=== PATIENT | female | born 1960 | race Caucasian/White ===

== ENCOUNTER 2017-07-31 15:39 | Inpatient (IN) | payer MEDICARE, OTHER ==
[2017-07-31] MEDS ORDERED: traMADol 50 MG TAB PO PRN (16:07)
[2017-07-31] MEDS ORDERED: ALPRAZolam 0.5 MG TAB PO PRN (16:07)
[2017-07-31] MEDS: IPRATROPIUM-ALBUTEROL 3 ML NEB INHALATION SCH ×2 (16:36→21:11)
[2017-07-31 16:58] LABS: Basophils # (A) 0.1 k/uL (0-0.2); Basophils % (A) 1 %; Eosinophils # (A) 0.1 k/uL (0-0.7); Eosinophils % (A) 1 %; HCT 44.8 % (34.0-46.0); Hypochromasia Slight; Lymphocytes # (A) 4.1 k/uL (1.0-4.8); Lymphocytes % (A) 33 %; MCH 29.8 pg (25.0-35.0); MCHC 31.2 g/dL (31.0-37.0); MCV 95.6 fL (80.0-100.0); Mean Platelet Volume 6.7; Monocytes # (A) 0.7 k/uL (0-1.0); Monocytes % (A) 5 %; Neutrophils # (A) 7.4 k/uL (1.3-7.7); Neutrophils % (A) 60 %; Platelet Count 395 k/uL (150-450); RBC 4.69 m/uL (3.80-5.40); RDW 13.8 % (11.5-15.5); WBC 12.4 k/uL (3.8-10.6)
[2017-07-31 17:10] LABS: ALT 40 U/L (9-52); AST 34 U/L (14-36); Albumin 4.4 g/dL (3.5-5.0); Alkaline Phosphatase 54 U/L (38-126); Anion Gap 14 mmol/L; Blood Urea Nitrogen 19 mg/dL (7-17); Calcium 9.6 mg/dL (8.4-10.2); Carbon Dioxide 29 mmol/L (22-30); Chloride 98 mmol/L (98-107); Glucose 138 mg/dL (74-99); Potassium 4.5 mmol/L (3.5-5.1); Sodium 141 mmol/L (137-145); Theophylline <1.0 ug/mL; Total Bilirubin 0.5 mg/dL (0.2-1.3); Total Protein 7.4 g/dL (6.3-8.2)
[2017-07-31] MEDS: PANTOPRAZOLE 40 MG TABLET PO SCH (17:19)
[2017-07-31] MEDS: cefTRIAXone IN SWFI 1,000 MG/10 ML SYRINGE IVP SCH (17:19)
[2017-07-31] MEDS: FUROSEMIDE 20 MG TAB PO SCH (17:19)
[2017-07-31] MEDS: ENOXAPARIN 40 MG/0.4 ML SYRINGE SQ SCH (17:20)
[2017-07-31] MEDS: AZITHROMYCIN 500 MG TAB PO SCH (17:20)
[2017-07-31] MEDS: methylPREDNISolone SOD SUCCI 125 MG/2 ML VIAL IV SCH ×2 (17:20→23:05)
[2017-07-31 17:31] LABS: Glucose,Whole Blood 114 mg/dL (75-99)
[2017-07-31] MEDS: INSULIN ASPART 100 UNIT/ML 1 ML 10 ML VIAL SQ SCH ×2 (17:34→21:25)
[2017-07-31] MEDS: SODIUM CHLORIDE 0.9% 1,000 ML IV SCH (17:42)
[2017-07-31 20:53] LABS: Glucose,Whole Blood 193 mg/dL (75-99)
[2017-07-31] MEDS: SYMBICORT 160-4.5 MCG INHALER INHALATION SCH (21:11)
[2017-07-31] MEDS: CYCLOBENZAPRINE 10 MG TAB PO SCH (21:25)
[2017-07-31] MEDS: THEOPHYLLINE 24 HOUR 300 MG CAP.ER.24H PO SCH (21:25)
[2017-08-01] MEDS: IPRATROPIUM-ALBUTEROL 3 ML NEB INHALATION PRN ×2 (00:46→04:35)
[2017-08-01 03:40] LABS: Hemoglobin A1C 6.5 % (4.0-6.0)
[2017-08-01] MEDS: methylPREDNISolone SOD SUCCI 125 MG/2 ML VIAL IV SCH ×3 (05:55→18:19)
[2017-08-01 07:38] LABS: Glucose,Whole Blood 205 mg/dL (75-99)
[2017-08-01] MEDS: SYMBICORT 160-4.5 MCG INHALER INHALATION SCH ×2 (07:45→19:50)
[2017-08-01] MEDS: IPRATROPIUM-ALBUTEROL 3 ML NEB INHALATION SCH ×4 (07:45→19:50)
[2017-08-01] MEDS: INSULIN ASPART 100 UNIT/ML 1 ML 10 ML VIAL SQ SCH ×4 (08:10→21:57)
[2017-08-01] MEDS: GLIMEPIRIDE 4 MG TAB PO SCH (08:10)
[2017-08-01] MEDS: ENOXAPARIN 40 MG/0.4 ML SYRINGE SQ SCH (08:11)
[2017-08-01] MEDS: FUROSEMIDE 20 MG TAB PO SCH (08:11)
[2017-08-01] MEDS: THEOPHYLLINE 24 HOUR 300 MG CAP.ER.24H PO SCH ×2 (08:11→21:51)
[2017-08-01] MEDS: PANTOPRAZOLE 40 MG TABLET PO SCH (08:11)
[2017-08-01] MEDS: SPIRONOLACTONE 25 MG TAB PO SCH (08:11)
[2017-08-01] MEDS: LISINOPRIL-HCTZ 20-25 MG 1 EACH TAB PO SCH (08:11)
[2017-08-01] MEDS: CYCLOBENZAPRINE 10 MG TAB PO SCH ×3 (08:12→21:51)
[2017-08-01] MEDS: PIOGLITAZONE 30 MG TAB PO SCH (08:28)
--- NOTE | 2017-08-01 11:20 | P.CNPUL ---
History of Present Illness Consult date: 08/01/17 Reason for consult: dyspnea, cough, COPD, hypoxemia Chief complaint: Shortness of breath History of present illness: Consult dated 08/01/2017 This is a 57-year-old female well-known to me. I typically see her up with a [place] clinic. She sees a nurse practitioner slashed PA up in that area by the name of Radha Shea. She apparently is been seeing her primary care provider here over the last week or so. Treated with some small doses of steroids antibiotics and a Depo-Medrol shot. Unfortunately, she did not improve and so she saw my partner yesterday in the office who admitted her with a diagnosis of possible pneumonia. I reviewed the chest x-ray. Chest x-ray my opinion doesn't really showed pneumonia but does show maybe some platelike atelectasis at the right base. Anyway, it doesn't make much of a difference. She does have a clearcut COPD exacerbation and probably has an infection. She is coughing up yellow phlegm. No fever no chills. Very short of breath. Some wheezing. Anyway, we treat these things very similarly. She'll be on steroids antibiotics and breathing treatments. She is feeling a bit better today than yesterday. She states that one of the reasons why she did not improve when she saw her primary critical care nurse, was because she only got prednisone 20 mg a day. Typically she is a 40-50 mg a day. Jie was sent down for a lung transplant evaluation to [facility]. I'm not sure whether that. In addition, she did stop smoking. She is oxygen dependent. She is steroid dependent as well. Review of Systems A 12 point review of systems is positive for shortness of breath chest congestion coughing wheezing. She is coughing up yellow-green phlegm. Not coughing up any blood. No fever or chills. The rest of the review of systems is unremarkable. Past Medical History Past Medical History: Asthma, Chest Pain / Angina, Heart Failure, COPD, Diabetes Mellitus, GERD/Reflux, Hypertension, Osteoarthritis (OA), Pulmonary Embolus (PE), Renal Disease, Sleep Apnea/CPAP/BIPAP Additional Past Medical History / Comment(s): Advanced oxygen-dependent COPD , severe obstructive sleep apnea maintained on BiPAP at a pressure of 22/80 cm of water, chronic hypoxic respiratory failure maintained on oxygen 2 liters nasal cannula(4 at hs), NIDDM type II, DJD, low back pain which radiates down L hip and L leg at times, viral myocarditis, hypertension, morbid obesity with cushingoid features, generalized anxiety disorder, ocd. History of Any Multi-Drug Resistant Organisms: None Reported Past Surgical History: Adenoidectomy, Cholecystectomy, Heart Catheterization, Orthopedic Surgery, Tonsillectomy, Tubal Ligation Additional Past Surgical History / Comment(s): L hand 3rd finger tendon repair, D&C, carpal tunnel left hand, Past Anesthesia/Blood Transfusion Reactions: No Reported Reaction Smoking Status: Former smoker - Past Family History Father Family Medical History: No Reported History Additional Family Medical History / Comment(s): Father was an alcoholic. He at the age of 58yrs. Mother Family Medical History: No Reported History Additional Family Medical History / Comment(s): Mother of alcoholism at the age of 63 yrs. Medications and Allergies Home Medications Medication Instructions Recorded Confirmed Type Lisinopril-Hctz 20-25 mg 1 tab PO DAILY 09/09/14 07/31/17 History [Zestoretic 20-25] Spironolactone 50 mg PO DAILY 09/09/14 07/31/17 History ALPRAZolam [Xanax] 0.5 mg PO Q6H PRN 09/23/14 07/31/17 History Metoprolol Tartrate [Lopressor] 25 mg PO BID 10/31/14 07/31/17 History metFORMIN HCL [Glucophage] 500 mg PO BID-W/MEALS 10/31/14 07/31/17 History Furosemide [Lasix] 40 mg PO BID 03/30/15 07/31/17 History Fluticasone/Salmeterol [Advair Hfa 2 puff INHALATION RT-BID 02/01/16 07/31/17 History 230-21 Mcg Inhaler] Dexlansoprazole [Dexilant] 60 mg PO DAILY 07/31/17 07/31/17 History Glimepiride [Amaryl] 4 mg PO AC-BRKFST 07/31/17 07/31/17 History Ipratropium-Albuterol Nebulize 3 ml INHALATION RT-Q4H PRN 07/31/17 07/31/17 History [Duoneb 0.5 mg-3 mg/3 ml Soln] Pioglitazone HCl [Actos] 30 mg PO DAILY 07/31/17 07/31/17 History Potassium Chloride [Klor-Con 20] 20 meq PO DAILY 07/31/17 07/31/17 History predniSONE 10 mg PO DAILY 07/31/17 07/31/17 History Allergies Allergy/AdvReac Type Severity Reaction Status Date / Time budesonide [From Pulmicort] AdvReac Wheezing Verified 07/31/17 16:15 Physical Exam Osteopathic Statement: *. No significant issues noted on an osteopathic structural exam other than those noted in the History and Physical/Consult. Vitals: Vital Signs Temp Pulse Pulse Resp BP BP Pulse Ox 08/01/17 08:01 100 08/01/17 07:50 96 92 L 08/01/17 07:00 97.7 F 94 18 125/75 95 08/01/17 04:46 104 H 08/01/17 04:35 108 H 08/01/17 00:59 104 H 08/01/17 00:46 108 H 07/31/17 23:00 97.7 F 98 18 133/73 94 L 07/31/17 21:21 111 H 07/31/17 21:11 110 H 18 95 07/31/17 16:46 113 H 07/31/17 16:36 113 H 20 07/31/17 15:55 97.1 F L 117 H 18 122/72 91 L Intake and Output 07/31/17 08/01/17 08/01/17 22:59 06:59 14:59 Other: # Voids 2 2 Weight 91.3 kg 94 kg No acute distress, oriented 3. Nasal O2 in place. She does have a bit of a reis facies insistent with chronic steroid use. HEENT examination is grossly unremarkable. Mucous membranes are moist. No oral lesions. Neck supple. Full range of motion. No adenopathy thyromegaly or neck vein distention. Cardiovascular examination reveals regular rhythm rate. S1-S2 normal. No S3 or S4. No discernible murmur noted. Heart sounds are distant because of body habitus Lungs reveal severely diminished breath sounds. This some expiratory wheezes and rhonchi. There is prolongation on forced maneuver. Adventitious lung sounds are more prominent on forced maneuver. Abdomen soft bowel sounds are heard. No masses or tenderness. Extremities are intact. No cyanosis clubbing or edema. Skin is without rash or lesion. Neurologic examination is brief but nonfocal. Results - Laboratory Findings CBC and BMP: 07/31/17 16:36 07/31/17 16:36 Abnormal lab findings: Abnormal Labs 07/31/17 07/31/17 07/31/17 16:36 16:36 16:36 WBC 12.4 H BUN 19 H Glucose 138 H POC Glucose (mg/dL) Hemoglobin A1c 6.5 H 07/31/17 07/31/17 08/01/17 17:28 20:51 07:32 WBC BUN Glucose POC Glucose (mg/dL) 114 H 193 H 205 H Hemoglobin A1c - Diagnostic Findings Chest x-ray: image reviewed (Chest x-ray labs and medications are all reviewed. Orders are placed by my partner.) Assessment and Plan Assessment: Assessment COPD exacerbation complicated by purulent tracheobronchitis. There is a band of linear atelectasis at the right lung base which may represent an early infiltrate. History of heavy tobacco abuse Diabetes mellitus Hypertension Obesity Cor pulmonale with pulmonary hypertension Multiple COPD exacerbations Oxygen and steroid dependent COPD Plan: Plan dated 08/01/2017 The patient seemed be doing a bit better. Started on appropriate medications by my partner yesterday. She is on breathing treatments steroids and good antibiotics. The patient is feeling much better. Feels like her breathing is really loosened up quite a bit. I told her that she should probably stay in the hospital 1 more day at least. Anyway, the hospitalist we'll make a decision about discharge with my recommendation. I'll make sure that I see her in follow-up. I was to see her in the [place] on Monday but because of the change in the schedule, she'll be rescheduled to see me in the clinic. No additional recommendations are made. We'll continue to follow. Prognosis is guarded. Hopefully she'll continue with the evaluation for lung transplantation at [facility]. Time with Patient: Greater than 30
[2017-08-01 11:45] LABS: Basophils % (A) 0 %; Eosinophils % (A) 0 %; HCT 43.3 % (34.0-46.0); HGB 13.4 gm/dL (11.4-16.0); Hypochromasia Slight; Lymphocytes # (A) 1.6 k/uL (1.0-4.8); Lymphocytes % (A) 13 %; MCH 29.4 pg (25.0-35.0); MCHC 30.9 g/dL (31.0-37.0); MCV 95.1 fL (80.0-100.0); Mean Platelet Volume 6.4; Monocytes # (A) 0.3 k/uL (0-1.0); Monocytes % (A) 2 %; Neutrophils # (A) 10.8 k/uL (1.3-7.7); Neutrophils % (A) 84 %; Platelet Count 393 k/uL (150-450); RBC 4.55 m/uL (3.80-5.40); RDW 13.6 % (11.5-15.5); WBC 12.8 k/uL (3.8-10.6)
[2017-08-01 12:04] LABS: Anion Gap 15 mmol/L; Blood Urea Nitrogen 17 mg/dL (7-17); Calcium 10.2 mg/dL (8.4-10.2); Carbon Dioxide 24 mmol/L (22-30); Chloride 98 mmol/L (98-107); Glucose 193 mg/dL (74-99); Potassium 4.2 mmol/L (3.5-5.1); Sodium 137 mmol/L (137-145)
[2017-08-01 12:10] LABS: Glucose,Whole Blood 159 mg/dL (75-99)
--- NOTE | 2017-08-01 12:38 | P.HPIM ---
History of Present Illness H&P Date: 08/01/17 Chief Complaint: Cough with worsening shortness of breath This is a 57-year-old female with a known past medical history of COPD, chronic respiratory failure home O2 dependent, congestive heart failure, GERD, hypertension, diabetes and generalized anxiety disorder. Patient has been dealing with a productive cough and shortness of breath 1-1/2 weeks. She reports that she had initially been to see her PCP and was started on prednisone and an antibiotic and given a dose of IV steroids in the office. Patient's symptoms did not improve and she went to see electronic systems security assessment yesterday. Patient was evaluated by Dr. Gardner and he recommended that she be admitted to the hospital. Patient was therefore directly admitted and placed under Dr. Martinez surface. She's been started on IV steroids and on IV antibiotics for possible pneumonia and COPD exacerbation. White count on admission 12.4. She has been tachycardic with a heart rate in the low 100s. Chest x-ray shows chronic emphysematous change and mild cardiomegaly was stable to right basilar linear atelectasis. Patient denies any fever chills or sweats. Denies any nausea or vomiting. Denies any bowel movement changes or urinary symptoms. Denies any chest pain Review of Systems Please refer to HPI otherwise unremarkable Past Medical History Past Medical History: Asthma, Chest Pain / Angina, Heart Failure, COPD, Diabetes Mellitus, GERD/Reflux, Hypertension, Osteoarthritis (OA), Pulmonary Embolus (PE), Renal Disease, Sleep Apnea/CPAP/BIPAP Additional Past Medical History / Comment(s): Advanced oxygen-dependent COPD , severe obstructive sleep apnea maintained on BiPAP at a pressure of 22/80 cm of water, chronic hypoxic respiratory failure maintained on oxygen 2 liters nasal cannula(4 at hs), NIDDM type II, DJD, low back pain which radiates down L hip and L leg at times, viral myocarditis, hypertension, morbid obesity with cushingoid features, generalized anxiety disorder, ocd. History of Any Multi-Drug Resistant Organisms: None Reported Past Surgical History: Adenoidectomy, Cholecystectomy, Heart Catheterization, Orthopedic Surgery, Tonsillectomy, Tubal Ligation Additional Past Surgical History / Comment(s): L hand 3rd finger tendon repair, D&C, carpal tunnel left hand, Past Anesthesia/Blood Transfusion Reactions: No Reported Reaction Smoking Status: Former smoker - Past Family History Father Family Medical History: No Reported History Additional Family Medical History / Comment(s): Father was an alcoholic. He at the age of 58yrs. Mother Family Medical History: No Reported History Additional Family Medical History / Comment(s): Mother of alcoholism at the age of 63 yrs. Medications and Allergies Home Medications Medication Instructions Recorded Confirmed Type Lisinopril-Hctz 20-25 mg 1 tab PO DAILY 09/09/14 07/31/17 History [Zestoretic 20-25] Spironolactone 50 mg PO DAILY 09/09/14 07/31/17 History ALPRAZolam [Xanax] 0.5 mg PO Q6H PRN 09/23/14 07/31/17 History Metoprolol Tartrate [Lopressor] 25 mg PO BID 10/31/14 07/31/17 History metFORMIN HCL [Glucophage] 500 mg PO BID-W/MEALS 10/31/14 07/31/17 History Furosemide [Lasix] 40 mg PO BID 03/30/15 07/31/17 History Fluticasone/Salmeterol [Advair Hfa 2 puff INHALATION RT-BID 02/01/16 07/31/17 History 230-21 Mcg Inhaler] Dexlansoprazole [Dexilant] 60 mg PO DAILY 07/31/17 07/31/17 History Glimepiride [Amaryl] 4 mg PO AC-BRKFST 07/31/17 07/31/17 History Ipratropium-Albuterol Nebulize 3 ml INHALATION RT-Q4H PRN 07/31/17 07/31/17 History [Duoneb 0.5 mg-3 mg/3 ml Soln] Pioglitazone HCl [Actos] 30 mg PO DAILY 07/31/17 07/31/17 History Potassium Chloride [Klor-Con 20] 20 meq PO DAILY 07/31/17 07/31/17 History predniSONE 10 mg PO DAILY 07/31/17 07/31/17 History Allergies Allergy/AdvReac Type Severity Reaction Status Date / Time budesonide [From Pulmicort] AdvReac Wheezing Verified 07/31/17 16:15 Physical Exam Vitals: Vital Signs Temp Pulse Pulse Resp BP BP Pulse Ox 08/01/17 11:43 102 H 08/01/17 11:28 102 H 08/01/17 08:01 100 08/01/17 07:50 96 92 L 08/01/17 07:00 97.7 F 94 18 125/75 95 08/01/17 04:46 104 H 08/01/17 04:35 108 H 08/01/17 00:59 104 H 08/01/17 00:46 108 H 07/31/17 23:00 97.7 F 98 18 133/73 94 L 07/31/17 21:21 111 H 07/31/17 21:11 110 H 18 95 07/31/17 16:46 113 H 07/31/17 16:36 113 H 20 07/31/17 15:55 97.1 F L 117 H 18 122/72 91 L Intake and Output 07/31/17 08/01/17 08/01/17 22:59 06:59 14:59 Other: # Voids 2 2 Weight 91.3 kg 94 kg Head normocephalic Neck supple Lungs tight with diffuse expiratory wheeze Heart regular rate and rhythm S1-S2, no rub or gallop Abdomen is soft nontender nondistended positive bowel sounds no hepatosplenomegaly Extremities no edema Neuro alert and orientated to 3 Results CBC & Chem 7: 08/01/17 11:19 08/01/17 11:19 Labs: Abnormal Lab Results - Last 24 Hours (Table) 07/31/17 07/31/17 07/31/17 Range/Units 16:36 16:36 16:36 WBC 12.4 H (3.8-10.6) k/uL MCHC (31.0-37.0) g/dL Neutrophils # (1.3-7.7) k/uL BUN 19 H (7-17) mg/dL Glucose 138 H (74-99) mg/dL POC Glucose (mg/dL) (75-99) mg/dL Hemoglobin A1c 6.5 H (4.0-6.0) % 07/31/17 07/31/17 08/01/17 Range/Units 17:28 20:51 07:32 WBC (3.8-10.6) k/uL MCHC (31.0-37.0) g/dL Neutrophils # (1.3-7.7) k/uL BUN (7-17) mg/dL Glucose (74-99) mg/dL POC Glucose (mg/dL) 114 H 193 H 205 H (75-99) mg/dL Hemoglobin A1c (4.0-6.0) % 08/01/17 08/01/17 08/01/17 Range/Units 11:19 11:19 12:08 WBC 12.8 H (3.8-10.6) k/uL MCHC 30.9 L (31.0-37.0) g/dL Neutrophils # 10.8 H (1.3-7.7) k/uL BUN (7-17) mg/dL Glucose 193 H (74-99) mg/dL POC Glucose (mg/dL) 159 H (75-99) mg/dL Hemoglobin A1c (4.0-6.0) % Thrombosis Risk Factor Assmnt - Choose All That Apply Any of the Below Risk Factors Present?: Yes Each Factor Represents 1 point: Abnormal pulmonary function (COPD), Age 41-60 years, Obesity (BMI >25), Serious lung disease incl. pneumonia (< 1month) Other Risk Factors: Yes Each Risk Factor Represents 3 Points: History of DVT/PE Other congenital or acquired thrombophilia - If yes, enter type in comment: No Thrombosis Risk Factor Assessment Total Risk Factor Score: 7 Thrombosis Risk Factor Assessment Level: High Risk Assessment and Plan Assessment: 1. Acute COPD exacerbation: Continue IV Solu-Medrol and bronchodilators. Seen by pulmonary service 2. Acute tracheobronchitis: failed outpatient treatment. No evidence of pneumonia on chest x-ray. Chest x-ray shows atelectasis right base. Started on Rocephin and azithromycin. Influenza screen negative 3. Diabetes mellitus type 2 : Continue Amaryl , Actos and sliding scale coverage 4. History of nicotine dependence 5. Generalized anxiety disorder: Continue Xanax 6. Essential hypertension: Continue Zestoretic 7. Chronic hypoxic respiratory failure. Home O2 dependent 8. Tachycardia likely related to her COPD. Heart rate is improving. However will check an EKG and place on telemetry for further monitoring 9. History of cor pulmonale and pulmonary hypertension DVT prophylaxis Lovenox and GI prophylaxis Protonix Time with Patient: Greater than 30 (Greater than 50% of the total time spent in counseling and coordination of care.I performed an examination of the patient and discussed their management with the physician Lead Warehouse Associate. I have reviewed the Physician Lead Warehouse Associate's notes and agree with the documented findings and plan of care)
[2017-08-01 13:22] VITALS: BMI 37.9
[2017-08-01] MEDS: cefTRIAXone IN SWFI 1,000 MG/10 ML SYRINGE IVP SCH (15:00)
[2017-08-01] MEDS: AZITHROMYCIN 500 MG TAB PO SCH (15:00)
[2017-08-01] MEDS: SODIUM CHLORIDE 0.9% 1,000 ML IV SCH (15:10)
[2017-08-01 17:25] LABS: Glucose,Whole Blood 229 mg/dL (75-99)
[2017-08-01 21:00] LABS: Glucose,Whole Blood 212 mg/dL (75-99)
[2017-08-02] MEDS: methylPREDNISolone SOD SUCCI 125 MG/2 ML VIAL IV SCH ×3 (00:44→13:03)
[2017-08-02 07:04] LABS: Glucose,Whole Blood 222 mg/dL (75-99)
[2017-08-02] MEDS: IPRATROPIUM-ALBUTEROL 3 ML NEB INHALATION SCH ×3 (07:37→15:36)
[2017-08-02] MEDS: SYMBICORT 160-4.5 MCG INHALER INHALATION SCH (07:37)
[2017-08-02 08:21] VITALS: BP 132/90; RESP 20; TEMP 96.9
[2017-08-02] MEDS: ENOXAPARIN 40 MG/0.4 ML SYRINGE SQ SCH (08:26)
[2017-08-02] MEDS: SPIRONOLACTONE 25 MG TAB PO SCH (08:26)
[2017-08-02] MEDS: INSULIN ASPART 100 UNIT/ML 1 ML 10 ML VIAL SQ SCH ×2 (08:26→11:33)
[2017-08-02] MEDS: LISINOPRIL-HCTZ 20-25 MG 1 EACH TAB PO SCH (08:27)
[2017-08-02] MEDS: FUROSEMIDE 20 MG TAB PO SCH (08:27)
[2017-08-02] MEDS: CYCLOBENZAPRINE 10 MG TAB PO SCH (08:27)
[2017-08-02] MEDS: PANTOPRAZOLE 40 MG TABLET PO SCH (08:27)
[2017-08-02] MEDS: GLIMEPIRIDE 4 MG TAB PO SCH (08:27)
[2017-08-02] MEDS: PIOGLITAZONE 30 MG TAB PO SCH (08:27)
[2017-08-02] MEDS: THEOPHYLLINE 24 HOUR 300 MG CAP.ER.24H PO SCH (08:27)
[2017-08-02] MEDS ORDERED: METOPROLOL TARTRATE 25 MG TAB PO SCH (09:00)
[2017-08-02 09:12] LABS: Basophils % (A) 0 %; Eosinophils % (A) 0 %; HCT 40.2 % (34.0-46.0); HGB 12.7 gm/dL (11.4-16.0); Lymphocytes # (A) 1.4 k/uL (1.0-4.8); Lymphocytes % (A) 9 %; MCH 29.6 pg (25.0-35.0); MCHC 31.6 g/dL (31.0-37.0); MCV 93.7 fL (80.0-100.0); Mean Platelet Volume 6.4; Monocytes # (A) 0.3 k/uL (0-1.0); Monocytes % (A) 2 %; Neutrophils % (A) 88 %; Platelet Count 395 k/uL (150-450); RBC 4.29 m/uL (3.80-5.40); RDW 13.6 % (11.5-15.5); WBC 14.7 k/uL (3.8-10.6)
[2017-08-02 09:29] LABS: ALT 37 U/L (9-52); AST 22 U/L (14-36); Albumin 4.1 g/dL (3.5-5.0); Alkaline Phosphatase 53 U/L (38-126); Anion Gap 15 mmol/L; Blood Urea Nitrogen 19 mg/dL (7-17); Calcium 9.4 mg/dL (8.4-10.2); Carbon Dioxide 24 mmol/L (22-30); Chloride 97 mmol/L (98-107); Glucose 245 mg/dL (74-99); Potassium 4.5 mmol/L (3.5-5.1); Sodium 136 mmol/L (137-145); Total Bilirubin 0.4 mg/dL (0.2-1.3); Total Protein 6.4 g/dL (6.3-8.2)
[2017-08-02 11:46] LABS: Glucose,Whole Blood 127 mg/dL (75-99)
--- NOTE | 2017-08-02 12:22 | P.PN ---
Subjective Progress Note Date: 08/02/17 Principal diagnosis: COPD exacerbation complicated by purulent tracheobronchitis This is a 57-year-old female well-known to me. I typically see her up with a [place] clinic. She sees a nurse practitioner tanvi dudley in that area by the name of Radha Shea. She apparently is been seeing her primary care provider here over the last week or so. Treated with some small doses of steroids antibiotics and a Depo-Medrol shot. Unfortunately, she did not improve and so she saw my partner yesterday in the office who admitted her with a diagnosis of possible pneumonia. I reviewed the chest x-ray. Chest x-ray my opinion doesn't really showed pneumonia but does show maybe some platelike atelectasis at the right base. Anyway, it doesn't make much of a difference. She does have a clearcut COPD exacerbation and probably has an infection. She is coughing up yellow phlegm. No fever no chills. Very short of breath. Some wheezing. Anyway, we treat these things very similarly. She'll be on steroids antibiotics and breathing treatments. She is feeling a bit better today than yesterday. She states that one of the reasons why she did not improve when she saw her primary care transition manager, was because she only got prednisone 20 mg a day. Typically she is a 40-50 mg a day. Jie was sent down for a lung transplant evaluation to [facility]. I'm not sure whether that. In addition, she did stop smoking. She is oxygen dependent. She is steroid dependent as well. On 08/02/2017 patient seen in follow-up on medical surgical floor. Doing very well. She reports improvement in her overall condition, less dyspnea, less coughing. Vital signs are stable, she remains on 2 L per nasal cannula with O2 sats 96%. She remains on combination of azithromycin and Rocephin, nebulized treatments and Symbicort. Continues on IV Solu-Medrol. Lung sounds today are positive for a few rales, but no wheezes, no rhonchi. Patient has been up ambulating. She has been wearing her CPAP at night, and her home settings of 17 cm of water with 4 L of oxygen at nighttime, and 2 L per nasal cannula during the day. From pulmonary standpoint she is stable for discharge home today. Objective - Vital Signs Vital signs: Vital Signs Temp 96.9 F L 08/02/17 07:00 Pulse 88 08/02/17 12:06 Resp 20 08/02/17 07:00 BP 132/90 08/02/17 07:00 Pulse Ox 96 08/02/17 07:00 Intake & Output 08/01/17 08/02/17 08/02/17 18:59 06:59 18:59 Intake Total 340 Balance 340 Weight 94 kg 94.5 kg Intake: Intake, IV Titration 100 Amount Sodium Chloride 0.9% 1, 100 000 ml @ 20 mls/hr IV . Q24H HERBERT Rx#:[id number] Oral 240 Other: Voiding Method Toilet # Voids 3 2 - Exam No acute distress, oriented 3. Nasal O2 in place. She does have a bit of a reis facies consistent with chronic steroid use. HEENT examination is grossly unremarkable. Mucous membranes are moist. No oral lesions. Neck supple. Full range of motion. No adenopathy thyromegaly or neck vein distention. Cardiovascular examination reveals regular rhythm rate. S1-S2 normal. No S3 or S4. No discernible murmur noted. Heart sounds are distant because of body habitus Lungs reveal severely diminished breath sounds. A few scattered rales but no wheezes or rhonchi. There is prolongation on forced maneuver. Adventitious lung sounds are more prominent on forced maneuver. Abdomen soft bowel sounds are heard. No masses or tenderness. Extremities are intact. No cyanosis clubbing or edema. Skin is without rash or lesion. Neurologic examination is brief but nonfocal. - Labs CBC & Chem 7: 08/02/17 08:37 08/02/17 08:37 Labs: Abnormal Lab Results - Last 24 Hours (Table) 08/01/17 08/01/17 08/01/17 Range/Units 11:19 17:12 20:58 WBC (3.8-10.6) k/uL Neutrophils # (1.3-7.7) k/uL Sodium (137-145) mmol/L Chloride (98-107) mmol/L BUN (7-17) mg/dL Glucose 193 H (74-99) mg/dL POC Glucose (mg/dL) 229 H 212 H (75-99) mg/dL 08/02/17 08/02/17 08/02/17 Range/Units 07:01 08:37 08:37 WBC 14.7 H (3.8-10.6) k/uL Neutrophils # 13.0 H (1.3-7.7) k/uL Sodium 136 L (137-145) mmol/L Chloride 97 L (98-107) mmol/L BUN 19 H (7-17) mg/dL Glucose 245 H (74-99) mg/dL POC Glucose (mg/dL) 222 H (75-99) mg/dL 08/02/17 Range/Units 11:24 WBC (3.8-10.6) k/uL Neutrophils # (1.3-7.7) k/uL Sodium (137-145) mmol/L Chloride (98-107) mmol/L BUN (7-17) mg/dL Glucose (74-99) mg/dL POC Glucose (mg/dL) 127 H (75-99) mg/dL Microbiology - Last 24 Hours (Table) 07/31/17 18:39 Blood Culture - Preliminary Blood No Growth after 24 hours 07/31/17 16:36 Blood Culture - Preliminary Blood No Growth after 24 hours 07/31/17 19:30 Gram Stain - Preliminary Sputum Assessment and Plan Plan: Assessment: COPD exacerbation complicated by purulent tracheobronchitis. There is a band of linear atelectasis at the right lung base which may represent an early infiltrate. History of heavy tobacco abuse Diabetes mellitus Hypertension Obesity Cor pulmonale with pulmonary hypertension Multiple COPD exacerbations Oxygen and steroid dependent COPD Plan: Patient continues to improve, tolerating ambulation, microbiology remains negative thus far. No febrile episodes in the last 24 hours, vital signs are stable. From pulmonary standpoint she is stable for discharge home today, she will need to finish her outpatient course of Zithromax and Ceftin, prednisone taper, and she can go back on her maintenance inhalers and nebulizers. She will need a follow-up appointment with Dr. Felix in the office in one week. I performed a history & physical examination of the patient and discussed their management with my nurse practitioner, Rand Gillis. I reviewed the nurse practitioner's note and agree with the documented findings and plan of care. Lung sounds are positive for a few scattered rales. The findings and the impression was discussed with the patient. I attest to the documentation by the nurse practitioner. Time with Patient: Less than 30
--- NOTE | 2017-08-02 14:55 | P.DS ---
Providers Date of admission: 07/31/17 15:39 Expected date of discharge: 08/02/17 Attending physician: Sandy Martinez Consults: 07/31/17 16:01 Consult Physician Routine Consulting Provider: Grant Felix Consult Reason/Comments: COPD exac., right lower lobe pneumonia Do you want consulting provider notified?: Yes Primary care physician: Stated None Hospital Course: Diagnoses on discharge: 1. Acute COPD exacerbation: Continue IV Solu-Medrol and bronchodilators. Seen by pulmonary service 2. Acute tracheobronchitis: failed outpatient treatment. No evidence of pneumonia on chest x-ray. Chest x-ray shows atelectasis right base. Started on Rocephin and azithromycin. Influenza screen negative 3. Diabetes mellitus type 2 : Continue Amaryl , Actos and sliding scale coverage 4. History of nicotine dependence, length during this admission regarding smoking cessation counseling more than 10 minutes 5. Generalized anxiety disorder: Continue Xanax 6. Essential hypertension: Continue Zestoretic 7. Chronic hypoxic respiratory failure. Home O2 dependent 8. Tachycardia likely related to her COPD. Heart rate is improving. However will check an EKG and place on telemetry for further monitoring 9. History of cor pulmonale and pulmonary hypertension Hospital course: This is a 57-year-old female with a known past medical history of COPD, chronic respiratory failure home O2 dependent, congestive heart failure, GERD, hypertension, diabetes and generalized anxiety disorder. Patient has been dealing with a productive cough and shortness of breath 1-1/2 weeks. She reports that she had initially been to see her PCP and was started on prednisone and an antibiotic and given a dose of IV steroids in the office. Patient's symptoms did not improve and she went to see sewing machine attachment tester yesterday. Patient was evaluated by Dr. Gardner and he recommended that she be admitted to the hospital. Patient was therefore directly admitted and placed under Dr. Martinez surface. She's been started on IV steroids and on IV antibiotics for possible pneumonia and COPD exacerbation. White count on admission 12.4. She has been tachycardic with a heart rate in the low 100s. Chest x-ray shows chronic emphysematous change and mild cardiomegaly was stable to right basilar linear atelectasis. Patient denies any fever chills or sweats. Denies any nausea or vomiting. Denies any bowel movement changes or urinary symptoms. Denies any chest pain. Patient was placed on IV steroids and IV antibiotics she improved she was seen on 08/02/[address] sewing machine attachment tester [address] Felix, she was switched to oral antibiotic and oral steroids and was discharged home with follow-up with her primary care physician within one week Plan - Discharge Summary Discharge Rx Participant: No New Discharge Prescriptions: New Cefuroxime Axetil [Ceftin] 500 mg PO BID 14 Days #7 tab predniSONE 10 mg PO DAILY 16 Days #40 tab Azithromycin [Zithromax] 500 mg PO DAILY 3 Days #3 tab Theophylline 24 Hour [Bobo-24] 300 mg PO Q12HR cap.er.24h Continue Lisinopril-Hctz 20-25 mg [Zestoretic 20-25] 1 tab PO DAILY Spironolactone 50 mg PO DAILY ALPRAZolam [Xanax] 0.5 mg PO Q6H PRN PRN Reason: Anxiety metFORMIN HCL [Glucophage] 500 mg PO BID-W/MEALS Metoprolol Tartrate [Lopressor] 25 mg PO BID Furosemide [Lasix] 40 mg PO BID Fluticasone/Salmeterol [Advair Hfa 230-21 Mcg Inhaler] 2 puff INHALATION RT- BID Pioglitazone HCl [Actos] 30 mg PO DAILY Dexlansoprazole [Dexilant] 60 mg PO DAILY Potassium Chloride [Klor-Con 20] 20 meq PO DAILY Glimepiride [Amaryl] 4 mg PO AC-BRKFST predniSONE 10 mg PO DAILY Ipratropium-Albuterol Nebulize [Duoneb 0.5 mg-3 mg/3 ml Soln] 3 ml INHALATION RT-Q4H PRN PRN Reason: Shortness Of Breath Discharge Medication List Lisinopril-Hctz 20-25 mg [Zestoretic 20-25] 1 tab PO DAILY 09/09/14 [History] Spironolactone 50 mg PO DAILY 09/09/14 [History] ALPRAZolam [Xanax] 0.5 mg PO Q6H PRN 09/23/14 [History] Metoprolol Tartrate [Lopressor] 25 mg PO BID 10/31/14 [History] metFORMIN HCL [Glucophage] 500 mg PO BID-W/MEALS 10/31/14 [History] Furosemide [Lasix] 40 mg PO BID 03/30/15 [History] Fluticasone/Salmeterol [Advair Hfa 230-21 Mcg Inhaler] 2 puff INHALATION RT-BID 02/01/16 [History] Dexlansoprazole [Dexilant] 60 mg PO DAILY 07/31/17 [History] Glimepiride [Amaryl] 4 mg PO AC-BRKFST 07/31/17 [History] Ipratropium-Albuterol Nebulize [Duoneb 0.5 mg-3 mg/3 ml Soln] 3 ml INHALATION RT -Q4H PRN 07/31/17 [History] Pioglitazone HCl [Actos] 30 mg PO DAILY 07/31/17 [History] Potassium Chloride [Klor-Con 20] 20 meq PO DAILY 07/31/17 [History] predniSONE 10 mg PO DAILY 07/31/17 [History] Azithromycin [Zithromax] 500 mg PO DAILY 3 Days #3 tab 08/02/17 [Rx] Cefuroxime Axetil [Ceftin] 500 mg PO BID 14 Days #7 tab 08/02/17 [Rx] Theophylline 24 Hour [Bobo-24] 300 mg PO Q12HR cap.er.24h 08/02/17 [Rx] predniSONE 10 mg PO DAILY 16 Days #40 tab 08/02/17 [Rx] Follow up Appointment(s)/Referral(s): Grant Felix DO [Doctor of Osteopathic Medicine] - 1 Week [facility], [NON-STAFF] -
[2017-08-02] MEDS: AZITHROMYCIN 500 MG TAB PO SCH (15:02)
[2017-08-02] MEDS: cefTRIAXone IN SWFI 1,000 MG/10 ML SYRINGE IVP SCH (15:02)
[2017-08-02 15:46] VITALS: PULSE 97
--- NOTE | 2017-08-04 15:10 | XR ---
EXAMINATION TYPE: XR chest 2V DATE OF EXAM: 08/01/2017 COMPARISON: Chest x-ray from yesterday and older study February 01, 2016 HISTORY: COPD with right lower lobe pneumonia per order. TECHNIQUE: Frontal and lateral views of the chest are obtained. FINDINGS: There is background chronic emphysematous change redemonstrated. There is persistent right lateral linear opacity suggesting atelectasis unchanged from one day earlier. The cardiac silhouette size is stable and mildly enlarged. The osseous structures are demineralized. IMPRESSION: Chronic emphysematous change and mild cardiomegaly with stable right basilar linear atelectasis. MTDD
--- NOTE | 2017-08-07 12:27 | CDI ---
Last Revision, May 2017 Documentation Clarification Form Date: 08/07/2017 12:16:00 PM From: Urmila Benitez Phone: If you have questions regarding this query, please contact Jie uJdymarqiuta Cause Analyst at [phone] between 8am and 5pm. Admit Date: 07/31/2017 3:39:00 PM Patient Name: Jie Anguiano Visit Number: [id number] Discharge Date: ATTENTION: The Clinical Documentation Specialists (CDI) and [facility] Coding Staff appreciate your assistance in clarifying documentation. Please respond to the clarification below the line at the bottom and electronically sign. The CDI & [facility] Coding staff will review the response and follow-up if needed. Please note: Queries are made part of the Legal Health Record. If you have any questions, please contact the author of this message via ITS. Dr. Sandy Martinez Past medical history of heart failure is documented in the past medical history in the H&P, consult and discharge summary. History/Risk Factors: Patient has a history of hypertension, diabetes, obstructive sleep apnea and morbid obesity Treatment: Patient takes Lasix 40 mg daily. In your professional opinion, can you please clarify the type of CHF if known? Systolic Heart Failure: Diastolic Heart Failure: Systolic & Diastolic Heart Failure: Unable to Determine Other, please specify Please continue to document in your progress notes and discharge summary in order to capture severity of illness and risk of mortality. Include clinical findings that support your diagnosis. MTDD
== END 2017-08-02 16:33 | disposition home health service (06) | DRG 191 ==
LOC: 4MS4W 15:39
PROVIDERS: ADMIT Internal Medicine; ATTEND Internal Medicine
DX: J44.1 Chronic obstructive pulmonary disease with (acute) exacerbation (principal); J96.11 Chronic respiratory failure with hypoxia; I27.29 Other secondary pulmonary hypertension; I11.0 Hypertensive heart disease with heart failure; E66.01 Morbid (severe) obesity due to excess calories; I27.81 Cor pulmonale (chronic); I50.9 Heart failure, unspecified; J98.11 Atelectasis; J44.0 Chronic obstructive pulmonary disease with (acute) lower respiratory infection; E11.9 Type 2 diabetes mellitus without complications; J20.9 Acute bronchitis, unspecified; F41.1 Generalized anxiety disorder; F42.9 Obsessive-compulsive disorder, unspecified; G47.33 Obstructive sleep apnea (adult) (pediatric); K21.9 Gastro-esophageal reflux disease without esophagitis; M19.90 Unspecified osteoarthritis, unspecified site; M54.5 Low back pain; R00.0 Tachycardia, unspecified; Z79.52 Long term (current) use of systemic steroids; Z79.84 Long term (current) use of oral hypoglycemic drugs; Z79.899 Other long term (current) drug therapy; Z88.8 Allergy status to other drugs, medicaments and biological substances; Z99.81 Dependence on supplemental oxygen; Z87.891 Personal history of nicotine dependence; Z86.711 Personal history of pulmonary embolism; Z68.38 Body mass index [BMI] 38.0-38.9, adult; Z90.49 Acquired absence of other specified parts of digestive tract
CPT/HCPCS: 71046; 80048; 80053; 80198; 83036; 85025; 87040; 87070; 87205; 87502; 93005; 94640; 94760; 96372; 99215

== ENCOUNTER 2018-01-29 19:16 | Inpatient (IN) | payer MEDICARE, OTHER ==
[2018-01-29] MEDS ORDERED: IPRATROPIUM 0.5 MG/2.5 ML NEBU INHALATION STA (19:51)
[2018-01-29] MEDS ORDERED: ALBUTEROL NEBULIZED 2.5 MG/3 ML INHALATION STA (19:51)
--- NOTE | 2018-01-29 19:55 | ED ---
General Adult HPI - General Chief complaint: Shortness of Breath Stated complaint: COPD/ribs hurt Time Seen by Provider: 01/29/18 19:48 Source: patient, RN notes reviewed, old records reviewed Mode of arrival: ambulatory Limitations: no limitations - History of Present Illness Initial comments: This is a 57-year-old female the ER for evaluation today. This patient's presenting for evaluation regards to significant shortness of breath, severe history of COPD and asthma. Patient has been doing treatment at home with no improvement. Her cough and congestion has increased she is having pain in her ribs from coughing so much. Patient does have complex medical history for both heart disease and lung disease. - Related Data Home Medications Medication Instructions Recorded Confirmed Lisinopril-Hctz 20-25 mg 1 tab PO DAILY 09/09/14 01/29/18 [Zestoretic 20-25] Spironolactone 50 mg PO DAILY 09/09/14 01/29/18 ALPRAZolam [Xanax] 0.5 mg PO Q6H PRN 09/23/14 01/29/18 Metoprolol Tartrate [Lopressor] 25 mg PO BID 10/31/14 01/29/18 metFORMIN HCL [Glucophage] 500 mg PO BID-W/MEALS 10/31/14 01/29/18 Furosemide [Lasix] 40 mg PO BID 03/30/15 01/29/18 Fluticasone/Salmeterol [Advair Hfa 2 puff INHALATION RT-BID 02/01/16 01/29/18 230-21 Mcg Inhaler] Glimepiride [Amaryl] 4 mg PO AC-BRKFST 07/31/17 01/29/18 Ipratropium-Albuterol Nebulize 3 ml INHALATION RT-Q4H PRN 07/31/17 01/29/18 [Duoneb 0.5 mg-3 mg/3 ml Soln] Pioglitazone HCl [Actos] 30 mg PO DAILY 07/31/17 01/29/18 Potassium Chloride [Klor-Con 20] 20 meq PO DAILY 07/31/17 01/29/18 predniSONE 10 mg PO DAILY 07/31/17 01/29/18 Albuterol Nebulized [Ventolin 2.5 mg INHALATION RT-Q4H PRN 01/29/18 01/29/18 Nebulized] Omeprazole [PriLOSEC] 40 mg PO DAILY 01/29/18 01/29/18 predniSONE See Taper PO DAILY 01/29/18 01/29/18 Allergies Allergy/AdvReac Type Severity Reaction Status Date / Time budesonide [From Pulmicort] Allergy Wheezing Verified 01/29/18 20:18 Review of Systems ROS Statement: Those systems with pertinent positive or pertinent negative responses have been documented in the HPI. ROS Other: All systems not noted in ROS Statement are negative. Past Medical History Past Medical History: Asthma, Chest Pain / Angina, Heart Failure, COPD, Diabetes Mellitus, GERD/Reflux, Hypertension, Osteoarthritis (OA), Pulmonary Embolus (PE), Renal Disease, Sleep Apnea/CPAP/BIPAP Additional Past Medical History / Comment(s): Advanced oxygen-dependent COPD , severe obstructive sleep apnea maintained on BiPAP at a pressure of 22/80 cm of water, chronic hypoxic respiratory failure maintained on oxygen 2 liters nasal cannula(4 at hs), NIDDM type II, DJD, low back pain which radiates down L hip and L leg at times, viral myocarditis, hypertension, morbid obesity with cushingoid features, generalized anxiety disorder, ocd. History of Any Multi-Drug Resistant Organisms: None Reported Past Surgical History: Adenoidectomy, Cholecystectomy, Heart Catheterization, Orthopedic Surgery, Tonsillectomy, Tubal Ligation Additional Past Surgical History / Comment(s): L hand 3rd finger tendon repair, D&C, carpal tunnel left hand, Past Anesthesia/Blood Transfusion Reactions: No Reported Reaction Past Psychological History: Anxiety Smoking Status: Former smoker Past Alcohol Use History: None Reported Past Drug Use History: None Reported - Past Family History Father Family Medical History: No Reported History Additional Family Medical History / Comment(s): Father was an alcoholic. He at the age of 58yrs. Mother Family Medical History: No Reported History Additional Family Medical History / Comment(s): Mother of alcoholism at the age of 63 yrs. General Exam Limitations: no limitations General appearance: alert, in no apparent distress, anxious Head exam: Present: atraumatic, normocephalic, normal inspection Eye exam: Present: normal appearance, PERRL, EOMI. Absent: scleral icterus, conjunctival injection, periorbital swelling ENT exam: Present: normal exam, mucous membranes moist Neck exam: Present: normal inspection. Absent: tenderness, meningismus, lymphadenopathy Respiratory exam: Present: respiratory distress, wheezes, accessory muscle use, decreased breath sounds, prolonged expiratory. Absent: rales, rhonchi, stridor Cardiovascular Exam: Present: normal rhythm, tachycardia, normal heart sounds. Absent: systolic murmur, diastolic murmur, rubs, gallop, clicks GI/Abdominal exam: Present: soft, normal bowel sounds. Absent: distended, tenderness, guarding, rebound, rigid Extremities exam: Present: normal inspection, full ROM, normal capillary refill. Absent: tenderness, pedal edema, joint swelling, calf tenderness Back exam: Present: normal inspection Neurological exam: Present: alert, oriented X3, CN II-XII intact Psychiatric exam: Present: normal affect, normal mood Skin exam: Present: warm, dry, intact, normal color. Absent: rash Course Vital Signs 01/29/18 01/29/18 01/29/18 19:41 20:05 20:08 Temperature 98.1 F Pulse Rate 118 H 114 H 115 H Respiratory 26 H 22 Rate Blood Pressure 135/75 139/84 O2 Sat by Pulse 93 L 98 Oximetry 01/29/18 01/29/18 01/29/18 20:17 20:31 20:41 Temperature Pulse Rate 113 H 114 H 115 H Respiratory Rate Blood Pressure O2 Sat by Pulse Oximetry 01/29/18 01/29/18 01/29/18 20:49 21:16 21:58 Temperature Pulse Rate 114 H 111 H 107 H Respiratory 20 20 22 Rate Blood Pressure 127/71 119/71 124/75 O2 Sat by Pulse 95 93 L 94 L Oximetry 01/29/18 22:00 Temperature 97.8 F Pulse Rate Respiratory Rate Blood Pressure O2 Sat by Pulse Oximetry - Reevaluation(s) Reevaluation #1: Patient has no significant improvement after prolonged breathing treatment here in the ER EKG Findings - EKG Comments: EKG Findings:: EKG shows sinus tachycardia rate 119, W[place] 142, QRS 86, QTc 486 Medical Decision Making - Medical Decision Making 89 female the ER for evaluation of pain, rib pain from coughing and significant COPD exacerbation with hypoxia, will admit for breathing treatments and monitoring of pulse ox - Lab Data Result diagrams: 01/29/18 20:08 01/29/18 20:08 Lab Results 01/29/18 01/29/18 01/29/18 Range/Units 20:08 20:08 20:08 WBC 15.2 H (3.8-10.6) k/uL RBC 4.78 (3.80-5.40) m/uL Hgb 14.3 (11.4-16.0) gm/dL Hct 43.7 (34.0-46.0) % MCV 91.3 (80.0-100.0) fL MCH 30.0 (25.0-35.0) pg MCHC 32.8 (31.0-37.0) g/dL RDW 14.5 (11.5-15.5) % Plt Count 378 (150-450) k/uL Neutrophils % 67 % Lymphocytes % 26 % Monocytes % 4 % Eosinophils % 0 % Basophils % 0 % Neutrophils # 10.2 H (1.3-7.7) k/uL Lymphocytes # 4.0 (1.0-4.8) k/uL Monocytes # 0.7 (0-1.0) k/uL Eosinophils # 0.1 (0-0.7) k/uL Basophils # 0.1 (0-0.2) k/uL PT (9.0-12.0) sec INR (<1.2) APTT (22.0-30.0) sec Sodium 138 (137-145) mmol/L Potassium 3.8 (3.5-5.1) mmol/L Chloride 100 (98-107) mmol/L Carbon Dioxide 27 (22-30) mmol/L Anion Gap 11 mmol/L BUN 17 (7-17) mg/dL Creatinine 0.66 (0.52-1.04) mg/dL Est GFR (CKD-EPI)AfAm >90 (>60 ml/min/1.73 sqM) Est GFR (CKD-EPI)NonAf >90 (>60 ml/min/1.73 sqM) Glucose 104 H (74-99) mg/dL Calcium 9.4 (8.4-10.2) mg/dL Magnesium 1.8 (1.6-2.3) mg/dL Total Bilirubin 0.4 (0.2-1.3) mg/dL AST 22 (14-36) U/L ALT 36 (9-52) U/L Alkaline Phosphatase 69 (38-126) U/L Total Creatine Kinase 66 (30-135) U/L CK-MB (CK-2) 1.0 (0.0-2.4) ng/mL CK-MB (CK-2) Rel Index 1.5 Troponin I <0.012 (0.000-0.034) ng/mL NT-Pro-B Natriuret Pep pg/mL Total Protein 7.1 (6.3-8.2) g/dL Albumin 4.6 (3.5-5.0) g/dL 01/29/18 01/29/18 Range/Units 20:08 20:08 WBC (3.8-10.6) k/uL RBC (3.80-5.40) m/uL Hgb (11.4-16.0) gm/dL Hct (34.0-46.0) % MCV (80.0-100.0) fL MCH (25.0-35.0) pg MCHC (31.0-37.0) g/dL RDW (11.5-15.5) % Plt Count (150-450) k/uL Neutrophils % % Lymphocytes % % Monocytes % % Eosinophils % % Basophils % % Neutrophils # (1.3-7.7) k/uL Lymphocytes # (1.0-4.8) k/uL Monocytes # (0-1.0) k/uL Eosinophils # (0-0.7) k/uL Basophils # (0-0.2) k/uL PT 9.9 (9.0-12.0) sec INR 1.0 (<1.2) APTT 21.6 L (22.0-30.0) sec Sodium (137-145) mmol/L Potassium (3.5-5.1) mmol/L Chloride (98-107) mmol/L Carbon Dioxide (22-30) mmol/L Anion Gap mmol/L BUN (7-17) mg/dL Creatinine (0.52-1.04) mg/dL Est GFR (CKD-EPI)AfAm (>60 ml/min/1.73 sqM) Est GFR (CKD-EPI)NonAf (>60 ml/min/1.73 sqM) Glucose (74-99) mg/dL Calcium (8.4-10.2) mg/dL Magnesium (1.6-2.3) mg/dL Total Bilirubin (0.2-1.3) mg/dL AST (14-36) U/L ALT (9-52) U/L Alkaline Phosphatase (38-126) U/L Total Creatine Kinase (30-135) U/L CK-MB (CK-2) (0.0-2.4) ng/mL CK-MB (CK-2) Rel Index Troponin I (0.000-0.034) ng/mL NT-Pro-B Natriuret Pep 62 pg/mL Total Protein (6.3-8.2) g/dL Albumin (3.5-5.0) g/dL - Radiology Data Radiology results: report reviewed (Chest x-rays negative for acute disease), image reviewed Disposition Clinical Impression: Acute exacerbation of chronic obstructive airways disease Disposition: ADMITTED IP TO THIS HOSP Condition: Fair Is patient prescribed a controlled substance at d/c from ED?: No
[2018-01-29 20:16] LABS: Basophils # (A) 0.1 k/uL (0-0.2); Basophils % (A) 0 %; Eosinophils # (A) 0.1 k/uL (0-0.7); Eosinophils % (A) 0 %; HCT 43.7 % (34.0-46.0); HGB 14.3 gm/dL (11.4-16.0); Lymphocytes % (A) 26 %; MCHC 32.8 g/dL (31.0-37.0); MCV 91.3 fL (80.0-100.0); Mean Platelet Volume 6.1; Monocytes # (A) 0.7 k/uL (0-1.0); Monocytes % (A) 4 %; Neutrophils # (A) 10.2 k/uL (1.3-7.7); Neutrophils % (A) 67 %; Platelet Count 378 k/uL (150-450); RBC 4.78 m/uL (3.80-5.40); RDW 14.5 % (11.5-15.5); WBC 15.2 k/uL (3.8-10.6)
[2018-01-29 20:25] LABS: ALT 36 U/L (9-52); AST 22 U/L (14-36); Albumin 4.6 g/dL (3.5-5.0); Alkaline Phosphatase 69 U/L (38-126); Anion Gap 11 mmol/L; Blood Urea Nitrogen 17 mg/dL (7-17); Calcium 9.4 mg/dL (8.4-10.2); Carbon Dioxide 27 mmol/L (22-30); Chloride 100 mmol/L (98-107); Glucose 104 mg/dL (74-99); Magnesium 1.8 mg/dL (1.6-2.3); Potassium 3.8 mmol/L (3.5-5.1); Sodium 138 mmol/L (137-145); Total Bilirubin 0.4 mg/dL (0.2-1.3); Total Protein 7.1 g/dL (6.3-8.2)
[2018-01-29 20:27] LABS: Creatine Kinase 66 U/L (30-135)
[2018-01-29 20:34] LABS: Prothrombin Time 9.9 sec (9.0-12.0)
[2018-01-29 20:40] LABS: Troponin I <0.012 ng/mL (0.000-0.034)
[2018-01-29 20:41] LABS: Partial Thromboplastin Time 21.6 sec (22.0-30.0)
[2018-01-29] MEDS ORDERED: MORPHINE SULFATE 4 MG/ML SYRINGE IVP STA (20:44)
--- NOTE | 2018-01-29 21:24 | XR ---
EXAMINATION TYPE: XR chest 2V DATE OF EXAM: 01/29/2018 COMPARISON: 08/01/2017 HISTORY: Difficulty breathing TECHNIQUE: Frontal and lateral views of the chest are obtained. FINDINGS: Heart and mediastinum are normal. Lungs are clear. Diaphragm is normal. Bony thorax is int act. IMPRESSION: Normal chest. There is clearing of subsegmental atelectasis at right lung base compared to old exam.
[2018-01-29] MEDS ORDERED: methylPREDNISolone SOD SUCCI 125 MG/2 ML VIAL IV STA (21:38)
[2018-01-29] MEDS ORDERED: SODIUM CHLORIDE 0.9% 1,000 ML IV SCH (21:45)
[2018-01-29] MEDS ORDERED: MORPHINE SULFATE 4 MG/ML SYRINGE IVP PRN (22:02)
[2018-01-29 22:41] VITALS: BMI 39.3
[2018-01-30] MEDS ORDERED: TEMAZEPAM 15 MG CAP PO PRN (01:13)
[2018-01-30] MEDS ORDERED: ACETAMINOPHEN TAB 500 MG TAB PO PRN (01:13)
[2018-01-30] MEDS ORDERED: ALPRAZolam 0.25 MG TAB PO PRN (01:13)
[2018-01-30] MEDS: methylPREDNISolone SOD SUCCI 125 MG/2 ML VIAL IV SCH ×5 (02:02→23:12)
[2018-01-30] MEDS: cefTRIAXone IN SWFI 1,000 MG/10 ML SYRINGE IVP SCH ×2 (02:02→07:42)
--- NOTE | 2018-01-30 04:00 | HP ---
HISTORY AND PHYSICAL DATE OF ADMISSION: 01/29/2018 CHIEF COMPLAINT: Shortness of breath and cough. HISTORY OF PRESENT ILLNESS: This 57-year-old woman with past medical history of asthma, CHF, COPD, diabetes, GERD, hypertension, history of DJD, history of pulmonary embolism being followed by Maribel Shea as well as Dr. Felix in the outpatient setting and Dr. Monroe in the outpatient setting, was complaining of shortness of breath, and cough. Patient was evaluated by Dr. Felix, saw the patient and given antibiotics and tapering steroids. Because of lack of improvement, the patient came to [facility] and was admitted for further evaluation and treatment. Chest x-ray showed some clearing of the atelectasis. Otherwise, there is no history of fever, rigors or chills. No history of headache, loss of consciousness, seizures. PAST MEDICAL HISTORY: Asthma, COPD, history of CHF, diabetes type 2, history of GERD, history of pulmonary embolus, history of DJD, history of advanced COPD. MEDICATIONS ARE: 1. Prednisone taper. 2. Glucophage 500 mg b.i.d. with meals. 3. Aldactone 50 mg p.o. daily. 4. Klor-Con 20 mEq daily. 5. Actos 30 mg p.o. daily. 6. Prilosec 40 mg p.o. daily. 7. Lopressor 25 mg p.o. b.i.d. 8. Zestoretic 1 tablet p.o. daily. 9. DuoNeb q.4h p.r.n. 10.Amaryl 4 mg p.o. a.c. breakfast. 11.Lasix 40 mg p.o. b.i.d. 12.Advair 2 puffs b.i.d. 13.Ventolin 2.5 q.4h p.r.n. 14.Xanax 0.5 q.6h p.r.n. ALLERGIES: PULMICORT. FAMILY HISTORY: Father was an alcoholic. SOCIAL HISTORY: No history of smoking. No history of alcohol intake. REVIEW OF SYSTEMS: ENT: No diminished hearing or vision. CARDIOVASCULAR: As mentioned earlier. RESPIRATORY SYSTEM: As mentioned earlier. GI: No nausea or vomiting or diarrhea. no dysuria or hematuria. NERVOUS SYSTEM: As mentioned earlier. ALLERGY/IMMUNOLOGY: As mentioned earlier. MUSCULOSKELETAL as mentioned earlier. HEMATOLOGY/ONCOLOGY: No history of anemia. ENDOCRINE: History of diabetes. No hypothyroidism. CONSTITUTIONAL: As mentioned earlier. DERMATOLOGY: Negative. RHEUMATOLOGY: Negative. PSYCHIATRY: As mentioned earlier. PHYSICAL EXAMINATION: GENERAL: The patient is alert and oriented times three. VITAL SIGNS: Pulse is 108, blood pressure is 120/81. Respiration 18, temperature 97.4, pulse ox 98% on 2 L. HEENT is conjunctivae normal. Oral mucosa moist. NECK is no jugular venous distention. No carotid bruit. No lymph node enlargement. CARDIOVASCULAR SYSTEM: Tachycardic. No murmur. No thrills. RESPIRATORY: Breath sounds diminished in the bases. Breathing efforts are markedly increased. Bilateral scattered rhonchi and expiratory wheezing and crackles. ABDOMEN: Soft, nontender. No mass palpable. LEGS: No edema and no swelling. NERVOUS SYSTEM: Higher functions as mentioned earlier. Moves all 4 limbs. No focal motor or sensory deficits. Lymphatics: No lymph nodes palpable in the neck, axillae or groin. SKIN: No ulcer, rash or bleeding. LABS: At this time shows WBC 15.2, hemoglobin is 14.3. Glucose 104. ASSESSMENT: 1. Chronic obstructive pulmonary disease acute exacerbation, acute purulent tracheobronchitis with failure of outpatient treatment. 2. Tachycardia. 3. History of asthma. 4. History of congestive heart failure. 5. Diabetes mellitus type 2. 6. Gastroesophageal reflux disease. 7. Hypertension. 8. History of pulmonary embolism. 9. History of sleep apnea. 10.History of advanced oxygen-dependent chronic obstructive pulmonary disease. 11.Chronic hypoxic respiratory failure on home O2. 12.Obstructive sleep apnea on BiPAP at home. 13.Diabetes mellitus type 2. 14.History of viral myocarditis. 15.History of cholecystectomy. 16.History of anxiety. 17.Remote history of nicotine dependence. RECOMMENDATIONS AND DISCUSSION: In this 57-year-old woman who presented with multiple medical issues, we will monitor the patient closely, continue the current medications, management and symptomatic treatment. We will initiate broad-spectrum IV antibiotics. I would also recommend Zithromax and Rocephin. I would also recommend IV steroids and bronchodilators. Otherwise, I would also recommend consultation with Dr. Felix. The prognosis is guarded because of multiple complex medical issues. See orders for details. We will also resume the home medications. Repeat labs also will be obtained. See orders for further details. The prognosis extremely guarded because of multiple complex medical issues. MMODL / IJN: [id number] /
[2018-01-30] MEDS: HYDROcodone/APAP 5-325MG 1 EACH TAB PO PRN ×3 (05:16→20:46)
[2018-01-30 07:21] LABS: Glucose,Whole Blood 235 mg/dL (75-99)
[2018-01-30] MEDS: SPIRONOLACTONE 25 MG TAB PO SCH (07:42)
[2018-01-30] MEDS: POTASSIUM CHLORIDE ER 20 MEQ TAB.ER PO SCH (07:42)
[2018-01-30] MEDS: ENOXAPARIN 40 MG/0.4 ML SYRINGE SQ SCH (07:42)
[2018-01-30] MEDS: PANTOPRAZOLE 40 MG TABLET PO SCH (07:43)
[2018-01-30] MEDS: GLIMEPIRIDE 4 MG TAB PO SCH (07:43)
[2018-01-30] MEDS: FUROSEMIDE 40 MG TAB PO SCH ×2 (07:43→20:43)
[2018-01-30] MEDS: PIOGLITAZONE 30 MG TAB PO SCH (07:43)
[2018-01-30] MEDS: AZITHROMYCIN 500 MG TAB PO SCH (07:43)
[2018-01-30] MEDS: metFORMIN 500 MG TAB PO SCH ×2 (07:43→17:25)
[2018-01-30] MEDS: LISINOPRIL-HCTZ 20-25 MG 1 EACH TAB PO SCH (07:43)
[2018-01-30] MEDS ORDERED: NON-FORMULARY DRUG (Omeprazole 40 MG) PO SCH (09:00)
[2018-01-30] MEDS ORDERED: METOPROLOL TARTRATE 50 MG TAB PO SCH (09:00)
[2018-01-30] MEDS: FORMOTEROL FUMARATE 20 MCG/2 ML NEBU INHALATION SCH ×2 (09:01→21:25)
[2018-01-30] MEDS: IPRATROPIUM-ALBUTEROL 3 ML NEB INHALATION SCH ×4 (09:01→21:25)
[2018-01-30 12:03] LABS: Glucose,Whole Blood 200 mg/dL (75-99)
--- NOTE | 2018-01-30 12:45 | P.CNPUL ---
History of Present Illness Consult date: 01/30/18 Reason for consult: dyspnea, cough, chest pain, COPD, hypoxemia, abnormal CXR/CT Chief complaint: Shortness of breath, refractory cough, musculoskeletal chest wall syndrome History of present illness: Pulmonary consult dated 01/30/2018 This is a 57-year-old female who presented to the emergency department on January 29 for evaluation. She apparently sees a nurse practitioner up in the [facility] and who works for Dr. Monroe. The patient presented with complaints of increasing shortness of breath significant cough and right-sided chest discomfort particularly when she was coughing. She does have a history of severe COPD. She has stage IV disease. The patient apparently was already on prednisone with a taper and some antibiotics as well as using her usual medications including her nebulizer machine. Despite that, she was not really improving. She has significant cough and chest congestion. She had shortness of breath and wheezing. She was coughing up phlegm. She also had right-sided chest pain from coughing so strenuously. The patient feels a bit better today than she felt when she was initially evaluated in the emergency department. The patient was sent to [facility] by myself for consideration of lung transplantation but she was rejected by them. She states she does not smoke currently. I'm not sure about that. She has a history of COPD angina heart failure diabetes GERD hypertension DJD pulmonary embolism sleep apnea syndrome. Review of Systems A 14 point review of system is positive for shortness of breath chest congestion coughing wheezing phlegm production and right-sided chest discomfort from coughing. The rest of the review of systems is negative. Past Medical History Past Medical History: Asthma, Chest Pain / Angina, Heart Failure, COPD, Diabetes Mellitus, GERD/Reflux, Hypertension, Osteoarthritis (OA), Pulmonary Embolus (PE), Renal Disease, Sleep Apnea/CPAP/BIPAP Additional Past Medical History / Comment(s): Advanced oxygen-dependent COPD , severe obstructive sleep apnea maintained on BiPAP at a pressure of 22/80 cm of water, chronic hypoxic respiratory failure maintained on oxygen 2 liters nasal cannula(4 at hs), NIDDM type II, DJD, low back pain which radiates down L hip and L leg at times, viral myocarditis, hypertension, morbid obesity with cushingoid features, generalized anxiety disorder, ocd. History of Any Multi-Drug Resistant Organisms: None Reported Past Surgical History: Adenoidectomy, Cholecystectomy, Heart Catheterization, Orthopedic Surgery, Tonsillectomy, Tubal Ligation Additional Past Surgical History / Comment(s): L hand 3rd finger tendon repair, D&C, carpal tunnel left hand, Past Anesthesia/Blood Transfusion Reactions: No Reported Reaction Past Psychological History: Anxiety Additional Psychological History / Comment(s): Pt resides with her boyfriend. She is normally independent.drives. She has home O2 and a CPAP, glucometer, nebilizer.. Smoking Status: Never smoker Past Alcohol Use History: None Reported Additional Past Alcohol Use History / Comment(s): She started smoking in 1977 smoed / ppd and quit 2015. Past Drug Use History: None Reported - Past Family History Father Family Medical History: No Reported History Additional Family Medical History / Comment(s): Father was an alcoholic. He at the age of 58yrs. Mother Family Medical History: No Reported History Additional Family Medical History / Comment(s): Mother of alcoholism at the age of 63 yrs. Medications and Allergies Home Medications Medication Instructions Recorded Confirmed Type Lisinopril-Hctz 20-25 mg 1 tab PO DAILY 09/09/14 01/29/18 History [Zestoretic 20-25] Spironolactone 50 mg PO DAILY 09/09/14 01/29/18 History ALPRAZolam [Xanax] 0.5 mg PO Q6H PRN 09/23/14 01/29/18 History Metoprolol Tartrate [Lopressor] 25 mg PO BID 10/31/14 01/29/18 History metFORMIN HCL [Glucophage] 500 mg PO BID-W/MEALS 10/31/14 01/29/18 History Furosemide [Lasix] 40 mg PO BID 03/30/15 01/29/18 History Fluticasone/Salmeterol [Advair Hfa 2 puff INHALATION RT-BID 02/01/16 01/29/18 History 230-21 Mcg Inhaler] Glimepiride [Amaryl] 4 mg PO AC-BRKFST 07/31/17 01/29/18 History Ipratropium-Albuterol Nebulize 3 ml INHALATION RT-Q4H PRN 07/31/17 01/29/18 History [Duoneb 0.5 mg-3 mg/3 ml Soln] Pioglitazone HCl [Actos] 30 mg PO DAILY 07/31/17 01/29/18 History Potassium Chloride [Klor-Con 20] 20 meq PO DAILY 07/31/17 01/29/18 History predniSONE 10 mg PO DAILY 07/31/17 01/29/18 History Albuterol Nebulized [Ventolin 2.5 mg INHALATION RT-Q4H PRN 01/29/18 01/29/18 History Nebulized] Omeprazole [PriLOSEC] 40 mg PO DAILY 01/29/18 01/29/18 History predniSONE See Taper PO DAILY 01/29/18 01/29/18 History Allergies Allergy/AdvReac Type Severity Reaction Status Date / Time budesonide [From Pulmicort] Allergy Wheezing Verified 01/29/18 20:18 Physical Exam Osteopathic Statement: *. No significant issues noted on an osteopathic structural exam other than those noted in the History and Physical/Consult. Vitals: Vital Signs Temp Pulse Pulse Resp BP BP Pulse Ox 01/30/18 12:26 100 01/30/18 12:15 100 01/30/18 09:24 112 H 01/30/18 09:15 110 H 01/30/18 09:14 110 H 01/30/18 09:05 110 H 01/30/18 06:07 97.0 F L 90 18 118/76 97 01/29/18 23:30 108 H 01/29/18 23:00 97.5 F L 108 H 18 124/81 93 L 01/29/18 22:00 97.8 F 01/29/18 21:58 107 H 22 124/75 94 L 01/29/18 21:16 111 H 20 119/71 93 L 01/29/18 20:49 114 H 20 127/71 95 01/29/18 20:41 115 H 01/29/18 20:31 114 H 01/29/18 20:17 113 H 01/29/18 20:08 115 H 22 139/84 98 01/29/18 20:05 114 H 01/29/18 19:41 98.1 F 118 H 26 H 135/75 93 L Intake and Output 01/29/18 01/30/18 01/30/18 22:59 06:59 14:59 Intake Total 850 Balance 850 Intake: Oral 850 Other: Voiding Method Toilet # Voids 1 Weight 97.6 kg No acute distress, oriented 3. Nasal O2 in place. No respiratory distress. HEENT examination is grossly unremarkable. Mucous membranes are moist. No oral lesions. Neck supple. Full range of motion. No adenopathy thyromegaly or neck vein distention. Cardiovascular examination reveals regular rhythm rate. S1-S2 normal. No S3 or S4. No discernible murmur noted. Lungs reveal coarse expiratory rhonchi and wheezes. Breath sounds are diminished. There is prolongation on forced maneuver. Wheezes high-pitched. Breath sounds equal bilaterally. No crackles appreciated. Abdomen soft bowel sounds are heard. No masses or tenderness. Extremities are intact. No cyanosis clubbing or edema. Skin is without rash or lesion. Neurologic examination is brief but nonfocal. Results - Laboratory Findings CBC and BMP: 01/29/18 20:08 01/29/18 20:08 PT/INR, D-dimer PT 9.9 sec (9.0-12.0) 01/29/18 20:08 INR 1.0 (<1.2) 01/29/18 20:08 Abnormal lab findings: Abnormal Labs 01/29/18 01/29/18 01/29/18 20:08 20:08 20:08 WBC 15.2 H Neutrophils # 10.2 H APTT 21.6 L Glucose 104 H POC Glucose (mg/dL) 01/30/18 01/30/18 07:18 11:30 WBC Neutrophils # APTT Glucose POC Glucose (mg/dL) 235 H 200 H - Diagnostic Findings Chest x-ray: report reviewed (Chest x-ray labs and medications are reviewed.), image reviewed Assessment and Plan Assessment: Assessment COPD exacerbation in a patient with end-stage/stage IV COPD Acute on chronic hypoxemic respiratory failure Morbid obesity Obstructive sleep apnea syndrome Angina pectoris Diabetes mellitus GERD Hypertension DJD and history of pulmonary embolism Probable secondary pulmonary hypertension with cor pulmonale and lower extremity edema. Plan: Plan dated 01/30/2018 Chest x-ray shows only chronic changes of COPD. Nothing acute. White count 15.2. Hemoglobin and hematocrit and platelet count all normal. PT/INR normal. Sodium potassium chloride CO2 normal. BUN and creatinine normal. She is on Zithromax orally Rocephin IV and formoterol updraft treatments and Solu-Medrol. I am going to discontinue the Rocephin. She doesn't really have pneumonia. The rest of her medications seem appropriate. Prognosis is guarded. She has had multiple admissions to this hospital in the last 2 years. Time with Patient: Greater than 30
--- NOTE | 2018-01-30 16:46 | PN ---
PROGRESS NOTE DATE OF SERVICE: 01/30/2018. INTERVAL HISTORY: This 57-year-old woman who was admitted with COPD exacerbation, acute purulent tracheobronchitis is being closely monitored. Dr. Felix is following the patient closely. The patient is on IV steroids, antibiotics and bronchodilators. The patient is feeling slightly better compared to yesterday. No chest pain. No palpitations. No fever. PHYSICAL EXAM: Alert and oriented x3. The pulse is 110, blood pressure is 118/73, respiration 18, temperature 97 degrees, pulse ox 97% on CPAP. HEENT: Conjunctivae normal. Oral mucosa moist. NECK is no jugular venous distention. No carotid bruit. No lymph node enlargement. CARDIOVASCULAR: S1, S2 muffled. RESPIRATORY: Breath sounds diminished in the bases. Bilateral scattered rhonchi and crackles. ABDOMEN: Soft, nontender. Legs are no edema, no swelling. Central nervous system: No focal deficits. LABS: WBC 15.2, glucose 235, 200. ASSESSMENT: 1. Chronic obstructive pulmonary disease acute exacerbation with acute purulent tracheobronchitis with failure of outpatient treatment. 2. Tachycardia. 3. History of asthma. 4. History of congestive heart failure. 5. Diabetes type 2. 6. Gastroesophageal reflux disease. 7. Hypertension. 8. History of pulmonary embolus. 9. Obstructive sleep apnea. 10.History of advanced oxygen-dependent chronic obstructive pulmonary disease. 11.Chronic hypoxic respiratory failure on home O2. 12.Sleep apnea on BiPAP at home. 13.Diabetes type 2. 14.History of viral myocarditis. 15.History of cholecystectomy. 16.History of anxiety. 17.Remote history of nicotine dependence. RECOMMENDATIONS AND DISCUSSION: Recommend to continue current medications, continue with monitoring, symptomatic treatment. Otherwise, at this time, we will monitor the patient closely. Continue the bronchodilators, steroids, antibiotics and IV antibiotics. Guarded prognosis. Further recommendations to follow. MMODL / IJN: [id number] /
[2018-01-30 16:50] LABS: Glucose,Whole Blood 233 mg/dL (75-99)
[2018-01-30 20:39] LABS: Glucose,Whole Blood 221 mg/dL (75-99)
[2018-01-30] MEDS: METOPROLOL TARTRATE 25 MG TAB PO SCH (20:43)
[2018-01-30 21:43] VITALS: RESP 18
[2018-01-30 23:13] VITALS: TEMP 97.2
[2018-01-31] MEDS: methylPREDNISolone SOD SUCCI 125 MG/2 ML VIAL IV SCH (06:29)
[2018-01-31 06:30] VITALS: BP 113/66
[2018-01-31 07:11] LABS: Glucose,Whole Blood 217 mg/dL (75-99)
[2018-01-31] MEDS: IPRATROPIUM-ALBUTEROL 3 ML NEB INHALATION SCH ×3 (07:14→15:19)
[2018-01-31] MEDS: FORMOTEROL FUMARATE 20 MCG/2 ML NEBU INHALATION SCH (07:14)
[2018-01-31] MEDS: ENOXAPARIN 40 MG/0.4 ML SYRINGE SQ SCH (07:28)
[2018-01-31] MEDS: FUROSEMIDE 40 MG TAB PO SCH (07:28)
[2018-01-31] MEDS: SPIRONOLACTONE 25 MG TAB PO SCH (07:28)
[2018-01-31] MEDS: METOPROLOL TARTRATE 25 MG TAB PO SCH (07:28)
[2018-01-31] MEDS: GLIMEPIRIDE 4 MG TAB PO SCH (07:29)
[2018-01-31] MEDS: PIOGLITAZONE 30 MG TAB PO SCH (07:29)
[2018-01-31] MEDS: LISINOPRIL-HCTZ 20-25 MG 1 EACH TAB PO SCH (07:29)
[2018-01-31] MEDS: PANTOPRAZOLE 40 MG TABLET PO SCH (07:29)
[2018-01-31] MEDS: POTASSIUM CHLORIDE ER 20 MEQ TAB.ER PO SCH (07:29)
[2018-01-31] MEDS: metFORMIN 500 MG TAB PO SCH (07:29)
[2018-01-31] MEDS: AZITHROMYCIN 500 MG TAB PO SCH (07:29)
[2018-01-31] MEDS: HYDROcodone/APAP 5-325MG 1 EACH TAB PO PRN ×2 (07:31→13:50)
[2018-01-31 07:48] LABS: Basophils % (A) 0 %; Eosinophils % (A) 0 %; HCT 38.9 % (34.0-46.0); HGB 12.6 gm/dL (11.4-16.0); Lymphocytes # (A) 1.3 k/uL (1.0-4.8); Lymphocytes % (A) 9 %; MCH 29.8 pg (25.0-35.0); MCHC 32.4 g/dL (31.0-37.0); MCV 91.8 fL (80.0-100.0); Mean Platelet Volume 6.7; Monocytes # (A) 0.5 k/uL (0-1.0); Monocytes % (A) 3 %; Neutrophils # (A) 12.8 k/uL (1.3-7.7); Neutrophils % (A) 87 %; Platelet Count 323 k/uL (150-450); RBC 4.24 m/uL (3.80-5.40); RDW 14.1 % (11.5-15.5); WBC 14.7 k/uL (3.8-10.6)
[2018-01-31 07:59] LABS: Anion Gap 10 mmol/L; Blood Urea Nitrogen 19 mg/dL (7-17); Calcium 9.3 mg/dL (8.4-10.2); Carbon Dioxide 28 mmol/L (22-30); Chloride 98 mmol/L (98-107); Glucose 194 mg/dL (74-99); Potassium 4.1 mmol/L (3.5-5.1); Sodium 136 mmol/L (137-145)
--- NOTE | 2018-01-31 10:30 | P.PN ---
Subjective Progress Note Date: 01/31/18 Principal diagnosis: COPD exacerbation, cough Progress note dated 01/31/2018 57-year-old female with history of endstage or stage IV COPD. She presented to the emergency department on January 29 with increasing shortness of breath chest congestion coughing wheezing and pain to the right side of her chest. She believes she had a broken rib or strained up muscle on the right side the chest. She was seen yesterday in consultation and our impression was that she was having a COPD exacerbation. She also has a history of angina, heart failure , diabetes, GERD, hypertension, DJD, pulmonary embolism, morbid obesity and sleep apnea syndrome. The patient is feeling much better today but like to be discharged home. At that her primary service. She feels like her breathing has improved she's less short of breath and the pain in the right chest is much improved. Objective - Vital Signs Vital signs: Vital Signs Temp 97.2 F L 01/31/18 06:30 Pulse 94 01/31/18 07:27 Resp 18 01/31/18 06:30 BP 113/66 01/31/18 06:30 Pulse Ox 97 01/31/18 06:30 Intake & Output 01/30/18 01/31/18 01/31/18 18:59 06:59 18:59 Intake Total 1200 Balance 1200 Intake: Oral 1200 Other: # Voids 1 1 - Exam No acute distress, oriented 3. Nasal O2 in place. No respiratory distress. HEENT examination is grossly unremarkable. Mucous membranes are moist. No oral lesions. Neck supple. Full range of motion. No adenopathy thyromegaly or neck vein distention. Cardiovascular examination reveals regular rhythm rate. S1-S2 normal. No S3 or S4. No discernible murmur noted. Lungs reveal coarse expiratory rhonchi and wheezes. Breath sounds are diminished. There is prolongation on forced maneuver. Wheezes high-pitched. Breath sounds equal bilaterally. No crackles appreciated. Breath sounds are somewhat improved. Abdomen soft bowel sounds are heard. No masses or tenderness. Extremities are intact. No cyanosis. Slight edema noted. Skin is without rash or lesion. Neurologic examination is brief but nonfocal. - Labs CBC & Chem 7: 01/31/18 07:07 01/31/18 07:07 Labs: Abnormal Lab Results - Last 24 Hours (Table) 0801/30/18 01/30/18 Range/Units 11:30 16:46 20:38 WBC (3.8-10.6) k/uL Neutrophils # (1.3-7.7) k/uL Sodium (137-145) mmol/L BUN (7-17) mg/dL Glucose (74-99) mg/dL POC Glucose (mg/dL) 200 H 233 H 221 H (75-99) mg/dL 01/31/18 01/31/18 01/31/18 Range/Units 07:07 07:07 07:08 WBC 14.7 H (3.8-10.6) k/uL Neutrophils # 12.8 H (1.3-7.7) k/uL Sodium 136 L (137-145) mmol/L BUN 19 H (7-17) mg/dL Glucose 194 H (74-99) mg/dL POC Glucose (mg/dL) 217 H (75-99) mg/dL Microbiology - Last 24 Hours (Table) 01/29/18 21:57 Blood Culture - Preliminary Blood No Growth after 24 hours Assessment and Plan Assessment: Assessment COPD exacerbation in a patient with end-stage/stage IV COPD Acute on chronic hypoxemic respiratory failure Morbid obesity Obstructive sleep apnea syndrome Angina pectoris Diabetes mellitus GERD Hypertension DJD and history of pulmonary embolism Probable secondary pulmonary hypertension with cor pulmonale and lower extremity edema. Plan: Plan dated 01/30/2018 Chest x-ray shows only chronic changes of COPD. Nothing acute. White count 15.2. Hemoglobin and hematocrit and platelet count all normal. PT/INR normal. Sodium potassium chloride CO2 normal. BUN and creatinine normal. She is on Zithromax orally Rocephin IV and formoterol updraft treatments and Solu-Medrol. I am going to discontinue the Rocephin. She doesn't really have pneumonia. The rest of her medications seem appropriate. Prognosis is guarded. She has had multiple admissions to this hospital in the last 2 years. Plan dated 01/31/2018 The patient does feel much better today. Her white count is 14.7 but the rest of her CBC is normal. Sodium 136 BUN is 19 and the rest of the basic metabolic profile is within normal range. I would recommend sending the patient home on prednisone 40 mg a day. She can take For 7 days and then after 7 days reduce her dose to 30 mg a day for the next 7 days. By that time I would've seen her in the office. She does have some oral antibiotic at home and she could finish that up. She call the office next week should she not be improved. Additional recommendations and suggestions are forthcoming. Blood cultures are thus far negative. Prognosis is poor given the severity of her chronic lung disease and the fact that she was rejected for lung transplantation at [facility]. Time with Patient: Less than 30
[2018-01-31 12:21] LABS: Glucose,Whole Blood 165 mg/dL (75-99)
[2018-01-31 15:29] VITALS: PULSE 96
[2018-01-31] MEDS ORDERED: methylPREDNISolone SOD SUCCI 40 MG/ML 1 ML VIAL IV SCH (16:00)
--- NOTE | 2018-01-31 21:32 | DS ---
DISCHARGE SUMMARY DATE OF SERVICE: 01/31/2018 FINAL DIAGNOSES: 1. Chronic obstructive pulmonary disease acute exacerbation with acute purulent tracheobronchitis with failure of outpatient treatment. 2. Tachycardia. 3. History of asthma. 4. History of congestive heart failure. 5. Diabetes mellitus type 2. 6. GERD. 7. Hypertension. 8. History of pulmonary embolism. 9. History of obstructive sleep apnea. 10.History of advanced COPD, oxygen dependent. 11.Chronic hypoxic respiratory failure on home O2. 12.Sleep apnea on BiPAP at home. 13.Diabetes mellitus type 2. 14.History of viral myocarditis. 15.History of cholecystectomy. 16.History of anxiety. 17.Remote history of nicotine dependence. DISCHARGE DISPOSITION: The patient will be discharged in stable condition with guarded prognosis. HISTORY OF PRESENT ILLNESS: This 57-year-old woman presented with shortness of breath and COPD acute exacerbation was treated with IV steroids and bronchodilators and antibiotics. Dr. Felix saw the patient. The patient improved significantly. Dr. Felix cleared the patient to be discharged. On exam, vital signs are stable. CARDIOVASCULAR SYSTEM: S1, S2. ABDOMEN: Soft. RESPIRATIONS: A few scattered rhonchi. WBC 14.7, sodium 136. DISCHARGE ADVICE AND MEDICATIONS: 1. Diet is cardiac diet. 2. Activity limited until followup. 3. Follow up with Dr. Monroe in 2-3 days. 4. Follow up with Farida Shea in 2-3 days. 5. Follow up with Dr. Felix as advised. MEDICATIONS ARE: 1. Ventolin 2.5 q.i.d. and p.r.n. 2. Xanax 0.5 q.6h. 3. Advair 2 puffs b.i.d. 4. Lasix 40 mg p.o. b.i.d. 5. Amaryl 4 mg a.c. breakfast. 6. DuoNeb q.i.d. and p.r.n. 7. Lisinopril 20/25 p.o. daily. 8. Glucophage 500 mg p.o. b.i.d. 9. Lopressor 25 mg b.i.d. 10.Prilosec 40 mg daily. 11.Actos 30 mg p.o. daily. 12.Klor-Con 20 mg p.o. daily. 13.Aldactone 50 mg b.i.d. 14.Tylenol 500 mg q.6h p.r.n. 15.Zithromax 500 mg daily for 5 days. 16.Prednisone taper that will be 40 mg daily for 3 days, 30 mg for 3 days, 20 mg for 3 day, 10 mg for 3 days. MMODL / IJN: [id number] /
== END 2018-01-31 17:27 | disposition home health service (06) | DRG 190 ==
LOC: EC 19:16 → 4MS4W 21:39
PROVIDERS: ADMIT Hospitalist; ATTEND Hospitalist
DX: J44.1 Chronic obstructive pulmonary disease with (acute) exacerbation (principal); J96.21 Acute and chronic respiratory failure with hypoxia; J98.11 Atelectasis; E11.9 Type 2 diabetes mellitus without complications; E66.01 Morbid (severe) obesity due to excess calories; Z68.39 Body mass index [BMI] 39.0-39.9, adult; F41.1 Generalized anxiety disorder; F42.9 Obsessive-compulsive disorder, unspecified; G47.33 Obstructive sleep apnea (adult) (pediatric); I11.0 Hypertensive heart disease with heart failure; I20.9 Angina pectoris, unspecified; I27.29 Other secondary pulmonary hypertension; I50.9 Heart failure, unspecified; K21.9 Gastro-esophageal reflux disease without esophagitis; M19.90 Unspecified osteoarthritis, unspecified site; Z79.51 Long term (current) use of inhaled steroids; Z79.84 Long term (current) use of oral hypoglycemic drugs; Z79.899 Other long term (current) drug therapy; Z81.1 Family history of alcohol abuse and dependence; Z86.711 Personal history of pulmonary embolism; Z87.891 Personal history of nicotine dependence; Z99.81 Dependence on supplemental oxygen; Z88.8 Allergy status to other drugs, medicaments and biological substances; R00.0 Tachycardia, unspecified; Z86.19 Personal history of other infectious and parasitic diseases
CPT/HCPCS: 36415; 71046; 80048; 80053; 82550; 82553; 83605; 83735; 83880; 84484; 85025; 85610; 85730; 87040; 93005; 94640; 96374; 99285

== ENCOUNTER 2018-03-17 14:14 | Observation (INO) | payer MEDICARE, OTHER ==
[2018-03-17] MEDS ORDERED: IPRATROPIUM-ALBUTEROL 3 ML NEB INHALATION STA (14:34)
[2018-03-17] MEDS ORDERED: methylPREDNISolone SOD SUCCI 125 MG/2 ML VIAL IV STA (14:34)
--- NOTE | 2018-03-17 14:36 | ED ---
General Adult HPI - General Chief complaint: Shortness of Breath Stated complaint: AMPARO Time Seen by Provider: 03/17/18 14:30 Source: patient, RN notes reviewed Mode of arrival: ambulatory Limitations: no limitations - History of Present Illness Initial comments: Patient is a pleasant 57-year-old female presenting to the emergency department with difficulty in breathing. Patient does have a known history of COPD. Patient is having a cough with occasional yellow sputum. Patient states it is difficult to get her sputum up. Patient states she did break a couple of ribs a week or 2 ago secondary to cough. Dyspnea is similar to previous COPD. No leg pain or leg swelling. No fevers. - Related Data Home Medications Medication Instructions Recorded Confirmed Lisinopril-Hctz 20-25 mg 1 tab PO DAILY 09/09/14 03/17/18 [Zestoretic 20-25] Spironolactone 50 mg PO DAILY 09/09/14 03/17/18 ALPRAZolam [Xanax] 0.5 mg PO Q6H PRN 09/23/14 03/17/18 Metoprolol Tartrate [Lopressor] 25 mg PO BID 10/31/14 03/17/18 metFORMIN HCL [Glucophage] 500 mg PO BID-W/MEALS 10/31/14 03/17/18 Furosemide [Lasix] 40 mg PO BID 03/30/15 03/17/18 Fluticasone/Salmeterol [Advair Hfa 2 puff INHALATION RT-BID 02/01/16 03/17/18 230-21 Mcg Inhaler] Glimepiride [Amaryl] 4 mg PO AC-BRKFST 07/31/17 03/17/18 Pioglitazone HCl [Actos] 30 mg PO DAILY 07/31/17 03/17/18 Potassium Chloride [Klor-Con 20] 20 meq PO DAILY 07/31/17 03/17/18 Albuterol Nebulized [Ventolin 2.5 mg INHALATION RT-Q4H PRN 01/29/18 03/17/18 Nebulized] Omeprazole [PriLOSEC] 40 mg PO DAILY 01/29/18 03/17/18 Acetaminophen-Codeine 300-30mg 1 - 2 tab PO Q6H PRN 03/17/18 03/17/18 [Tylenol w/codeine #3] Ipratropium-Albuterol Nebulize 3 ml INHALATION RT-QID 03/17/18 03/17/18 [Duoneb 0.5 mg-3 mg/3 ml Soln] predniSONE 10 mg PO DAILY 03/17/18 03/17/18 Allergies Allergy/AdvReac Type Severity Reaction Status Date / Time budesonide [From Pulmicort] Allergy Wheezing Verified 03/17/18 14:44 Review of Systems ROS Statement: Those systems with pertinent positive or pertinent negative responses have been documented in the HPI. ROS Other: All systems not noted in ROS Statement are negative. Constitutional: Denies: fever Eyes: Denies: eye pain ENT: Denies: ear pain Respiratory: Reports: cough, dyspnea Cardiovascular: Denies: chest pain Endocrine: Reports: fatigue Gastrointestinal: Denies: abdominal pain Genitourinary: Denies: dysuria Musculoskeletal: Denies: back pain Skin: Denies: rash Neurological: Denies: headache Past Medical History Past Medical History: Asthma, Chest Pain / Angina, Heart Failure, COPD, Diabetes Mellitus, GERD/Reflux, Hypertension, Osteoarthritis (OA), Pulmonary Embolus (PE), Renal Disease, Sleep Apnea/CPAP/BIPAP Additional Past Medical History / Comment(s): Advanced oxygen-dependent COPD , severe obstructive sleep apnea maintained on BiPAP at a pressure of 22/80 cm of water, chronic hypoxic respiratory failure maintained on oxygen 2 liters nasal cannula(4 at hs), NIDDM type II, DJD, low back pain which radiates down L hip and L leg at times, viral myocarditis, hypertension, morbid obesity with cushingoid features, generalized anxiety disorder, ocd. History of Any Multi-Drug Resistant Organisms: None Reported Past Surgical History: Adenoidectomy, Cholecystectomy, Heart Catheterization, Orthopedic Surgery, Tonsillectomy, Tubal Ligation Additional Past Surgical History / Comment(s): L hand 3rd finger tendon repair, D&C, carpal tunnel left hand, Past Anesthesia/Blood Transfusion Reactions: No Reported Reaction Past Psychological History: Anxiety Smoking Status: Former smoker Past Alcohol Use History: None Reported Past Drug Use History: None Reported - Past Family History Father Family Medical History: No Reported History Additional Family Medical History / Comment(s): Father was an alcoholic. He at the age of 58yrs. Mother Family Medical History: No Reported History Additional Family Medical History / Comment(s): Mother of alcoholism at the age of 63 yrs. General Exam Limitations: no limitations General appearance: alert, in no apparent distress Head exam: Present: atraumatic Eye exam: Present: normal appearance, PERRL ENT exam: Present: normal oropharynx Neck exam: Present: normal inspection Respiratory exam: Present: wheezes, decreased breath sounds Cardiovascular Exam: Present: tachycardia GI/Abdominal exam: Present: soft. Absent: tenderness Extremities exam: Present: normal inspection. Absent: pedal edema, calf tenderness Neurological exam: Present: alert Psychiatric exam: Present: normal affect, normal mood Skin exam: Present: normal color Course Vital Signs 03/17/18 03/17/18 03/17/18 14:20 14:52 15:17 Temperature 98.2 F Pulse Rate 118 H 117 H Respiratory 18 22 Rate Blood Pressure 132/94 O2 Sat by Pulse 94 L Oximetry 03/17/18 15:23 Temperature Pulse Rate 120 H Respiratory Rate Blood Pressure O2 Sat by Pulse Oximetry EKG Findings - EKG Comments: EKG Findings:: Sinus tachycardia 1:15. NM 140. QRS 76. QT 358. QTC 495. Left axis. Inferior Q waves. No acute ST change. Medical Decision Making - Medical Decision Making Patient reevaluated and resting comfortably in bed. Heart rate remains elevated 1:15. Patient updated on results and plan. Patient does request something for discomfort with her cough. Patient states she sees Dr. Felix for pulmonary. Dr. Mendoza has been paged for admission for Dr. Monroe. - Lab Data Result diagrams: 03/17/18 14:44 03/17/18 14:44 Lab Results 03/17/18 03/17/18 03/17/18 Range/Units 14:44 14:44 14:44 WBC 11.3 H (3.8-10.6) k/uL RBC 4.80 (3.80-5.40) m/uL Hgb 14.5 (11.4-16.0) gm/dL Hct 44.2 (34.0-46.0) % MCV 92.0 (80.0-100.0) fL MCH 30.2 (25.0-35.0) pg MCHC 32.9 (31.0-37.0) g/dL RDW 14.4 (11.5-15.5) % Plt Count 322 (150-450) k/uL Neutrophils % 82 % Lymphocytes % 14 % Monocytes % 3 % Eosinophils % 0 % Basophils % 0 % Neutrophils # 9.2 H (1.3-7.7) k/uL Lymphocytes # 1.6 (1.0-4.8) k/uL Monocytes # 0.3 (0-1.0) k/uL Eosinophils # 0.0 (0-0.7) k/uL Basophils # 0.0 (0-0.2) k/uL PT (9.0-12.0) sec INR (<1.2) APTT (22.0-30.0) sec Sodium 139 (137-145) mmol/L Potassium 4.3 (3.5-5.1) mmol/L Chloride 98 (98-107) mmol/L Carbon Dioxide 26 (22-30) mmol/L Anion Gap 15 mmol/L BUN 21 H (7-17) mg/dL Creatinine 0.62 (0.52-1.04) mg/dL Est GFR (CKD-EPI)AfAm >90 (>60 ml/min/1.73 sqM) Est GFR (CKD-EPI)NonAf >90 (>60 ml/min/1.73 sqM) Glucose 168 H (74-99) mg/dL Calcium 10.0 (8.4-10.2) mg/dL Total Bilirubin 0.5 (0.2-1.3) mg/dL AST 27 (14-36) U/L ALT 37 (9-52) U/L Alkaline Phosphatase 79 (38-126) U/L Total Creatine Kinase 70 (30-135) U/L CK-MB (CK-2) 1.5 (0.0-2.4) ng/mL CK-MB (CK-2) Rel Index 2.1 Troponin I <0.012 (0.000-0.034) ng/mL Total Protein 7.2 (6.3-8.2) g/dL Albumin 4.6 (3.5-5.0) g/dL 03/17/18 Range/Units 14:44 WBC (3.8-10.6) k/uL RBC (3.80-5.40) m/uL Hgb (11.4-16.0) gm/dL Hct (34.0-46.0) % MCV (80.0-100.0) fL MCH (25.0-35.0) pg MCHC (31.0-37.0) g/dL RDW (11.5-15.5) % Plt Count (150-450) k/uL Neutrophils % % Lymphocytes % % Monocytes % % Eosinophils % % Basophils % % Neutrophils # (1.3-7.7) k/uL Lymphocytes # (1.0-4.8) k/uL Monocytes # (0-1.0) k/uL Eosinophils # (0-0.7) k/uL Basophils # (0-0.2) k/uL PT 10.0 (9.0-12.0) sec INR 1.0 (<1.2) APTT 21.8 L (22.0-30.0) sec Sodium (137-145) mmol/L Potassium (3.5-5.1) mmol/L Chloride (98-107) mmol/L Carbon Dioxide (22-30) mmol/L Anion Gap mmol/L BUN (7-17) mg/dL Creatinine (0.52-1.04) mg/dL Est GFR (CKD-EPI)AfAm (>60 ml/min/1.73 sqM) Est GFR (CKD-EPI)NonAf (>60 ml/min/1.73 sqM) Glucose (74-99) mg/dL Calcium (8.4-10.2) mg/dL Total Bilirubin (0.2-1.3) mg/dL AST (14-36) U/L ALT (9-52) U/L Alkaline Phosphatase (38-126) U/L Total Creatine Kinase (30-135) U/L CK-MB (CK-2) (0.0-2.4) ng/mL CK-MB (CK-2) Rel Index Troponin I (0.000-0.034) ng/mL Total Protein (6.3-8.2) g/dL Albumin (3.5-5.0) g/dL - Radiology Data Radiology results: image reviewed (Chest x-ray shows resolving basilar infiltrates.) Disposition Clinical Impression: Acute exacerbation of chronic obstructive airways disease Disposition: ADMITTED IP TO THIS HOSP Is patient prescribed a controlled substance at d/c from ED?: No Referrals: Grant Monroe MD [Primary Care Provider] - 1-2 days Decision Time: 15:58
[2018-03-17 15:11] LABS: Basophils % (A) 0 %; Eosinophils % (A) 0 %; HCT 44.2 % (34.0-46.0); HGB 14.5 gm/dL (11.4-16.0); Lymphocytes # (A) 1.6 k/uL (1.0-4.8); Lymphocytes % (A) 14 %; MCH 30.2 pg (25.0-35.0); MCHC 32.9 g/dL (31.0-37.0); Mean Platelet Volume 6.5; Monocytes # (A) 0.3 k/uL (0-1.0); Monocytes % (A) 3 %; Neutrophils # (A) 9.2 k/uL (1.3-7.7); Neutrophils % (A) 82 %; Platelet Count 322 k/uL (150-450); RDW 14.4 % (11.5-15.5); WBC 11.3 k/uL (3.8-10.6)
[2018-03-17 15:17] LABS: ALT 37 U/L (9-52); AST 27 U/L (14-36); Albumin 4.6 g/dL (3.5-5.0); Alkaline Phosphatase 79 U/L (38-126); Anion Gap 15 mmol/L; Blood Urea Nitrogen 21 mg/dL (7-17); Carbon Dioxide 26 mmol/L (22-30); Chloride 98 mmol/L (98-107); Glucose 168 mg/dL (74-99); Potassium 4.3 mmol/L (3.5-5.1); Sodium 139 mmol/L (137-145); Total Bilirubin 0.5 mg/dL (0.2-1.3); Total Protein 7.2 g/dL (6.3-8.2)
[2018-03-17 15:21] LABS: Creatine Kinase 70 U/L (30-135)
[2018-03-17 15:34] LABS: Creatine Kinase MB 1.5 ng/mL (0.0-2.4); Troponin I <0.012 ng/mL (0.000-0.034)
[2018-03-17 15:39] LABS: Partial Thromboplastin Time 21.8 sec (22.0-30.0)
--- NOTE | 2018-03-17 15:48 | XR ---
EXAMINATION TYPE: XR chest 2V DATE OF EXAM: 03/17/2018 COMPARISON: 01/29/2018 INDICATION: Difficulty breathing TECHNIQUE: Frontal and lateral views of the chest are obtained. FINDINGS: The heart size is normal. The pulmonary vasculature is normal. Mild increased linear markings are at the lung bases. This is improved from comparison compatible wit h resolving subsegmental atelectasis or pneumonia. IMPRESSION: 1. Resolving mild bibasilar infiltrates.
[2018-03-17] MEDS ORDERED: IPRATROPIUM-ALBUTEROL 3 ML NEB INHALATION PRN (15:58)
[2018-03-17] MEDS ORDERED: IPRATROPIUM-ALBUTEROL 3 ML NEB INHALATION SCH (16:00)
[2018-03-17] MEDS: guaiFENesin-Coden 100-10MG/5ML 10 ML CUP PO PRN (16:17)
[2018-03-17] MEDS: SODIUM CHLORIDE 0.9% 1,000 ML IV SCH (16:17)
[2018-03-17 17:21] LABS: Glucose,Whole Blood 196 mg/dL (75-99)
[2018-03-17 17:38] VITALS: BMI 39.3
[2018-03-17] MEDS: methylPREDNISolone SOD SUCCI 125 MG/2 ML VIAL IV SCH (18:45)
[2018-03-17] MEDS ORDERED: FLUTICASONE INHALATION SCH (20:00)
[2018-03-17] MEDS ORDERED: SALMETEROL INHALATION SCH (20:00)
[2018-03-17] MEDS: ENOXAPARIN 40 MG/0.4 ML SYRINGE SQ SCH (20:13)
[2018-03-17] MEDS: metFORMIN 500 MG TAB PO SCH (20:13)
[2018-03-17 20:37] LABS: Glucose,Whole Blood 272 mg/dL (75-99)
[2018-03-17] MEDS: IPRATROPIUM-ALBUTEROL 3 ML NEB INHALATION SCH (20:52)
[2018-03-17] MEDS: BUDESONIDE 1 MG/2 ML NEBU INHALATION SCH ×2 (20:52→20:56)
[2018-03-17] MEDS: Acetaminophen-Codeine 300-30mg TAB PO PRN (20:55)
[2018-03-17] MEDS: METOPROLOL TARTRATE 25 MG TAB PO SCH (20:56)
[2018-03-18] MEDS: methylPREDNISolone SOD SUCCI 125 MG/2 ML VIAL IV SCH ×3 (00:19→12:30)
[2018-03-18] MEDS: ALPRAZolam 0.5 MG TAB PO PRN ×4 (00:20→22:51)
[2018-03-18] MEDS: IPRATROPIUM-ALBUTEROL 3 ML NEB INHALATION SCH ×7 (04:33→23:53)
[2018-03-18] MEDS: Acetaminophen-Codeine 300-30mg TAB PO PRN ×3 (04:52→22:51)
[2018-03-18] MEDS: SODIUM CHLORIDE 0.9% 1,000 ML IV SCH ×3 (04:53→22:49)
[2018-03-18 07:16] LABS: Glucose,Whole Blood 219 mg/dL (75-99)
[2018-03-18] MEDS: BUDESONIDE 1 MG/2 ML NEBU INHALATION SCH (07:35)
[2018-03-18] MEDS: FUROSEMIDE 40 MG TAB PO SCH ×2 (08:20→16:18)
[2018-03-18] MEDS: PIOGLITAZONE 30 MG TAB PO SCH (08:20)
[2018-03-18] MEDS: SPIRONOLACTONE 25 MG TAB PO SCH (08:20)
[2018-03-18] MEDS: LISINOPRIL-HCTZ 20-25 MG 1 EACH TAB PO SCH (08:20)
[2018-03-18] MEDS: GLIMEPIRIDE 4 MG TAB PO SCH (08:20)
[2018-03-18] MEDS: POTASSIUM CHLORIDE ER 20 MEQ TAB.ER PO SCH (08:20)
[2018-03-18] MEDS: METOPROLOL TARTRATE 25 MG TAB PO SCH ×2 (08:20→20:34)
[2018-03-18] MEDS: PANTOPRAZOLE 40 MG TABLET PO SCH (08:20)
[2018-03-18] MEDS: ENOXAPARIN 40 MG/0.4 ML SYRINGE SQ SCH (08:20)
[2018-03-18] MEDS: INSULIN ASPART 100 UNIT/ML 1 ML 10 ML VIAL SQ SCH ×4 (08:20→22:50)
[2018-03-18] MEDS: metFORMIN 500 MG TAB PO SCH ×2 (08:20→17:39)
[2018-03-18] MEDS: guaiFENesin-Coden 100-10MG/5ML 10 ML CUP PO PRN (10:28)
[2018-03-18 12:27] LABS: Glucose,Whole Blood 215 mg/dL (75-99)
--- NOTE | 2018-03-18 12:53 | P.CNPUL ---
History of Present Illness Consult date: 03/18/18 Reason for consult: dyspnea, cough, asthma, COPD, hypoxemia, abnormal CXR/CT Chief complaint: Shortness of breath History of present illness: Pulmonary consult dated 03/18/2018 57-year-old female well-known to my service. She is a prior history of severe COPD from significant tobacco use. The patient usually sees me in the clinic [facility] or in the [place] office. She apparently comes in complaining of increasing cough and yellow sputum production. She has a difficult time getting sputum up. She has chest congestion. She is wheezing. She short of breath. Another part of the problem is that a couple weeks ago, she broke a couple ribs on the right side. For that reason his been hard to cough up any phlegm. The patient presented to the ER with these complaints and was admitted with a diagnosis of COPD exacerbation and possible pneumonia. The patient states that she doesn't feel much better today than she did yesterday. She hasn't been feeling well for a number of days. In addition to COPD, she has a history of GERD, diabetes mellitus, hypertension, anxiety, angina, heart failure, DJD, pulmonary embolism, sleep apnea syndrome. She is oxygen dependent and does use oxygen 24 7. She also uses BiPAP for her sleep apnea syndrome. I did send her to [facility] for evaluation of lung transplantation but she was rejected by them. Up until recently, the patient was still smoking. She assures me, currently, that she isn't anymore. In addition to all this, she is morbidly obese. Review of Systems 14 point review of system is positive for shortness of breath chest tightness wheezing cough chest congestion and phlegm production. She is having a difficult time getting phlegm up. She denies fever or chills. She is not coughing up any blood. Past Medical History Past Medical History: Asthma, Chest Pain / Angina, Heart Failure, COPD, Diabetes Mellitus, GERD/Reflux, Hypertension, Osteoarthritis (OA), Pulmonary Embolus (PE), Renal Disease, Sleep Apnea/CPAP/BIPAP Additional Past Medical History / Comment(s): Advanced oxygen-dependent COPD , severe obstructive sleep apnea maintained on BiPAP at a pressure of 22/80 cm of water, chronic hypoxic respiratory failure maintained on oxygen 2 liters nasal cannula(4 at hs), NIDDM type II, DJD, low back pain which radiates down L hip and L leg at times, viral myocarditis, hypertension, morbid obesity with cushingoid features, generalized anxiety disorder, ocd. History of Any Multi-Drug Resistant Organisms: None Reported Past Surgical History: Adenoidectomy, Cholecystectomy, Heart Catheterization, Orthopedic Surgery, Tonsillectomy, Tubal Ligation Additional Past Surgical History / Comment(s): L hand 3rd finger tendon repair, D&C, carpal tunnel left hand, Past Anesthesia/Blood Transfusion Reactions: No Reported Reaction Past Psychological History: Anxiety Additional Psychological History / Comment(s): Pt resides with her boyfriend. She is normally independent.drives. She has home O2 and a CPAP, glucometer, nebilizer.. Smoking Status: Former smoker Past Alcohol Use History: None Reported Additional Past Alcohol Use History / Comment(s): She started smoking in 1977 smoed 06/20 ppd and quit 2015. Past Drug Use History: None Reported - Past Family History Father Family Medical History: No Reported History Additional Family Medical History / Comment(s): Father was an alcoholic. He at the age of 58yrs. Mother Family Medical History: No Reported History Additional Family Medical History / Comment(s): Mother of alcoholism at the age of 63 yrs. Medications and Allergies Home Medications Medication Instructions Recorded Confirmed Type Lisinopril-Hctz 20-25 mg 1 tab PO DAILY 09/09/14 03/17/18 History [Zestoretic 20-25] Spironolactone 50 mg PO DAILY 09/09/14 03/17/18 History ALPRAZolam [Xanax] 0.5 mg PO Q6H PRN 09/23/14 03/17/18 History Metoprolol Tartrate [Lopressor] 25 mg PO BID 10/31/14 03/17/18 History metFORMIN HCL [Glucophage] 500 mg PO BID-W/MEALS 10/31/14 03/17/18 History Furosemide [Lasix] 40 mg PO BID 03/30/15 03/17/18 History Fluticasone/Salmeterol [Advair Hfa 2 puff INHALATION RT-BID 02/01/16 03/17/18 History 230-21 Mcg Inhaler] Glimepiride [Amaryl] 4 mg PO AC-BRKFST 07/31/17 03/17/18 History Pioglitazone HCl [Actos] 30 mg PO DAILY 07/31/17 03/17/18 History Potassium Chloride [Klor-Con 20] 20 meq PO DAILY 07/31/17 03/17/18 History Albuterol Nebulized [Ventolin 2.5 mg INHALATION RT-Q4H PRN 01/29/18 03/17/18 History Nebulized] Omeprazole [PriLOSEC] 40 mg PO DAILY 01/29/18 03/17/18 History Acetaminophen-Codeine 300-30mg 1 - 2 tab PO Q6H PRN 03/17/18 03/17/18 History [Tylenol w/codeine #3] Ipratropium-Albuterol Nebulize 3 ml INHALATION RT-QID 03/17/18 03/17/18 History [Duoneb 0.5 mg-3 mg/3 ml Soln] predniSONE 10 mg PO DAILY 03/17/18 03/17/18 History Allergies Allergy/AdvReac Type Severity Reaction Status Date / Time budesonide [From Pulmicort] Allergy Wheezing Verified 03/17/18 14:44 Physical Exam Osteopathic Statement: *. No significant issues noted on an osteopathic structural exam other than those noted in the History and Physical/Consult. Vitals: Vital Signs Temp Pulse Pulse Resp BP BP Pulse Ox 03/18/18 12:27 98 03/18/18 12:10 94 03/18/18 07:50 100 03/18/18 07:35 100 03/18/18 06:25 97.7 F 98 18 112/71 93 L 03/18/18 04:44 108 H 03/18/18 04:33 100 03/18/18 00:12 108 H 03/18/18 00:00 100 03/17/18 23:00 98.1 F 103 H 18 146/82 92 L 03/17/18 21:03 115 H 18 03/17/18 20:56 97 03/17/18 20:53 114 H 18 03/17/18 17:15 97.5 F L 107 H 22 115/71 94 L 03/17/18 16:22 97.8 F 116 H 24 114/69 93 L 03/17/18 15:23 120 H 03/17/18 15:17 117 H 03/17/18 14:52 22 03/17/18 14:20 98.2 F 118 H 18 132/94 94 L Intake and Output 03/17/18 03/18/18 03/18/18 22:59 06:59 14:59 Other: Voiding Method Toilet Toilet # Voids 1 1 Weight 97.522 kg No acute distress, oriented 3. Nasal O2 in place. No rex respiratory distress. No nasal flaring, audible wheezing, or use of accessory muscles. HEENT examination is grossly unremarkable. Mucous membranes are moist. No oral lesions. Neck supple. Full range of motion. No adenopathy thyromegaly or neck vein distention. Cardiovascular examination reveals regular rhythm rate. S1-S2 normal. No S3 or S4. No discernible murmur noted. Heart rate 90 bpm. Lungs reveal coarse inspiratory and expiratory wheezes and rhonchi. Breath sounds are diminished throughout. There is prolongation on forced maneuver. No crackles appreciated. Breath sounds equal bilaterally. Abdomen soft bowel sounds are heard. No masses or tenderness. Extremities are intact. No cyanosis clubbing or edema. Skin is without rash or lesion. Neurologic examination is brief but nonfocal. Results - Laboratory Findings CBC and BMP: 03/17/18 14:44 03/17/18 14:44 PT/INR, D-dimer PT 10.0 sec (9.0-12.0) 03/17/18 14:44 INR 1.0 (<1.2) 03/17/18 14:44 Abnormal lab findings: Abnormal Labs 03/17/18 03/17/18 03/17/18 14:44 14:44 14:44 WBC 11.3 H Neutrophils # 9.2 H APTT 21.8 L BUN 21 H Glucose 168 H POC Glucose (mg/dL) 03/17/18 03/17/18 03/18/18 17:19 20:33 07:14 WBC Neutrophils # APTT BUN Glucose POC Glucose (mg/dL) 196 H 272 H 219 H 03/18/18 12:15 WBC Neutrophils # APTT BUN Glucose POC Glucose (mg/dL) 215 H - Diagnostic Findings Chest x-ray: report reviewed (Chest x-ray, labs, and medications are reviewed.) , image reviewed Assessment and Plan Assessment: Assessment COPD exacerbation, complicated by purulent tracheobronchitis. Acute on chronic hypoxemic respiratory failure. Recent right-sided rib fractures Morbid obesity History of heart failure. History of angina pectoris History of diabetes mellitus GERD Hypertension DJD Pulmonary embolism History of sleep apnea syndrome Multiple other medical problems and comorbidities Plan: Plan dated 03/18/2018 The patient's medications will be reviewed. We'll make sure that she is on appropriate medications. She cannot take Pulmicort solution. Additional recommendations and suggestions are forthcoming. We'll recommend deep breathing coughing clearing of secretions in the use of incentive spirometer. We will follow closely. Prognosis is guarded. She was sent to [facility] for evaluation of lung transplantation but her multitude of medical problems and obesity prevented her from being seriously considered. Time with Patient: Greater than 30
[2018-03-18] MEDS ORDERED: BISACODYL 5 MG TABLET.DR PO PRN (13:43)
[2018-03-18] MEDS ORDERED: MAGNESIUM HYDROXIDE 2,400 MG/10 ML CUP PO PRN (13:43)
[2018-03-18] MEDS ORDERED: LACTULOSE 20 GM/30 ML CUP PO PRN (13:43)
[2018-03-18] MEDS ORDERED: MELATONIN 3 MG TABLET PO PRN (13:43)
[2018-03-18] MEDS ORDERED: ONDANSETRON 4 MG/2 ML VIAL IVP PRN (13:43)
[2018-03-18] MEDS ORDERED: CALCIUM CARBONATE 500 MG CHEWABLE PO PRN (13:43)
[2018-03-18] MEDS ORDERED: ACETAMINOPHEN TAB 325 MG TAB PO PRN (13:43)
[2018-03-18] MEDS ORDERED: ALPRAZolam 0.25 MG TAB PO PRN (13:43)
--- NOTE | 2018-03-18 14:58 | HP ---
HISTORY AND PHYSICAL DATE OF ADMISSION: March 17, 2018 DATE OF SERVICE: March 18, 2018 PRESENT COMPLAINT: Short of breath. Wheezing. HISTORY OF PRESENTING COMPLAINT: A very pleasant 57-year-old patient follows with Dr. Monroe. 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 Chronic stable medical conditions include diabetes, GERD, hypertension, obstructive sleep apnea, uses CPAP machine, anxiety, osteoarthritis. Two weeks ago patient suffered fracture of the right rib and patient is the right side. Subsequently, she became started having more trouble, short of breath, wheezing, cough, started having yellow sputum. No obvious fever and chills. The patient did get some antibiotics but really did not respond well as an outpatient. Hence she presented to the ER. The patient started off with bronchodilators, IV steroids to which she is starting to respond better. The patient started to tolerate some diet. REVIEW OF SYSTEMS: CONSTITUTIONAL: Tired. HEENT none. RESPIRATORY as above. CARDIOVASCULAR none. GASTROINTESTINAL heartburn. GENITOURINARY none. MUSCULOSKELETAL: Arthritic pain in many joints and pain in the right rib site. DERMATOLOGICAL, HEMATOLOGIC, LYMPHATIC: None. PSYCHIATRY: Anxiety. NEUROLOGICAL none. PAST MEDICAL HISTORY: Congestive heart failure, EF not known, COPD, diabetes, GERD, hypertension, osteoarthritis, pulmonary embolism, renal disease, obstructive sleep apnea with CPAP, advanced oxygen-dependent COPD, has a BiPAP, home oxygen on 2 L and 4 L at night, low back pain that did radiate down the left hip and left leg. Viral myocarditis. Morbid obesity, generalized anxiety disorder. OCD. PAST SURGICAL HISTORY: Adenoidectomy, cholecystectomy, cardiac catheterization, orthopedic surgery, tonsillectomy, tubal ligation, left hand 3rd finger tendon repair, D and C, carpal tunnel, left hand. SOCIAL HISTORY: Lives with a boyfriend. Smoked about half a pack for close to 38 years, stopped in 2016. No alcohol. FAMILY HISTORY: Father was an alcoholic. HOME MEDICATIONS: 1. Prednisone 10 mg a day. 2. Glucophage 500 mg p.o. b.i.d. 3. Aldactone 50 mg a day. 4. Potassium 20 mEq a day. 5. Actos 30 mg a day. 6. Prilosec 40 mg a day. 7. Lopressor 25 mg b.i.d. 8. Zestoretic 20/25 1 tablet p.o. daily. 9. DuoNeb q.i.d. 10.Amaryl 4 mg with breakfast. 11.Lasix 40 mg b.i.d. 12.Advair HFA 2 puffs b.i.d. 13.Ventolin 2.5 q.4h p.r.n. 14.Tylenol #3 1-2 tablets q.6h p.r.n. 15.Xanax 0.5 p.o. q.6h p.r.n. ALLERGY: TO BUDESONIDE. PHYSICAL EXAMINATION: VITAL SIGNS: Vital signs on presentation, temperature 98.2, pulse 118, respiratory 18, blood pressure 132/94, pulse ox 94% on 2 L. GENERAL APPEARANCE: Well built, BMI 39.3, sitting up, tired appearing. EYES: Pupils are equal. Conjunctivae normal. HEENT external appearance of nose and ears normal. Oral cavity normal. NECK JVD not raised. Mass not palpable. RESPIRATORY: Effort increased. LUNGS: Diminished breath sounds. Prolonged expiration and wheezing. CARDIOVASCULAR 1st and 2nd sounds normal. No edema. ABDOMEN: Distended, soft. Liver and spleen not palpable. LYMPHATICS: No lymph nodes palpable in the neck and axilla. PSYCHIATRY: Alert and oriented times three. Mood and affect is slightly anxious- appearing. NEUROLOGICAL: Pupils equal. Cranial nerves grossly intact. Power and sensation grossly intact. MUSCULOSKELETAL: Some tenderness over the right chest wall. INVESTIGATIONS: White count 11.3, hemoglobin 14.5, potassium 4.3, BUN 21, creatinine 0.62. EKG tracing personally reviewed by me shows some nonspecific changes in sinus tachycardia. Chest x- ray film personally reviewed by me. Some atelectasis and minimal infiltrate on the right base. ASSESSMENT: 1. Acute chronic obstructive pulmonary disease exacerbation in an ex-smoker from acute tracheobronchitis. 2. Diabetes mellitus type 2 on oral hypoglycemics. 3. Gastroesophageal reflux disease. 4. Obesity; BMI 39.3. 5. Essential hypertension. 6. Obstructive sleep apnea, does use CPAP. 7. Chronic hypoxic respiratory failure on home oxygen 2 L from underlying chronic obstructive pulmonary disease. 8. Anxiety disorder not otherwise specified. 9. Primary osteoarthritis. PLAN: Patient is put on IV Solu-Medrol, DuoNeb, AUGMENTIN. Home medications are resumed. Care was discussed with the patient. The patient also does use incentive spirometry. For the right rib pain, the patient has given a heating pad and ice packs. Care was discussed with the patient. Questions were discussed. Consultation to Dr. Felix. Copy to Dr. Monroe. MMODL / SHERMANN: [id number] /
[2018-03-18] MEDS: methylPREDNISolone SOD SUCCI 40 MG/ML 1 ML VIAL IV SCH ×2 (16:22→22:51)
[2018-03-18 17:08] LABS: Glucose,Whole Blood 232 mg/dL (75-99)
[2018-03-18] MEDS: FORMOTEROL FUMARATE 20 MCG/2 ML NEBU INHALATION SCH (19:02)
[2018-03-18] MEDS: AMOXIC-POT CLAV 875-125MG 1 EACH TAB PO SCH (20:33)
[2018-03-18 20:59] LABS: Glucose,Whole Blood 240 mg/dL (75-99)
[2018-03-19] MEDS: IPRATROPIUM-ALBUTEROL 3 ML NEB INHALATION SCH ×5 (04:14→20:03)
[2018-03-19 07:30] LABS: Glucose,Whole Blood 211 mg/dL (75-99)
[2018-03-19] MEDS: FORMOTEROL FUMARATE 20 MCG/2 ML NEBU INHALATION SCH ×2 (07:31→20:03)
[2018-03-19] MEDS: PANTOPRAZOLE 40 MG TABLET PO SCH (08:27)
[2018-03-19] MEDS: PIOGLITAZONE 30 MG TAB PO SCH (08:27)
[2018-03-19] MEDS: SPIRONOLACTONE 25 MG TAB PO SCH (08:27)
[2018-03-19] MEDS: LISINOPRIL-HCTZ 20-25 MG 1 EACH TAB PO SCH (08:27)
[2018-03-19] MEDS: GLIMEPIRIDE 4 MG TAB PO SCH (08:27)
[2018-03-19] MEDS: AMOXIC-POT CLAV 875-125MG 1 EACH TAB PO SCH ×2 (08:27→21:27)
[2018-03-19] MEDS: INSULIN ASPART 100 UNIT/ML 1 ML 10 ML VIAL SQ SCH ×4 (08:27→21:28)
[2018-03-19] MEDS: FUROSEMIDE 40 MG TAB PO SCH ×2 (08:28→16:45)
[2018-03-19] MEDS: methylPREDNISolone SOD SUCCI 40 MG/ML 1 ML VIAL IV SCH ×2 (08:28→16:46)
[2018-03-19] MEDS: POTASSIUM CHLORIDE ER 20 MEQ TAB.ER PO SCH (08:28)
[2018-03-19] MEDS: metFORMIN 500 MG TAB PO SCH ×2 (08:28→17:35)
[2018-03-19] MEDS: METOPROLOL TARTRATE 25 MG TAB PO SCH ×2 (08:28→21:28)
[2018-03-19] MEDS: ENOXAPARIN 40 MG/0.4 ML SYRINGE SQ SCH (08:28)
[2018-03-19] MEDS: ALPRAZolam 0.5 MG TAB PO PRN ×3 (08:35→22:39)
[2018-03-19] MEDS: Acetaminophen-Codeine 300-30mg TAB PO PRN ×3 (08:35→22:39)
[2018-03-19 10:01] LABS: Hemoglobin A1C 6.9 % (4.0-6.0)
[2018-03-19 11:40] LABS: Glucose,Whole Blood 167 mg/dL (75-99)
[2018-03-19 17:44] LABS: Glucose,Whole Blood 188 mg/dL (75-99)
--- NOTE | 2018-03-19 18:19 | P.PN ---
Subjective Progress Note Date: 03/19/18 Principal diagnosis: COPD exacerbation, comfortable purulent tracheobronchitis Pulmonary consult dated 03/18/2018 57-year-old female well-known to my service. She is a prior history of severe COPD from significant tobacco use. The patient usually sees me in the clinic [facility] or in the [place] office. She apparently comes in complaining of increasing cough and yellow sputum production. She has a difficult time getting sputum up. She has chest congestion. She is wheezing. She short of breath. Another part of the problem is that a couple weeks ago, she broke a couple ribs on the right side. For that reason his been hard to cough up any phlegm. The patient presented to the ER with these complaints and was admitted with a diagnosis of COPD exacerbation and possible pneumonia. The patient states that she doesn't feel much better today than she did yesterday. She hasn't been feeling well for a number of days. In addition to COPD, she has a history of GERD, diabetes mellitus, hypertension, anxiety, angina, heart failure, DJD, pulmonary embolism, sleep apnea syndrome. She is oxygen dependent and does use oxygen 24 7. She also uses BiPAP for her sleep apnea syndrome. I did send her to [facility] for evaluation of lung transplantation but she was rejected by them. Up until recently, the patient was still smoking. She assures me, currently, that she isn't anymore. In addition to all this, she is morbidly obese. On 03/19/2018 patient was seen in follow-up on medical surgical floor. Doing well, improving, lung sounds are essentially clear. No wheezes, no rhonchi, currently on 2 L per nasal cannula, pulse ox is 96%, she is afebrile. Patient has been treated with the IV steroids, nebulized broncho-dilators, Augmentin, and she is improving. From pulmonary perspective patient can be discharged home in the next 24 hours. Objective - Vital Signs Vital signs: Vital Signs Temp 97.9 F 03/19/18 14:24 Pulse 80 03/19/18 16:20 Resp 20 03/19/18 14:24 BP 122/78 03/19/18 14:24 Pulse Ox 96 03/19/18 14:24 Intake & Output 03/18/18 03/19/18 03/19/18 18:59 06:59 18:59 Intake Total 300 Balance 300 Weight 99.9 kg Intake: Oral 300 Other: Voiding Method Toilet Toilet # Voids 3 1 4 - Exam No acute distress, oriented 3. Nasal O2 in place. No rex respiratory distress. No nasal flaring, audible wheezing, or use of accessory muscles. HEENT examination is grossly unremarkable. Mucous membranes are moist. No oral lesions. Neck supple. Full range of motion. No adenopathy thyromegaly or neck vein distention. Cardiovascular examination reveals regular rhythm rate. S1-S2 normal. No S3 or S4. No discernible murmur noted. Heart rate 90 bpm. Lungs reveal coarse inspiratory and expiratory wheezes and rhonchi. Breath sounds are diminished throughout. There is prolongation on forced maneuver. No crackles appreciated. Breath sounds equal bilaterally. Abdomen soft bowel sounds are heard. No masses or tenderness. Extremities are intact. No cyanosis clubbing or edema. Skin is without rash or lesion. Neurologic examination is brief but nonfocal. - Labs CBC & Chem 7: 03/17/18 14:44 03/17/18 14:44 Labs: Abnormal Lab Results - Last 24 Hours (Table) 03/17/18 03/18/18 03/19/18 Range/Units 14:41 20:51 07:26 POC Glucose (mg/dL) 240 H 211 H (75-99) mg/dL Hemoglobin A1c 6.9 H (4.0-6.0) % 03/19/18 03/19/18 Range/Units 11:26 17:24 POC Glucose (mg/dL) 167 H 188 H (75-99) mg/dL Hemoglobin A1c (4.0-6.0) % Assessment and Plan Plan: Assessment: COPD exacerbation, complicated by purulent tracheobronchitis. Acute on chronic hypoxemic respiratory failure. Recent right-sided rib fractures Morbid obesity History of heart failure. History of angina pectoris History of diabetes mellitus GERD Hypertension DJD Pulmonary embolism History of sleep apnea syndrome Multiple other medical problems and comorbidities Plan: Continue current medical treatment, from pulmonary perspective patient is much improved, and can be cleared for discharge home in the next 24 hours. I performed a history & physical examination of the patient and discussed their management with my nurse practitioner, Rand Gillis. I reviewed the nurse practitioner's note and agree with the documented findings and plan of care. Lung sounds are essentially clear. The findings and the impression was discussed with the patient. I attest to the documentation by the nurse practitioner. Time with Patient: Less than 30
[2018-03-19 20:32] LABS: Glucose,Whole Blood 277 mg/dL (75-99)
--- NOTE | 2018-03-19 21:13 | PN ---
PROGRESS NOTE DATE OF SERVICE: 03/19/18. PRESENTING COMPLAINT: Short of breath. INTERVAL HISTORY: This patient presented with COPD exacerbation. Breathing is better today. Also had right hip fracture, also using the ice. Overall feeling better tolerating a diet. Has been up to the bathroom. REVIEW OF SYSTEMS: Done for constitutional, cardiovascular, GI, pulmonary; relevant findings above. CURRENT MEDICATIONS: Reviewed that include DuoNeb, IV Solu-Medrol. PHYSICAL EXAMINATION: Temperature 97.9, pulse 98, respiratory 20, blood pressure 122/78, pulse 96% on 2 L. GENERAL APPEARANCE: Sitting at the edge of bed, more comfortable. EYES: Pupils equal. Conjunctivae normal. HEENT: External appearance of nose and ears normal. Oral cavity normal. NECK: JVD not raised. Mass not palpable. RESPIRATORY: Effort normal. Lungs, decreased breath sounds with improved air entry. CARDIOVASCULAR: First and second sounds, no edema. ABDOMEN: Soft, nontender. Liver and spleen not palpable. PSYCHIATRY: Alert and oriented x3. Mood and affect normal. INVESTIGATIONS: Accu-Cheks are noted. ASSESSMENT: 1. Acute chronic obstructive pulmonary disease exacerbation in an ex-smoker from acute tracheobronchitis with clinical response. 2. Diabetes mellitus type 2 on oral hypoglycemic. 3. Gastroesophageal reflux disease. 4. Obesity; BMI 39.3. 5. Essential hypertension. 6. Obstructive sleep apnea, does use CPAP. 7. Chronic hypoxic respiratory failure on home oxygen 2 L from underlying chronic obstructive pulmonary disease. 8. Anxiety disorder not otherwise specified. 9. Primary osteoarthritis. PLAN: Patient doing rather well. Care was discussed with the patient. Steroids will be scaled back. Looking for patient to be discharged tomorrow. Encouraged to be walk in room. MMODL / IJN: [id number] /
[2018-03-19] MEDS: SODIUM CHLORIDE 0.9% 1,000 ML IV SCH (21:29)
[2018-03-19 22:56] VITALS: RESP 16
[2018-03-20] MEDS: IPRATROPIUM-ALBUTEROL 3 ML NEB INHALATION SCH ×4 (00:10→11:37)
[2018-03-20] MEDS: methylPREDNISolone SOD SUCCI 40 MG/ML 1 ML VIAL IV SCH ×2 (00:35→08:11)
[2018-03-20 06:21] VITALS: BP 117/83; TEMP 96.9
[2018-03-20 06:58] LABS: Glucose,Whole Blood 249 mg/dL (75-99)
[2018-03-20] MEDS: FORMOTEROL FUMARATE 20 MCG/2 ML NEBU INHALATION SCH (07:15)
[2018-03-20] MEDS: LISINOPRIL-HCTZ 20-25 MG 1 EACH TAB PO SCH (08:09)
[2018-03-20] MEDS: PANTOPRAZOLE 40 MG TABLET PO SCH (08:09)
[2018-03-20] MEDS: AMOXIC-POT CLAV 875-125MG 1 EACH TAB PO SCH (08:09)
[2018-03-20] MEDS: GLIMEPIRIDE 4 MG TAB PO SCH (08:09)
[2018-03-20] MEDS: FUROSEMIDE 40 MG TAB PO SCH ×2 (08:09→14:18)
[2018-03-20] MEDS: PIOGLITAZONE 30 MG TAB PO SCH (08:09)
[2018-03-20] MEDS: METOPROLOL TARTRATE 25 MG TAB PO SCH (08:09)
[2018-03-20] MEDS: POTASSIUM CHLORIDE ER 20 MEQ TAB.ER PO SCH (08:10)
[2018-03-20] MEDS: SPIRONOLACTONE 25 MG TAB PO SCH (08:10)
[2018-03-20] MEDS: Acetaminophen-Codeine 300-30mg TAB PO PRN ×2 (08:10→14:18)
[2018-03-20] MEDS: INSULIN ASPART 100 UNIT/ML 1 ML 10 ML VIAL SQ SCH ×2 (08:11→12:47)
[2018-03-20] MEDS: metFORMIN 500 MG TAB PO SCH (08:11)
[2018-03-20] MEDS: ENOXAPARIN 40 MG/0.4 ML SYRINGE SQ SCH (08:12)
[2018-03-20] MEDS: ALPRAZolam 0.5 MG TAB PO PRN (10:30)
[2018-03-20 11:45] LABS: Glucose,Whole Blood 162 mg/dL (75-99)
[2018-03-20 11:52] VITALS: PULSE 84
--- NOTE | 2018-03-20 20:44 | DS ---
DISCHARGE SUMMARY DATE OF ADMISSION: 03/17/2018 DATE OF DISCHARGE: 03/20/2018 FINAL DIAGNOSES: 1. Acute chronic obstructive pulmonary disease exacerbation in an ex-smoker from acute tracheobronchitis. 2. Diabetes mellitus, type 2, on oral hypoglycemic. 3. Gastroesophageal reflux disease. 4. Obesity; body mass index 39.3. 5. Essential hypertension. 6. Obstructive sleep apnea. Does use CPAP. 7. Chronic hypoxic respiratory failure, on home oxygen 2 L, from underlying chronic obstructive pulmonary disease. 8. Anxiety disorder not otherwise specified. 9. Primary osteoarthritis. 10.Recent right rib fracture. 11.Chronic congestive heart failure, ejection fraction not known. HOSPITAL COURSE: This is a patient who had failed outpatient treatment for COPD exacerbation. He presented with shortness of breath, cough, wheezing, yellow sputum, felt to have acute tracheobronchitis. Patient responded well to bronchodilators, steroids, antibiotics; doing much better at the time of discharge. PHYSICAL EXAMINATION: Afebrile. Pulse 93, respiration 16, blood pressure 117/83, pulse ox 95% on 2 L. LUNGS: Improved air entry. CARDIOVASCULAR: First and second sounds normal. CONSULTATION: Dr. Felix from Pulmonary. DISCHARGE MEDICATIONS: 1. Zestoretic 20/25 one tablet p.o. daily. 2. Aldactone 50 mg daily. 3. Xanax 0.5 p.o. q.6 p.r.n. 4. Lopressor 25 mg p.o. b.i.d. 5. Glucophage 500 mg p.o. b.i.d. 6. Lasix 40 mg b.i.d. 7. Advair 230/21 two puffs b.i.d. 8. Amaryl 4 mg p.o. with breakfast. 9. Actos 30 mg p.o. daily. 10.Potassium 20 mEq daily. 11.Ventolin 2.5 q.4 p.r.n. 12.Prilosec 40 mg p.o. daily. 13.Tylenol No. 3 one to two tablets q.6 p.r.n. 14.DuoNeb q.i.d. 15.Prednisone taper. 16.Augmentin 875 one tablet q.12; 6 tablets. Follow up with Dr. Monroe on 03/22/2018. Follow up with Dr. Felix in 1 week. Discussion and discharge planning more than 35 minutes. MMODL / IJN: [id number] /
== END 2018-03-20 15:13 | disposition home or self-care (01) ==
LOC: EC 14:14 → 4MS4W 15:58
PROVIDERS: ADMIT Hospitalist; ATTEND Hospitalist
DX: J44.1 Chronic obstructive pulmonary disease with (acute) exacerbation (principal); J20.9 Acute bronchitis, unspecified; J44.0 Chronic obstructive pulmonary disease with (acute) lower respiratory infection; E11.9 Type 2 diabetes mellitus without complications; K21.9 Gastro-esophageal reflux disease without esophagitis; Z68.39 Body mass index [BMI] 39.0-39.9, adult; G47.33 Obstructive sleep apnea (adult) (pediatric); Z99.89 Dependence on other enabling machines and devices; Z99.81 Dependence on supplemental oxygen; J96.21 Acute and chronic respiratory failure with hypoxia; M19.91 Primary osteoarthritis, unspecified site; I50.9 Heart failure, unspecified; S22.41XA Multiple fractures of ribs, right side, initial encounter for closed fracture; N28.9 Disorder of kidney and ureter, unspecified; F17.200 Nicotine dependence, unspecified, uncomplicated; I11.0 Hypertensive heart disease with heart failure; M54.5 Low back pain; F41.1 Generalized anxiety disorder; E66.01 Morbid (severe) obesity due to excess calories; F42.9 Obsessive-compulsive disorder, unspecified; Z86.711 Personal history of pulmonary embolism; Z79.51 Long term (current) use of inhaled steroids; Z79.84 Long term (current) use of oral hypoglycemic drugs; Z79.899 Other long term (current) drug therapy; Z88.8 Allergy status to other drugs, medicaments and biological substances; Z90.49 Acquired absence of other specified parts of digestive tract; Z81.1 Family history of alcohol abuse and dependence
CPT/HCPCS: 96374 ×2; 96376 ×4; 96372 ×4; 99285; 36415; 94640 ×7; 94760; 93005; 80053; 82550; 82553; 84484; 85025; 85610; 85730; 83036; 71046; G0378 ×4; J2920 ×3; J2930 ×2; J1650 ×4

== ENCOUNTER 2018-07-14 18:50 | Inpatient (IN) | payer MEDICARE, OTHER ==
[2018-07-14] MEDS ORDERED: IPRATROPIUM 0.5 MG/2.5 ML NEBU INHALATION ONE (19:30)
[2018-07-14] MEDS ORDERED: ALBUTEROL NEBULIZED 2.5 MG/3 ML INHALATION ONE (19:30)
[2018-07-14] MEDS ORDERED: predniSONE 20 MG TAB ONE (19:30)
--- NOTE | 2018-07-15 00:57 | XR ---
EXAMINATION TYPE: Chest 2 views DATE OF EXAM: 07/14/2018 COMPARISON: 03/17/2018 HISTORY: 57-year-old female with shortness of breath and COPD FINDINGS: Heart upper limits of normal in size. Hazy lower lung densities likely relate in part to overlying so ft tissue. Strandy areas of atelectasis or scarring are present. Somewhat more focal peripheral left basilar opacity. No pleural effusion. Hyperinflation with mild interstitial prominence. IMPRESSION: Borderline heart size and COPD. Suspect combination of overlying soft tissue density, scarring, and a telectasis accounting for bibasilar opacities. However, density is more focal peripherally at the lef t base. Atelectasis or early infiltrate are both possible. Consider follow-up after any potential josiah atment.
[2018-07-15 01:47] VITALS: BMI 39.7
[2018-07-15] MEDS ORDERED: IBUPROFEN 400 MG TAB PO PRN (02:40)
[2018-07-15] MEDS ORDERED: ACETAMINOPHEN TAB 325 MG TAB PO PRN (02:40)
[2018-07-15] MEDS ORDERED: MAG HYDROX/AL HYDROX/SIMETH 30 ML CUP PO PRN (02:42)
[2018-07-15] MEDS ORDERED: BISACODYL 5 MG TABLET.DR PO PRN (02:43)
[2018-07-15] MEDS ORDERED: DOCUSATE 100 MG CAP PO PRN (02:44)
[2018-07-15] MEDS ORDERED: ALBUTEROL NEBULIZED (CONC) 2.5 MG, SODIUM CHLORIDE 0.9% NEBULIZ 3 ML INHALATION PRN ×2 (02:47)
[2018-07-15] MEDS ORDERED: ALBUTEROL NEBULIZED 2.5 MG/3 ML INHALATION PRN (02:52)
[2018-07-15 04:46] LABS: ALT 40 U/L (9-52); AST 21 U/L (14-36); Albumin 4.2 g/dL (3.5-5.0); Alkaline Phosphatase 71 U/L (38-126); Anion Gap 11 mmol/L; Blood Urea Nitrogen 19 mg/dL (7-17); Calcium 9.6 mg/dL (8.4-10.2); Carbon Dioxide 28 mmol/L (22-30); Chloride 101 mmol/L (98-107); Glucose 75 mg/dL (74-99); Potassium 3.7 mmol/L (3.5-5.1); Sodium 140 mmol/L (137-145); Total Bilirubin 0.5 mg/dL (0.2-1.3); Total Protein 6.8 g/dL (6.3-8.2)
[2018-07-15 04:48] LABS: Creatine Kinase 88 U/L (30-135); Creatine Kinase MB 1.8 ng/mL (0.0-2.4); Troponin I <0.012 ng/mL (0.000-0.034)
[2018-07-15 07:31] LABS: Glucose,Whole Blood 185 mg/dL (75-99)
[2018-07-15] MEDS: INSULIN ASPART (NovoLOG) 100 UNIT/ML VIAL SQ SCH ×4 (07:41→21:13)
[2018-07-15] MEDS ORDERED: IPRATROPIUM-ALBUTEROL 3 ML NEB INHALATION SCH (08:00)
[2018-07-15] MEDS ORDERED: IPRATROPIUM-ALBUTEROL 3 ML NEB INHALATION PRN (08:12)
[2018-07-15] MEDS: IPRATROPIUM-ALBUTEROL 3 ML NEB INHALATION SCH ×5 (08:45→23:46)
[2018-07-15] MEDS ORDERED: predniSONE 20 MG TAB PO SCH (09:00)
[2018-07-15 09:01] LABS: Basophils % (A) 0 %; Eosinophils % (A) 0 %; HCT 40.7 % (34.0-46.0); HGB 13.4 gm/dL (11.4-16.0); Lymphocytes # (A) 3.4 k/uL (1.0-4.8); Lymphocytes % (A) 37 %; MCH 30.2 pg (25.0-35.0); MCHC 32.9 g/dL (31.0-37.0); MCV 91.8 fL (80.0-100.0); Mean Platelet Volume 6.5; Monocytes # (A) 0.4 k/uL (0-1.0); Monocytes % (A) 5 %; Neutrophils # (A) 5.1 k/uL (1.3-7.7); Neutrophils % (A) 56 %; Platelet Count 315 k/uL (150-450); RBC 4.44 m/uL (3.80-5.40); RDW 14.6 % (11.5-15.5); WBC 9.2 k/uL (3.8-10.6)
[2018-07-15 09:15] LABS: Anion Gap 14 mmol/L; Blood Urea Nitrogen 19 mg/dL (7-17); Calcium 9.6 mg/dL (8.4-10.2); Carbon Dioxide 25 mmol/L (22-30); Chloride 97 mmol/L (98-107); Glucose 250 mg/dL (74-99); Sodium 136 mmol/L (137-145)
[2018-07-15 09:43] LABS: HCT 37.2 % (34.0-46.0); Hypochromasia Slight; MCH 28.6 pg (25.0-35.0); MCHC 29.6 g/dL (31.0-37.0); MCV 96.7 fL (80.0-100.0); Mean Platelet Volume 6.7; Platelet Count 259 k/uL (150-450); RBC 3.85 m/uL (3.80-5.40); RDW 14.4 % (11.5-15.5); WBC 8.8 k/uL (3.8-10.6)
--- NOTE | 2018-07-15 10:45 | P.CNPUL ---
History of Present Illness Consult date: 07/15/18 Requesting physician: Ranjith Mendoza Reason for consult: dyspnea, cough, COPD Chief complaint: Shortness of breath, chest congestion History of present illness: This is a 57-year-old white female patient of Dr. Maribel Shea, with past medical history of COPD, chronic congestive heart failure, diabetes mellitus type 2, GERD/reflux, hypertension, past history of pulmonary embolus, sleep apnea on CPAP therapy, osteoarthritis, and nicotine dependence currently in remission. Patient presented to the [facility] yesterday on with complaints of a weeklong history of cough, with production of yellow sputum, shortness of breath, left ear discomfort, ringing and sensation of fullness, not able to hear out of the left ear. Patient was treated on an outpatient basis by her PCP with a round of doxycycline, prednisone taper. Last Monday she went into the emergency department with worsening shortness of breath and chest congestion, she was given IM Depo-Medrol and she was supposed to see Dr. Felix in the pulmonary clinic on Monday. But due to weather conditions patient did not make it to her appointment. Yesterday she went into the ER for worsening symptoms. She denied any fever or chills, no chest pain, no nausea, no vomiting or diarrhea. No abdominal pain. On the initial chest x- ray completed in the emergency department there was a questionable left lower lobe opacity, which is not present on a follow-up chest x-ray from today. Borderline heart size in the background of COPD, strandy areas of atelectasis or scarring, pleural effusions, mild interstitial prominence. Lab work showed white count of 9.2, hemoglobin of 13.4, d-dimer was negative at 0.42, electrolytes were within normal limits, BUN was 19 and creatinine was 0.58, troponin was negative 1, proBNP was within normal limits at 35. She has been afebrile, pulse ox on 2 L per nasal cannula was 95%. Patient is on home oxygen 2 L, and she is on CPAP with a pressure of 17 cm of water and 4 L of oxygen at bedtime. Maintenance inhaler includes Advair, rescue inhaler, and nebulized bronchodilators. Review of Systems All systems: negative Constitutional: Denies chills, Denies fever Eyes: denies blurred vision, denies pain Ears, nose, mouth and throat: Denies headache, Denies sore throat Cardiovascular: Denies chest pain, Denies shortness of breath Respiratory: Reports congestion, Reports cough with sputum, Reports dyspnea, Reports home oxygen, Reports respiratory infections, Reports wheezing, Denies cough Gastrointestinal: Denies abdominal pain, Denies diarrhea, Denies nausea, Denies vomiting Genitourinary: Denies dysuria, Denies hematuria Musculoskeletal: Denies myalgias Integumentary: Denies pruritus, Denies rash Neurological: Denies numbness, Denies weakness Psychiatric: Denies anxiety, Denies depression Endocrine: Denies fatigue, Denies weight change Past Medical History Past Medical History: Asthma, Chest Pain / Angina, Heart Failure, COPD, Diabetes Mellitus, GERD/Reflux, Hypertension, Osteoarthritis (OA), Pulmonary Embolus (PE), Renal Disease, Sleep Apnea/CPAP/BIPAP Additional Past Medical History / Comment(s): Advanced oxygen-dependent COPD , severe obstructive sleep apnea maintained on BiPAP at a pressure of 22/80 cm of water, chronic hypoxic respiratory failure maintained on oxygen 2 liters nasal cannula(4 at hs), NIDDM type II, DJD, low back pain which radiates down L hip and L leg at times, viral myocarditis, hypertension, morbid obesity with cushingoid features, generalized anxiety disorder, ocd. History of Any Multi-Drug Resistant Organisms: None Reported Past Surgical History: Adenoidectomy, Cholecystectomy, Heart Catheterization, Orthopedic Surgery, Tonsillectomy, Tubal Ligation Additional Past Surgical History / Comment(s): L hand 3rd finger tendon repair, D&C, carpal tunnel left hand, Past Anesthesia/Blood Transfusion Reactions: No Reported Reaction Past Psychological History: Anxiety Additional Psychological History / Comment(s): Pt resides with her boyfriend. She is normally independent.drives. She has home O2 and a CPAP, glucometer, nebilizer.. Smoking Status: Former smoker Past Alcohol Use History: None Reported Additional Past Alcohol Use History / Comment(s): She started smoking in 1977 smoed / ppd and quit 2015. Past Drug Use History: None Reported - Past Family History Father Family Medical History: No Reported History Additional Family Medical History / Comment(s): Father was an alcoholic. He at the age of 58yrs. Mother Family Medical History: No Reported History Additional Family Medical History / Comment(s): Mother of alcoholism at the age of 63 yrs. Medications and Allergies Home Medications Medication Instructions Recorded Confirmed Type Lisinopril-Hctz 20-25 mg 1 tab PO DAILY 09/09/14 03/17/18 History [Zestoretic 20-25] Spironolactone 50 mg PO DAILY 09/09/14 03/17/18 History ALPRAZolam [Xanax] 0.5 mg PO Q6H PRN 09/23/14 03/17/18 History Metoprolol Tartrate [Lopressor] 25 mg PO BID 10/31/14 03/17/18 History metFORMIN HCL [Glucophage] 500 mg PO BID-W/MEALS 10/31/14 03/17/18 History Furosemide [Lasix] 40 mg PO BID 03/30/15 03/17/18 History Fluticasone/Salmeterol [Advair Hfa 2 puff INHALATION RT-BID 02/01/16 03/17/18 History 230-21 Mcg Inhaler] Glimepiride [Amaryl] 4 mg PO AC-BRKFST 07/31/17 03/17/18 History Pioglitazone HCl [Actos] 30 mg PO DAILY 07/31/17 03/17/18 History Potassium Chloride [Klor-Con 20] 20 meq PO DAILY 07/31/17 03/17/18 History Albuterol Nebulized [Ventolin 2.5 mg INHALATION RT-Q4H PRN 01/29/18 03/17/18 History Nebulized] Omeprazole [PriLOSEC] 40 mg PO DAILY 01/29/18 03/17/18 History Acetaminophen-Codeine 300-30mg 1 - 2 tab PO Q6H PRN 03/17/18 03/17/18 History [Tylenol w/codeine #3] Ipratropium-Albuterol Nebulize 3 ml INHALATION RT-QID 03/17/18 03/17/18 History [Duoneb 0.5 mg-3 mg/3 ml Soln] predniSONE 10 mg PO DAILY 03/17/18 03/17/18 History Amoxic-Pot Clav 875-125Mg 1 each PO Q12HR #6 tab 03/20/18 Rx [Augmentin 875-125] predniSONE 10 mg PO DAILY #30 tab 03/20/18 Rx Allergies Allergy/AdvReac Type Severity Reaction Status Date / Time budesonide [From Pulmicort] Allergy Wheezing Verified 03/17/18 14:44 Physical Exam Vitals: Vital Signs Temp Pulse Pulse Resp BP Pulse Ox 07/15/18 09:00 104 H 07/15/18 08:45 104 H 07/15/18 07:50 97.6 F 102 H 16 101/65 95 07/15/18 03:15 96 07/15/18 03:05 96 07/15/18 02:00 22 07/15/18 01:26 98 22 07/15/18 01:00 97.9 F 114 H 25 H 128/66 93 L Intake and Output 07/14/18 07/15/18 07/15/18 22:59 06:59 14:59 Intake Total 240 Balance 240 Intake: Oral 240 Other: # Voids 1 Weight 95.5 kg GENERAL EXAM: Alert, active, comfortable in no apparent distress. HEAD: Normocephalic/atraumatic. EYES: Normal reaction of pupils, equal size. Conjunctiva pink, sclera white. NOSE: Clear with pink turbinates. THROAT: No erythema or exudates. NECK: No masses, no JVD, no thyroid enlargement, no adenopathy. CHEST: No chest wall deformity. Symmetrical expansion. LUNGS: Equal air entry with diffuse wheezes CVS: Regular rate and rhythm, normal S1 and S2, no gallops, no murmurs, no rubs ABDOMEN: Soft, nontender. No hepatosplenomegaly, normal bowel sounds, no guarding or rigidity. EXTREMITIES: No clubbing, no edema, no cyanosis, 2+ pulses and upper and lower extremities. MUSCULOSKELETAL: Muscle strength and tone normal. SPINE: No scoliosis or deformity SKIN: No rashes CENTRAL NERVOUS SYSTEM: Alert and oriented -3. No focal deficits, tone is normal in all 4 extremities. PSYCHIATRIC: Alert and oriented -3. Appropriate affect. Intact judgment and insight. Results - Laboratory Findings CBC and BMP: 07/15/18 08:13 07/15/18 08:13 PT/INR, D-dimer D-Dimer 0.42 mg/L FEU (<0.60) 07/14/18 19:39 Abnormal lab findings: Abnormal Labs 07/14/18 07/15/18 07/15/18 19:39 07:27 08:13 Hgb 11.0 L MCHC 29.6 L Sodium Chloride BUN 19 H Creatinine Glucose POC Glucose (mg/dL) 185 H 07/15/18 08:13 Hgb MCHC Sodium 136 L Chloride 97 L BUN 19 H Creatinine 0.43 L Glucose 250 H POC Glucose (mg/dL) - Diagnostic Findings Chest x-ray: report reviewed, image reviewed Additional studies: EKG noted Assessment and Plan Plan: Assessment: #1. Acute exacerbation of chronic obstructive pulmonary disease complicated by purulent tracheobronchitis, with failed outpatient treatment #2. Stage III COPD with a baseline FEV1 of 0.86 L or 33% of predicted and diffusion capacity of 42% and chronic hypoxemic respiratory failure #3. Morbid obesity #4. Obstructive sleep apnea on CPAP therapy with a pressure of 17 cm of water and 4 L of oxygen at bedtime #5. Diabetes mellitus #6. Hypertension #7. Chronic congestive heart failure with an unknown ejection fraction Plan: We will add Zithromax 500 mg daily, will add Symbicort, continue with nebulized bronchodilators, we will add Solu-Medrol 60 mg every 6 hours, initial chest x- ray from yesterday showed a questionable left basilar opacity which is not present on today's chest x-ray, no clear evidence of pneumonia. We'll continue to follow I performed a history & physical examination of the patient and discussed their management with my nurse practitioner, Rand Gillis. I reviewed the nurse practitioner's note and agree with the documented findings and plan of care. Lung sounds are positive for diffuse wheezes throughout the lung pérez. The findings and the impression was discussed with the patient. I attest to the documentation by the nurse practitioner. Time with Patient: Greater than 30
[2018-07-15] MEDS: methylPREDNISolone SOD SUCCI 125 MG/2 ML VIAL IV SCH ×3 (10:47→17:53)
[2018-07-15] MEDS: AZITHROMYCIN 500 MG TAB PO SCH (10:48)
[2018-07-15 12:19] LABS: Glucose,Whole Blood 216 mg/dL (75-99)
--- NOTE | 2018-07-15 12:35 | XR ---
EXAMINATION TYPE: XR chest 2V DATE OF EXAM: 07/15/2018 COMPARISON: Prior chest x-ray 07/14/2018 HISTORY: Shortness of breath TECHNIQUE: Frontal and lateral views of the chest are obtained. FINDINGS: There is no significant interval change. Heart size is stable. No pneumothorax or pleural effusion. Prominent lung volumes compatible with underlying COPD. Surgical clips present in the upper abdomen. There are prominent epicardial fat pads. Pulmonary vascularity and rbuce are stable. IMPRESSION: No acute cardiopulmonary process.
[2018-07-15 17:20] LABS: Glucose,Whole Blood 209 mg/dL (75-99)
[2018-07-15] MEDS: PANTOPRAZOLE 40 MG TABLET PO SCH (17:53)
[2018-07-15] MEDS: LISINOPRIL-HCTZ 20-25 MG 1 EACH TAB PO SCH (17:53)
[2018-07-15] MEDS: PIOGLITAZONE 30 MG TAB PO SCH (17:53)
[2018-07-15] MEDS: SPIRONOLACTONE 25 MG TAB PO SCH (17:53)
[2018-07-15] MEDS: FUROSEMIDE 40 MG TAB PO SCH (17:53)
[2018-07-15] MEDS: POTASSIUM CHLORIDE ER 20 MEQ TAB.ER PO SCH (17:53)
[2018-07-15] MEDS: metFORMIN 500 MG TAB PO SCH (17:53)
[2018-07-15] MEDS ORDERED: NALOXONE 0.4 MG/ML 1 ML VIAL IV PRN (19:18)
[2018-07-15] MEDS ORDERED: ONDANSETRON 4 MG/2 ML VIAL IVP PRN (19:18)
[2018-07-15 19:40] LABS: Glucose,Whole Blood 226 mg/dL (75-99)
--- NOTE | 2018-07-15 19:52 | HP ---
HISTORY AND PHYSICAL DATE OF ADMISSION: July 14, 2018. PRESENTING COMPLAINT: Short of breath. HISTORY OF PRESENTING COMPLAINT: This is a pleasant 57 -year-old patient of Dr. Monroe chronic stable medical conditions include congestive heart failure, diabetes, GERD, hypertension, uses BiPAP, obstructive sleep apnea. Has been having worsening respiratory symptoms for last 6 days, became more short of breath, wheezing, cough, yellow sputum. The patient did get antibiotics and did not get better, was sent down to [place], was finally transferred down here. Has had no fever, chills, but tired, rundown, decreased appetite, admitted for the same. REVIEW OF SYSTEMS: CONSTITUTIONAL: Tired. HEENT: Stuffiness. RESPIRATORY as above. CARDIOVASCULAR none. GASTROINTESTINAL: None. GENITOURINARY none. MUSCULOSKELETAL none. DERMATOLOGICAL, HEMATOLOGIC, LYMPHATIC: none. PSYCHIATRY none. NEUROLOGICAL none. PAST MEDICAL HISTORY: COPD, CHF, diabetes, GERD, hypertension, PE, obstructive sleep apnea. Osteoarthritis. Also low back pain radiates down the left hip, viral myocarditis, hypertension, underlying anxiety disorder, OCD. PAST SURGICAL HISTORY: Adenoidectomy, cholecystectomy, cardiac catheterization, orthopedic surgery, tonsillectomy, tubal ligation, left hand 3rd finger tendon repair. PSYCH HISTORY: Anxiety. SOCIAL HISTORY: Lives with a boyfriend. Smoked for about 38 years, stopped in 2016. Has home oxygen. CPAP. FAMILY HISTORY: Father of alcoholism. HOME MEDICATIONS: 1. Glucophage 500 mg p.o. b.i.d. with meals. 2. Aldactone 50 mg p.o. daily. 3. Potassium 20 mEq p.o. daily. 4. Actos 30 mg p.o. daily. 5. Prilosec 40 mg p.o. daily. 6. Lopressor 25 mg p.o. b.i.d. 7. Zestoretic 20/25 1 tablet p.o. daily. 8. Amaryl 4 mg before breakfast. 9. Lasix 40 mg b.i.d. 10.Xanax 0.5 p.o. q.6 p.r.n. 11.Prednisone 10 mg daily. 12.DuoNeb q.i.d. 13.Advair HFA 230/21 2 puffs b.i.d. 14.Augmentin 875 1 tablet p.o. q.12h. 15.Ventolin 2.5 q.6h p.r.n. 16.Tylenol 3 1-2 tablets q.6h p.r.n. ALLERGY: PULMICORT. PHYSICAL EXAMINATION: VITAL SIGNS: Temperature 98.3, pulse 105, respiration 18, blood pressure 140/80, pulse ox 92 percent. GENERAL APPEARANCE: Sitting up, BMI 30, sitting up, short of breath. Tired. EYES: Pupils equal. Conjunctivae normal. HEENT: External appearance of nose and ears normal. Oral cavity normal. Neck: JVD not raised. Mass not palpable. RESPIRATORY: Effort increased. LUNGS: Diminished breath sounds. Prolonged expiration and wheezing. CARDIOVASCULAR: 1st and 2nd sounds normal. No edema. ABDOMEN: Soft, nontender. Liver and spleen not palpable. LYMPHATIC: No lymph nodes palpable in the neck and axilla. PSYCHIATRY: Alert and oriented x3. Mood and affect slightly anxious-appearing. NEUROLOGICAL: Pupils equal. Cranial nerves grossly intact. Power and sensation grossly intact. INVESTIGATIONS: Reviewed in the clinical context. White count 9.2, hemoglobin 13.4, potassium 3.7, BUN 9, creatinine 0.58. Accu-Cheks 185. Troponin negative. ProBNP 35. EKG tracing personally reviewed by me shows some nonspecific ST-segment changes and some flipped T- waves. Chest x-ray film personally reviewed by me shows borderline cardiomegaly. Some nonspecific infiltrate at the base. ASSESSMENT: 1. Acute severe chronic obstructive pulmonary disease exacerbation in an ex-smoker probably secondary to a viral pneumonitis cannot rule out a bacterial component. 2. Chronic congestive heart failure ejection fraction not known. 3. Diabetes mellitus type 2 on oral hypoglycemics. 4. Gastroesophageal reflux disease. 5. Essential hypertension. 6. Obstructive sleep apnea uses BiPAP. 7. Primary osteoarthritis. 8. Obesity; BMI 39.8. PLAN: Pulmonary was consulted. Home medications are resumed. Accu-Cheks will be followed. The patient is put on bronchodilators, steroids. Care was discussed with the patient. Questions were answered. Accu-Cheks will be followed. Lovenox for DVT prophylaxis. Copy to Dr. Monroe. MMDELONTE / SHERMANN: [id number] /
[2018-07-15] MEDS ORDERED: BUDESONIDE 1 MG/2 ML NEBU INHALATION SCH (20:00)
[2018-07-15] MEDS: SYMBICORT 160-4.5 MCG INHALER INHALATION SCH (20:03)
[2018-07-15] MEDS: ENOXAPARIN 40 MG/0.4 ML SYRINGE SQ SCH (21:13)
[2018-07-15] MEDS: MELATONIN 3 MG TABLET PO SCH (21:13)
[2018-07-15] MEDS: METOPROLOL TARTRATE 25 MG TAB PO SCH (21:13)
[2018-07-16] MEDS: methylPREDNISolone SOD SUCCI 125 MG/2 ML VIAL IV SCH ×5 (00:05→23:38)
[2018-07-16] MEDS: ALPRAZolam 0.5 MG TAB PO PRN ×3 (00:11→23:40)
[2018-07-16] MEDS: IPRATROPIUM-ALBUTEROL 3 ML NEB INHALATION SCH ×6 (03:22→23:26)
[2018-07-16 07:15] LABS: Glucose,Whole Blood 221 mg/dL (75-99)
[2018-07-16] MEDS: SYMBICORT 160-4.5 MCG INHALER INHALATION SCH ×2 (07:33→20:08)
[2018-07-16] MEDS: ENOXAPARIN 40 MG/0.4 ML SYRINGE SQ SCH (08:02)
[2018-07-16] MEDS: METOPROLOL TARTRATE 25 MG TAB PO SCH ×2 (08:03→20:55)
[2018-07-16] MEDS: POTASSIUM CHLORIDE ER 20 MEQ TAB.ER PO SCH (08:03)
[2018-07-16] MEDS: AZITHROMYCIN 500 MG TAB PO SCH (08:03)
[2018-07-16] MEDS: SPIRONOLACTONE 25 MG TAB PO SCH (08:03)
[2018-07-16] MEDS: INSULIN ASPART (NovoLOG) 100 UNIT/ML VIAL SQ SCH ×4 (08:03→20:55)
[2018-07-16] MEDS: metFORMIN 500 MG TAB PO SCH ×2 (08:03→17:37)
[2018-07-16] MEDS: PIOGLITAZONE 30 MG TAB PO SCH (08:03)
[2018-07-16] MEDS: FUROSEMIDE 40 MG TAB PO SCH ×2 (08:04→17:37)
[2018-07-16] MEDS: GLIMEPIRIDE 4 MG TAB PO SCH (08:04)
[2018-07-16] MEDS: LISINOPRIL-HCTZ 20-25 MG 1 EACH TAB PO SCH (08:04)
[2018-07-16] MEDS: PANTOPRAZOLE 40 MG TABLET PO SCH (08:04)
[2018-07-16 10:12] LABS: Hemoglobin A1C 7.1 % (4.0-6.0)
[2018-07-16 11:47] LABS: Glucose,Whole Blood 118 mg/dL (75-99)
--- NOTE | 2018-07-16 14:09 | P.PN ---
Subjective Progress Note Date: 07/16/18 Principal diagnosis: Acute exacerbation of chronic obstructive pulmonary disease complicated by purulent tracheobronchitis with failed outpatient treatment This is a 57-year-old white female patient of Dr. Maribel Shea, with past medical history of COPD, chronic congestive heart failure, diabetes mellitus type 2, GERD/reflux, hypertension, past history of pulmonary embolus, sleep apnea on CPAP therapy, osteoarthritis, and nicotine dependence currently in remission. Patient presented to the [facility] yesterday on with complaints of a weeklong history of cough, with production of yellow sputum, shortness of breath, left ear discomfort, ringing and sensation of fullness, not able to hear out of the left ear. Patient was treated on an outpatient basis by her PCP with a round of doxycycline, prednisone taper. Last Monday she went into the emergency department with worsening shortness of breath and chest congestion, she was given IM Depo-Medrol and she was supposed to see Dr. Felix in the pulmonary clinic on Monday. But due to weather conditions patient did not make it to her appointment. Yesterday she went into the ER for worsening symptoms. She denied any fever or chills, no chest pain, no nausea, no vomiting or diarrhea. No abdominal pain. On the initial chest x- ray completed in the emergency department there was a questionable left lower lobe opacity, which is not present on a follow-up chest x-ray from today. Borderline heart size in the background of COPD, strandy areas of atelectasis or scarring, pleural effusions, mild interstitial prominence. Lab work showed white count of 9.2, hemoglobin of 13.4, d-dimer was negative at 0.42, electrolytes were within normal limits, BUN was 19 and creatinine was 0.58, troponin was negative 1, proBNP was within normal limits at 35. She has been afebrile, pulse ox on 2 L per nasal cannula was 95%. Patient is on home oxygen 2 L, and she is on CPAP with a pressure of 17 cm of water and 4 L of oxygen at bedtime. Maintenance inhaler includes Advair, rescue inhaler, and nebulized bronchodilators. On 07/08/2018 patient seen in follow-up on medical surgical floor. Upon into the bed, she states her breathing is improving, still has some residual wheezing , she has some occasional cough, with production of whitish sputum, signs remain stable, she is on 3 L per nasal cannula, maintaining stable saturations, no fever or chills, no acute events overnight, patient is starting to respond to treatments. We'll continue with current medical treatment, possible discharge in next 24 hours she continues to improve Objective - Vital Signs Vital signs: Vital Signs Temp 97.9 F 07/16/18 07:47 Pulse 92 07/16/18 11:44 Resp 16 07/16/18 07:47 BP 112/72 07/16/18 07:47 Pulse Ox 92 L 07/16/18 07:47 Intake & Output 07/15/18 07/16/18 07/16/18 18:59 06:59 18:59 Intake Total 480 360 Balance 480 360 Weight 96 kg Intake: Oral 480 360 Other: # Voids 2 - Exam GENERAL EXAM: Alert, active, comfortable in no apparent distress. HEAD: Normocephalic/atraumatic. EYES: Normal reaction of pupils, equal size. Conjunctiva pink, sclera white. NOSE: Clear with pink turbinates. THROAT: No erythema or exudates. NECK: No masses, no JVD, no thyroid enlargement, no adenopathy. CHEST: No chest wall deformity. Symmetrical expansion. LUNGS: Equal air entry with diffuse wheezes CVS: Regular rate and rhythm, normal S1 and S2, no gallops, no murmurs, no rubs ABDOMEN: Soft, nontender. No hepatosplenomegaly, normal bowel sounds, no guarding or rigidity. EXTREMITIES: No clubbing, no edema, no cyanosis, 2+ pulses and upper and lower extremities. MUSCULOSKELETAL: Muscle strength and tone normal. SPINE: No scoliosis or deformity SKIN: No rashes CENTRAL NERVOUS SYSTEM: Alert and oriented -3. No focal deficits, tone is normal in all 4 extremities. PSYCHIATRIC: Alert and oriented -3. Appropriate affect. Intact judgment and insight. - Labs CBC & Chem 7: 07/15/18 08:13 07/15/18 08:13 Labs: Abnormal Lab Results - Last 24 Hours (Table) 07/14/18 07/15/18 07/15/18 Range/Units 19:39 17:19 19:38 POC Glucose (mg/dL) 209 H 226 H (75-99) mg/dL Hemoglobin A1c 7.1 H (4.0-6.0) % 07/16/18 07/16/18 Range/Units 06:58 11:45 POC Glucose (mg/dL) 221 H 118 H (75-99) mg/dL Hemoglobin A1c (4.0-6.0) % Assessment and Plan Plan: Assessment: #1. Acute exacerbation of chronic obstructive pulmonary disease complicated by purulent tracheobronchitis, with failed outpatient treatment #2. Stage III COPD with a baseline FEV1 of 0.86 L or 33% of predicted and diffusion capacity of 42% and chronic hypoxemic respiratory failure #3. Morbid obesity #4. Obstructive sleep apnea on CPAP therapy with a pressure of 17 cm of water and 4 L of oxygen at bedtime #5. Diabetes mellitus #6. Hypertension #7. Chronic congestive heart failure with an unknown ejection fraction Plan: Continue current medical treatment, empiric antibiotics, breathing treatments, Symbicort, and IV Solu-Medrol, patient started to improve, will require another 24 hours of inpatient treatment, anticipate further improvement and possible discharge in the morning. I performed a history & physical examination of the patient and discussed their management with my nurse practitioner, Rand Gillis. I reviewed the nurse practitioner's note and agree with the documented findings and plan of care. Lung sounds are positive for diffuse wheezes throughout the lung pérez. The findings and the impression was discussed with the patient. I attest to the documentation by the nurse practitioner. Time with Patient: Less than 30
[2018-07-16 17:15] LABS: Glucose,Whole Blood 217 mg/dL (75-99)
[2018-07-16 20:40] LABS: Glucose,Whole Blood 270 mg/dL (75-99)
[2018-07-16] MEDS: MELATONIN 3 MG TABLET PO SCH (20:55)
--- NOTE | 2018-07-17 03:05 | PN ---
PROGRESS NOTE DATE OF SERVICE: July 16, 2018. PRESENTING COMPLAINT: Short of breath. INTERVAL HISTORY: This patient was seen by me yesterday afternoon. Admitted with severe COPD exacerbation. Breathing is a bit better. Slight cough. Clear sputum. Appetite is getting better. Sitting up. REVIEW OF SYSTEMS: Done for constitutional, cardiovascular, GI, pulmonary; relevant findings as above. CURRENT MEDICATIONS: Reviewed and include IV Solu-Medrol and DuoNeb. PHYSICAL EXAMINATION: VITAL SIGNS: Temperature 98, pulse 90, respiratory rate 16, blood pressure 114/70, pulse ox 93% on room air. GENERAL APPEARANCE: Sitting at the edge of bed, looking better. EYES: Pupils equal. Conjunctivae normal. NECK: JVD not raised. Mass not palpable. RESPIRATORY: Effort increased., LUNGS: Slightly improved air entry. Decreased wheezing. CARDIOVASCULAR: First and second sounds normal. No edema. ABDOMEN: Soft, nontender. Liver and spleen not palpable. PSYCHIATRY: Alert and oriented x3. Mood and affect less anxious-appearing. INVESTIGATIONS: Accu-Cheks are noted. ASSESSMENT: 1. Acute severe chronic obstructive pulmonary disease exacerbation in an ex-smoker probably seen viral pneumonitis cannot rule out a bacterial component with clinically improving. 2. Chronic congestive heart failure, ejection fraction not known. 3. Diabetes mellitus type 2 on oral hypoglycemic, uncontrolled from hyperglycemia from steroids. 4. Gastroesophageal reflux disease. 5. Essential hypertension. 6. Obstructive sleep apnea uses BiPAP. 7. Primary osteoarthritis. 8. Obesity; BMI 39.8. PLAN: Patient overall started to look better. We will scale back on the steroids. Continue bronchodilators. Follow. MMODL / IJN: [id number] /
[2018-07-17] MEDS: IPRATROPIUM-ALBUTEROL 3 ML NEB INHALATION SCH ×4 (03:31→15:41)
[2018-07-17] MEDS: methylPREDNISolone SOD SUCCI 125 MG/2 ML VIAL IV SCH ×2 (06:20→12:27)
[2018-07-17] MEDS: SYMBICORT 160-4.5 MCG INHALER INHALATION SCH (07:03)
[2018-07-17] MEDS: INSULIN ASPART (NovoLOG) 100 UNIT/ML VIAL SQ SCH ×3 (07:53→17:18)
[2018-07-17] MEDS: PANTOPRAZOLE 40 MG TABLET PO SCH (07:54)
[2018-07-17] MEDS: PIOGLITAZONE 30 MG TAB PO SCH (07:54)
[2018-07-17] MEDS: ENOXAPARIN 40 MG/0.4 ML SYRINGE SQ SCH (07:54)
[2018-07-17] MEDS: LISINOPRIL-HCTZ 20-25 MG 1 EACH TAB PO SCH (07:54)
[2018-07-17] MEDS: GLIMEPIRIDE 4 MG TAB PO SCH (07:54)
[2018-07-17] MEDS: SPIRONOLACTONE 25 MG TAB PO SCH (07:54)
[2018-07-17] MEDS: metFORMIN 500 MG TAB PO SCH (07:55)
[2018-07-17] MEDS: METOPROLOL TARTRATE 25 MG TAB PO SCH (07:55)
[2018-07-17] MEDS: FUROSEMIDE 40 MG TAB PO SCH (07:55)
[2018-07-17] MEDS: POTASSIUM CHLORIDE ER 20 MEQ TAB.ER PO SCH (07:55)
[2018-07-17] MEDS: AZITHROMYCIN 500 MG TAB PO SCH (07:55)
[2018-07-17 11:36] LABS: Glucose,Whole Blood 150 mg/dL (75-99)
--- NOTE | 2018-07-17 11:56 | P.PN ---
Subjective Progress Note Date: 07/17/18 Principal diagnosis: Acute exacerbation of chronic obstructive pulmonary disease complicated by purulent tracheobronchitis with failed outpatient treatment This is a 57-year-old white female patient of Dr. Maribel Shea, with past medical history of COPD, chronic congestive heart failure, diabetes mellitus type 2, GERD/reflux, hypertension, past history of pulmonary embolus, sleep apnea on CPAP therapy, osteoarthritis, and nicotine dependence currently in remission. Patient presented to the [facility] yesterday on with complaints of a weeklong history of cough, with production of yellow sputum, shortness of breath, left ear discomfort, ringing and sensation of fullness, not able to hear out of the left ear. Patient was treated on an outpatient basis by her PCP with a round of doxycycline, prednisone taper. Last Monday she went into the emergency department with worsening shortness of breath and chest congestion, she was given IM Depo-Medrol and she was supposed to see Dr. Felix in the pulmonary clinic on Monday. But due to weather conditions patient did not make it to her appointment. Yesterday she went into the ER for worsening symptoms. She denied any fever or chills, no chest pain, no nausea, no vomiting or diarrhea. No abdominal pain. On the initial chest x- ray completed in the emergency department there was a questionable left lower lobe opacity, which is not present on a follow-up chest x-ray from today. Borderline heart size in the background of COPD, strandy areas of atelectasis or scarring, pleural effusions, mild interstitial prominence. Lab work showed white count of 9.2, hemoglobin of 13.4, d-dimer was negative at 0.42, electrolytes were within normal limits, BUN was 19 and creatinine was 0.58, troponin was negative 1, proBNP was within normal limits at 35. She has been afebrile, pulse ox on 2 L per nasal cannula was 95%. Patient is on home oxygen 2 L, and she is on CPAP with a pressure of 17 cm of water and 4 L of oxygen at bedtime. Maintenance inhaler includes Advair, rescue inhaler, and nebulized bronchodilators. On 07/16/2018 patient seen in follow-up on medical surgical floor. Upon into the bed, she states her breathing is improving, still has some residual wheezing , she has some occasional cough, with production of whitish sputum, signs remain stable, she is on 3 L per nasal cannula, maintaining stable saturations, no fever or chills, no acute events overnight, patient is starting to respond to treatments. We'll continue with current medical treatment, possible discharge in next 24 hours she continues to improve On 07/17/2018 patient seen in follow-up on medical surgical floor. Patient is doing well, she is walking around the room and in the hallway, she is stable, she states her breathing has significantly improved, she is on 3 L per nasal cannula and her pulse ox is 94%, no fever no chills, lung sounds are clear on today's exam. Patient has been treated with a combination of IV steroids, empiric antibiotics, nebulized bronchodilators, and she has responded favorably to treatments, she already has an appointment with Dr. Felix on July 27, and patient can be discharged home from pulmonary perspective Objective - Vital Signs Vital signs: Vital Signs Temp 98.3 F 07/17/18 07:55 Pulse 92 07/17/18 11:04 Resp 18 07/17/18 07:55 BP 119/69 07/17/18 07:55 Pulse Ox 94 L 07/17/18 07:55 Intake & Output 07/16/18 07/17/18 07/17/18 18:59 06:59 18:59 Intake Total 240 Balance 240 Weight 95.5 kg Intake: Oral 240 Other: # Voids 2 - Exam GENERAL EXAM: Alert, active, comfortable in no apparent distress. HEAD: Normocephalic/atraumatic. EYES: Normal reaction of pupils, equal size. Conjunctiva pink, sclera white. NOSE: Clear with pink turbinates. THROAT: No erythema or exudates. NECK: No masses, no JVD, no thyroid enlargement, no adenopathy. CHEST: No chest wall deformity. Symmetrical expansion. LUNGS: Equal air entry, no wheezes, no rhonchi no rales CVS: Regular rate and rhythm, normal S1 and S2, no gallops, no murmurs, no rubs ABDOMEN: Soft, nontender. No hepatosplenomegaly, normal bowel sounds, no guarding or rigidity. EXTREMITIES: No clubbing, no edema, no cyanosis, 2+ pulses and upper and lower extremities. MUSCULOSKELETAL: Muscle strength and tone normal. SPINE: No scoliosis or deformity SKIN: No rashes CENTRAL NERVOUS SYSTEM: Alert and oriented -3. No focal deficits, tone is normal in all 4 extremities. PSYCHIATRIC: Alert and oriented -3. Appropriate affect. Intact judgment and insight. - Labs CBC & Chem 7: 07/15/18 08:13 07/15/18 08:13 Labs: Abnormal Lab Results - Last 24 Hours (Table) 07/16/18 07/16/18 07/17/18 Range/Units 17:13 20:39 11:33 POC Glucose (mg/dL) 217 H 270 H 150 H (75-99) mg/dL Assessment and Plan Plan: Assessment: #1. Acute exacerbation of chronic obstructive pulmonary disease complicated by purulent tracheobronchitis, with failed outpatient treatment #2. Stage III COPD with a baseline FEV1 of 0.86 L or 33% of predicted and diffusion capacity of 42% and chronic hypoxemic respiratory failure #3. Morbid obesity #4. Obstructive sleep apnea on CPAP therapy with a pressure of 17 cm of water and 4 L of oxygen at bedtime #5. Diabetes mellitus #6. Hypertension #7. Chronic congestive heart failure with an unknown ejection fraction Plan: Patient is doing well, breathing easier, she is tolerating ambulation, there is no fever or chills. From pulmonary perspective can be discharged home on a short course of oral Zithromax, prednisone taper, and her maintenance inhalers and nebulized treatments. Follow-up with Dr. Dr. Felix, patient has an appointment with him on July 27. I performed a history & physical examination of the patient and discussed their management with my nurse practitioner, Rand Gillis. I reviewed the nurse practitioner's note and agree with the documented findings and plan of care. Lung sounds are clear. The findings and the impression was discussed with the patient. I attest to the documentation by the nurse practitioner. Time with Patient: Less than 30
[2018-07-17 15:48] VITALS: BP 111/56; RESP 15; TEMP 97.6
[2018-07-17 15:56] VITALS: PULSE 88
[2018-07-17 16:52] LABS: Glucose,Whole Blood 306 mg/dL (75-99)
--- NOTE | 2018-07-17 17:07 | P.DS ---
Providers Date of admission: 07/16/18 15:56 Expected date of discharge: 07/17/18 Attending physician: Ranjith Mojica Consults: 07/15/18 02:39 Consult Physician Urgent Consulting Provider: Grant Felix Consult Reason/Comments: COPD Do you want consulting provider notified?: Yes Primary care physician: Grant Oglesby [facility] Course: Final Diagnoses: Acute exacerbation of chronic obstructive pulmonary disease complicated by purulent tracheobronchitis, with failed outpatient treatment Chronic hypoxic respiratory failure secondary to Stage III COPD Morbid obesity, BMI 39.8 Obstructive sleep apnea on CPAP and 4 L of oxygen at bedtime Diabetes mellitus, hyperglycemia from steroids; better controlled. Hemoglobin A1c 7.1. Hypertension Chronic congestive heart failure, EF unknown Hospital course: This a 57-year-old female admitted with acute COPD exacerbation , tracheobronchitis and multiple other medical issues. Afebrile, WBC 9.2. D- dimer negative at 0.42. Troponin negative 1 .Evaluated by pulmonary. Chest x- ray reported cardiomegaly bilateral lower lung densities, overlying soft tissue , strandy areas of atelectasis/scarring, left peripheral bibasilar opacity without pleural effusion, hyperinflation. Maintained on nebulized bronchodilators, IV steroids, IV antibiotics. Significant clinical improvement. Cleared by pulmonary for discharge. Patient is being discharged home in a stable condition with guarded prognosis. EXAM: GENERAL: Alert and oriented 3, no acute distress CARDIOVASCULAR: S1, S2 muffled. No murmur RESPIRATION: Breath sounds diminished in the bases. ABDOMEN: Soft, nontender . No guarding. no masses palpable. Bowel sounds heard. NERVOUS SYSTEM: No focal deficits. The impression and plan of care has been dictated as directed. : I performed a history and examination of this patient, discussed the same with the dictator. I agree with the dictator's note ,documented as a scribe. Any additional findings or plans will be noted. Time taken: 35 minutes Patient Condition at Discharge: Stable Plan - Discharge Summary Discharge Rx Participant: No New Discharge Prescriptions: New Azithromycin [Zithromax] 500 mg PO DAILY #5 tab Budesonide-Formot 160-4.5 Mcg [Symbicort 160-4.5 Mcg Inhaler] 2 puff INHALATION RT-BID #1 inh Docusate [Colace] 100 mg PO BID PRN cap PRN Reason: Constipation predniSONE 10 mg PO DIRECTED #30 tab Continue Fluticasone/Salmeterol [Advair Hfa 230-21 Mcg Inhaler] 2 puff INHALATION RT- BID Discontinued predniSONE 10 mg PO DAILY Amoxic-Pot Clav 875-125Mg [Augmentin 875-125] 1 each PO Q12HR #6 tab predniSONE 10 mg PO DAILY #30 tab No Action Lisinopril-Hctz 20-25 mg [Zestoretic 20-25] 1 tab PO DAILY Spironolactone 50 mg PO DAILY ALPRAZolam [Xanax] 0.5 mg PO Q6H PRN PRN Reason: Anxiety metFORMIN HCL [Glucophage] 500 mg PO BID-W/MEALS Metoprolol Tartrate [Lopressor] 25 mg PO BID Furosemide [Lasix] 40 mg PO BID Pioglitazone HCl [Actos] 30 mg PO DAILY Potassium Chloride [Klor-Con 20] 20 meq PO DAILY Glimepiride [Amaryl] 4 mg PO AC-BRKFST Omeprazole [PriLOSEC] 40 mg PO DAILY Albuterol Nebulized [Ventolin Nebulized] 2.5 mg INHALATION RT-Q4H PRN PRN Reason: Shortness Of Breath Acetaminophen-Codeine 300-30mg [Tylenol w/codeine #3] 1 - 2 tab PO Q6H PRN PRN Reason: Pain Ipratropium-Albuterol Nebulize [Duoneb 0.5 mg-3 mg/3 ml Soln] 3 ml INHALATION RT-QID Discharge Medication List Lisinopril-Hctz 20-25 mg [Zestoretic 20-25] 1 tab PO DAILY 09/09/14 [History] Spironolactone 50 mg PO DAILY 09/09/14 [History] ALPRAZolam [Xanax] 0.5 mg PO Q6H PRN 09/23/14 [History] Metoprolol Tartrate [Lopressor] 25 mg PO BID 10/31/14 [History] metFORMIN HCL [Glucophage] 500 mg PO BID-W/MEALS 10/31/14 [History] Furosemide [Lasix] 40 mg PO BID 03/30/15 [History] Fluticasone/Salmeterol [Advair Hfa 230-21 Mcg Inhaler] 2 puff INHALATION RT-BID 02/01/16 [History] Glimepiride [Amaryl] 4 mg PO AC-BRKFST 07/31/17 [History] Pioglitazone HCl [Actos] 30 mg PO DAILY 07/31/17 [History] Potassium Chloride [Klor-Con 20] 20 meq PO DAILY 07/31/17 [History] Albuterol Nebulized [Ventolin Nebulized] 2.5 mg INHALATION RT-Q4H PRN 01/29/18 [ History] Omeprazole [PriLOSEC] 40 mg PO DAILY 01/29/18 [History] Acetaminophen-Codeine 300-30mg [Tylenol w/codeine #3] 1 - 2 tab PO Q6H PRN 03/17 [History] Ipratropium-Albuterol Nebulize [Duoneb 0.5 mg-3 mg/3 ml Soln] 3 ml INHALATION RT -QID 03/17/18 [History] Azithromycin [Zithromax] 500 mg PO DAILY #5 tab 07/17/18 [Rx] Budesonide-Formot 160-4.5 Mcg [Symbicort 160-4.5 Mcg Inhaler] 2 puff INHALATION RT-BID #1 inh 07/17/18 [Rx] Docusate [Colace] 100 mg PO BID PRN cap 07/17/18 [Rx] predniSONE 10 mg PO DIRECTED #30 tab 07/17/18 [Rx] Follow up Appointment(s)/Referral(s): [facility], [NON-STAFF] - Farida Shea PAC [REFERRING] - 3 Days Gratn Felix DO [Doctor of Osteopathic Medicine] - 07/27/18 Ambulatory/Diagnostic Orders: Complete Blood Count w/diff [LAB.AMB] Time Frame: 3 Days, Location: None Selected
== END 2018-07-17 17:30 | disposition home health service (06) | DRG 191 ==
LOC: EC 18:50 → 4SSUR 22:10 → OBSVTOIN 07-16 15:56
PROVIDERS: ADMIT Hospitalist; ATTEND Hospitalist
DX: J44.1 Chronic obstructive pulmonary disease with (acute) exacerbation (principal); J96.11 Chronic respiratory failure with hypoxia; E24.2 Drug-induced Cushing's syndrome; J98.11 Atelectasis; E11.65 Type 2 diabetes mellitus with hyperglycemia; E66.01 Morbid (severe) obesity due to excess calories; F41.1 Generalized anxiety disorder; F42.9 Obsessive-compulsive disorder, unspecified; T38.0X5A Adverse effect of glucocorticoids and synthetic analogues, initial encounter; G47.33 Obstructive sleep apnea (adult) (pediatric); I11.0 Hypertensive heart disease with heart failure; I50.9 Heart failure, unspecified; K21.9 Gastro-esophageal reflux disease without esophagitis; M19.90 Unspecified osteoarthritis, unspecified site; Z68.39 Body mass index [BMI] 39.0-39.9, adult; Z79.51 Long term (current) use of inhaled steroids; Z79.52 Long term (current) use of systemic steroids; Z79.84 Long term (current) use of oral hypoglycemic drugs; Z79.899 Other long term (current) drug therapy; Z81.1 Family history of alcohol abuse and dependence; Z86.711 Personal history of pulmonary embolism; Z87.891 Personal history of nicotine dependence; Z99.81 Dependence on supplemental oxygen; Z99.89 Dependence on other enabling machines and devices
CPT/HCPCS: 71046; 80048; 80053; 82550; 82553; 83036; 83880; 84484; 85025; 85027; 85379; 94640; 94760; 99285

== ENCOUNTER 2018-07-30 15:39 | Observation (INO) | payer MEDICARE, OTHER ==
[2018-07-30] MEDS ORDERED: methylPREDNISolone SOD SUCCI 125 MG/2 ML VIAL IV STA (16:15)
[2018-07-30] MEDS ORDERED: IPRATROPIUM-ALBUTEROL 3 ML NEB INHALATION STA (16:15)
[2018-07-30] MEDS ORDERED: SODIUM CHLORIDE 0.9% 1,000 ML IV STA (16:15)
[2018-07-30] MEDS ORDERED: MAGNESIUM SULFATE-D5W PMX 1 GM in DEXTROSE/WATER 1 100ML.BAG IVPB STA (16:23)
[2018-07-30 16:43] LABS: Basophils # (A) 0.1 k/uL (0-0.2); Basophils % (A) 0 %; Eosinophils # (A) 0.1 k/uL (0-0.7); Eosinophils % (A) 1 %; HCT 40.6 % (34.0-46.0); HGB 13.8 gm/dL (11.4-16.0); Lymphocytes # (A) 3.4 k/uL (1.0-4.8); Lymphocytes % (A) 26 %; MCH 31.1 pg (25.0-35.0); MCHC 34.1 g/dL (31.0-37.0); Mean Platelet Volume 6.7; Monocytes # (A) 0.6 k/uL (0-1.0); Monocytes % (A) 4 %; Neutrophils # (A) 8.8 k/uL (1.3-7.7); Neutrophils % (A) 68 %; Platelet Count 333 k/uL (150-450); RBC 4.45 m/uL (3.80-5.40); RDW 15.2 % (11.5-15.5); WBC 12.9 k/uL (3.8-10.6)
--- NOTE | 2018-07-30 16:47 | ED ---
General Adult HPI <Grant Guerra - Last Filed: 07/30/18 16:55> - General Source: patient, RN notes reviewed, old records reviewed Mode of arrival: wheelchair Limitations: no limitations <Flory Ignacio - Last Filed: 07/30/18 17:30> - General Chief complaint: Shortness of Breath Stated complaint: AMPARO Time Seen by Provider: 07/30/18 16:09 - History of Present Illness Initial comments: Patient is a 57-year-old female presents today with chief complaint difficulty breathing. She reports that she started to come down with an upper respiratory viral syndrome earlier this week. She reports it became severe over the past day. Her last breathing treatment was at 1 hour prior to arrival. She reports her cough has been productive. She denies any associated chest pain at this time. 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 She is on oxygen at all times and is normally at 2 L. Patient denies any recent fever, chills, shortness of breath, chest pain, back pain, abdominal pain, nausea vomiting, numbness or tingling, dysuria or hematuria, constipation or diarrhea, headaches or visual changes, or any other current symptoms (Flory Ignacio) - Related Data Home Medications Medication Instructions Recorded Confirmed Lisinopril-Hctz 20-25 mg 1 tab PO DAILY 09/09/14 07/30/18 [Zestoretic 20-25] Spironolactone 50 mg PO DAILY 09/09/14 07/30/18 ALPRAZolam [Xanax] 0.5 mg PO Q6H PRN 09/23/14 07/30/18 Metoprolol Tartrate [Lopressor] 25 mg PO BID 10/31/14 07/30/18 metFORMIN HCL [Glucophage] 500 mg PO BID-W/MEALS 10/31/14 07/30/18 Furosemide [Lasix] 40 mg PO BID 03/30/15 07/30/18 Glimepiride [Amaryl] 4 mg PO AC-BRKFST 07/31/17 07/30/18 Pioglitazone HCl [Actos] 30 mg PO DAILY 07/31/17 07/30/18 Potassium Chloride [Klor-Con 20] 20 meq PO DAILY 07/31/17 07/30/18 Albuterol Nebulized [Ventolin 2.5 mg INHALATION RT-Q4H PRN 01/29/18 07/30/18 Nebulized] Omeprazole [PriLOSEC] 40 mg PO DAILY 01/29/18 07/30/18 Albuterol Inhaler [Ventolin Hfa 1 - 2 puff INHALATION RT-Q6H PRN 07/30/18 Inhaler] Hydrocodone/Acetaminophen [[place] 1 tab PO Q6HR PRN 07/30/18 07/30/18 7.5-325] predniSONE 10 mg PO DAILY 07/30/18 07/30/18 Allergies Allergy/AdvReac Type Severity Reaction Status Date / Time budesonide [From Pulmicort] Allergy Wheezing Verified 07/30/18 16:53 Review of Systems ROS Other: All systems not noted in ROS Statement are negative. <Grant Guerra - Last Filed: 07/30/18 16:55> ROS Other: All systems not noted in ROS Statement are negative. <Flory Ignacio - Last Filed: 07/30/18 17:30> ROS Statement: Those systems with pertinent positive or pertinent negative responses have been documented in the HPI. Past Medical History Past Medical History: Asthma, Chest Pain / Angina, Heart Failure, COPD, Diabetes Mellitus, GERD/Reflux, Hypertension, Osteoarthritis (OA), Pulmonary Embolus (PE), Renal Disease, Sleep Apnea/CPAP/BIPAP Additional Past Medical History / Comment(s): Advanced oxygen-dependent COPD , severe obstructive sleep apnea maintained on BiPAP at a pressure of 22/80 cm of water, chronic hypoxic respiratory failure maintained on oxygen 2 liters nasal cannula(4 at hs), NIDDM type II, DJD, low back pain which radiates down L hip and L leg at times, viral myocarditis, hypertension, morbid obesity with cushingoid features, generalized anxiety disorder, ocd. History of Any Multi-Drug Resistant Organisms: None Reported Past Surgical History: Adenoidectomy, Cholecystectomy, Heart Catheterization, Orthopedic Surgery, Tonsillectomy, Tubal Ligation Additional Past Surgical History / Comment(s): L hand 3rd finger tendon repair, D&C, carpal tunnel left hand, Past Anesthesia/Blood Transfusion Reactions: No Reported Reaction Past Psychological History: Anxiety Smoking Status: Former smoker Past Alcohol Use History: None Reported Past Drug Use History: None Reported - Past Family History Father Family Medical History: No Reported History Additional Family Medical History / Comment(s): Father was an alcoholic. He at the age of 58yrs. Mother Family Medical History: No Reported History Additional Family Medical History / Comment(s): Mother of alcoholism at the age of 63 yrs. <Flory Ignacio - Last Filed: 07/30/18 17:30> General Exam <Grant Guerra - Last Filed: 07/30/18 16:55> Limitations: no limitations General appearance: alert, in no apparent distress Head exam: Present: atraumatic, normocephalic, normal inspection Eye exam: Present: normal appearance, PERRL, EOMI. Absent: scleral icterus, conjunctival injection, periorbital swelling ENT exam: Present: normal exam, mucous membranes moist Neck exam: Present: normal inspection. Absent: tenderness, meningismus, lymphadenopathy Respiratory exam: Present: wheezes (Wheezing and diminished lung sounds throughout the entire lung field.), decreased breath sounds. Absent: normal lung sounds bilaterally, respiratory distress, rales, rhonchi, stridor Cardiovascular Exam: Present: regular rate, normal rhythm, normal heart sounds. Absent: systolic murmur, diastolic murmur, rubs, gallop, clicks GI/Abdominal exam: Present: soft, normal bowel sounds. Absent: distended, tenderness, guarding, rebound, rigid Extremities exam: Present: normal inspection, full ROM, normal capillary refill. Absent: tenderness, pedal edema, joint swelling, calf tenderness Back exam: Present: normal inspection Neurological exam: Present: alert, oriented X3, CN II-XII intact Psychiatric exam: Present: normal affect, normal mood Skin exam: Present: warm, dry, intact, normal color. Absent: rash <Flory Ignacio - Last Filed: 07/30/18 17:30> - General Exam Comments Initial Comments: This is a 57-year-old female. Alert and oriented 3. Evidence of dyspnea. Tripoding position. (Flory Ignacio) Course <Grant Guerra - Last Filed: 07/30/18 16:55> <Flory Ignacio - Last Filed: 07/30/18 17:30> Vital Signs 07/30/18 07/30/18 07/30/18 15:41 16:28 16:43 Temperature 98.4 F Pulse Rate 117 H 112 H 116 H Respiratory 18 Rate Blood Pressure 157/83 O2 Sat by Pulse 91 L Oximetry 07/30/18 16:53 Temperature Pulse Rate 114 H Respiratory 20 Rate Blood Pressure 117/60 O2 Sat by Pulse 94 L Oximetry - Reevaluation(s) Reevaluation #1: 07/30/18 16:55 PA supervision: I personally do a [id number] evaluation the patient did demonstrate evidence of shortness of breath she states that has been going on for the past several days at least ever since being exposed to a-year-old with a cold she has have severe history of COPD and recently was hospitalized. She complains of shortness of breath exertional dyspnea refractory to her home medications. No overt fevers chills or sweats on my evaluation. She does demonstrate markedly diminished breath sounds with some wheezing. There is some evidence of accessory muscle use. I did discuss the case with Dr. Mojica who was in the emergency department. Patient will be admitted for treatment of COPD exacerbation. I do agree with the assessment and plan (Grant Guerra) EKG Findings - EKG Comments: EKG Findings:: EKG shows sinus tachycardia, left axis deviation. Low voltage QRS. Inferior infarct age indeterminate. Cannot rule out anterior infarct. Reticular rate is 170 bpm. VA interval is 1:30 milliseconds. QRS durations 86 ms. QT QTc is 342 ms/477 ms. <Flory Ignacio - Last Filed: 07/30/18 17:30> Medical Decision Making - Lab Data Result diagrams: 07/30/18 16:12 07/30/18 16:12 <Grant Guerra - Last Filed: 07/30/18 16:55> - Lab Data Result diagrams: 07/30/18 16:12 07/30/18 16:12 <Flory Ignacio - Last Filed: 07/30/18 17:30> - Medical Decision Making Patient is a 7-year-old female presents return today for complaints of cough and worsening shortness of breath. She has a significant history for COPD. She does see Dr. Zavala. She is exposed to someone with a cold and believes that that exacerbated her symptoms today. She rates the emergency department with oxygen saturation 90% on room air tripod position. She did appear to have some mild respirator distress. She was started on a double DuoNeb treatment and placed on 3 L of oxygen. She started on IV steroids and IV magnesium. Patient states discussed Dr. Guerra who also examined the Patient. At this time Patient will be admitted at this time for COPD exacerbation likely viral related. Her chest x-ray is stable and shows no evidence of significant infiltrate. Patient's labwork was unremarkable. Patient admitted for COPD with IV steroids and continued breathing treatments. (Flory Ignacio) - Lab Data Lab Results 07/30/18 07/30/18 07/30/18 Range/Units 16:12 16:12 16:12 WBC 12.9 H (3.8-10.6) k/uL RBC 4.45 (3.80-5.40) m/uL Hgb 13.8 (11.4-16.0) gm/dL Hct 40.6 (34.0-46.0) % MCV 91.1 D (80.0-100.0) fL MCH 31.1 (25.0-35.0) pg MCHC 34.1 (31.0-37.0) g/dL RDW 15.2 (11.5-15.5) % Plt Count 333 (150-450) k/uL Neutrophils % 68 % Lymphocytes % 26 % Monocytes % 4 % Eosinophils % 1 % Basophils % 0 % Neutrophils # 8.8 H (1.3-7.7) k/uL Lymphocytes # 3.4 (1.0-4.8) k/uL Monocytes # 0.6 (0-1.0) k/uL Eosinophils # 0.1 (0-0.7) k/uL Basophils # 0.1 (0-0.2) k/uL PT (9.0-12.0) sec INR (<1.2) APTT (22.0-30.0) sec Sodium 139 (137-145) mmol/L Potassium 3.9 (3.5-5.1) mmol/L Chloride 96 L (98-107) mmol/L Carbon Dioxide 32 H (22-30) mmol/L Anion Gap 11 mmol/L BUN 23 H (7-17) mg/dL Creatinine 0.66 (0.52-1.04) mg/dL Est GFR (CKD-EPI)AfAm >90 (>60 ml/min/1.73 sqM) Est GFR (CKD-EPI)NonAf >90 (>60 ml/min/1.73 sqM) Glucose 136 H (74-99) mg/dL Calcium 9.8 (8.4-10.2) mg/dL Total Bilirubin 0.6 (0.2-1.3) mg/dL AST 21 (14-36) U/L ALT 48 (9-52) U/L Alkaline Phosphatase 66 (38-126) U/L Total Creatine Kinase 98 (30-135) U/L CK-MB (CK-2) 1.8 (0.0-2.4) ng/mL CK-MB (CK-2) Rel Index 1.8 Troponin I <0.012 (0.000-0.034) ng/mL Total Protein 7.0 (6.3-8.2) g/dL Albumin 4.4 (3.5-5.0) g/dL 07/30/18 Range/Units 16:12 WBC (3.8-10.6) k/uL RBC (3.80-5.40) m/uL Hgb (11.4-16.0) gm/dL Hct (34.0-46.0) % MCV (80.0-100.0) fL MCH (25.0-35.0) pg MCHC (31.0-37.0) g/dL RDW (11.5-15.5) % Plt Count (150-450) k/uL Neutrophils % % Lymphocytes % % Monocytes % % Eosinophils % % Basophils % % Neutrophils # (1.3-7.7) k/uL Lymphocytes # (1.0-4.8) k/uL Monocytes # (0-1.0) k/uL Eosinophils # (0-0.7) k/uL Basophils # (0-0.2) k/uL PT 9.9 (9.0-12.0) sec INR 0.9 (<1.2) APTT 22.7 (22.0-30.0) sec Sodium (137-145) mmol/L Potassium (3.5-5.1) mmol/L Chloride (98-107) mmol/L Carbon Dioxide (22-30) mmol/L Anion Gap mmol/L BUN (7-17) mg/dL Creatinine (0.52-1.04) mg/dL Est GFR (CKD-EPI)AfAm (>60 ml/min/1.73 sqM) Est GFR (CKD-EPI)NonAf (>60 ml/min/1.73 sqM) Glucose (74-99) mg/dL Calcium (8.4-10.2) mg/dL Total Bilirubin (0.2-1.3) mg/dL AST (14-36) U/L ALT (9-52) U/L Alkaline Phosphatase (38-126) U/L Total Creatine Kinase (30-135) U/L CK-MB (CK-2) (0.0-2.4) ng/mL CK-MB (CK-2) Rel Index Troponin I (0.000-0.034) ng/mL Total Protein (6.3-8.2) g/dL Albumin (3.5-5.0) g/dL Disposition <Grant Guerra - Last Filed: 07/30/18 16:55> Is patient prescribed a controlled substance at d/c from ED?: No Time of Disposition: 17:30 <Flory Ignacio - Last Filed: 07/30/18 17:30> Clinical Impression: COPD (chronic obstructive pulmonary disease), Dyspnea Disposition: ADMITTED IP TO THIS HOSP Condition: Stable Referrals: Grant Monroe MD [Primary Care Provider] - 1-2 days
[2018-07-30 16:50] LABS: ALT 48 U/L (9-52); AST 21 U/L (14-36); Albumin 4.4 g/dL (3.5-5.0); Alkaline Phosphatase 66 U/L (38-126); Anion Gap 11 mmol/L; Blood Urea Nitrogen 23 mg/dL (7-17); Calcium 9.8 mg/dL (8.4-10.2); Carbon Dioxide 32 mmol/L (22-30); Chloride 96 mmol/L (98-107); Glucose 136 mg/dL (74-99); Potassium 3.9 mmol/L (3.5-5.1); Sodium 139 mmol/L (137-145); Total Bilirubin 0.6 mg/dL (0.2-1.3)
[2018-07-30 16:52] LABS: MCV 91.1 fL (80.0-100.0)
--- NOTE | 2018-07-30 16:59 | XR ---
EXAMINATION: XR chest 2V DATE AND TIME: 07/30/2018 4:47 PM CLINICAL INDICATION: PHH; difficulty breathing TECHNIQUE: Departmental protocol COMPARISON: 07/15/2018 FINDINGS: The bibasilar ill-defined opacities are unchanged. There is no pulmonary edema. No new pulmonary find ing. Pleural spaces are negative. The cardiac silhouette is borderline enlarged. The remainder of the mediastinal silhouette is unremar kable. The skeletal structures and soft tissues are negative for acute findings. IMPRESSION: STABLE RADIOGRAPHIC APPEARANCE.
[2018-07-30 17:01] LABS: Creatine Kinase 98 U/L (30-135); INR 0.9 (<1.2); Partial Thromboplastin Time 22.7 sec (22.0-30.0); Prothrombin Time 9.9 sec (9.0-12.0)
[2018-07-30 17:12] LABS: Creatine Kinase MB 1.8 ng/mL (0.0-2.4); Troponin I <0.012 ng/mL (0.000-0.034)
--- NOTE | 2018-07-30 18:26 | P.HPIM ---
History of Present Illness 57-year-old came in with comments of shortness of breath and found to be wheezing and patient uses 2 L of oxygen quit smoking 2 years ago, they shouldn' t had a wide earlier today earlier this week patient is comparing of cough with yellowish sputum production. Chest x-ray did not show any pneumonic process. Patient is being admitted for COPD exacerbation patient had any fever chills body aches. Review of Systems REVIEW OF SYSTEMS: CONSTITUTIONAL: No fever, no malaise, no fatigue. HEENT: No recent visual problems or hearing problems. Denied any sore throat. CARDIOVASCULAR: No chest pain, orthopnea, PND, no palpitations, no syncope. PULMONARY: no hemoptysis. GASTROINTESTINAL: No diarrhea, no nausea, no vomiting, no abdominal pain. NEUROLOGICAL: No headaches, no weakness, no numbness. HEMATOLOGICAL: Denies any bleeding or petechiae. GENITOURINARY: Denies any burning micturition, frequency, or urgency. MUSCULOSKELETAL/RHEUMATOLOGICAL: Denies any joint pain, swelling, or any muscle pain. ENDOCRINE: Denies any polyuria or polydipsia. The rest of the 14-point review of systems is negative. Past Medical History Past Medical History: Asthma, Chest Pain / Angina, Heart Failure, COPD, Diabetes Mellitus, GERD/Reflux, Hypertension, Osteoarthritis (OA), Pulmonary Embolus (PE), Renal Disease, Sleep Apnea/CPAP/BIPAP Additional Past Medical History / Comment(s): Advanced oxygen-dependent COPD , severe obstructive sleep apnea maintained on BiPAP at a pressure of 22/80 cm of water, chronic hypoxic respiratory failure maintained on oxygen 2 liters nasal cannula(4 at hs), NIDDM type II, DJD, low back pain which radiates down L hip and L leg at times, viral myocarditis, hypertension, morbid obesity with cushingoid features, generalized anxiety disorder, ocd. History of Any Multi-Drug Resistant Organisms: None Reported Past Surgical History: Adenoidectomy, Cholecystectomy, Heart Catheterization, Orthopedic Surgery, Tonsillectomy, Tubal Ligation Additional Past Surgical History / Comment(s): L hand 3rd finger tendon repair, D&C, carpal tunnel left hand, Past Anesthesia/Blood Transfusion Reactions: No Reported Reaction Past Psychological History: Anxiety Smoking Status: Former smoker Past Alcohol Use History: None Reported Past Drug Use History: None Reported - Past Family History Father Family Medical History: No Reported History Additional Family Medical History / Comment(s): Father was an alcoholic. He at the age of 58yrs. Mother Family Medical History: No Reported History Additional Family Medical History / Comment(s): Mother of alcoholism at the age of 63 yrs. Medications and Allergies Home Medications Medication Instructions Recorded Confirmed Type Lisinopril-Hctz 20-25 mg 1 tab PO DAILY 09/09/14 07/30/18 History [Zestoretic 20-25] Spironolactone 50 mg PO DAILY 09/09/14 07/30/18 History ALPRAZolam [Xanax] 0.5 mg PO Q6H PRN 09/23/14 07/30/18 History Metoprolol Tartrate [Lopressor] 25 mg PO BID 10/31/14 07/30/18 History metFORMIN HCL [Glucophage] 500 mg PO BID-W/MEALS 10/31/14 07/30/18 History Furosemide [Lasix] 40 mg PO BID 03/30/15 07/30/18 History Glimepiride [Amaryl] 4 mg PO AC-BRKFST 07/31/17 07/30/18 History Pioglitazone HCl [Actos] 30 mg PO DAILY 07/31/17 07/30/18 History Potassium Chloride [Klor-Con 20] 20 meq PO DAILY 07/31/17 07/30/18 History Albuterol Nebulized [Ventolin 2.5 mg INHALATION RT-Q4H PRN 01/29/18 07/30/18 History Nebulized] Omeprazole [PriLOSEC] 40 mg PO DAILY 01/29/18 07/30/18 History Albuterol Inhaler [Ventolin Hfa 1 - 2 puff INHALATION RT-Q6H PRN 07/30/18 History Inhaler] Hydrocodone/Acetaminophen [[place] 1 tab PO Q6HR PRN 07/30/18 07/30/18 History 7.5-325] predniSONE 10 mg PO DAILY 07/30/18 07/30/18 History Allergies Allergy/AdvReac Type Severity Reaction Status Date / Time budesonide [From Pulmicort] Allergy Wheezing Verified 07/30/18 16:53 Physical Exam Vitals: Vital Signs Temp Pulse Resp BP Pulse Ox 07/30/18 18:00 97.8 F 110 H 20 115/67 92 L 07/30/18 16:53 114 H 20 117/60 94 L 07/30/18 16:43 116 H 07/30/18 16:28 112 H 07/30/18 15:41 98.4 F 117 H 18 157/83 91 L Intake and Output 07/30/18 07/30/18 07/30/18 06:59 14:59 22:59 Other: Weight 94.801 kg PHYSICAL EXAMINATION: GENERAL: The patient is alert and oriented x3, not in any acute distress. Obese HEENT: Pupils are round and equally reacting to light. EOMI. No scleral icterus. No conjunctival pallor. Normocephalic, atraumatic. No pharyngeal erythema. No thyromegaly. CARDIOVASCULAR: S1 and S2 present. No murmurs, rubs, or gallops. PULMONARY: Decreased air entry in with significant expiratory wheezing in both lungs ABDOMEN: Soft, nontender, nondistended, normoactive bowel sounds. No palpable organomegaly. MUSCULOSKELETAL: No joint swelling or deformity. EXTREMITIES: No cyanosis, clubbing, or pedal edema. NEUROLOGICAL: Gross neurological examination did not reveal any focal deficits. SKIN: No rashes. Results CBC & Chem 7: 07/30/18 16:12 07/30/18 16:12 Labs: Abnormal Lab Results - Last 24 Hours (Table) 07/30/18 07/30/18 Range/Units 16:12 16:12 WBC 12.9 H (3.8-10.6) k/uL Neutrophils # 8.8 H (1.3-7.7) k/uL Chloride 96 L (98-107) mmol/L Carbon Dioxide 32 H (22-30) mmol/L BUN 23 H (7-17) mg/dL Glucose 136 H (74-99) mg/dL Assessment and Plan Plan: -Acute on chronic hypercapnic respiratory failure secondary to COPD exacerbation : Patient will be started on systemic steroids inhalational treatments at blood sugars are expected to go up and will be started on 40 IV twice a day of Solu- Medrol because of concerns of elevated blood sugars -Tracheobronchitis patient will be restarted on the Clinoril azithromycin -Morbid obesity -Sleep apnea uses CPAP machine at home -Type 2 diabetes mellitus blood sugars are expected to be elevated and uncontrolled because of systemic steroids patient will be resumed on her home regimen along with sliding scale insulin -Congestive heart failure without any acute exacerbation her ejection fraction is unknown. Patient will need a pharmacologic GI prophylaxis as well as DVT prophylaxis
[2018-07-30] MEDS ORDERED: methylPREDNISolone SOD SUCCI 125 MG/2 ML VIAL IV SCH (19:00)
[2018-07-30] MEDS: METOPROLOL TARTRATE 25 MG TAB PO SCH (20:17)
[2018-07-30] MEDS: DOXYCYCLINE 100 MG CAP PO SCH (20:17)
[2018-07-30] MEDS: guaiFENesin 600 MG TABLET.ER PO SCH (20:17)
[2018-07-30] MEDS: methylPREDNISolone SOD SUCCI 40 MG/ML 1 ML VIAL IV SCH (20:18)
[2018-07-30] MEDS: FUROSEMIDE 40 MG TAB PO SCH (20:20)
[2018-07-30] MEDS: INSULIN ASPART (NovoLOG) 100 UNIT/ML VIAL SQ SCH (20:23)
[2018-07-30 20:24] LABS: Glucose,Whole Blood 179 mg/dL (75-99)
[2018-07-30] MEDS: HEPARIN SODIUM,PORCINE 5,000 UNIT/ML 1 ML VIAL SQ SCH (23:00)
[2018-07-31] MEDS ORDERED: methylPREDNISolone SOD SUCCI 40 MG/ML 1 ML VIAL IV SCH
[2018-07-31 04:04] LABS: Hemoglobin A1C 7.3 % (4.0-6.0)
[2018-07-31 07:20] LABS: Glucose,Whole Blood 195 mg/dL (75-99)
[2018-07-31] MEDS: IPRATROPIUM-ALBUTEROL 3 ML NEB INHALATION PRN ×4 (07:23→20:39)
[2018-07-31] MEDS: SPIRONOLACTONE 25 MG TAB PO SCH (07:32)
[2018-07-31] MEDS: guaiFENesin 600 MG TABLET.ER PO SCH ×2 (07:32→20:57)
[2018-07-31] MEDS: metFORMIN 500 MG TAB PO SCH ×2 (07:32→17:35)
[2018-07-31] MEDS: GLIMEPIRIDE 4 MG TAB PO SCH (07:32)
[2018-07-31] MEDS: PANTOPRAZOLE 40 MG TABLET PO SCH (07:32)
[2018-07-31] MEDS: PIOGLITAZONE 30 MG TAB PO SCH (07:32)
[2018-07-31] MEDS: FUROSEMIDE 40 MG TAB PO SCH ×2 (07:32→15:58)
[2018-07-31] MEDS: DOXYCYCLINE 100 MG CAP PO SCH ×2 (07:33→20:57)
[2018-07-31] MEDS: methylPREDNISolone SOD SUCCI 40 MG/ML 1 ML VIAL IV SCH ×2 (07:33→20:57)
[2018-07-31] MEDS: POTASSIUM CHLORIDE ER 20 MEQ TAB.ER PO SCH (07:33)
[2018-07-31] MEDS: HEPARIN SODIUM,PORCINE 5,000 UNIT/ML 1 ML VIAL SQ SCH ×2 (07:33→15:58)
[2018-07-31] MEDS: METOPROLOL TARTRATE 25 MG TAB PO SCH ×2 (07:33→20:58)
[2018-07-31] MEDS: INSULIN ASPART (NovoLOG) 100 UNIT/ML VIAL SQ SCH ×4 (07:33→20:57)
[2018-07-31 12:05] LABS: Glucose,Whole Blood 140 mg/dL (75-99)
[2018-07-31] MEDS: HYDROcodone/APAP 7.5-325MG 1 EACH TAB PO PRN ×2 (15:59→21:01)
--- NOTE | 2018-07-31 16:12 | P.PN ---
Subjective Patient is admitted with COPD exacerbation patient is presently on to describe since entering a negative percent still has some wheeze. Patient will be continued on IV steroids for possibility of discharge tomorrow. Constitutional: Denied any fatigue denied any fever. Cardio vascular: denied any chest pain, palpitations Gastrointestinal denied any nausea vomiting Pulmonary: Improved shortness of breath as mentioned above Neurologic denied any new focal deficits All inpatient medications were reviewed and appropriate changes in these medications as dictated in the interval history and assessment and plan. Objective - Vital Signs Vital signs: Vital Signs Temp 97.7 F 07/31/18 14:40 Pulse 99 07/31/18 14:40 Resp 16 07/31/18 14:40 BP 117/69 07/31/18 14:40 Pulse Ox 92 L 07/31/18 14:40 Intake & Output 07/30/18 07/31/18 07/31/18 18:59 06:59 18:59 Intake Total 200 Balance 200 Weight 94.801 kg Intake: Oral 200 Other: Voiding Method Toilet # Voids 2 3 # Bowel Movements 1 - Exam PHYSICAL EXAMINATION: GENERAL: The patient is alert and oriented x3, not in any acute distress. Obese HEENT: Pupils are round and equally reacting to light. EOMI. No scleral icterus. No conjunctival pallor. Normocephalic, atraumatic. No pharyngeal erythema. No thyromegaly. CARDIOVASCULAR: S1 and S2 present. No murmurs, rubs, or gallops. PULMONARY: Improved air entry into both lungs expiratory wheezing is still present but improved compared to yesterday ABDOMEN: Soft, nontender, nondistended, normoactive bowel sounds. No palpable organomegaly. MUSCULOSKELETAL: No joint swelling or deformity. EXTREMITIES: No cyanosis, clubbing, or pedal edema. NEUROLOGICAL: Gross neurological examination did not reveal any focal deficits. SKIN: No rashes. - Labs CBC & Chem 7: 07/30/18 16:12 07/30/18 16:12 Labs: Abnormal Lab Results - Last 24 Hours (Table) 07/30/18 07/30/18 07/30/18 Range/Units 16:12 16:12 16:12 WBC 12.9 H (3.8-10.6) k/uL Neutrophils # 8.8 H (1.3-7.7) k/uL Chloride 96 L (98-107) mmol/L Carbon Dioxide 32 H (22-30) mmol/L BUN 23 H (7-17) mg/dL Glucose 136 H (74-99) mg/dL POC Glucose (mg/dL) (75-99) mg/dL Hemoglobin A1c 7.3 H (4.0-6.0) % 07/30/18 07/31/18 07/31/18 Range/Units 20:22 07:18 12:03 WBC (3.8-10.6) k/uL Neutrophils # (1.3-7.7) k/uL Chloride (98-107) mmol/L Carbon Dioxide (22-30) mmol/L BUN (7-17) mg/dL Glucose (74-99) mg/dL POC Glucose (mg/dL) 179 H 195 H 140 H (75-99) mg/dL Hemoglobin A1c (4.0-6.0) % Assessment and Plan Plan: -Acute on chronic hypercapnic respiratory failure secondary to COPD exacerbation : Patient will be started on systemic steroids inhalational treatments at blood sugars are expected to go up and will be started on 40 IV twice a day of Solu- Medrol because of concerns of elevated blood sugars -Tracheobronchitis patient is on doxycycline -Morbid obesity -Sleep apnea uses CPAP machine at home -Type 2 diabetes mellitus blood sugars are expected to be elevated and uncontrolled because of systemic steroids patient will be resumed on her home regimen along with sliding scale insulin. So for blood sugars are fairly okay. -Congestive heart failure without any acute exacerbation her ejection fraction is unknown. Patient will need a pharmacologic GI prophylaxis as well as DVT prophylaxis
[2018-07-31 16:58] LABS: Glucose,Whole Blood 215 mg/dL (75-99)
[2018-07-31] MEDS: SYMBICORT 80-4.5 MCG INHALER INHALATION SCH (20:39)
[2018-07-31 20:50] LABS: Glucose,Whole Blood 119 mg/dL (75-99)
[2018-07-31] MEDS: ALPRAZolam 0.5 MG TAB PO PRN (22:46)
[2018-08-01] MEDS: IPRATROPIUM-ALBUTEROL 3 ML NEB INHALATION PRN ×6 (01:33→23:51)
[2018-08-01] MEDS: HEPARIN SODIUM,PORCINE 5,000 UNIT/ML 1 ML VIAL SQ SCH ×4 (02:55→23:11)
[2018-08-01] MEDS: SYMBICORT 80-4.5 MCG INHALER INHALATION SCH ×2 (06:43→19:05)
[2018-08-01 07:16] LABS: Glucose,Whole Blood 186 mg/dL (75-99)
[2018-08-01] MEDS ORDERED: SYMBICORT 80-4.5 MCG INHALER INHALATION SCH (08:00)
[2018-08-01] MEDS: POTASSIUM CHLORIDE ER 20 MEQ TAB.ER PO SCH (08:40)
[2018-08-01] MEDS: guaiFENesin 600 MG TABLET.ER PO SCH ×2 (08:40→21:46)
[2018-08-01] MEDS: methylPREDNISolone SOD SUCCI 40 MG/ML 1 ML VIAL IV SCH ×2 (08:40→21:45)
[2018-08-01] MEDS: METOPROLOL TARTRATE 25 MG TAB PO SCH ×2 (08:40→21:45)
[2018-08-01] MEDS: SPIRONOLACTONE 25 MG TAB PO SCH (08:40)
[2018-08-01] MEDS: PANTOPRAZOLE 40 MG TABLET PO SCH (08:40)
[2018-08-01] MEDS: metFORMIN 500 MG TAB PO SCH ×2 (08:40→17:29)
[2018-08-01] MEDS: FUROSEMIDE 40 MG TAB PO SCH ×2 (08:40→17:29)
[2018-08-01] MEDS: DOXYCYCLINE 100 MG CAP PO SCH ×2 (08:41→21:46)
[2018-08-01] MEDS: GLIMEPIRIDE 4 MG TAB PO SCH (08:41)
[2018-08-01] MEDS: PIOGLITAZONE 30 MG TAB PO SCH (08:41)
[2018-08-01] MEDS: INSULIN ASPART (NovoLOG) 100 UNIT/ML VIAL SQ SCH ×4 (08:41→21:48)
[2018-08-01] MEDS: ALPRAZolam 0.5 MG TAB PO PRN ×2 (08:51→21:48)
[2018-08-01] MEDS: HYDROcodone/APAP 7.5-325MG 1 EACH TAB PO PRN ×2 (11:43→21:45)
--- NOTE | 2018-08-01 11:53 | P.CNPUL ---
History of Present Illness Consult date: 08/01/18 Requesting physician: Abigail Pierce Reason for consult: dyspnea, cough, COPD Chief complaint: Cough, chest congestion, shortness of breath History of present illness: This is a 58-year-old white female patient of Dr. Monroe, with past medical history of stage III COPD with a baseline FEV1 of 0.86 L or 33% of predicted, chronic hypoxemic respiratory failure, obstructive sleep apnea on CPAP therapy, diabetes mellitus type 2, hypertension, chronic congestive heart failure with an unknown ejection fraction, who came into the hospital on 07/30/2018 for evaluation of worsening shortness of breath, chest congestion, and cough. was recently hospitalized for a COPD exacerbation, she finished her oral course of Zithromax sometime last week, she completed her prednisone taper, and she is currently down to her maintenance dose of prednisone 10 mg daily. She was trying to get into see Dr. Rosario's 3, Monday, but due to weather conditions she did not make it into the office. Due to worsening symptoms she came into the hospital for evaluation on Monday07/30/2018. She denied any fever or chills at home, denied any chest pain, no nausea, no vomiting no diarrhea, no abdominal pain, lightheadedness, no headaches. Chest x-ray showed bibasilar ill-defined opacities that are unchanged compared to her last chest x- ray on 07/15/2018. EKG showed sinus tachycardia with left axis deviation, with evidence of inferior infarct and cannot rule out anterior infarct of undetermined age. No acute ischemic changes. Labs showed white blood cell count of 12.9, hemoglobin of 13.8, granulation profile is within normal limits, sodium is 139, potassium is 3.9, chloride is 96, CO2 is 32, BUN was 23, creatinine 0.6, troponin was negative 1, LFTs were within normal limits. Patient has been treated with IV steroids, nebulized bronchodilators, empiric antibiotics in the form of doxycycline, Symbicort and she is starting to improve. Review of Systems All systems: negative Constitutional: Denies chills, Denies fever Eyes: denies blurred vision, denies pain Ears, nose, mouth and throat: Denies headache, Denies sore throat Cardiovascular: Denies chest pain, Denies shortness of breath Respiratory: Reports congestion, Reports cough with sputum, Reports dyspnea, Reports home oxygen, Reports respiratory infections, Reports wheezing, Denies cough Gastrointestinal: Denies abdominal pain, Denies diarrhea, Denies nausea, Denies vomiting Genitourinary: Denies dysuria, Denies hematuria Musculoskeletal: Denies myalgias Integumentary: Denies pruritus, Denies rash Neurological: Denies numbness, Denies weakness Psychiatric: Denies anxiety, Denies depression Endocrine: Denies fatigue, Denies weight change Past Medical History Past Medical History: Asthma, Chest Pain / Angina, Heart Failure, COPD, Diabetes Mellitus, GERD/Reflux, Hypertension, Osteoarthritis (OA), Pulmonary Embolus (PE), Renal Disease, Sleep Apnea/CPAP/BIPAP Additional Past Medical History / Comment(s): Advanced oxygen-dependent COPD , severe obstructive sleep apnea maintained on BiPAP at a pressure of 22/80 cm of water, chronic hypoxic respiratory failure maintained on oxygen 2 liters nasal cannula(4 at hs), NIDDM type II, DJD, low back pain which radiates down L hip and L leg at times, viral myocarditis, hypertension, morbid obesity with cushingoid features, generalized anxiety disorder, ocd. History of Any Multi-Drug Resistant Organisms: None Reported Past Surgical History: Adenoidectomy, Cholecystectomy, Heart Catheterization, Orthopedic Surgery, Tonsillectomy, Tubal Ligation Additional Past Surgical History / Comment(s): L hand 3rd finger tendon repair, D&C, carpal tunnel left hand, Past Anesthesia/Blood Transfusion Reactions: No Reported Reaction Past Psychological History: Anxiety Smoking Status: Former smoker Past Alcohol Use History: None Reported Past Drug Use History: None Reported - Past Family History Father Family Medical History: No Reported History Additional Family Medical History / Comment(s): Father was an alcoholic. He at the age of 58yrs. Mother Family Medical History: No Reported History Additional Family Medical History / Comment(s): Mother of alcoholism at the age of 63 yrs. Medications and Allergies Home Medications Medication Instructions Recorded Confirmed Type Lisinopril-Hctz 20-25 mg 1 tab PO DAILY 09/09/14 07/30/18 History [Zestoretic 20-25] Spironolactone 50 mg PO DAILY 09/09/14 07/30/18 History ALPRAZolam [Xanax] 0.5 mg PO Q6H PRN 09/23/14 07/30/18 History Metoprolol Tartrate [Lopressor] 25 mg PO BID 10/31/14 07/30/18 History metFORMIN HCL [Glucophage] 500 mg PO BID-W/MEALS 10/31/14 07/30/18 History Furosemide [Lasix] 40 mg PO BID 03/30/15 07/30/18 History Glimepiride [Amaryl] 4 mg PO AC-BRKFST 07/31/17 07/30/18 History Pioglitazone HCl [Actos] 30 mg PO DAILY 07/31/17 07/30/18 History Potassium Chloride [Klor-Con 20] 20 meq PO DAILY 07/31/17 07/30/18 History Albuterol Nebulized [Ventolin 2.5 mg INHALATION RT-Q4H PRN 01/29/18 07/30/18 History Nebulized] Omeprazole [PriLOSEC] 40 mg PO DAILY 01/29/18 07/30/18 History Albuterol Inhaler [Ventolin Hfa 1 - 2 puff INHALATION RT-Q6H PRN 07/30/18 History Inhaler] Hydrocodone/Acetaminophen [[place] 1 tab PO Q6HR PRN 07/30/18 07/30/18 History 7.5-325] predniSONE 10 mg PO DAILY 07/30/18 07/30/18 History Allergies Allergy/AdvReac Type Severity Reaction Status Date / Time budesonide [From Pulmicort] Allergy Wheezing Verified 07/31/18 20:39 Physical Exam Vitals: Vital Signs Temp Pulse Pulse Resp BP BP Pulse Ox 08/01/18 11:04 96 08/01/18 10:52 92 08/01/18 08:00 18 08/01/18 07:09 97.0 F L 91 20 118/73 96 08/01/18 06:57 96 08/01/18 06:43 96 08/01/18 01:43 98 08/01/18 01:35 98 07/31/18 23:25 97.9 F 102 H 24 143/82 97 07/31/18 21:54 98.6 F 100 18 116/75 95 07/31/18 20:52 96 07/31/18 20:41 93 07/31/18 16:34 94 07/31/18 16:25 98 07/31/18 16:23 91 07/31/18 14:40 97.7 F 99 16 117/69 92 L Intake and Output 07/31/18 08/01/18 08/01/18 22:59 06:59 14:59 Intake Total 100 480 Balance 100 480 Intake: Oral 100 480 Other: Voiding Method Toilet # Voids 2 2 Weight 96.6 kg GENERAL EXAM: Alert, pleasant, 58-year-old white female on 2 L per nasal cannula comfortable in no apparent distress. HEAD: Normocephalic/atraumatic. EYES: Normal reaction of pupils, equal size. Conjunctiva pink, sclera white. NOSE: Clear with pink turbinates. THROAT: No erythema or exudates. NECK: No masses, no JVD, no thyroid enlargement, no adenopathy. CHEST: No chest wall deformity. Symmetrical expansion. LUNGS: Equal air entry with diminished breath sounds with expiratory wheezes CVS: Regular rate and rhythm, normal S1 and S2, no gallops, no murmurs, no rubs ABDOMEN: Soft, nontender. No hepatosplenomegaly, normal bowel sounds, no guarding or rigidity. EXTREMITIES: No clubbing, no edema, no cyanosis, 2+ pulses and upper and lower extremities. MUSCULOSKELETAL: Muscle strength and tone normal. SPINE: No scoliosis or deformity SKIN: No rashes CENTRAL NERVOUS SYSTEM: Alert and oriented -3. No focal deficits, tone is normal in all 4 extremities. PSYCHIATRIC: Alert and oriented -3. Appropriate affect. Intact judgment and insight. Results - Laboratory Findings CBC and BMP: 07/30/18 16:12 07/30/18 16:12 PT/INR, D-dimer PT 9.9 sec (9.0-12.0) 07/30/18 16:12 INR 0.9 (<1.2) 07/30/18 16:12 Abnormal lab findings: Abnormal Labs 07/30/18 07/30/18 07/30/18 16:12 16:12 16:12 WBC 12.9 H Neutrophils # 8.8 H Chloride 96 L Carbon Dioxide 32 H BUN 23 H Glucose 136 H POC Glucose (mg/dL) Hemoglobin A1c 7.3 H 07/30/18 07/31/18 07/31/18 20:22 07:18 12:03 WBC Neutrophils # Chloride Carbon Dioxide BUN Glucose POC Glucose (mg/dL) 179 H 195 H 140 H Hemoglobin A1c 07/31/18 07/31/18 08/01/18 16:56 20:43 07:11 WBC Neutrophils # Chloride Carbon Dioxide BUN Glucose POC Glucose (mg/dL) 215 H 119 H 186 H Hemoglobin A1c - Diagnostic Findings Chest x-ray: report reviewed, image reviewed Additional studies: EKG reviewed Assessment and Plan Plan: Assessment: #1. Acute exacerbation of chronic obstructive pulmonary disease with purulent tracheobronchitis, chest x-ray showed some ill-defined opacities at bilateral bases, unchanged since last admission on 07/15/2018, no clear evidence of pneumonia #2. Stage III COPD with a baseline FEV1 of 0.86 L or 33% of predicted, DLCO of 42% of predicted, and chronic hypoxemic respiratory failure #3. Obesity #4. Obstructive sleep apnea on CPAP therapy with a pressure of 17 cm of water in 4 L of oxygen at bedtime #5. Diabetes mellitus type 2 #6. Retention #7. History of chronic congestive heart failure with an unknown ejection fraction #8. GERD/reflux Plan: Continue current medical treatment, patient is improving, she has been treated with the empiric antibiotics, nebulized bronchodilators, IV steroids, and she starting to improve. No fever or chills, and her breathing is improving. Increase activity as tolerated, anticipate further improvement and possible discharge in next 24 hours I performed a history & physical examination of the patient and discussed their management with my nurse practitioner, Rand Gillis. I reviewed the nurse practitioner's note and agree with the documented findings and plan of care. Lung sounds are positive for diminished breath sounds with scattered wheezes. The findings and the impression was discussed with the patient. I attest to the documentation by the nurse practitioner. Time with Patient: Greater than 30
[2018-08-01 12:10] LABS: Glucose,Whole Blood 106 mg/dL (75-99)
[2018-08-01 17:34] LABS: Glucose,Whole Blood 183 mg/dL (75-99)
[2018-08-01 21:29] LABS: Glucose,Whole Blood 154 mg/dL (75-99)
[2018-08-02] MEDS: HYDROcodone/APAP 7.5-325MG 1 EACH TAB PO PRN ×2 (05:57→13:54)
[2018-08-02 06:40] VITALS: BP 128/77; TEMP 97.5
[2018-08-02 07:08] LABS: Glucose,Whole Blood 139 mg/dL (75-99)
[2018-08-02] MEDS: SYMBICORT 80-4.5 MCG INHALER INHALATION SCH (07:12)
[2018-08-02] MEDS: IPRATROPIUM-ALBUTEROL 3 ML NEB INHALATION PRN ×2 (07:12→11:33)
[2018-08-02] MEDS: methylPREDNISolone SOD SUCCI 40 MG/ML 1 ML VIAL IV SCH (07:40)
[2018-08-02] MEDS: DOXYCYCLINE 100 MG CAP PO SCH (08:46)
[2018-08-02] MEDS: PIOGLITAZONE 30 MG TAB PO SCH (08:47)
[2018-08-02] MEDS: metFORMIN 500 MG TAB PO SCH (08:47)
[2018-08-02] MEDS: guaiFENesin 600 MG TABLET.ER PO SCH (08:47)
[2018-08-02] MEDS: POTASSIUM CHLORIDE ER 20 MEQ TAB.ER PO SCH (08:48)
[2018-08-02] MEDS: GLIMEPIRIDE 4 MG TAB PO SCH (08:48)
[2018-08-02] MEDS: PANTOPRAZOLE 40 MG TABLET PO SCH (08:49)
[2018-08-02] MEDS: SPIRONOLACTONE 25 MG TAB PO SCH (08:50)
[2018-08-02] MEDS: FUROSEMIDE 40 MG TAB PO SCH ×2 (08:50→15:34)
[2018-08-02] MEDS: METOPROLOL TARTRATE 25 MG TAB PO SCH (08:51)
[2018-08-02] MEDS: INSULIN ASPART (NovoLOG) 100 UNIT/ML VIAL SQ SCH ×2 (08:52→12:57)
[2018-08-02] MEDS: HEPARIN SODIUM,PORCINE 5,000 UNIT/ML 1 ML VIAL SQ SCH ×2 (09:06→15:34)
--- NOTE | 2018-08-02 11:04 | P.PN ---
Subjective Progress Note Date: 08/02/18 Principal diagnosis: Exacerbation of COPD This is a 58-year-old white female patient of Dr. Monroe, with past medical history of stage III COPD with a baseline FEV1 of 0.86 L or 33% of predicted, chronic hypoxemic respiratory failure, obstructive sleep apnea on CPAP therapy, diabetes mellitus type 2, hypertension, chronic congestive heart failure with an unknown ejection fraction, who came into the hospital on 07/30/2018 for evaluation of worsening shortness of breath, chest congestion, and cough. was recently hospitalized for a COPD exacerbation, she finished her oral course of Zithromax sometime last week, she completed her prednisone taper, and she is currently down to her maintenance dose of prednisone 10 mg daily. She was trying to get into see Dr. Rosario's 3, Monday, but due to weather conditions she did not make it into the office. Due to worsening symptoms she came into the hospital for evaluation on Monday07/30/2018. She denied any fever or chills at home, denied any chest pain, no nausea, no vomiting no diarrhea, no abdominal pain, lightheadedness, no headaches. Chest x-ray showed bibasilar ill-defined opacities that are unchanged compared to her last chest x- ray on 07/15/2018. EKG showed sinus tachycardia with left axis deviation, with evidence of inferior infarct and cannot rule out anterior infarct of undetermined age. No acute ischemic changes. Labs showed white blood cell count of 12.9, hemoglobin of 13.8, granulation profile is within normal limits, sodium is 139, potassium is 3.9, chloride is 96, CO2 is 32, BUN was 23, creatinine 0.6, troponin was negative 1, LFTs were within normal limits. Patient has been treated with IV steroids, nebulized bronchodilators, empiric antibiotics in the form of doxycycline, Symbicort and she is starting to improve. On 08/02/2018 patient seen in follow-up on medical surgical floor. She is awake and alert, in no acute distress. She is improving, breathing is easier, patient is tolerating ambulation, no fever or chills. Culture data is negative. Vital signs are stable, patient is on her home dose FiO2 at 2 L per nasal cannula, and her pulse ox is 95%. Lung sounds are negative for any rhonchi or wheezing. From pulmonary perspective patient stable for discharge home today. Objective - Vital Signs Vital signs: Vital Signs Temp 97.5 F L 08/02/18 06:20 Pulse 92 08/02/18 07:26 Resp 20 08/02/18 06:20 BP 128/77 08/02/18 06:20 Pulse Ox 95 08/02/18 06:20 Intake & Output 08/01/18 08/02/18 08/02/18 18:59 06:59 18:59 Intake Total 1200 950 Balance 1200 950 Intake: Oral 1200 950 Other: # Voids 2 4 # Bowel Movements 0 - Exam GENERAL EXAM: Alert, pleasant, 58-year-old white female on 2 L per nasal cannula comfortable in no apparent distress. HEAD: Normocephalic/atraumatic. EYES: Normal reaction of pupils, equal size. Conjunctiva pink, sclera white. NOSE: Clear with pink turbinates. THROAT: No erythema or exudates. NECK: No masses, no JVD, no thyroid enlargement, no adenopathy. CHEST: No chest wall deformity. Symmetrical expansion. LUNGS: Equal air entry with diminished breath sounds CVS: Regular rate and rhythm, normal S1 and S2, no gallops, no murmurs, no rubs ABDOMEN: Soft, nontender. No hepatosplenomegaly, normal bowel sounds, no guarding or rigidity. EXTREMITIES: No clubbing, no edema, no cyanosis, 2+ pulses and upper and lower extremities. MUSCULOSKELETAL: Muscle strength and tone normal. SPINE: No scoliosis or deformity SKIN: No rashes CENTRAL NERVOUS SYSTEM: Alert and oriented -3. No focal deficits, tone is normal in all 4 extremities. PSYCHIATRIC: Alert and oriented -3. Appropriate affect. Intact judgment and insight. - Labs CBC & Chem 7: 07/30/18 16:12 07/30/18 16:12 Labs: Abnormal Lab Results - Last 24 Hours (Table) 08/01/18 08/01/18 08/01/18 Range/Units 12:06 17:31 21:26 POC Glucose (mg/dL) 106 H 183 H 154 H (75-99) mg/dL 08/02/18 Range/Units 07:00 POC Glucose (mg/dL) 139 H (75-99) mg/dL Microbiology - Last 24 Hours (Table) 07/30/18 16:12 Blood Culture - Preliminary Blood No Growth after 48 hours Assessment and Plan Plan: Assessment: #1. Acute exacerbation of chronic obstructive pulmonary disease with purulent tracheobronchitis, chest x-ray showed some ill-defined opacities at bilateral bases, unchanged since last admission on 07/15/2018, no clear evidence of pneumonia #2. Stage III COPD with a baseline FEV1 of 0.86 L or 33% of predicted, DLCO of 42% of predicted, and chronic hypoxemic respiratory failure #3. Obesity #4. Obstructive sleep apnea on CPAP therapy with a pressure of 17 cm of water in 4 L of oxygen at bedtime #5. Diabetes mellitus type 2 #6. Retention #7. History of chronic congestive heart failure with an unknown ejection fraction #8. GERD/reflux Plan: Continues to improve, no acute events overnight, patient tolerating ambulation, she is back to her baseline. From pulmonary perspective she stable for discharge home today, he can finish outpatient course of oral doxycycline, prednisone taper, she has and nebulized treatments, inhalers and oxygen at home. Follow-up with Dr. Dr. Felix in one week I performed a history & physical examination of the patient and discussed their management with my nurse practitioner, Rand Gillis. I reviewed the nurse practitioner's note and agree with the documented findings and plan of care. Lung sounds are positive for diminished breath sounds with scattered wheezes. The findings and the impression was discussed with the patient. I attest to the documentation by the nurse practitioner. Time with Patient: Less than 30
[2018-08-02 11:44] VITALS: PULSE 84
[2018-08-02 12:20] VITALS: RESP 18
[2018-08-02 12:29] LABS: Glucose,Whole Blood 203 mg/dL (75-99)
[2018-08-02] MEDS: ALPRAZolam 0.5 MG TAB PO PRN (14:26)
--- NOTE | 2018-08-02 14:27 | P.PN ---
Subjective Progress Note Date: 08/01/18 Interval history: Patient is admitted with COPD exacerbation patient is presently on to describe since entering a negative percent still has some wheeze. Patient will be continued on IV steroids for possibility of discharge tomorrow. 08/01/2018 maintained on nebulized bronchodilators, steroids, antibiotics. Breathing improving. Hoarseness and wheezing improving. Used CPAP last night. Constitutional: Denied any fatigue denied any fever. Cardio vascular: denied any chest pain, palpitations Gastrointestinal denied any nausea vomiting Pulmonary: Improved shortness of breath as mentioned above Neurologic denied any new focal deficits Active Medications Hydrocodone Bitart/Acetaminophen ([place] 7.5-325) 1 each PO Q6HR PRN PRN Reason: Pain Last Admin: 08/02/18 13:54 Dose: 1 each Albuterol/Ipratropium (Duoneb 0.5 Mg-3 Mg/3 Ml Soln) 3 ml INHALATION RT-Q4H PRN PRN Reason: Shortness Of Breath Or Wheezing Last Admin: 08/02/18 11:33 Dose: 3 ml Alprazolam (Xanax) 0.5 mg PO Q6H PRN PRN Reason: Anxiety Last Admin: 08/01/18 21:48 Dose: 0.5 mg Budesonide/Formoterol Fumarate (Symbicort 80-4.5 Mcg Inhaler) 2 puff INHALATION RT-BID [facility] Last Admin: 08/02/18 07:12 Dose: 2 puff Doxycycline Monohydrate (Vibramycin) 100 mg PO BID [facility] Last Admin: 08/02/18 08:46 Dose: 100 mg Furosemide (Lasix) 40 mg PO BID@0900,1600 [facility] Last Admin: 08/02/18 08:50 Dose: 40 mg Glimepiride (Amaryl) 4 mg PO AC-BRKFST [facility] Last Admin: 08/02/18 08:48 Dose: 4 mg Guaifenesin (Mucinex) 1,200 mg PO Q12HR [facility] Last Admin: 08/02/18 08:47 Dose: 1,200 mg Heparin Sodium (Porcine) (Heparin) 5,000 unit SQ Q8HR [facility] Last Admin: 08/02/18 09:06 Dose: 5,000 unit Insulin Aspart (Novolog) 0 unit SQ [facility]; Protocol Last Admin: 08/02/18 12:57 Dose: 6 unit Metformin HCl (Glucophage) 500 mg PO BID-W/MEALS [facility] Last Admin: 08/02/18 08:47 Dose: 500 mg Methylprednisolone Sodium Succinate (Solu-Medrol) 40 mg IV Q12HR [facility] Last Admin: 08/02/18 07:40 Dose: 40 mg Metoprolol Tartrate (Lopressor) 25 mg PO BID [facility] Last Admin: 08/02/18 08:51 Dose: 25 mg Pantoprazole Sodium (Protonix) 40 mg PO DAILY [facility] Last Admin: 08/02/18 08:49 Dose: 40 mg Pioglitazone HCl (Actos) 30 mg PO DAILY [facility] Last Admin: 08/02/18 08:47 Dose: 30 mg Potassium Chloride (K-Dur 20) 20 meq PO DAILY [facility] Last Admin: 08/02/18 08:48 Dose: 20 meq Spironolactone (Aldactone) 50 mg PO DAILY [facility] Last Admin: 08/02/18 08:50 Dose: 50 mg Objective - Vital Signs Vital signs: Vital Signs Temp 97.6 F 08/01/18 15:14 Pulse 91 08/01/18 15:14 Resp 18 08/01/18 15:54 BP 127/80 08/01/18 15:14 Pulse Ox 94 L 08/01/18 15:14 Intake & Output 07/31/18 08/01/18 08/01/18 18:59 06:59 18:59 Intake Total 100 960 Balance 100 960 Weight 96.6 kg Intake: Oral 100 960 Other: Voiding Method Toilet # Voids 3 2 2 # Bowel Movements 1 0 - Exam GENERAL: The patient is sitting up at side of bed, alert and oriented x3, not in any acute distress. HEENT: Pupils are round and equally reacting to light. EOMI. No scleral icterus. No conjunctival pallor. Normocephalic, atraumatic. CARDIOVASCULAR: S1 and S2 present. No murmurs, rubs, or gallops. PULMONARY: Bilateral lungs with Improved air entry, less expiratory wheezing ABDOMEN: Soft, nontender, nondistended, normoactive bowel sounds. No palpable organomegaly. MUSCULOSKELETAL: No joint swelling or deformity. EXTREMITIES: No cyanosis, clubbing, or pedal edema. NEUROLOGICAL: Gross neurological examination did not reveal any focal deficits. SKIN: No rashes. - Labs CBC & Chem 7: 07/30/18 16:12 07/30/18 16:12 Labs: Abnormal Lab Results - Last 24 Hours (Table) 07/31/18 08/01/18 08/01/18 Range/Units 20:43 07:11 12:06 POC Glucose (mg/dL) 119 H 186 H 106 H (75-99) mg/dL Microbiology - Last 24 Hours (Table) 07/30/18 16:12 Blood Culture - Preliminary Blood No Growth after 24 hours Assessment and Plan Assessment: -Acute on chronic hypercapnic, hypoxic respiratory failure secondary to acute COPD exacerbation -Tracheobronchitis patient is on doxycycline -Morbid obesity, BMI 40.2 -Sleep apnea, uses CPAP machine at home -Type 2 diabetes mellitus, mild hyperglycemia secondary to steroids -Congestive heart failure without any acute exacerbation,ejection fraction unknown. Plan: Continue on current medication regime ,monitoring and symptomatic treatment. Maintain nebulized bronchodilators, steroids, antibiotics. Increase ambulation as tolerated. Discharge planning in progress for tomorrow, pending pulmonary clearance. The impression and plan of care has been dictated as directed. : I performed a history and examination of this patient, discussed the same with the dictator. I agree with the dictator's note ,documented as a scribe. Any additional findings or plans will be noted.
--- NOTE | 2018-08-02 21:20 | DS ---
DISCHARGE SUMMARY DATE OF SERVICE: 08/02/2018 FINAL DIAGNOSES: 1. Chronic obstructive pulmonary disease acute exacerbation with acute hypoxic respiratory failure with acute purulent tracheobronchitis. 2. Morbid obesity. 3. Sleep apnea. 4. Diabetes mellitus type 2. 5. Congestive heart failure without any acute exacerbation. Ejection fraction unknown. DISCHARGE DISPOSITION: The patient is being discharged in stable condition with guarded prognosis. Discharge cleared by Dr. Gardner. HISTORY OF PRESENT ILLNESS: This 58-year-old woman with a past medical history of multiple medical problems admitted with COPD exacerbation, acute purulent tracheobronchitis as well as acute hypoxic respiratory failure. Patient treated with antibiotics and IV steroids. Patient improved significantly. Dr. Gardner saw the patient and recommended the patient be discharged. On exam, vitals are stable. Cardiovascular system: S1, S2. Abdomen soft. Nervous system: No focal deficits. Respirations: A few scattered rhonchi. DISCHARGE ADVICE AND MEDICATIONS: 1. Diet is cardiac diet. 2. Activity limited until followup. 3. Follow up with Dr. Monroe in 2-3 days. 4. Follow up with Dr. Felix as recommended. DISCHARGE MEDICATIONS: 1. Albuterol q.i.d. and p.r.n. 2. Xanax p.r.n. 3. Lasix 40 mg p.o. b.i.d. 4. Amaryl 4 mg with breakfast. 5. [place] 7.5 q.6h p.r.n. 6. Zestoretic 20/25 p.o. daily. 7. Glucophage 500 mg b.i.d. with meals. 8. Lopressor 25 mg p.o. b.i.d. 9. Prilosec 40 mg p.o. daily. 10.Actos 30 mg p.o. daily. 11.Klor-Con 20 mEq p.o. daily. 12.Prednisone 10 mg p.o. daily. 13.Aldactone 50 mg p.o. daily. 14.Symbicort 160/4.5 two puffs b.i.d. 15.Vibramycin 100 mg p.o. b.i.d. 16.Mucinex 1200 mg p.o. b.i.d. 17.Prednisone taper 40 mg daily for 3 days, 30 for three days, 20 mg for three days and 10 for 3 days. Please send a copy to Dr. Monroe and Dr. Felix. Once again, the patient is being discharged in stable with guarded prognosis. MMODL / IJN: [id number] /
== END 2018-08-02 15:50 | disposition home health service (06) ==
LOC: EC 15:39 → 4MS4W 16:35
PROVIDERS: ADMIT Internal Medicine; ATTEND Internal Medicine
DX: J44.1 Chronic obstructive pulmonary disease with (acute) exacerbation (principal); J20.9 Acute bronchitis, unspecified; J44.0 Chronic obstructive pulmonary disease with (acute) lower respiratory infection; R00.0 Tachycardia, unspecified; J96.21 Acute and chronic respiratory failure with hypoxia; F41.1 Generalized anxiety disorder; F42.9 Obsessive-compulsive disorder, unspecified; G47.33 Obstructive sleep apnea (adult) (pediatric); E66.01 Morbid (severe) obesity due to excess calories; Z68.41 Body mass index [BMI] 40.0-44.9, adult; J96.22 Acute and chronic respiratory failure with hypercapnia; I11.0 Hypertensive heart disease with heart failure; I50.9 Heart failure, unspecified; E11.65 Type 2 diabetes mellitus with hyperglycemia; K21.9 Gastro-esophageal reflux disease without esophagitis; T38.0X5A Adverse effect of glucocorticoids and synthetic analogues, initial encounter; Z79.4 Long term (current) use of insulin; Z79.52 Long term (current) use of systemic steroids; Z79.899 Other long term (current) drug therapy; Z86.711 Personal history of pulmonary embolism; Z99.81 Dependence on supplemental oxygen; Z87.891 Personal history of nicotine dependence; Z81.1 Family history of alcohol abuse and dependence; Z99.89 Dependence on other enabling machines and devices
CPT/HCPCS: 96376 ×4; 96372 ×4; 96365; 96375; 99285; 36415; 94640 ×7; 94760; 93005; 80053; 82550; 82553; 84484; 85025; 85610; 85730; 87040; 83036; 71046; G0378 ×4; J1644 ×4; J2920 ×4; J2930; J3475

== ENCOUNTER 2018-09-27 00:27 | Inpatient (IN) | payer MEDICARE, OTHER ==
[2018-09-27 03:11] VITALS: BMI 37.5
[2018-09-27] MEDS ORDERED: ALPRAZolam 0.5 MG TAB PO PRN (03:23)
[2018-09-27] MEDS: IPRATROPIUM-ALBUTEROL 3 ML NEB INHALATION PRN ×5 (04:13→19:47)
[2018-09-27] MEDS ORDERED: DEXTROSE 5% IN WATER 1,000 ML IV SCH (04:15)
[2018-09-27] MEDS: HYDROcodone/APAP 7.5-325MG 1 EACH TAB PO PRN ×2 (04:33→21:17)
[2018-09-27 04:40] LABS: HCT 40.3 % (34.0-46.0); HGB 12.3 gm/dL (11.4-16.0); MCH 29.2 pg (25.0-35.0); MCHC 30.6 g/dL (31.0-37.0); MCV 95.4 fL (80.0-100.0); Mean Platelet Volume 6.4; Platelet Count 316 k/uL (150-450); RBC 4.23 m/uL (3.80-5.40); RDW 15.4 % (11.5-15.5); WBC 9.9 k/uL (3.8-10.6)
[2018-09-27 04:52] LABS: Anion Gap 12 mmol/L; Blood Urea Nitrogen 28 mg/dL (7-17); Calcium 9.6 mg/dL (8.4-10.2); Carbon Dioxide 30 mmol/L (22-30); Chloride 94 mmol/L (98-107); Cholesterol 233 mg/dL (<200); Glucose 244 mg/dL (74-99); HDL Cholesterol 56 mg/dL (40-60); LDL Cholesterol,Calculated 150 mg/dL (0-99); Potassium 4.2 mmol/L (3.5-5.1); Sodium 136 mmol/L (137-145); Triglycerides 134 mg/dL (<150)
[2018-09-27 07:16] LABS: Glucose,Whole Blood 249 mg/dL (75-99)
[2018-09-27] MEDS ORDERED: SYMBICORT 160-4.5 MCG INHALER INHALATION SCH (08:00)
[2018-09-27] MEDS: HEPARIN SODIUM,PORCINE 5,000 UNIT/ML 1 ML VIAL SQ SCH ×3 (08:13→23:52)
[2018-09-27] MEDS: SPIRONOLACTONE 25 MG TAB PO SCH (08:13)
[2018-09-27] MEDS: POTASSIUM CHLORIDE ER 20 MEQ TAB.ER PO SCH (08:13)
[2018-09-27] MEDS: FUROSEMIDE 40 MG TAB PO SCH ×2 (08:13→15:37)
[2018-09-27] MEDS: METOPROLOL TARTRATE 25 MG TAB PO SCH ×2 (08:13→21:17)
[2018-09-27] MEDS: PANTOPRAZOLE 40 MG TABLET PO SCH (08:13)
[2018-09-27] MEDS: metFORMIN 500 MG TAB PO SCH ×2 (08:13→17:28)
[2018-09-27] MEDS: DOXYCYCLINE 100 MG CAP PO SCH ×2 (08:14→21:17)
[2018-09-27] MEDS: INSULIN ASPART (NovoLOG) 100 UNIT/ML VIAL SQ SCH ×4 (08:14→21:17)
[2018-09-27] MEDS: methylPREDNISolone SOD SUCCI 40 MG/ML 1 ML VIAL IV SCH ×3 (08:14→23:52)
[2018-09-27] MEDS: LISINOPRIL-HCTZ 20-25 MG 1 EACH TAB PO SCH (08:15)
[2018-09-27] MEDS: PIOGLITAZONE 30 MG TAB PO SCH (08:15)
[2018-09-27] MEDS: GLIMEPIRIDE 4 MG TAB PO SCH (08:15)
[2018-09-27] MEDS: SODIUM CHLORIDE 0.9% 1,000 ML IV SCH (08:23)
--- NOTE | 2018-09-27 10:05 | XR ---
EXAMINATION TYPE: XR chest 2V DATE OF EXAM: 09/27/2018 COMPARISON: Prior chest x-ray 09/06/2018 HISTORY: Shortness of breath TECHNIQUE: Frontal and lateral views of the chest are obtained. FINDINGS: Patient is rotated. Heart size is stable and enlarged. No evident pneumonia, pneumothorax, or pleural effusion. Some strand-like density is present at the right costophrenic angle. There is e ventration of the right hemidiaphragm and overlying tubing. Surgical clips present in the right upper quadrant. Flattening the hemidiaphragms and increased AP diameter chest is again seen compatible wit h COPD. IMPRESSION: No acute cardiopulmonary process.
[2018-09-27 11:52] LABS: Glucose,Whole Blood 172 mg/dL (75-99)
[2018-09-27] MEDS ORDERED: ALBUTEROL NEBULIZED 2.5 MG/3 ML INHALATION PRN (11:52)
[2018-09-27] MEDS ORDERED: HYDROcodone/APAP 7.5-325MG 1 EACH TAB PO PRN (11:52)
[2018-09-27] MEDS ORDERED: IPRATROPIUM 0.5 MG/2.5 ML NEBU INHALATION PRN (11:52)
[2018-09-27] MEDS ORDERED: ALBUTEROL INHALER 60 PUFF/8 GM INHALER INHALATION PRN (11:52)
[2018-09-27 12:50] LABS: T4, Free (Free Thyroxine) 1.14 ng/dL (0.78-2.19)
[2018-09-27 14:41] LABS: Hemoglobin A1C 7.2 % (4.0-6.0)
--- NOTE | 2018-09-27 15:27 | P.CNPUL ---
History of Present Illness Consult date: 09/27/18 Reason for consult: dyspnea, COPD History of present illness: This is another hospitalization for this 58-year-old female patient who is known to have advanced COPD with FEV1 of 33% of predicted, chronic hypoxic respiratory failure, severe obstructive sleep apnea is demented on a BiPAP at a pressure of 80-40 cm of water. The patient has had multiple hospitalizations in the most recent of which was on 09/07/2018. The patient was discharged home on prednisone burst taper and she was taking 15 mg of prednisone a daily basis and addition to his Symbicort maintenance and DuoNeb nebulized treatments around the clock approximately 4 times a day. Patient comes into the hospital for worsening shortness of breath. Exact exacerbation cause is not clear. The patient initially went to [facility] because of worsening shortness of breath at a point where she was unable to breathe and she was in impending respiratory failure. She states that she has been smoking. She has been doing better rest of the medication are regular basis. No exposure to any chemicals or respiratory irritants. No chest pain. No angina. No palpitations. No heartburn. She ended up being transferred to [facility] for further evaluation and treatment. She is currently on IV Solu-Medrol. Chest x-ray showing no acute abnormalities. The patient is quite bronchospastic and wheezy. Initially she was having significant respiratory difficulties to the point where she was unable to speak in full sentences and currently she is feeling better. No chest pain. No pleurisy. No hemoptysis. Review of Systems REVIEW OF SYSTEMS: CONSTITUTIONAL: Denies any recent significant weight gain as the patient has been on chronic steroid therapy and the patient has developed some cushingoid features. EYES: Denies change in vision. EARS, NOSE, MOUTH, THROAT: Denies headaches, denies sore throat. CARDIOVASCULAR: Denies chest pain, palpitations or syncopal episodes. RESPIRATORY: Positive for shortness of breath, cough, congestion no hemoptysis. GASTROINTESTINAL: Denies change in appetite, denies abdominal pain GENITOURINARY: Denies hematuria, denies infections. MUSKULOSKELETAL: Denies pain, denies swelling. INTEGUMENTARY: Denies rash, denies eczema. NEUROLOGICAL: Denies recent memory loss, no recent seizure activity. PSYCHIATRIC: Denies anxiety, denies depression. HEMATOLOGIC/LYMPHATIC: Denies anemia, denies enlarged lymph nodes. Past Medical History Past Medical History: Heart Failure, COPD, Diabetes Mellitus, GERD/Reflux, Hypertension Additional Past Medical History / Comment(s): Advanced oxygen-dependent COPD with an FEV1 of 33% of predicted , severe obstructive sleep apnea maintained on BiPAP at a pressure of 18/14 cm of water, chronic hypoxic respiratory failure maintained on oxygen 2 liters nasal cannula(4 at hs), NIDDM type II, DJD, low back pain which radiates down L hip and L leg at times, viral myocarditis, hypertension, morbid obesity with cushingoid features, generalized anxiety disorder, ocd. History of Any Multi-Drug Resistant Organisms: None Reported Past Surgical History: Cholecystectomy, Tubal Ligation Additional Past Surgical History / Comment(s): Adenoidectomy, Cholecystectomy, Heart Catheterization, Orthopedic Surgery, Tonsillectomy, Tubal Ligation. L hand 3rd finger tendon repair, D&C, carpal tunnel left hand, Past Anesthesia/Blood Transfusion Reactions: No Reported Reaction Past Psychological History: Anxiety Smoking Status: Former smoker Past Alcohol Use History: None Reported Past Drug Use History: None Reported Additional History: Lives with her boyfriend. She is independent. She has home O2. - Past Family History Father Family Medical History: No Reported History Medications and Allergies Home Medications Medication Instructions Recorded Confirmed Type ALPRAZolam [Xanax] 0.5 mg PO Q6H PRN 09/27/18 09/27/18 History Albuterol Inhaler [Ventolin Hfa 2 puff INHALATION DAILY PRN 09/27/18 09/27/18 History Inhaler] Albuterol Nebulized [Ventolin 2.5 mg INHALATION Q4H PRN 09/27/18 09/27/18 History Nebulized] Fluticasone/Salmeterol [Advair Hfa 2 puff INHALATION BID 09/27/18 09/27/18 History 230-21 Mcg Inhaler] Furosemide [Lasix] 40 mg PO BID 09/27/18 09/27/18 History Glimepiride [Amaryl] 4 mg PO DAILY 09/27/18 09/27/18 History Hydrocodone/Acetaminophen [Topsham 1 tab PO Q6HR PRN 09/27/18 09/27/18 History 7.5-325] Ipratropium Nebulized [Atrovent 0.5 mg INHALATION RT-Q4H PRN 09/27/18 09/27/18 History Nebulized 0.2 MG/ML] Lisinopril-Hctz 20-25 mg 1 tab PO DAILY 09/27/18 09/27/18 History [Zestoretic 20-25] Metoprolol Tartrate [Lopressor] 25 mg PO BID 09/27/18 09/27/18 History Omeprazole 40 mg PO DAILY 09/27/18 09/27/18 History Pioglitazone HCl [Actos] 30 mg PO DAILY 09/27/18 09/27/18 History Potassium Chloride [Klor-Con 10] 20 meq PO DAILY 09/27/18 09/27/18 History Spironolactone 50 mg PO DAILY 09/27/18 09/27/18 History metFORMIN HCL [Glucophage] 500 mg PO BID 09/27/18 09/27/18 History predniSONE 15 mg PO DAILY 09/27/18 09/27/18 History Allergies Allergy/AdvReac Type Severity Reaction Status Date / Time budesonide [From Pulmicort] AdvReac Dyspnea Verified 09/27/18 08:36 Physical Exam Vitals: Vital Signs Temp Pulse Pulse Resp BP Pulse Ox 09/27/18 15:00 98 F 109 H 14 105/68 09/27/18 12:08 112 H 09/27/18 11:59 118 H 09/27/18 08:39 124 H 09/27/18 08:25 14 09/27/18 08:24 128 H 09/27/18 07:00 98.7 F 99 14 116/69 97 09/27/18 04:18 93 18 09/27/18 04:15 93 L 09/27/18 04:13 92 20 09/27/18 02:20 98.0 F 110 H 21 124/64 99 Intake and Output 09/27/18 09/27/18 09/27/18 06:59 14:59 22:59 Other: Voiding Method Toilet Toilet # Voids 1 1 Weight 97 kg GENERAL EXAM: Alert, active, comfortable in no apparent distress. HEAD: Normocephalic. EYES: Normal reaction of pupils, equal size. NOSE: Clear with pink turbinates. THROAT: No erythema or exudates. NECK: No masses, no JVD. CHEST: No chest wall deformity. LUNGS: Equal air entry with bilateral end expiratory wheeze, few scattered rhonchi. She has marked initial breath sounds bilaterally along with prolongation of expiratory phase of breathing and diffuse expiratory wheezes throughout the lung his bilaterally. CVS: S1 and S2 normal with no audible murmur, regular rhythm. ABDOMEN: No hepatosplenomegaly, normal bowel sounds, no guarding or rigidity. SPINE: No scoliosis or deformity SKIN: No rashes CENTRAL NERVOUS SYSTEM: No focal deficits, tone is normal in all 4 extremities. EXTREMITIES: There is no peripheral edema. No clubbing, no cyanosis. Peripheral pulses are intact. Results - Laboratory Findings CBC and BMP: 09/27/18 04:29 09/27/18 04:29 PT/INR, D-dimer D-Dimer 0.23 mg/L FEU (<0.60) 09/27/18 12:05 Abnormal lab findings: Abnormal Labs 09/27/18 09/27/18 09/27/18 04:29 04:29 04:29 MCHC 30.6 L Sodium 136 L Chloride 94 L BUN 28 H Creatinine 0.51 L Glucose 244 H POC Glucose (mg/dL) Hemoglobin A1c 7.2 H Cholesterol 233 H LDL Cholesterol, Calc 150 H TSH 09/27/18 09/27/18 09/27/18 07:04 11:45 12:05 MCHC Sodium Chloride BUN Creatinine Glucose POC Glucose (mg/dL) 249 H 172 H Hemoglobin A1c Cholesterol LDL Cholesterol, Calc TSH 0.275 L Assessment and Plan Plan: Assessment: #1. Acute exacerbation of chronic obstructive pulmonary disease with secondary shortness of breath #2. Stage III COPD with a baseline FEV1 of 0.86 L or 33% of predicted, DLCO of 42% of predicted, and chronic hypoxemic respiratory failure #3. Obesity #4. Obstructive sleep apnea on CPAP therapy with a pressure of 18/14 cm of water in 4 L of oxygen at bedtime #5. Diabetes mellitus type 2 #6. History of steroid-induced hyperglycemia #7. Chronic hypoxic and hypercapnic respiratory failure #9 chronic steroid use with cushingoid features related to systemic steroids #10 chronic generalized anxiety disorder #11 osteoarthritis Plan Continue current treatment of nebulized José [id number], IV Solu-Medrol. We'll discontinue the Symbicort and put the patient on Perforomist and Pulmicort neb regimen so on the clock. She will receive this twice a day. She will also benefit from addition of Spiriva on outpatient basis. Continue BiPAP therapy fo r now. Continue to follow.
[2018-09-27] MEDS: ALPRAZolam 0.5 MG TAB PO PRN (15:37)
[2018-09-27 16:47] LABS: Glucose,Whole Blood 162 mg/dL (75-99)
--- NOTE | 2018-09-27 19:23 | ECHOF ---
Referral Reason:Pulmonary hypertension? MEASUREMENTS -------- HEIGHT: 157.5 cm WEIGHT: 96.6 kg BP: RVIDd: 2.1 cm (< 3.3) IVSd: 1.6 cm (0.6 - 1.1) LVIDd: 3.9 cm (3.9 - 5.3) LVPWd: 1.6 cm (0.6 - 1.1) IVSs: 1.7 cm LVIDs: 2.5 cm LVPWs: 2.2 cm Ao Diam: 2.8 cm (2.0 - 3.7) LA Diam: 3.3 cm (2.7 - 3.8) MV E James: 0.60 m/s MV DecT: 204 ms MV A James: 0.57 m/s MV E/A Ratio: 1.05 RAP: 5.00 mmHg RVSP: 11.24 mmHg FINDINGS -------- Resting tachycardia (HR>100bpm). This was a technically difficult study with suboptimal views. Pt. Very Sob Severe copd. Pt sittin g up for test. The left ventricular size is normal. There is moderate concentric left ventricular hypertrophy. O verall left ventricular systolic function is low-normal with, an EF between 50 - 55 %. The RV was not well visualized. The left atrium was not well visualized. The right atrium was not well visualized. The aortic valve was not well visualized. The mitral valve was not well visualized. The tricuspid valve was not well visualized. The pulmonic valve was not well visualized. CONCLUSIONS -------- 1. Resting tachycardia (HR>100bpm). 2. This was a technically difficult study with suboptimal views. 3. Pt. Very Sob 4. Severe copd. Pt sitting up for test. 5. The left ventricular size is normal. 6. There is moderate concentric left ventricular hypertrophy. 7. Overall left ventricular systolic function is low-normal with, an EF between 50 - 55 %. 8. The RV was not well visualized. 9. The left atrium was not well visualized. 10. The right atrium was not well visualized. 11. The aortic valve was not well visualized. 12. The mitral valve was not well visualized. 13. The tricuspid valve was not well visualized. 14. The pulmonic valve was not well visualized. RESOLUTION EXPERT: Isabel Dickerson [facility]
[2018-09-27] MEDS: BUDESONIDE 1 MG/2 ML NEBU INHALATION SCH (19:47)
[2018-09-27] MEDS: FORMOTEROL FUMARATE 20 MCG/2 ML NEBU INHALATION SCH (19:47)
[2018-09-27 20:13] LABS: Glucose,Whole Blood 191 mg/dL (75-99)
[2018-09-27] MEDS ORDERED: METOPROLOL TARTRATE 50 MG TAB PO SCH (21:00)
[2018-09-27] MEDS ORDERED: FUROSEMIDE 40 MG TAB PO SCH (21:00)
[2018-09-27] MEDS ORDERED: FLUTICASONE INHALATION SCH (21:00)
[2018-09-27] MEDS ORDERED: SALMETEROL INHALATION SCH (21:00)
[2018-09-28] MEDS: SODIUM CHLORIDE 0.9% 1,000 ML IV SCH (04:05)
[2018-09-28] MEDS: IPRATROPIUM-ALBUTEROL 3 ML NEB INHALATION PRN ×5 (04:18→18:58)
[2018-09-28] MEDS: ALPRAZolam 0.5 MG TAB PO PRN ×3 (04:33→16:12)
[2018-09-28 07:17] LABS: Glucose,Whole Blood 205 mg/dL (75-99)
[2018-09-28] MEDS: FORMOTEROL FUMARATE 20 MCG/2 ML NEBU INHALATION SCH ×2 (07:45→18:58)
[2018-09-28] MEDS: BUDESONIDE 1 MG/2 ML NEBU INHALATION SCH ×3 (07:45→19:09)
[2018-09-28] MEDS ORDERED: predniSONE 10 MG TAB PO SCH (09:00)
[2018-09-28] MEDS ORDERED: POTASSIUM CHLORIDE 20 MEQ PO SCH (09:00)
[2018-09-28] MEDS ORDERED: NON-FORMULARY DRUG (Omeprazole [Omeprazole] 40 MG) PO SCH (09:00)
[2018-09-28] MEDS ORDERED: PIOGLITAZONE 30 MG TAB PO SCH (09:00)
[2018-09-28] MEDS ORDERED: LISINOPRIL-HCTZ 20-25 MG 1 EACH TAB PO SCH (09:00)
[2018-09-28] MEDS ORDERED: GLIMEPIRIDE 4 MG TAB PO SCH (09:00)
[2018-09-28] MEDS ORDERED: NON-FORMULARY DRUG (Spironolactone [Spironolactone] 50 MG) PO SCH (09:00)
[2018-09-28] MEDS: HEPARIN SODIUM,PORCINE 5,000 UNIT/ML 1 ML VIAL SQ SCH ×2 (09:45→16:11)
[2018-09-28] MEDS: methylPREDNISolone SOD SUCCI 40 MG/ML 1 ML VIAL IV SCH ×2 (09:45→16:12)
[2018-09-28] MEDS: GLIMEPIRIDE 4 MG TAB PO SCH (09:46)
[2018-09-28] MEDS: LISINOPRIL-HCTZ 20-25 MG 1 EACH TAB PO SCH (09:46)
[2018-09-28] MEDS: HYDROcodone/APAP 7.5-325MG 1 EACH TAB PO PRN ×2 (09:46→17:22)
[2018-09-28] MEDS: PIOGLITAZONE 30 MG TAB PO SCH (09:46)
[2018-09-28] MEDS: SPIRONOLACTONE 25 MG TAB PO SCH (09:47)
[2018-09-28] MEDS: PANTOPRAZOLE 40 MG TABLET PO SCH (09:47)
[2018-09-28] MEDS: METOPROLOL TARTRATE 25 MG TAB PO SCH ×2 (09:47→20:16)
[2018-09-28] MEDS: FUROSEMIDE 40 MG TAB PO SCH ×2 (09:47→16:11)
[2018-09-28] MEDS: POTASSIUM CHLORIDE ER 20 MEQ TAB.ER PO SCH (09:47)
[2018-09-28] MEDS: metFORMIN 500 MG TAB PO SCH ×2 (09:48→17:22)
[2018-09-28] MEDS: INSULIN ASPART (NovoLOG) 100 UNIT/ML VIAL SQ SCH ×4 (09:48→20:16)
[2018-09-28] MEDS: DOXYCYCLINE 100 MG CAP PO SCH ×2 (09:49→20:16)
[2018-09-28 11:40] LABS: Glucose,Whole Blood 151 mg/dL (75-99)
--- NOTE | 2018-09-28 14:12 | P.PN ---
Subjective Progress Note Date: 09/28/18 Principal diagnosis: Acute on chronic hypoxemic/hypercapnic respiratory failure This is another hospitalization for this 58-year-old female patient who is known to have advanced COPD with FEV1 of 33% of predicted, chronic hypoxic respiratory failure, severe obstructive sleep apnea is demented on a BiPAP at a pressure of 80-40 cm of water. The patient has had multiple hospitalizations in the most recent of which was on 09/07/2018. The patient was discharged home on predniso ne burst taper and she was taking 15 mg of prednisone a daily basis and addition to his Symbicort maintenance and DuoNeb nebulized treatments around the clock approximately 4 times a day. Patient comes into the hospital for worsening shortness of breath. Exact exacerbation cause is not clear. The patient initially went to [facility] because of worsening shortness of breath at a point where she was unable to breathe and she was in impending respiratory failure. She states that she has been smoking. She has been doing better rest of the medication are regular basis. No exposure to any chemicals or respiratory irritants. No chest pain. No angina. No palpitations. No heartburn. She ended up being transferred to [facility] for further evaluation and treatment. She is currently on IV Solu-Medrol. Chest x-ray showing no acute abnormalities. The patient is quite bronchospastic and wheezy. Initially she was having significant respiratory difficulties to the point where she was unable to speak in full sentences and currently she is feeling better. No chest pain. No pleurisy. No hemoptysis. The patient is seen today 09/28/2018 in follow-up on the regular medical floor. She is currently sitting up at the bedside. Awake and alert in no acute distress. She is maintaining O2 saturations in the 90s on 2 L/m per nasal cannula. He remains on bronchodilators, IV Solu-Medrol, antibiotics in the form of Vibramycin. Objective - Vital Signs Vital signs: Vital Signs Temp 98.3 F 09/28/18 07:00 Pulse 104 H 09/28/18 11:46 Resp 12 09/28/18 07:00 BP 114/69 09/28/18 07:00 Pulse Ox 98 09/28/18 07:00 Intake & Output 09/27/18 09/28/18 09/28/18 18:59 06:59 18:59 Intake Total 100 Balance 100 Weight 95.5 kg Intake: Intake, IV Titration 100 Amount Sodium Chloride 0.9% 1, 100 000 ml @ 20 mls/hr IV . Q24H [facility] Rx#:[id number] Other: Voiding Method Toilet Toilet # Voids 1 2 1 - Exam GENERAL EXAM: Alert, active, comfortable in no apparent distress. 2 L/m per nasal cannula. HEAD: Normocephalic. EYES: Normal reaction of pupils, equal size. NOSE: Clear with pink turbinates. THROAT: No erythema or exudates. NECK: No masses, no JVD. CHEST: No chest wall deformity. LUNGS: Equal air entry with no bilateral end expiratory wheeze, diminished CVS: S1 and S2 normal with no audible murmur, regular rhythm. ABDOMEN: No hepatosplenomegaly, normal bowel sounds, no guarding or rigidity. SPINE: No scoliosis or deformity SKIN: No rashes CENTRAL NERVOUS SYSTEM: No focal deficits, tone is normal in all 4 extremities. EXTREMITIES: There is no peripheral edema. No clubbing, no cyanosis. Peripheral pulses are intact. - Labs CBC & Chem 7: 09/27/18 04:29 09/27/18 04:29 Labs: Abnormal Lab Results - Last 24 Hours (Table) 09/27/18 09/27/18 09/27/18 Range/Units 04:29 16:45 20:12 POC Glucose (mg/dL) 162 H 191 H (75-99) mg/dL Hemoglobin A1c 7.2 H (4.0-6.0) % 09/28/18 09/28/18 Range/Units 07:13 11:36 POC Glucose (mg/dL) 205 H 151 H (75-99) mg/dL Hemoglobin A1c (4.0-6.0) % Assessment and Plan Assessment: Assessment: #1. Acute exacerbation of chronic obstructive pulmonary disease with secondary shortness of breath #2. Stage III COPD with a baseline FEV1 of 0.86 L or 33% of predicted, DLCO of 42% of predicted, and chronic hypoxemic respiratory failure #3. Obesity #4. Obstructive sleep apnea on CPAP therapy with a pressure of 18/14 cm of water in 4 L of oxygen at bedtime #5. Diabetes mellitus type 2 #6. History of steroid-induced hyperglycemia #7. Chronic hypoxic and hypercapnic respiratory failure #9 chronic steroid use with cushingoid features related to systemic steroids #10 chronic generalized anxiety disorder #11 osteoarthritis Plan The patient was seen and evaluated by Dr. Wang. She is improved but not quite back to her baseline. We'll continue with her current treatment plan. We'll increase her activity as tolerated. We'll plan for adding Spiriva in the outpatient setting. Continue BiPAP alternating with nasal cannula as needed. We'll continue to follow. I, the cosigning physician, performed a history & physical examination of the patient. Lungs sounds bilateral end expiratory wheeze, diminished. Maintaining good O2 saturations in the 90s on 2 L/m per nasal cannula. I discussed the assessment and plan of care with my nurse practitioner, Lucia Chanel. I attest to the above note as dictated by her.
[2018-09-28 16:48] LABS: Glucose,Whole Blood 158 mg/dL (75-99)
[2018-09-28 19:43] LABS: Glucose,Whole Blood 226 mg/dL (75-99)
--- NOTE | 2018-09-28 20:41 | HP ---
HISTORY AND PHYSICAL CHIEF COMPLAINT: Difficulty breathing. HISTORY OF PRESENT ILLNESS: This is the first known admission for this 58-year-old white female who is transferred in. She has well known history of severe COPD and was sent in in respiratory failure. She uses an albuterol HFA as well as nebulized albuterol and ipratropium bromide. She also uses fluticasone nasal spray, Lasix, glimepiride, Vicodin, lisinopril, Toprol, omeprazole, pioglitazone, potassium, metformin, and spironolactone as well as prednisone. REVIEW OF SYSTEMS: She denies any headaches, chest pain, abdominal pain, nausea, vomiting, fever and chills, urinary complaints, etc. Past medical history, family history and personal and social history is unremarkable or noncontributory. She does not smoke any longer. She states that she cannot use albuterol. Surgically she has had a cholecystectomy, tubal ligation, and tonsillectomy. She states she also has a history of congestive heart failure and CKD. LABORATORY STUDIES: White count and hemoglobin were normal. BUN is 28 with a creatinine of 0.5. PHYSICAL EXAM: Blood pressure 110/70 with a pulse of 86 and respirations of 42 with pursed lip breathing and temp is 97.8. In general, she appeared to be overweight and in acute respiratory distress. Skin is dry. Lymph nodes not enlarged. Head, ears, eyes, nose, mouth and throat is unremarkable. Neck veins are not distended. She did appear to be cushingoid. Chest demonstrated very poor breath sounds with increased AP diameter. There has tight wheezing on inspiration and expiration. Rales heard throughout. Cardiac exam demonstrated tachycardia which was sinus. Abdomen is soft and protuberant. Extremities are normal. Neurological: She is intact. She was admitted to the hospital with diagnoses of: IMPRESSION: 1. Acute respiratory failure. 2. Exacerbation of chronic obstructive pulmonary disease. 3. Chronic kidney disease. 4. History of congestive heart failure. 5. Diabetes. PLAN: 1. Bed rest. 2. IV fluids. 3. IV and inhaled steroids. 4. Watch blood sugars closely. 5. Pulmonology consult. MMODL / IJN: [id number] /
--- NOTE | 2018-09-28 22:02 | PN ---
PROGRESS NOTE DATE OF SERVICE: 09/28/2018. CHIEF COMPLAINT: Exacerbation of COPD. HISTORY OF PRESENT ILLNESS: This lady continues having extremely labored breathing. She is not improving. She is not complaining of pain. She is not running fever. PHYSICAL EXAM: She is sitting at side of bed with her BiPAP. Chest demonstrates extensive rales and rhonchi with wheezing throughout. Cardiac exam demonstrates tachycardia. Abdomen is soft, nontender. IMPRESSION: Exacerbation of chronic obstructive pulmonary disease. PLAN: Continue with current program. MMODL / IJN: [id number] /
[2018-09-29] MEDS: HEPARIN SODIUM,PORCINE 5,000 UNIT/ML 1 ML VIAL SQ SCH ×3 (00:24→16:54)
[2018-09-29] MEDS: methylPREDNISolone SOD SUCCI 40 MG/ML 1 ML VIAL IV SCH ×3 (00:24→16:53)
[2018-09-29] MEDS: ALPRAZolam 0.5 MG TAB PO PRN ×3 (00:27→14:14)
[2018-09-29] MEDS: HYDROcodone/APAP 7.5-325MG 1 EACH TAB PO PRN ×3 (00:27→16:54)
[2018-09-29] MEDS: SODIUM CHLORIDE 0.9% 1,000 ML IV SCH (01:18)
[2018-09-29] MEDS: IPRATROPIUM-ALBUTEROL 3 ML NEB INHALATION PRN ×5 (04:37→21:10)
[2018-09-29 07:10] LABS: Glucose,Whole Blood 209 mg/dL (75-99)
[2018-09-29] MEDS: FORMOTEROL FUMARATE 20 MCG/2 ML NEBU INHALATION SCH (08:10)
[2018-09-29] MEDS: BUDESONIDE 1 MG/2 ML NEBU INHALATION SCH (08:10)
[2018-09-29] MEDS: GLIMEPIRIDE 4 MG TAB PO SCH (08:14)
[2018-09-29] MEDS: PIOGLITAZONE 30 MG TAB PO SCH (08:14)
[2018-09-29] MEDS: LISINOPRIL-HCTZ 20-25 MG 1 EACH TAB PO SCH (08:14)
[2018-09-29] MEDS: FUROSEMIDE 40 MG TAB PO SCH ×2 (08:14→16:54)
[2018-09-29] MEDS: SPIRONOLACTONE 25 MG TAB PO SCH (08:14)
[2018-09-29] MEDS: METOPROLOL TARTRATE 25 MG TAB PO SCH ×2 (08:14→20:47)
[2018-09-29] MEDS: metFORMIN 500 MG TAB PO SCH ×2 (08:14→16:54)
[2018-09-29] MEDS: DOXYCYCLINE 100 MG CAP PO SCH ×2 (08:14→20:47)
[2018-09-29] MEDS: POTASSIUM CHLORIDE ER 20 MEQ TAB.ER PO SCH (08:14)
[2018-09-29] MEDS: PANTOPRAZOLE 40 MG TABLET PO SCH (08:14)
[2018-09-29] MEDS: INSULIN ASPART (NovoLOG) 100 UNIT/ML VIAL SQ SCH ×4 (08:15→20:48)
[2018-09-29 12:21] LABS: Glucose,Whole Blood 170 mg/dL (75-99)
--- NOTE | 2018-09-29 15:19 | P.PN ---
Subjective Progress Note Date: 09/29/18 Principal diagnosis: Acute on chronic hypoxemic/hypercapnic respiratory failure This is another hospitalization for this 58-year-old female patient who is known to have advanced COPD with FEV1 of 33% of predicted, chronic hypoxic respiratory failure, severe obstructive sleep apnea is demented on a BiPAP at a pressure of 80-40 cm of water. The patient has had multiple hospitalizations in the most recent of which was on 09/07/2018. The patient was discharged home on predniso ne burst taper and she was taking 15 mg of prednisone a daily basis and addition to his Symbicort maintenance and DuoNeb nebulized treatments around the clock approximately 4 times a day. Patient comes into the hospital for worsening shortness of breath. Exact exacerbation cause is not clear. The patient initially went to [facility] because of worsening shortness of breath at a point where she was unable to breathe and she was in impending respiratory failure. She states that she has been smoking. She has been doing better rest of the medication are regular basis. No exposure to any chemicals or respiratory irritants. No chest pain. No angina. No palpitations. No heartburn. She ended up being transferred to [facility] for further evaluation and treatment. She is currently on IV Solu-Medrol. Chest x-ray showing no acute abnormalities. The patient is quite bronchospastic and wheezy. Initially she was having significant respiratory difficulties to the point where she was unable to speak in full sentences and currently she is feeling better. No chest pain. No pleurisy. No hemoptysis. The patient is seen today 09/28/2018 in follow-up on the regular medical floor. She is currently sitting up at the bedside. Awake and alert in no acute distress. She is maintaining O2 saturations in the 90s on 2 L/m per nasal cannula. He remains on bronchodilators, IV Solu-Medrol, antibiotics in the form of Vibramycin. The patient is seen today 09/29/2017 in follow-up on the regular medical floor. She is awake and alert in no acute distress. Sitting up in the bedside. Still somewhat bronchospastic and wheezy. Still not back to her baseline. Maintaining good O2 saturations in the 90s on 2 L/m per nasal cannula. She's afebrile. Hemodynamically stable. She is maintained on DuoNeb inhalations, Symbicort, IV Solu-Medrol. Objective - Vital Signs Vital signs: Vital Signs Temp 97.8 F 09/29/18 08:21 Pulse 96 09/29/18 11:35 Resp 16 09/29/18 08:21 BP 159/96 09/29/18 08:21 Pulse Ox 98 09/29/18 08:21 Intake & Output 09/28/18 09/29/18 09/29/18 18:59 06:59 18:59 Intake Total 280 240 Balance 280 240 Weight 95.7 kg Intake: Oral 280 240 Other: Voiding Method Toilet # Voids 1 2 3 - Exam GENERAL EXAM: Alert, active, comfortable in no apparent distress. 2 L/m per nasal cannula. HEAD: Normocephalic. EYES: Normal reaction of pupils, equal size. NOSE: Clear with pink turbinates. THROAT: No erythema or exudates. NECK: No masses, no JVD. CHEST: No chest wall deformity. LUNGS: Equal air entry with no bilateral end expiratory wheeze, diminished CVS: S1 and S2 normal with no audible murmur, regular rhythm. ABDOMEN: No hepatosplenomegaly, normal bowel sounds, no guarding or rigidity. SPINE: No scoliosis or deformity SKIN: No rashes CENTRAL NERVOUS SYSTEM: No focal deficits, tone is normal in all 4 extremities. EXTREMITIES: There is no peripheral edema. No clubbing, no cyanosis. Perip heral pulses are intact. - Labs CBC & Chem 7: 09/27/18 04:29 09/27/18 04:29 Labs: Abnormal Lab Results - Last 24 Hours (Table) 09/28/18 09/28/18 09/29/18 Range/Units 16:40 19:41 07:09 POC Glucose (mg/dL) 158 H 226 H 209 H (75-99) mg/dL 09/29/18 Range/Units 12:00 POC Glucose (mg/dL) 170 H (75-99) mg/dL Assessment and Plan Assessment: Assessment: #1. Acute exacerbation of chronic obstructive pulmonary disease with secondary shortness of breath #2. Stage III COPD with a baseline FEV1 of 0.86 L or 33% of predicted, DLCO of 42% of predicted, and chronic hypoxemic respiratory failure #3. Obesity #4. Obstructive sleep apnea on CPAP therapy with a pressure of 18/14 cm of water in 4 L of oxygen at bedtime #5. Diabetes mellitus type 2 #6. History of steroid-induced hyperglycemia #7. Chronic hypoxic and hypercapnic respiratory failure #9 chronic steroid use with cushingoid features related to systemic steroids #10 chronic generalized anxiety disorder #11 osteoarthritis Plan The patient was seen and evaluated by Dr. Wang. We'll continue with her current treatment plan. We'll increase her activity as tolerated. We'll plan f or adding Spiriva in the outpatient setting. Continue BiPAP alternating with nasal cannula as needed. We'll continue to follow. I, the cosigning physician, performed a history & physical examination of the patient. Lungs sounds bilateral end expiratory wheeze, diminished. Maintaining good O2 saturations in the 90s on 2 L/m per nasal cannula. I discussed the assessment and plan of care with my nurse practitioner, Lucia Chanel. I attest to the above note as dictated by her.
--- NOTE | 2018-09-29 15:27 | PN ---
PROGRESS NOTE CHIEF COMPLAINT: Exacerbation of COPD. HISTORY OF PRESENT ILLNESS: This lady is improving a little bit each day. She apparently has a problem with the Pulmicort, and this will be stopped. She uses Symbicort at home. PHYSICAL EXAMINATION: Breath sounds are poor, but there are many fewer rales, rhonchi and much less wheezing on inspiration. Cardiac exam is normal. IMPRESSION: Exacerbation of chronic obstructive pulmonary disease. PLAN: Change Pulmicort to Symbicort 160/4.5 two puffs b.i.d., and she will probably be able to go home in the next day or two. MMODL / IJN: [id number] /
[2018-09-29 17:06] LABS: Glucose,Whole Blood 131 mg/dL (75-99)
[2018-09-29 20:15] LABS: Glucose,Whole Blood 178 mg/dL (75-99)
[2018-09-29] MEDS: guaiFENesin 600 MG TABLET.ER PO SCH (20:47)
[2018-09-29] MEDS: SYMBICORT 160-4.5 MCG INHALER INHALATION SCH (21:10)
[2018-09-30] MEDS: HEPARIN SODIUM,PORCINE 5,000 UNIT/ML 1 ML VIAL SQ SCH ×4 (00:02→23:06)
[2018-09-30] MEDS: methylPREDNISolone SOD SUCCI 40 MG/ML 1 ML VIAL IV SCH ×4 (00:04→23:05)
[2018-09-30] MEDS: IPRATROPIUM-ALBUTEROL 3 ML NEB INHALATION PRN ×6 (00:16→19:32)
[2018-09-30] MEDS: HYDROcodone/APAP 7.5-325MG 1 EACH TAB PO PRN ×4 (00:20→19:54)
[2018-09-30] MEDS: ALPRAZolam 0.5 MG TAB PO PRN ×4 (00:20→19:53)
[2018-09-30] MEDS: SYMBICORT 160-4.5 MCG INHALER INHALATION SCH ×2 (07:27→19:32)
[2018-09-30 07:28] LABS: Glucose,Whole Blood 237 mg/dL (75-99)
[2018-09-30] MEDS: SODIUM CHLORIDE 0.9% 1,000 ML IV SCH (07:56)
[2018-09-30] MEDS: LISINOPRIL-HCTZ 20-25 MG 1 EACH TAB PO SCH (08:10)
[2018-09-30] MEDS: FUROSEMIDE 40 MG TAB PO SCH ×2 (08:10→17:27)
[2018-09-30] MEDS: SPIRONOLACTONE 25 MG TAB PO SCH (08:10)
[2018-09-30] MEDS: metFORMIN 500 MG TAB PO SCH ×2 (08:10→17:27)
[2018-09-30] MEDS: PIOGLITAZONE 30 MG TAB PO SCH (08:10)
[2018-09-30] MEDS: DOXYCYCLINE 100 MG CAP PO SCH ×2 (08:10→19:53)
[2018-09-30] MEDS: PANTOPRAZOLE 40 MG TABLET PO SCH (08:10)
[2018-09-30] MEDS: INSULIN ASPART (NovoLOG) 100 UNIT/ML VIAL SQ SCH ×4 (08:10→19:54)
[2018-09-30] MEDS: GLIMEPIRIDE 4 MG TAB PO SCH (08:10)
[2018-09-30] MEDS: METOPROLOL TARTRATE 25 MG TAB PO SCH ×2 (08:10→19:53)
[2018-09-30] MEDS: guaiFENesin 600 MG TABLET.ER PO SCH ×2 (08:10→19:53)
[2018-09-30] MEDS: POTASSIUM CHLORIDE ER 20 MEQ TAB.ER PO SCH (08:10)
[2018-09-30 11:39] LABS: Glucose,Whole Blood 152 mg/dL (75-99)
--- NOTE | 2018-09-30 14:40 | P.PN ---
Subjective Progress Note Date: 09/30/18 This is another hospitalization for this 58-year-old female patient who is known to have advanced COPD with FEV1 of 33% of predicted, chronic hypoxic respiratory failure, severe obstructive sleep apnea is demented on a BiPAP at a pressure of 80-40 cm of water. The patient has had multiple hospitalizations in the most recent of which was on 09/07/2018. The patient was discharged home on prednisone burst taper and she was taking 15 mg of prednisone a daily basis and addition to his Symbicort maintenance and DuoNeb nebulized treatments around the clock approximately 4 times a day. Patient comes into the hospital for worsening shortness of breath. Exact exacerbation cause is not clear. The patient initially went to [facility] because of worsening shortness of breath at a point where she was unable to breathe and she was in impending respiratory failure. She states that she has been smoking. She has been doing better rest of the medication are regular basis. No exposure to any chemicals or respiratory irritants. No chest pain. No angina. No palpitations. No heartburn. She ended up being transferred to [facility] for further evaluation and treatment. She is currently on IV Solu-Medrol. Chest x-ray showing no acute abnormalities. The patient is quite bronchospastic and wheezy. Initially she was having significant respiratory difficulties to the point where she was unable to speak in full sentences and currently she is feeling better. No chest pain. No pleurisy. No hemoptysis. The patient is seen today 09/28/2018 in follow-up on the regular medical floor. She is currently sitting up at the bedside. Awake and alert in no acute distress. She is maintaining O2 saturations in the 90s on 2 L/m per nasal cannula. He remains on bronchodilators, IV Solu-Medrol, antibiotics in the form of Vibramycin. The patient is seen today 09/29/2017 in follow-up on the regular medical floor. She is awake and alert in no acute distress. Sitting up in the bedside. Still somewhat bronchospastic and wheezy. Still not back to her baseline. Maintaining good O2 saturations in the 90s on 2 L/m per nasal cannula. She's afebrile. Hemodynamically stable. She is maintained on DuoNeb inhalations, Symbicort, IV Solu-Medrol. On 09/30/2018 I'm seeing this patient for a follow-up. Doing well. Less short of breath. I will say she is 50% recovered. She is still on IV Solu Medrol DuoNeb nebulized treatments around the clock and the patient is also using S ymbicort. She is using her CPAP overnight. No other complaints otherwise. She'll receive IV Solu Medrol for another 24 hours possible discharge in next 24 hours patient is on oral doxycycline. Objective - Vital Signs Vital signs: Vital Signs Temp 98.4 F 09/30/18 07:00 Pulse 112 H 09/30/18 11:30 Resp 20 09/30/18 07:00 BP 148/90 09/30/18 07:00 Pulse Ox 96 09/30/18 07:00 Intake & Output 09/29/18 09/30/18 09/30/18 18:59 06:59 18:59 Intake Total 630 400 480 Balance 630 400 480 Weight 95 kg Intake: Oral 630 400 480 Other: Voiding Method Toilet # Voids 3 3 3 - Exam GENERAL EXAM: Alert, active, comfortable in no apparent distress. 2 L/m per nasal cannula. HEAD: Normocephalic. EYES: Normal reaction of pupils, equal size. NOSE: Clear with pink turbinates. THROAT: No erythema or exudates. NECK: No masses, no JVD. CHEST: No chest wall deformity. LUNGS: Equal air entry with no bilateral end expiratory wheeze, diminished CVS: S1 and S2 normal with no audible murmur, regular rhythm. ABDOMEN: No hepatosplenomegaly, normal bowel sounds, no guarding or rigidity. SPINE: No scoliosis or deformity SKIN: No rashes CENTRAL NERVOUS SYSTEM: No focal deficits, tone is normal in all 4 extremities. EXTREMITIES: There is no peripheral edema. No clubbing, no cyanosis. Peripheral pulses are intact. - Labs CBC & Chem 7: 09/27/18 04:29 09/27/18 04:29 Labs: Abnormal Lab Results - Last 24 Hours (Table) 09/29/18 09/29/18 09/30/18 Range/Units 17:04 20:14 07:01 POC Glucose (mg/dL) 131 H 178 H 237 H (75-99) mg/dL 09/30/18 Range/Units 11:29 POC Glucose (mg/dL) 152 H (75-99) mg/dL Assessment and Plan Plan: #1. Acute exacerbation of chronic obstructive pulmonary disease with secondary shortness of breath #2. Stage III COPD with a baseline FEV1 of 0.86 L or 33% of predicted, DLCO of 42% of predicted, and chronic hypoxemic respiratory failure #3. Obesity #4. Obstructive sleep apnea on CPAP therapy with a pressure of 18/14 cm of water in 4 L of oxygen at bedtime #5. Diabetes mellitus type 2 #6. History of steroid-induced hyperglycemia #7. Chronic hypoxic and hypercapnic respiratory failure #9 chronic steroid use with cushingoid features related to systemic steroids #10 chronic generalized anxiety disorder #11 osteoarthritis Plan The patient has a multitude significant improvement. I will give her another day of IV Solu-Medrol and discharge the patient home tomorrow and a prednisone burst taper in addition to Spiriva and Symbicort and DuoNeb nebulized him for ar ound the clock, action therapy and BiPAP at a pressure of 18/14 cm of water to be followed up in our office.
[2018-09-30 17:21] LABS: Glucose,Whole Blood 145 mg/dL (75-99)
[2018-09-30 19:31] LABS: Glucose,Whole Blood 169 mg/dL (75-99)
--- NOTE | 2018-09-30 21:04 | PN ---
PROGRESS NOTE CHIEF COMPLAINT: COPD. HISTORY OF PRESENT ILLNESS: This lady is doing much better. Breathing is improved greatly. Pulmonology is clearing her to go home tomorrow. PHYSICAL EXAM: Chest is quite clear. Cardiac exam is normal. Abdomen is soft, nontender. IMPRESSION: Exacerbation of chronic obstructive pulmonary disease. PLAN: Home tomorrow. MMODL / IJN: [id number] /
[2018-10-01] MEDS: SODIUM CHLORIDE 0.9% 1,000 ML IV SCH (00:54)
[2018-10-01 02:30] VITALS: TEMP 97.5
[2018-10-01] MEDS: ALPRAZolam 0.5 MG TAB PO PRN ×2 (05:10→11:10)
[2018-10-01] MEDS: HYDROcodone/APAP 7.5-325MG 1 EACH TAB PO PRN ×2 (05:10→11:10)
[2018-10-01 06:55] LABS: Glucose,Whole Blood 201 mg/dL (75-99)
[2018-10-01 07:49] VITALS: BP 128/80; RESP 16
[2018-10-01] MEDS: IPRATROPIUM-ALBUTEROL 3 ML NEB INHALATION PRN ×2 (07:53→11:19)
[2018-10-01] MEDS: SYMBICORT 160-4.5 MCG INHALER INHALATION SCH (07:54)
[2018-10-01] MEDS: PIOGLITAZONE 30 MG TAB PO SCH (08:34)
[2018-10-01] MEDS: LISINOPRIL-HCTZ 20-25 MG 1 EACH TAB PO SCH (08:39)
[2018-10-01] MEDS: GLIMEPIRIDE 4 MG TAB PO SCH (08:39)
[2018-10-01] MEDS: DOXYCYCLINE 100 MG CAP PO SCH (08:39)
[2018-10-01] MEDS: methylPREDNISolone SOD SUCCI 40 MG/ML 1 ML VIAL IV SCH (08:42)
[2018-10-01] MEDS: METOPROLOL TARTRATE 25 MG TAB PO SCH (08:42)
[2018-10-01] MEDS: PANTOPRAZOLE 40 MG TABLET PO SCH (08:43)
[2018-10-01] MEDS: HEPARIN SODIUM,PORCINE 5,000 UNIT/ML 1 ML VIAL SQ SCH (08:43)
[2018-10-01] MEDS: FUROSEMIDE 40 MG TAB PO SCH (08:43)
[2018-10-01] MEDS: guaiFENesin 600 MG TABLET.ER PO SCH (08:43)
[2018-10-01] MEDS: metFORMIN 500 MG TAB PO SCH (08:43)
[2018-10-01] MEDS: POTASSIUM CHLORIDE ER 20 MEQ TAB.ER PO SCH (08:43)
[2018-10-01] MEDS: SPIRONOLACTONE 25 MG TAB PO SCH (08:43)
[2018-10-01] MEDS: INSULIN ASPART (NovoLOG) 100 UNIT/ML VIAL SQ SCH (08:45)
[2018-10-01 11:21] LABS: Glucose,Whole Blood 159 mg/dL (75-99)
[2018-10-01 11:33] VITALS: PULSE 100
--- NOTE | 2018-10-01 11:37 | P.PN ---
Subjective Progress Note Date: 10/01/18 Principal diagnosis: Acute exacerbation of chronic obstructive pulmonary disease with secondary shortness of breath This is another hospitalization for this 58-year-old female patient who is known to have advanced COPD with FEV1 of 33% of predicted, chronic hypoxic respiratory failure, severe obstructive sleep apnea is demented on a BiPAP at a pressure of 80-40 cm of water. The patient has had multiple hospitalizations in the most recent of which was on 09/07/2018. The patient was discharged home on prednisone burst taper and she was taking 15 mg of prednisone a daily basis and addition to his Symbicort maintenance and DuoNeb nebulized treatments around the clock approximately 4 times a day. Patient comes into the hospital for worsening shortness of breath. Exact exacerbation cause is not clear. The patient initially went to [facility] because of worsening shortness of breath at a point where she was unable to breathe and she was in impending respiratory failure. She states that she has been smoking. She has been doing better rest of the medication are regular basis. No exposure to any chemicals or respiratory irritants. No chest pain. No angina. No palpitations. No heartburn. She ended up being transferred to [facility] for further evaluation and treatment. She is currently on IV Solu-Medrol. Chest x-ray showing no acute abnormalities. The patient is quite bronchospastic and wheezy. Initially she was having significant respiratory difficulties to the point where she was unable to speak in full sentences and currently she is feeling better. No chest pain. No pleurisy. No hemoptysis. The patient is seen today 09/28/2018 in follow-up on the regular medical floor. She is currently sitting up at the bedside. Awake and alert in no acute distress. She is maintaining O2 saturations in the 90s on 2 L/m per nasal palomo ernesto. He remains on bronchodilators, IV Solu-Medrol, antibiotics in the form of Vibramycin. The patient is seen today 09/29/2017 in follow-up on the regular medical floor. She is awake and alert in no acute distress. Sitting up in the bedside. Still somewhat bronchospastic and wheezy. Still not back to her baseline. Maintaining good O2 saturations in the 90s on 2 L/m per nasal cannula. She's afebrile. Hemodynamically stable. She is maintained on DuoNeb inhalations, Symbicort, IV Solu-Medrol. On 09/30/2018 I'm seeing this patient for a follow-up. Doing well. Less short of breath. I will say she is 50% recovered. She is still on IV Solu Medrol DuoNeb nebulized treatments around the clock and the patient is also using Symbicort. She is using her CPAP overnight. No other complaints otherwise. She'll receive IV Solu Medrol for another 24 hours possible discharge in next 24 hours patient is on oral doxycycline. On 10/01/2018 patient seen in follow-up on medical surgical floor. She is sitting up on the bed, she states her breathing is back to normal, much improved, less short of breath and congested. Lung sounds are essentially clear, diminished at the bases, patient is stable for discharge home today, normal labs, no new chest x-rays, and culture showed no growth. Patient has been treated with oral doxycycline, nebulized bronchodilators and steroids, improved. Objective - Vital Signs Vital signs: Vital Signs Temp 97.5 F L 10/01/18 07:00 Pulse 100 10/01/18 11:33 Resp 16 10/01/18 07:00 BP 128/80 10/01/18 07:00 Pulse Ox 96 10/01/18 07:00 Intake & Output 09/30/18 10/01/18 10/01/18 18:59 06:59 18:59 Intake Total 800 Output Total 300 Balance 800 -300 Weight 93.5 kg Intake: Oral 800 Output: Urine 300 Other: Voiding Method Toilet Toilet # Voids 3 1 1 - Exam GENERAL EXAM: Alert, pleasant, 58-year-old white female in 2 L of oxygen, with a pulse ox of 96%, comfortable in no apparent distress. HEAD: Normocephalic/atraumatic. EYES: Normal reaction of pupils, equal size. Conjunctiva pink, sclera white. NOSE: Clear with pink turbinates. THROAT: No erythema or exudates. NECK: No masses, no JVD, no thyroid enlargement, no adenopathy. CHEST: No chest wall deformity. Symmetrical expansion. LUNGS: Equal air entry with no crackles, wheeze, rhonchi or dullness. CVS: Regular rate and rhythm, normal S1 and S2, no gallops, no murmurs, no rubs ABDOMEN: Soft, nontender. No hepatosplenomegaly, normal bowel sounds, no guarding or rigidity. EXTREMITIES: No clubbing, no edema, no cyanosis, 2+ pulses and upper and lower extremities. MUSCULOSKELETAL: Muscle strength and tone normal. SPINE: No scoliosis or deformity SKIN: No rashes CENTRAL NERVOUS SYSTEM: Alert and oriented -3. No focal deficits, tone is normal in all 4 extremities. PSYCHIATRIC: Alert and oriented -3. Appropriate affect. Intact judgment and insight. - Labs CBC & Chem 7: 09/27/18 04:29 09/27/18 04:29 Labs: Abnormal Lab Results - Last 24 Hours (Table) 09/30/18 09/30/18 09/30/18 Range/Units 11:29 17:00 19:29 POC Glucose (mg/dL) 152 H 145 H 169 H (75-99) mg/dL 10/01/18 10/01/18 Range/Units 06:54 11:20 POC Glucose (mg/dL) 201 H 159 H (75-99) mg/dL Microbiology - Last 24 Hours (Table) 09/30/18 19:50 Urine Culture - Preliminary Urine,Voided Assessment and Plan Plan: Assessment: #1. Acute exacerbation of chronic obstructive pulmonary disease with secondary shortness of breath #2. Stage III COPD with a baseline FEV1 of 0.86 L or 33% of predicted, DLCO of 42% of predicted, and chronic hypoxemic respiratory failure #3. Obesity #4. Obstructive sleep apnea on CPAP therapy with a pressure of 18/14 cm of water in 4 L of oxygen at bedtime #5. Diabetes mellitus type 2 #6. History of steroid-induced hyperglycemia #7. 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 She can resume her Symbicort, and DuoNeb nebulized treatments at home, she will need to see Dr. Felix in follow- up, she usually sees him at the [facility]. We'll try to set up an appointment at the [facility] for her. We discussed of addition of Spiriva to her regimen. Patient would benefit from Spiriva. She can continue with her BiPAP at home settings of 18/14 cm of water. I performed a history & physical examination of the patient and discussed their management with my nurse practitioner, Rand Gillis. I reviewed the nurse practitioner's note and agree with the documented findings and plan of care. Lung sounds are positive for clear breath sounds diminished at the bases. The findings and the impression was discussed with the patient. I attest to the documentation by the nurse practitioner. Time with Patient: Less than 30
--- NOTE | 2018-10-01 19:28 | DS ---
DISCHARGE SUMMARY CHIEF COMPLAINT: Difficulty breathing. HISTORY OF PRESENT ILLNESS AND PHYSICAL EXAM: Details of this lady's history and physical can be found in the initial workup. LABORATORY STUDIES: While she was in the hospital, she had laboratory studies, details of which can be found in the laboratory section of her chart. COURSE IN HOSPITAL: After admission, she was placed on bedrest, started on intravenous fluids, IV and inhaled steroids. She continued her BiPAP while she was in the hospital. She was extremely tight for several days and then gradually began to improve. Blood sugars were elevated and these were treated and brought into a reasonably normal range. She was doing well and it was agreed with by pulmonology that she could go home on the . She will go home on light activity about the house and usual diet and usual medication, and she will follow up in our office or with her own physician. FINAL DIAGNOSES: 1. Exacerbation of advanced chronic obstructive pulmonary disease. 2. Type 2 diabetes mellitus. OPERATIONS: None. CONSULTATIONS: Pulmonology. She is improved. PRATIMA / NACHO: [id number] /
[2018-10-02] MEDS ORDERED: methylPREDNISolone 4 MG TAB TAPER PO SCH (09:00)
== END 2018-10-01 11:52 | disposition home health service (06) | DRG 190 ==
LOC: 4SSUR 00:30 → OBSVTOIN 09-28 11:50 → MERGE 09-28 11:50
PROVIDERS: ADMIT Family Medicine; ATTEND Family Medicine
PROC: 5A09457 Assistance with Respiratory Ventilation, 24-96 Consecutive Hours, Continuous Positive Airway Pressure (ICD-10-PCS; principal; 2018-09-27)
DX: J44.1 Chronic obstructive pulmonary disease with (acute) exacerbation (principal); J96.21 Acute and chronic respiratory failure with hypoxia; J96.22 Acute and chronic respiratory failure with hypercapnia; I13.0 Hypertensive heart and chronic kidney disease with heart failure and stage 1 through stage 4 chronic kidney disease, or unspecified chronic kidney disease; I50.9 Heart failure, unspecified; E11.22 Type 2 diabetes mellitus with diabetic chronic kidney disease; E11.65 Type 2 diabetes mellitus with hyperglycemia; E66.01 Morbid (severe) obesity due to excess calories; F03.90 Unspecified dementia, unspecified severity, without behavioral disturbance, psychotic disturbance, mood disturbance, and anxiety; G47.33 Obstructive sleep apnea (adult) (pediatric); F17.200 Nicotine dependence, unspecified, uncomplicated; N18.9 Chronic kidney disease, unspecified; K21.9 Gastro-esophageal reflux disease without esophagitis; M19.90 Unspecified osteoarthritis, unspecified site; F42.9 Obsessive-compulsive disorder, unspecified; F41.1 Generalized anxiety disorder; Z68.37 Body mass index [BMI] 37.0-37.9, adult; T38.0X5A Adverse effect of glucocorticoids and synthetic analogues, initial encounter; Z99.81 Dependence on supplemental oxygen; Z79.899 Other long term (current) drug therapy; Z79.51 Long term (current) use of inhaled steroids; Z79.84 Long term (current) use of oral hypoglycemic drugs; Z79.52 Long term (current) use of systemic steroids; Z90.49 Acquired absence of other specified parts of digestive tract; Z98.51 Tubal ligation status; Z88.8 Allergy status to other drugs, medicaments and biological substances
CPT/HCPCS: 71046; 80048; 80061; 83036; 83880; 84439; 84443; 85027; 85379; 87086; 93005; 93306; 94640; 94760

== ENCOUNTER 2018-10-25 13:07 | Inpatient (IN) | payer MEDICARE, OTHER ==
[2018-10-25] MEDS ORDERED: methylPREDNISolone SOD SUCCI 125 MG/2 ML VIAL IV STA (13:38)
[2018-10-25] MEDS ORDERED: SODIUM CHLORIDE 0.9% 1,000 ML IV STA (13:38)
[2018-10-25] MEDS ORDERED: IPRATROPIUM-ALBUTEROL 3 ML NEB INHALATION STA ×3 (13:38→16:14)
[2018-10-25 13:58] LABS: Basophils # (A) 0.1 k/uL (0-0.2); Basophils % (A) 0 %; Eosinophils % (A) 0 %; HCT 40.8 % (34.0-46.0); HGB 13.7 gm/dL (11.4-16.0); Lymphocytes # (A) 2.2 k/uL (1.0-4.8); Lymphocytes % (A) 19 %; MCH 30.9 pg (25.0-35.0); MCHC 33.5 g/dL (31.0-37.0); MCV 92.2 fL (80.0-100.0); Mean Platelet Volume 6.5; Monocytes # (A) 0.6 k/uL (0-1.0); Monocytes % (A) 5 %; Neutrophils % (A) 75 %; Platelet Count 357 k/uL (150-450); RBC 4.42 m/uL (3.80-5.40); RDW 15.5 % (11.5-15.5)
[2018-10-25 14:15] LABS: ALT 52 U/L (9-52); AST 24 U/L (14-36); Albumin 4.7 g/dL (3.5-5.0); Alkaline Phosphatase 78 U/L (38-126); Anion Gap 12 mmol/L; Blood Urea Nitrogen 22 mg/dL (7-17); Calcium 9.7 mg/dL (8.4-10.2); Carbon Dioxide 29 mmol/L (22-30); Chloride 95 mmol/L (98-107); Glucose 130 mg/dL (74-99); Magnesium 1.2 mg/dL (1.6-2.3); Potassium 3.9 mmol/L (3.5-5.1); Sodium 136 mmol/L (137-145); Total Bilirubin 0.5 mg/dL (0.2-1.3); Total Protein 7.3 g/dL (6.3-8.2)
[2018-10-25 14:16] LABS: D-Dimer 0.49 mg/L FEU (<0.60); INR 0.9 (<1.2); Prothrombin Time 9.7 sec (9.0-12.0)
[2018-10-25 14:32] LABS: Partial Thromboplastin Time 21.3 sec (22.0-30.0)
--- NOTE | 2018-10-25 14:46 | XR ---
EXAMINATION TYPE: XR chest 2V DATE OF EXAM: 10/25/2018 COMPARISON: Chest x-ray from 05/08/2019. HISTORY: Shortness of breath and increasing left-sided chest pain. TECHNIQUE: Frontal and lateral views of the chest are obtained. FINDINGS: There is chronic emphysematous changes without suspicious focal air space opacity, pleural effusion, or pneumothorax seen. The cardiac silhouette size is stable and enlarged . The osseous structures are intact. Clips right upper quadrant likely product of cholecystectomy. IMPRESSION: Chronic changes and cardiomegaly without acute pulmonary process.
--- NOTE | 2018-10-25 15:16 | ED ---
SOB HPI - General Chief Complaint: Shortness of Breath Stated Complaint: SOB, left side pain Time Seen by Provider: 10/25/18 13:16 Source: patient, RN notes reviewed Mode of arrival: wheelchair Limitations: no limitations - History of Present Illness Initial Comments: This is a 58-year-old female history of COPD is a former smoker states she had the onset of shortness breath or last day or so. She also had a cough with thick yellow phlegm she denies any overt fevers chills sweats or other issues other than some left-sided chest pain she states is worse and she agrees that sharp in nature and nonradiating. No other modifying factors at this time. MD Complaint: shortness of breath, cough - Related Data Home Medications Medication Instructions Recorded Confirmed Glimepiride [Amaryl] 4 mg PO AC-[id number] 07/31/17 10/25/18 Potassium Chloride [Klor-Con 20] 20 meq PO DAILY 07/31/17 10/25/18 Budesonide-Formot 160-4.5 Mcg 2 puff INHALATION RT-BID 09/06/18 10/25/18 [Symbicort 160-4.5 Mcg Inhaler] HYDROcodone/APAP 10-325MG [[place] 1 tab PO Q6HR PRN 09/06/18 10/25/18 10-325] Ipratropium-Albuterol Nebulize 3 ml INHALATION RT-BID PRN 09/06/18 10/25/18 [Duoneb 0.5 mg-3 mg/3 ml Soln] ALPRAZolam [Xanax] 0.5 mg PO Q6H PRN 09/27/18 10/25/18 Albuterol Inhaler [Ventolin Hfa 2 puff INHALATION RT-Q4H PRN 09/27/18 10/25/18 Inhaler] Furosemide [Lasix] 40 mg PO BID 09/27/18 10/25/18 Lisinopril-Hctz 20-25 mg 1 tab PO DAILY 09/27/18 10/25/18 [Zestoretic 20-25] Metoprolol Tartrate [Lopressor] 25 mg PO BID 09/27/18 10/25/18 Omeprazole 40 mg PO DAILY 09/27/18 10/25/18 Pioglitazone HCl [Actos] 30 mg PO DAILY 09/27/18 10/25/18 Spironolactone 50 mg PO DAILY 09/27/18 10/25/18 metFORMIN HCL [Glucophage] 1,000 mg PO BID 09/27/18 10/25/18 predniSONE 15 mg PO DAILY 09/27/18 10/25/18 Allergies Allergy/AdvReac Type Severity Reaction Status Date / Time budesonide [From Pulmicort] Allergy Wheezing Verified 10/25/18 13:38 Review of Systems ROS Statement: Those systems with pertinent positive or pertinent negative responses have been documented in the HPI. ROS Other: All systems not noted in ROS Statement are negative. Past Medical History Past Medical History: Asthma, Chest Pain / Angina, Heart Failure, COPD, Diabetes Mellitus, GERD/Reflux, Hypertension, Osteoarthritis (OA), Pneumonia, Pulmonary Embolus (PE), Renal Disease, Sleep Apnea/CPAP/BIPAP Additional Past Medical History / Comment(s): Advanced oxygen-dependent COPD with an FEV1 of 33% of predicted , severe obstructive sleep apnea maintained on BiPAP at a pressure of 18/14 cm of water, chronic hypoxic respiratory failure maintained on oxygen 2 liters nasal cannula(4 at hs), NIDDM type II, DJD, low back pain which radiates down L hip and L leg at times, viral myocarditis, hypertension, morbid obesity with cushingoid features, generalized anxiety disorder, ocd. History of Any Multi-Drug Resistant Organisms: None Reported Past Surgical History: Adenoidectomy, Cholecystectomy, Heart Catheterization, Orthopedic Surgery, Tonsillectomy, Tubal Ligation Additional Past Surgical History / Comment(s): Adenoidectomy, Cholecystectomy, Heart Catheterization, Orthopedic Surgery, Tonsillectomy, Tubal Ligation. L hand 3rd finger tendon repair, D&C, carpal tunnel left hand, Past Anesthesia/Blood Transfusion Reactions: No Reported Reaction Past Psychological History: Anxiety Smoking Status: Former smoker Past Alcohol Use History: None Reported Past Drug Use History: None Reported - Past Family History Father Family Medical History: No Reported History Mother Family Medical History: No Reported History Additional Family Medical History / Comment(s): Mother of alcoholism at the age of 63 yrs. General Exam - General Exam Comments Initial Comments: This is a well-developed well-nourished awake alert oriented 3 female Limitations: no limitations General appearance: alert, in distress Head exam: Present: atraumatic, normocephalic, normal inspection Eye exam: Present: normal appearance, PERRL, EOMI. Absent: scleral icterus, con junctival injection, periorbital swelling ENT exam: Present: normal exam, mucous membranes moist Neck exam: Present: normal inspection, full ROM, other (No stridor JVD or bruits). Absent: tenderness, meningismus, lymphadenopathy Respiratory exam: Present: respiratory distress, chest wall tenderness, decreased breath sounds. Absent: wheezes, rales, rhonchi, stridor Cardiovascular Exam: Present: normal rhythm, tachycardia, normal heart sounds. Absent: systolic murmur, diastolic murmur, rubs, gallop, clicks GI/Abdominal exam: Present: soft, normal bowel sounds. Absent: distended, tenderness, guarding, rebound, rigid Extremities exam: Present: normal inspection, full ROM, normal capillary refill. Absent: tenderness, pedal edema, joint swelling, calf tenderness Back exam: Present: normal inspection Neurological exam: Present: alert, oriented X3, CN II-XII intact Psychiatric exam: Present: normal affect, normal mood Skin exam: Present: warm, dry, intact, normal color. Absent: rash Course Vital Signs 10/25/18 10/25/18 10/25/18 13:11 13:30 13:35 Temperature 98.4 F Pulse Rate 122 H 123 H Respiratory 28 H 22 Rate Blood Pressure 119/62 122/71 O2 Sat by Pulse 92 L 96 Oximetry 10/25/18 10/25/18 10/25/18 14:00 14:06 14:14 Temperature Pulse Rate 125 H 98 118 H Respiratory Rate Blood Pressure 102/82 O2 Sat by Pulse Oximetry 10/25/18 10/25/18 14:30 15:30 Temperature Pulse Rate 114 H Respiratory Rate Blood Pressure 113/76 103/64 O2 Sat by Pulse 95 Oximetry - Reevaluation(s) Reevaluation #1: 10/25/18 16:09 Reevaluation patient reveals minimal improvement thus far occasional has diffuse wheezing poor respiratory effort. She also Is feeling very anxious. Medical Decision Making - Medical Decision Making Patient did get minimal improvement thus far from her treatment in emergency department she will be admitted I did discuss case Dr. Reji Felix will be consulted. - Lab Data Result diagrams: 10/25/18 13:26 10/25/18 13:26 Lab Results 10/25/18 10/25/18 10/25/18 Range/Units 13:26 13:26 13:26 WBC 12.0 H (3.8-10.6) k/uL RBC 4.42 (3.80-5.40) m/uL Hgb 13.7 (11.4-16.0) gm/dL Hct 40.8 (34.0-46.0) % MCV 92.2 (80.0-100.0) fL MCH 30.9 (25.0-35.0) pg MCHC 33.5 (31.0-37.0) g/dL RDW 15.5 (11.5-15.5) % Plt Count 357 (150-450) k/uL Neutrophils % 75 % Lymphocytes % 19 % Monocytes % 5 % Eosinophils % 0 % Basophils % 0 % Neutrophils # 9.0 H (1.3-7.7) k/uL Lymphocytes # 2.2 (1.0-4.8) k/uL Monocytes # 0.6 (0-1.0) k/uL Eosinophils # 0.0 (0-0.7) k/uL Basophils # 0.1 (0-0.2) k/uL PT 9.7 (9.0-12.0) sec INR 0.9 (<1.2) APTT 21.3 L (22.0-30.0) sec D-Dimer 0.49 (<0.60) mg/L FEU Sodium 136 L (137-145) mmol/L Potassium 3.9 (3.5-5.1) mmol/L Chloride 95 L (98-107) mmol/L Carbon Dioxide 29 (22-30) mmol/L Anion Gap 12 mmol/L BUN 22 H (7-17) mg/dL Creatinine 0.50 L (0.52-1.04) mg/dL Est GFR (CKD-EPI)AfAm >90 (>60 ml/min/1.73 sqM) Est GFR (CKD-EPI)NonAf >90 (>60 ml/min/1.73 sqM) Glucose 130 H (74-99) mg/dL Calcium 9.7 (8.4-10.2) mg/dL Magnesium 1.2 L (1.6-2.3) mg/dL Total Bilirubin 0.5 (0.2-1.3) mg/dL AST 24 (14-36) U/L ALT 52 (9-52) U/L Alkaline Phosphatase 78 (38-126) U/L Troponin I (0.000-0.034) ng/mL NT-Pro-B Natriuret Pep pg/mL Total Protein 7.3 (6.3-8.2) g/dL Albumin 4.7 (3.5-5.0) g/dL 10/25/18 10/25/18 Range/Units 13:26 13:26 WBC (3.8-10.6) k/uL RBC (3.80-5.40) m/uL Hgb (11.4-16.0) gm/dL Hct (34.0-46.0) % MCV (80.0-100.0) fL MCH (25.0-35.0) pg MCHC (31.0-37.0) g/dL RDW (11.5-15.5) % Plt Count (150-450) k/uL Neutrophils % % Lymphocytes % % Monocytes % % Eosinophils % % Basophils % % Neutrophils # (1.3-7.7) k/uL Lymphocytes # (1.0-4.8) k/uL Monocytes # (0-1.0) k/uL Eosinophils # (0-0.7) k/uL Basophils # (0-0.2) k/uL PT (9.0-12.0) sec INR (<1.2) APTT (22.0-30.0) sec D-Dimer (<0.60) mg/L FEU Sodium (137-145) mmol/L Potassium (3.5-5.1) mmol/L Chloride (98-107) mmol/L Carbon Dioxide (22-30) mmol/L Anion Gap mmol/L BUN (7-17) mg/dL Creatinine (0.52-1.04) mg/dL Est GFR (CKD-EPI)AfAm (>60 ml/min/1.73 sqM) Est GFR (CKD-EPI)NonAf (>60 ml/min/1.73 sqM) Glucose (74-99) mg/dL Calcium (8.4-10.2) mg/dL Magnesium (1.6-2.3) mg/dL Total Bilirubin (0.2-1.3) mg/dL AST (14-36) U/L ALT (9-52) U/L Alkaline Phosphatase (38-126) U/L Troponin I <0.012 (0.000-0.034) ng/mL NT-Pro-B Natriuret Pep 50 pg/mL Total Protein (6.3-8.2) g/dL Albumin (3.5-5.0) g/dL - EKG Data -: EKG Interpreted by Me EKG shows normal: sinus rhythm (Sinus tachycardia rate of 122. Interval 132 QRS duration 82 QT since QTC 320/[address]-T wave configuration) - Radiology Data Radiology results: report reviewed (Did review the imaging no acute findings), image reviewed Critical Care Time Critical Care Time: Yes Critical Care Time: 37 minutes of critical care time which includes initial presentation with history physical labs x-rays multiple re-evaluations of the patient response to therapy discuss with the patient family regarding findings discussed with Dr. Mendoza admission orders and documentation of the above. Disposition Clinical Impression: Acute exacerbation of chronic obstructive airways disease, Adult respiratory distress syndrome, Hypomagnesemia syndrome Disposition: ADMITTED IP TO THIS HOSP Condition: Fair Referrals: Grant Monroe MD [Primary Care Provider] - 1-2 days
[2018-10-25] MEDS ORDERED: MAGNESIUM SULFATE-D5W PMX 1 GM in DEXTROSE/WATER 1 100ML.BAG IVPB ONE (16:02)
[2018-10-25] MEDS ORDERED: ALPRAZolam 0.25 MG TAB PO STA (16:05)
[2018-10-25] MEDS ORDERED: HYDROcodone/APAP 10-325MG 1 EACH TAB PO ONE (16:06)
[2018-10-25] MEDS: SODIUM CHLORIDE 0.9% 1,000 ML IV SCH (17:38)
[2018-10-25 17:42] LABS: Glucose,Whole Blood 211 mg/dL (75-99)
[2018-10-25] MEDS: INSULIN ASPART (NovoLOG) 100 UNIT/ML VIAL SQ SCH ×2 (17:44→20:55)
[2018-10-25] MEDS: methylPREDNISolone SOD SUCCI 125 MG/2 ML VIAL IV SCH ×2 (17:44→22:52)
[2018-10-25 18:17] VITALS: BMI 38.6
[2018-10-25 20:27] LABS: Glucose,Whole Blood 227 mg/dL (75-99)
[2018-10-25] MEDS: metFORMIN 500 MG TAB PO SCH (20:51)
[2018-10-25] MEDS: METOPROLOL TARTRATE 25 MG TAB PO SCH (20:51)
[2018-10-25] MEDS: IPRATROPIUM-ALBUTEROL 3 ML NEB INHALATION SCH (20:53)
[2018-10-25] MEDS: HYDROcodone/APAP 10-325MG 1 EACH TAB PO PRN (22:50)
[2018-10-25] MEDS: ALPRAZolam 0.5 MG TAB PO PRN (22:50)
[2018-10-26] MEDS: IPRATROPIUM-ALBUTEROL 3 ML NEB INHALATION SCH ×7 (00:20→23:20)
[2018-10-26 06:20] LABS: Glucose,Whole Blood 200 mg/dL (75-99)
[2018-10-26] MEDS: methylPREDNISolone SOD SUCCI 125 MG/2 ML VIAL IV SCH ×4 (06:56→23:18)
[2018-10-26] MEDS: GLIMEPIRIDE 4 MG TAB PO SCH (06:57)
[2018-10-26] MEDS: INSULIN ASPART (NovoLOG) 100 UNIT/ML VIAL SQ SCH ×4 (06:57→21:20)
[2018-10-26] MEDS: SODIUM CHLORIDE 0.9% 1,000 ML IV SCH (06:58)
[2018-10-26] MEDS: LISINOPRIL-HCTZ 20-25 MG 1 EACH TAB PO SCH (08:07)
[2018-10-26] MEDS: SPIRONOLACTONE 25 MG TAB PO SCH (08:07)
[2018-10-26] MEDS: metFORMIN 500 MG TAB PO SCH ×2 (08:07→21:19)
[2018-10-26] MEDS: PIOGLITAZONE 30 MG TAB PO SCH (08:08)
[2018-10-26] MEDS: METOPROLOL TARTRATE 25 MG TAB PO SCH ×2 (08:08→21:19)
[2018-10-26] MEDS: HYDROcodone/APAP 10-325MG 1 EACH TAB PO PRN ×3 (08:08→21:19)
[2018-10-26] MEDS: FUROSEMIDE 40 MG TAB PO SCH ×2 (08:08→15:09)
[2018-10-26] MEDS: PANTOPRAZOLE 40 MG TABLET PO SCH (08:08)
[2018-10-26] MEDS: POTASSIUM CHLORIDE ER 20 MEQ TAB.ER PO SCH (08:08)
[2018-10-26] MEDS: ALPRAZolam 0.5 MG TAB PO PRN ×3 (08:17→21:19)
[2018-10-26 11:40] LABS: Glucose,Whole Blood 178 mg/dL (75-99)
--- NOTE | 2018-10-26 15:01 | P.CNPUL ---
History of Present Illness Consult date: 10/26/18 Requesting physician: Ranjith Mendoza Reason for consult: dyspnea, COPD Chief complaint: Shortness of breath History of present illness: This is a 71-year-old white female patient who is well-known to our service for her history of advanced COPD with baseline FEV1 of 33% of predicted with chronic hypoxemic respiratory failure, severe obstructive sleep apnea on BiPAP therapy, diabetes mellitus type 2, generalized anxiety disorder, osteoarthritis, presenting to the hospital on 10/25/2018 plans of worsening shortness of breath, wheezing, pleuritic pain on the left side of posterior chest, and cough. Denied any fever or chills, she states she was moving last week to another apartment. Patient was exposed to a lot of cold air with doors opening and closing, and she thinks she may have overexerted herself with moving stuff. Chest x-ray was obtained and chronic changes and cardiomegaly without acute pulmonary process. Patient normally wears surgeon at home, she is currently on 2 L and her pulse ox is 97%, she is afebrile. Lab work showed a white blood cell count of 12.0, hemoglobin 13.7, d-dimer 0.49, sodium was 136, potassium is 3.9, chloride is 95, CO2 is 29, anion gap was 12, BUN was 22 creatinine was 0.58. Troponin is negative 1, proBNP is within normal limits at 50. She has been compliant with her medications, she is on a maintenance dose of prednisone 15 mg daily, she is on a combination of DuoNeb nebulized treatments at home, Symbicort, Ventolin inhaler. Review of Systems All systems: negative Constitutional: Denies chills, Denies fever Eyes: denies blurred vision, denies pain Ears, nose, mouth and throat: Denies headache, Denies sore throat Cardiovascular: Denies chest pain, Denies shortness of breath Respiratory: Reports dyspnea, Reports home oxygen, Reports respiratory infections, Reports wheezing, Denies cough Gastrointestinal: Denies abdominal pain, Denies diarrhea, Denies nausea, Denies vomiting Genitourinary: Denies dysuria, Denies hematuria Musculoskeletal: Denies myalgias Integumentary: Denies pruritus, Denies rash Neurological: Denies numbness, Denies weakness Psychiatric: Denies anxiety, Denies depression Endocrine: Denies fatigue, Denies weight change Past Medical History Past Medical History: Asthma, Chest Pain / Angina, Heart Failure, COPD, Diabetes Mellitus, GERD/Reflux, Hypertension, Osteoarthritis (OA), Pneumonia, Pulmonary Embolus (PE), Renal Disease, Sleep Apnea/CPAP/BIPAP Additional Past Medical History / Comment(s): Advanced oxygen-dependent COPD with an FEV1 of 33% of predicted , severe obstructive sleep apnea maintained on BiPAP at a pressure of 18/14 cm of water, chronic hypoxic respiratory failure maintained on oxygen 2 liters nasal cannula(4 at hs), NIDDM type II, DJD, low back pain which radiates down L hip and L leg at times, viral myocarditis, hypertension, morbid obesity with cushingoid features, generalized anxiety disorder, ocd. History of Any Multi-Drug Resistant Organisms: None Reported Past Surgical History: Adenoidectomy, Cholecystectomy, Heart Catheterization, Orthopedic Surgery, Tonsillectomy, Tubal Ligation Additional Past Surgical History / Comment(s): Adenoidectomy, Cholecystectomy, Heart Catheterization, Orthopedic Surgery, Tonsillectomy, Tubal Ligation. L hand 3rd finger tendon repair, D&C, carpal tunnel left hand, Past Anesthesia/Blood Transfusion Reactions: No Reported Reaction Past Psychological History: Anxiety Additional Psychological History / Comment(s): Pt resides with her boyfriend. She is normally independent drives. She has home O2 and a CPAP, glucometer, nebulizer. Smoking Status: Former smoker Past Alcohol Use History: None Reported Additional Past Alcohol Use History / Comment(s): She started smoking in 1977 smoked 1/2 ppd and quit 2015. Past Drug Use History: None Reported - Past Family History Father Family Medical History: No Reported History Mother Family Medical History: No Reported History Additional Family Medical History / Comment(s): Mother of alcoholism at the age of 63 yrs. Medications and Allergies Home Medications Medication Instructions Recorded Confirmed Type Glimepiride [Amaryl] 4 mg PO AC-BRKFST 07/31/17 10/25/18 History Potassium Chloride [Klor-Con 20] 20 meq PO DAILY 07/31/17 10/25/18 History Budesonide-Formot 160-4.5 Mcg 2 puff INHALATION RT-BID 09/06/18 10/25/18 History [Symbicort 160-4.5 Mcg Inhaler] HYDROcodone/APAP 10-325MG [[place] 1 tab PO Q6HR PRN 09/06/18 10/25/18 History 10-325] Ipratropium-Albuterol Nebulize 3 ml INHALATION RT-BID PRN 09/06/18 10/25/18 History [Duoneb 0.5 mg-3 mg/3 ml Soln] ALPRAZolam [Xanax] 0.5 mg PO Q6H PRN 09/27/18 10/25/18 History Albuterol Inhaler [Ventolin Hfa 2 puff INHALATION RT-Q4H PRN 09/27/18 10/25/18 History Inhaler] Furosemide [Lasix] 40 mg PO BID 09/27/18 10/25/18 History Lisinopril-Hctz 20-25 mg 1 tab PO DAILY 09/27/18 10/25/18 History [Zestoretic 20-25] Metoprolol Tartrate [Lopressor] 25 mg PO BID 09/27/18 10/25/18 History Omeprazole 40 mg PO DAILY 09/27/18 10/25/18 History Pioglitazone HCl [Actos] 30 mg PO DAILY 09/27/18 10/25/18 History Spironolactone 50 mg PO DAILY 09/27/18 10/25/18 History metFORMIN HCL [Glucophage] 1,000 mg PO BID 09/27/18 10/25/18 History predniSONE 15 mg PO DAILY 09/27/18 10/25/18 History Allergies Allergy/AdvReac Type Severity Reaction Status Date / Time budesonide [From Pulmicort] Allergy Wheezing Verified 10/25/18 13:38 Physical Exam Vitals: Vital Signs Temp Pulse Pulse Resp BP BP Pulse Ox 10/26/18 12:23 90 10/26/18 12:15 89 10/26/18 12:00 97.9 F 84 18 106/57 97 10/26/18 08:48 105 H 10/26/18 08:36 106 H 96 10/26/18 08:00 97.6 F 117 H 22 119/61 96 10/26/18 04:09 100 10/26/18 04:00 98.4 F 117 H 22 133/63 94 L 10/26/18 03:58 99 10/26/18 00:31 100 18 10/26/18 00:21 108 H 18 10/25/18 23:50 98.5 F 86 20 114/65 97 10/25/18 21:03 108 H 10/25/18 20:53 108 H 10/25/18 20:10 98.3 F 110 H 21 112/74 95 10/25/18 16:50 110 H 10/25/18 16:30 112 H 21 111/54 96 10/25/18 16:27 117 H 10/25/18 16:00 112 H 105/65 93 L 10/25/18 15:30 114 H 103/64 95 Intake and Output 10/25/18 10/26/18 10/26/18 22:59 06:59 14:59 Intake Total 480 Output Total 400 Balance 80 Intake: Oral 480 Output: Urine 400 Other: Voiding Method Toilet Toilet # Voids 1 3 Weight 92.6 kg GENERAL EXAM: Alert, pleasant, 58-year-old white female on 2 L of oxygen comfortable in no apparent distress. HEAD: Normocephalic/atraumatic. EYES: Normal reaction of pupils, equal size. Conjunctiva pink, sclera white. NOSE: Clear with pink turbinates. THROAT: No erythema or exudates. NECK: No masses, no JVD, no thyroid enlargement, no adenopathy. CHEST: No chest wall deformity. Symmetrical expansion. LUNGS: Equal air entry with diminished breath sounds, end expiratory wheezes on forced exhale maneuver CVS: Regular rate and rhythm, normal S1 and S2, no gallops, no murmurs, no rubs ABDOMEN: Soft, nontender. No hepatosplenomegaly, normal bowel sounds, no guarding or rigidity. EXTREMITIES: No clubbing, no edema, no cyanosis, 2+ pulses and upper and lower extremities. MUSCULOSKELETAL: Muscle strength and tone normal. SPINE: No scoliosis or deformity SKIN: No rashes CENTRAL NERVOUS SYSTEM: Alert and oriented -3. No focal deficits, tone is normal in all 4 extremities. PSYCHIATRIC: Alert and oriented -3. Appropriate affect. Intact judgment and insight. Results - Laboratory Findings CBC and BMP: 10/25/18 13:26 10/25/18 13:26 PT/INR, D-dimer PT 9.7 sec (9.0-12.0) 10/25/18 13:26 INR 0.9 (<1.2) 10/25/18 13:26 D-Dimer 0.49 mg/L FEU (<0.60) 10/25/18 13:26 Abnormal lab findings: Abnormal Labs 10/25/18 10/25/18 10/25/18 13:26 13:26 13:26 WBC 12.0 H Neutrophils # 9.0 H APTT 21.3 L Sodium 136 L Chloride 95 L BUN 22 H Creatinine 0.50 L Glucose 130 H POC Glucose (mg/dL) Magnesium 1.2 L 10/25/18 10/25/18 10/26/18 17:41 20:26 06:18 WBC Neutrophils # APTT Sodium Chloride BUN Creatinine Glucose POC Glucose (mg/dL) 211 H 227 H 200 H Magnesium 10/26/18 11:33 WBC Neutrophils # APTT Sodium Chloride BUN Creatinine Glucose POC Glucose (mg/dL) 178 H Magnesium - Diagnostic Findings Chest x-ray: report reviewed, image reviewed Additional studies: Assessment: #1. Acute exacerbation of chronic obstructive pulmonary disease, chest x-ray was negative for any acute pulmonary process #2. Advanced COPD, with chronic hypercapnic and hypoxemic respiratory failure, steroid dependent. Underlying FEV1 is 0.86 L or 33% of predicted, with severe diffusion abnormality, consistent with stage III COPD #3. Severe obstructive sleep apnea on BiPAP therapy with a pressure of 18/14, and 4 L of oxygen at bedtime #4. Diabetes mellitus type 2 #5. Generalized anxiety disorder #6. Osteoarthritis #7. Multiple admissions for complications related to advanced COPD #8. Previous episodes of pneumonia #9. Hypertension #10. Osteoarthritis #11. Nicotine dependence, currently in remission Plan: Continue current medical treatment, continue breathing treatments, IV steroids, we'll add Zithromax 500 mg daily, tinea with oral Lasix, restart home dose Symbicort, patient is already feeling better, she is hoping to be able to go home tomorrow. We'll continue to follow, make further recommendation. I performed a history & physical examination of the patient and discussed their management with my nurse practitioner, Rand Gillis. I reviewed the nurse practitioner's note and agree with the documented findings and plan of care. Lung sounds are positive for diminished breath sounds with expiratory wheezes and prolongation of expiratory phase. The findings and the impression was discussed with the patient. I attest to the documentation by the nurse practitioner.
--- NOTE | 2018-10-26 16:38 | HP ---
HISTORY AND PHYSICAL DATE OF ADMISSION: 10/25/2018 DATE OF SERVICE: 10/26/2018 PRESENTING COMPLAINT: Short of breath. HISTORY OF PRESENTING COMPLAINT: This is a very pleasant 58-year-old patient of Dr. Monroe. Chronic stable medical conditions include diabetes, GERD, hypertension, obstructive sleep apnea; uses BiPAP. Patient presented with increasing wheezing, chest tightness, slight cough. No sputum. No fever. No chills. Presented to the ER. Started on bronchodilators and steroids, with which she is feeling better. Appetite is okay. It initially had gone down. Admitted for the same. REVIEW OF SYSTEMS: CONSTITUTIONAL: Tired. HEENT: None. RESPIRATORY: As above. CARDIOVASCULAR: None. GASTROINTESTINAL: None. GENITOURINARY: None. MUSCULOSKELETAL: None. DERMATOLOGICAL: None. HEMATOLOGICAL: None. LYMPHATICS: None. PSYCHIATRY: None. NEUROLOGICAL: None. PAST MEDICAL HISTORY: 1. COPD. 2. CHF. 3. Diabetes. 4. GERD. 5. Hypertension. 6. PE. 7. Obstructive sleep apnea. 8. Osteoarthritis. 9. Low back pain going down the left hip. 10.Myocarditis. 11.Anxiety disorder. 12.OCD. PAST SURGICAL HISTORY: 1. Adenoidectomy. 2. Cholecystectomy. 3. Cardiac catheterization. 4. Orthopedic surgery. 5. Tonsillectomy. 6. Tubal ligation. 7. Left hand third finger tendon surgery. PSYCH HISTORY: Anxiety. SOCIAL HISTORY: Lives with her boyfriend. Stopped smoking in 2015; smoked for about 38 years. Has home oxygen and CPAP. HOME MEDICATIONS: 1. Prednisone 15 mg a day. 2. Glucophage 1000 mg b.i.d. 3. Aldactone 50 mg a day. 4. Potassium 20 mEq a day. 5. Actos 30 mg a day. 6. Omeprazole 40 mg a day. 7. Lopressor 25 mg b.i.d. 8. Zestoretic 20/25 one tablet p.o. daily. 9. DuoNeb b.i.d. p.r.n. 10.[place] 10 one tablet q.6 p.r.n. 11.Amaryl 4 mg with breakfast. 12.Lasix 40 mg b.i.d. 13.Symbicort 160/4.5 two puffs b.i.d. 14.Ventolin HFA 2 puffs q.4 p.r.n. 15.Xanax 0.5 q.6 p.r.n. ALLERGIES: BUDESONIDE. PHYSICAL EXAMINATION: VITAL SIGNS ON PRESENTATION: Temperature 98.4, pulse 122, respiration 28, blood pressure 109/62, pulse ox 92% on 2 L. GENERAL APPEARANCE: Well built; BMI 38.6. Sitting up, short of breath. A bit tired. EYES: Pupils equal. Conjunctivae normal. HEENT: External appearance of nose and ears normal. Oral cavity normal. NECK: JVD not raised. Mass not palpable. RESPIRATORY: Effort increased. LUNGS: Diminished breath sounds. Prolonged expiration. CARDIOVASCULAR: First and second sounds normal. No edema. ABDOMEN: Soft, non-tender. Liver and spleen not palpable. LYMPHATIC: No lymph node palpable in neck or axillae. PSYCHIATRY: Alert and oriented x3. Mood and affect normal. NEUROLOGICAL: Pupils equal. Cranial nerves grossly intact. Power and sensation grossly intact. INVESTIGATIONS: White count 12, hemoglobin 13.7, potassium 3.9, BUN 22, creatinine 0.50. Accu-Cheks are noted. EKG tracing, personally reviewed by me, shows normal sinus rhythm, some ST-segment changes in the inferolateral leads. Troponin was negative. Chest x-ray film, personally reviewed by me, shows borderline cardiomegaly, no obvious infiltrates. ASSESSMENT: 1. Acute chronic obstructive pulmonary disease exacerbation in an ex-smoker. 2. Diabetes mellitus, type 2, on oral hypoglycemic. 3. Gastroesophageal reflux disease. 4. Essential hypertension. 5. Obstructive sleep apnea. Uses BiPAP. 6. Primary osteoarthritis. 7. Chronic congestive heart failure; ejection fraction not known. 8. Obesity; body mass index 39.8. PLAN: Patient is started on steroids, bronchodilators. Home medications are resumed. Accu- Cheks will be followed. Care was discussed with the patient. The patient is responding well. Will get a cardiology opinion based on the EKG changes. Care was discussed with the patient. Questions were answered. If everything is okay, patient may be even able to be discharged home tomorrow if she continues to improve. MMODL / IJN: [id number] /
[2018-10-26 16:41] LABS: Glucose,Whole Blood 176 mg/dL (75-99)
[2018-10-26] MEDS: SYMBICORT 160-4.5 MCG INHALER INHALATION SCH (20:12)
[2018-10-26 20:59] LABS: Glucose,Whole Blood 271 mg/dL (75-99)
[2018-10-27] MEDS: IPRATROPIUM-ALBUTEROL 3 ML NEB INHALATION SCH ×3 (03:13→12:26)
[2018-10-27] MEDS: ALPRAZolam 0.5 MG TAB PO PRN ×2 (03:48→14:07)
[2018-10-27 04:57] VITALS: RESP 18
[2018-10-27] MEDS: HYDROcodone/APAP 10-325MG 1 EACH TAB PO PRN ×2 (06:01→14:06)
[2018-10-27] MEDS: methylPREDNISolone SOD SUCCI 125 MG/2 ML VIAL IV SCH ×2 (06:01→12:18)
[2018-10-27 06:15] LABS: Glucose,Whole Blood 199 mg/dL (75-99)
[2018-10-27] MEDS: GLIMEPIRIDE 4 MG TAB PO SCH (06:48)
[2018-10-27] MEDS: INSULIN ASPART (NovoLOG) 100 UNIT/ML VIAL SQ SCH ×2 (06:48→12:24)
[2018-10-27] MEDS: SYMBICORT 160-4.5 MCG INHALER INHALATION SCH (08:01)
[2018-10-27] MEDS: SPIRONOLACTONE 25 MG TAB PO SCH (08:05)
[2018-10-27] MEDS: METOPROLOL TARTRATE 25 MG TAB PO SCH (08:05)
[2018-10-27] MEDS: POTASSIUM CHLORIDE ER 20 MEQ TAB.ER PO SCH (08:05)
[2018-10-27] MEDS: PANTOPRAZOLE 40 MG TABLET PO SCH (08:05)
[2018-10-27] MEDS: metFORMIN 500 MG TAB PO SCH (08:05)
[2018-10-27] MEDS: FUROSEMIDE 40 MG TAB PO SCH (08:05)
[2018-10-27] MEDS: PIOGLITAZONE 30 MG TAB PO SCH (09:06)
[2018-10-27] MEDS: LISINOPRIL-HCTZ 20-25 MG 1 EACH TAB PO SCH (09:06)
[2018-10-27 11:21] LABS: Glucose,Whole Blood 196 mg/dL (75-99)
[2018-10-27 11:25] VITALS: BP 128/69; TEMP 97.6
--- NOTE | 2018-10-27 11:54 | P.PN ---
Subjective Progress Note Date: 10/27/18 Principal diagnosis: Acute exacerbation of chronic obstructive pulmonary disease This is a 71-year-old white female patient who is well-known to our service for her history of advanced COPD with baseline FEV1 of 33% of predicted with chronic hypoxemic respiratory failure, severe obstructive sleep apnea on BiPAP therapy, diabetes mellitus type 2, generalized anxiety disorder, osteoarthritis, presenting to the hospital on 10/25/2018 plans of worsening shortness of breath, wheezing, pleuritic pain on the left side of posterior chest, and cough. Denied any fever or chills, she states she was moving last week to another apartment. Patient was exposed to a lot of cold air with doors opening and closing, and she thinks she may have overexerted herself with moving stuff. Chest x-ray was obtained and chronic changes and cardiomegaly without acute pulmonary process. Patient normally wears surgeon at home, she is currently on 2 L and her pulse ox is 97%, she is afebrile. Lab work showed a white blood cell count of 12.0, hemoglobin 13.7, d-dimer 0.49, sodium was 136, potassium is 3.9, chloride is 95, CO2 is 29, anion gap was 12, BUN was 22 creatinine was 0.58. Troponin is negative 1, proBNP is within normal limits at 50. She has been compliant with her medications, she is on a maintenance dose of prednisone 15 mg daily, she is on a combination of DuoNeb nebulized treatments at home, Symbicort, Ventolin inhaler. The patient is seen today 10/27/2018 in follow-up on the selective care unit. She is awake and alert in no acute distress. Sitting up at the bedside. She is breathing better today as compared to yesterday. Back to her baseline. She is anxious to go home. She is maintaining good O2 saturations in the 90s on 2 L/m per nasal cannula. She's afebrile. Blood culture reveals no growth. She's been maintained on DuoNeb inhalations, Symbicort, IV Solu-Medrol. Objective - Vital Signs Vital signs: Vital Signs Temp 97.6 F 10/27/18 11:24 Pulse 85 10/27/18 11:24 Resp 18 10/27/18 11:24 BP 128/69 10/27/18 11:24 Pulse Ox 93 L 10/27/18 11:24 Intake & Output 10/26/18 10/27/18 10/27/18 18:59 06:59 18:59 Intake Total 720 360 Output Total 900 Balance -180 360 Weight 94.7 kg Intake: Oral 720 360 Output: Urine 900 Other: Voiding Method Toilet Toilet # Voids 2 - Exam GENERAL EXAM: Alert, pleasant, 58-year-old female on 2 L of oxygen comfortable in no apparent distress. HEAD: Normocephalic/atraumatic. EYES: Normal reaction of pupils, equal size. Conjunctiva pink, sclera white. NOSE: Clear with pink turbinates. THROAT: No erythema or exudates. NECK: No masses, no JVD, no thyroid enlargement, no adenopathy. CHEST: No chest wall deformity. Symmetrical expansion. LUNGS: Equal air entry with diminished breath sounds, end expiratory wheezes on forced exhale maneuver CVS: Regular rate and rhythm, normal S1 and S2, no gallops, no murmurs, no rubs ABDOMEN: Soft, nontender. No hepatosplenomegaly, normal bowel sounds, no guarding or rigidity. EXTREMITIES: No clubbing, no edema, no cyanosis, 2+ pulses and upper and lower extremities. MUSCULOSKELETAL: Muscle strength and tone normal. SPINE: No scoliosis or deformity SKIN: No rashes CENTRAL NERVOUS SYSTEM: No focal deficits, tone is normal in all 4 extremities. PSYCHIATRIC: Alert and oriented -3. Appropriate affect. Intact judgment and insight. - Labs CBC & Chem 7: 10/25/18 13:26 10/25/18 13:26 Labs: Abnormal Lab Results - Last 24 Hours (Table) 10/26/18 10/26/18 10/27/18 Range/Units 16:28 20:58 06:13 POC Glucose (mg/dL) 176 H 271 H 199 H (75-99) mg/dL Magnesium (1.6-2.3) mg/dL 10/27/18 10/27/18 Range/Units 06:15 11:20 POC Glucose (mg/dL) 196 H (75-99) mg/dL Magnesium 1.5 L (1.6-2.3) mg/dL Microbiology - Last 24 Hours (Table) 10/25/18 14:01 Blood Culture - Preliminary Blood No Growth after 24 hours Assessment and Plan Assessment: Assessment: #1. Acute exacerbation of chronic obstructive pulmonary disease, chest x-ray was negative for any acute pulmonary process #2. Advanced COPD, with chronic hypercapnic and hypoxemic respiratory failure, steroid dependent. Underlying FEV1 is 0.86 L or 33% of predicted, with severe diffusion abnormality, consistent with stage III COPD #3. Severe obstructive sleep apnea on BiPAP therapy with a pressure of 18/14, and 4 L of oxygen at bedtime #4. Diabetes mellitus type 2 #5. Generalized anxiety disorder #6. Osteoarthritis #7. Multiple admissions for complications related to advanced COPD #8. Previous episodes of pneumonia #9. Hypertension #10. Osteoarthritis #11. Nicotine dependence, currently in remission Plan: The patient was seen and evaluated by Dr. Gardner. She is currently stable from the pulmonary standpoint. Cleared for discharge. Complete prednisone burst and taper starting at 40 mg daily for 4 days. Complete her course of antibiotics. Continue her home breathing treatments. Follow-up in our office with Dr. Felix on 11/09/2018. She is encouraged to call sooner with any recurrence of symptoms or any other questions or concerns. I, the cosigning physician, performed a history & physical examination of the patient. Lungs sounds with bilateral end expiratory wheeze, diminished. Mainta ining good O2 saturations in the 90s on 2 L/m per nasal cannula. I discussed the assessment and plan of care with my nurse practitioner, Lucia Chanel. I attest to the above note as dictated by her.
[2018-10-27] MEDS ORDERED: MAGNESIUM SULFATE-D5W PMX 1 GM in DEXTROSE/WATER 1 100ML.BAG IVPB ONE (12:30)
[2018-10-27 12:37] VITALS: PULSE 88
--- NOTE | 2018-10-27 22:18 | DS ---
DISCHARGE SUMMARY DATE OF SERVICE: 10/27/2018. FINAL DIAGNOSES: 1. Chronic obstructive pulmonary disease exacerbation with acute purulent tracheobronchitis. 2. Diabetes mellitus type 2 on oral hypoglycemics. 3. Gastroesophageal reflux disease. 4. Hypertension. 5. Obstructive sleep apnea. 6. Degenerative joint disease. 7. History of chronic congestive heart failure, ejection fraction unknown. 8. Obesity with body mass of 39.8. 9. Hypomagnesemia. DISCHARGE DISPOSITION: The patient is being discharged in stable condition with guarded prognosis. HISTORY OF PRESENT ILLNESS: This 58-year-old woman with past medical history of multiple medical problems, including COPD acute exacerbation, acute purulent tracheobronchitis. The patient was treated with bronchodilators, steroids, antibiotics and patient improved significantly. Dr. Gardner saw the patient and cleared the patient for discharge. The patient also has hypomagnesemia, which is also being corrected. On exam, vitals signs are stable. Cardiovascular: S1, S2. Abdomen soft. Respiratory: Few scattered rhonchi. No crackles. Central nervous system: No focal deficits. DISCHARGE ADVICE AND MEDICATIONS: 1. Discharge diet is cardiac. 2. Activity limited until followup. 3. Follow up with Dr. Monroe in 2-3 days. 4. Follow up with Dr. Gardner as advised. DISCHARGE MEDICATIONS: 1. Actos 30 mg p.o. daily. 2. Amaryl 4 mg a.c. breakfast. 3. Glucophage 5000 mg p.o. b.i.d. 4. Klor-Con 20 mEq p.o. daily. 5. Lasix 40 mg p.o. b.i.d. 6. Lopressor 25 mg p.o. b.i.d. 7. [place] 10 mg q.6h. 8. Omeprazole 40 mg p.o. daily. 9. Prednisone 15 mg p.o. daily. 10.Aldactone 50 mg. 11.Symbicort 160/4.5 two puffs b.i.d. 12.Ventolin HFA 2 puffs q.4 p.r.n. 13.Xanax 0.5 q.6h p.r.n. 14.Zestoretic 10/25 p.o. daily. 15.DuoNeb q.i.d. 16.Levaquin 500 mg daily for 3 more days. 17.Magnesium oxide 400 mg p.o. b.i.d. 18.Prednisone taper dose 40 mg daily for 3 days, 30 mg daily for 3 days, 20 for 3 days and follow the outpatient recommendations. Followup labs with the primary physician, Dr. Monroe. PRATIMA / NACHO: [id number] /
--- NOTE | 2018-10-30 05:53 | CDI ---
Documentation Clarification Form Date: 10/30/18 From: Fritz Sethi Phone: call to [phone] Admit Date: 10/25/2018 4:17:00 PM Patient Name: Jie Anguiano Visit Number: [id number] Discharge Date: 10/27/2018 3:33:00 PM ATTENTION: The Clinical Documentation Specialists (CDI) and [facility] Coding Staff appreciate your assistance in clarifying documentation. Please respond to the clarification below the line at the bottom and electronically sign. The CDI & [facility] Coding staff will review the response and follow-up if needed. Please note: Queries are made part of the Legal Health Record. If you have any questions, please contact the author of this message via ITS. Dr. Ranjith Mendoza This patient is admitted with respiratory distress per ED impression note as Adult Respiratory distress syndrome. History/Risk Factors: COPD, Chronic respiraoty failure Clinical Indicators: o2 saturaion 90's on 2L Treatment: on Bronchodilators, Steroids. Oxygen: 2L and on CPAP. In order to accurately reflect the severity of condition, please indicate if the above clinical findings and treatment signify a respiratory condition, such as: Acute Respiratory Distress Respiratory Failure, please specify -Acute -Acute on Chronic -Chronic Further specify (if known): -With hypercapnia? -With hypoxia? Other, please specify Unable to determine pt was discharged by dr centeno-send the query to him. RADHA ELLINGTON
--- NOTE | 2018-11-08 00:48 | CDI ---
Documentation Clarification Form Date: 10/30/2018 5:53:00 AM From: Fritz Sethi Phone: call to [phone] Admit Date: 10/25/2018 4:17:00 PM Patient Name: Jie Anguiano Visit Number: [id number] Discharge Date: 10/27/2018 3:33:00 PM ATTENTION: The Clinical Documentation Specialists (CDI) and [facility] Coding Staff appreciate your assistance in clarifying documentation. Please respond to the clarification below the line at the bottom and electronically sign. The CDI & [facility] Coding staff will review the response and follow-up if needed. Please note: Queries are made part of the Legal Health Record. If you have any questions, please contact the author of this message via ITS. Dr. Abigail Pierce, This patient is admitted with respiratory distress per ED impression note as Adult Respiratory distress syndrome. History/Risk Factors: COPD, Chronic respiraoty failure Clinical Indicators: o2 saturaion 90's on 2L Treatment: on Bronchodilators, Steroids. Oxygen: 2L and on CPAP. In order to accurately reflect the severity of condition, please indicate if the above clinical findings and treatment signify a respiratory condition, such as: Acute Respiratory Distress Respiratory Failure, please specify -Acute -Acute on Chronic -Chronic Further specify (if known): -With hypercapnia? -With hypoxia? Other, please specify Unable to determine NO respiratory failure MTDD
== END 2018-10-27 15:33 | disposition home health service (06) | DRG 191 ==
LOC: EC 13:07 → 3SCARD 16:17
PROVIDERS: ADMIT Hospitalist; ATTEND Hospitalist
PROC: 5A09357 Assistance with Respiratory Ventilation, Less than 24 Consecutive Hours, Continuous Positive Airway Pressure (ICD-10-PCS; principal; 2018-10-26)
DX: J44.1 Chronic obstructive pulmonary disease with (acute) exacerbation (principal); J96.11 Chronic respiratory failure with hypoxia; J96.12 Chronic respiratory failure with hypercapnia; J44.0 Chronic obstructive pulmonary disease with (acute) lower respiratory infection; J20.9 Acute bronchitis, unspecified; E11.9 Type 2 diabetes mellitus without complications; E66.9 Obesity, unspecified; E83.42 Hypomagnesemia; F41.1 Generalized anxiety disorder; F42.9 Obsessive-compulsive disorder, unspecified; G47.33 Obstructive sleep apnea (adult) (pediatric); I11.0 Hypertensive heart disease with heart failure; I50.9 Heart failure, unspecified; K21.9 Gastro-esophageal reflux disease without esophagitis; M19.91 Primary osteoarthritis, unspecified site; Z68.39 Body mass index [BMI] 39.0-39.9, adult; Z79.51 Long term (current) use of inhaled steroids; Z79.52 Long term (current) use of systemic steroids; Z79.84 Long term (current) use of oral hypoglycemic drugs; Z79.899 Other long term (current) drug therapy; Z86.711 Personal history of pulmonary embolism; Z99.81 Dependence on supplemental oxygen; Z99.89 Dependence on other enabling machines and devices; Z90.49 Acquired absence of other specified parts of digestive tract; Z90.89 Acquired absence of other organs; Z98.890 Other specified postprocedural states; Z98.51 Tubal ligation status; Z88.8 Allergy status to other drugs, medicaments and biological substances
CPT/HCPCS: 36415; 71046; 80053; 83735; 83880; 84484; 85025; 85379; 85610; 85730; 87040; 93005; 94640; 94760; 96361; 96365; 96375; 99291

== ENCOUNTER 2018-11-19 15:30 | Inpatient (IN) | payer MEDICARE, OTHER ==
[2018-11-19] MEDS ORDERED: methylPREDNISolone SOD SUCCI 125 MG/2 ML VIAL IV STA (16:57)
[2018-11-19] MEDS ORDERED: ALBUTEROL NEBULIZED 2.5 MG/3 ML INHALATION STA (16:57)
--- NOTE | 2018-11-19 17:01 | ED ---
General Adult HPI - General Chief complaint: Shortness of Breath Stated complaint: Sob Time Seen by Provider: 11/19/18 15:40 Source: patient, RN notes reviewed Mode of arrival: wheelchair Limitations: no limitations - History of Present Illness Initial comments: This is a 58-year-old female presents emergency Department with a past medical history significant for COPD per patient states since Monday her difficulty breathing is gotten considerably worse. Patient states she also has some thoracic back pain. Patient states she was CAT scan at [facility] they did not find any acute issue on the CAT scan. Patient states the breathing however is gotten continually worse. They did give her some muscle extremities but nothing for the breathing. Patient denies any chest pain or palpitations at this time. Patient states the back pain continues to be there and it is worse with deep inspiration or palpation. Patient denies abdominal pain. Patient denies lightheadedness dizziness or near syncopal episode. Patient denies a headache patient denies numbness weakness. - Related Data Home Medications Medication Instructions Recorded Confirmed Glimepiride [Amaryl] 4 mg PO AC-BRKFST 07/31/17 11/19/18 Potassium Chloride [Klor-Con 20] 20 meq PO DAILY 07/31/17 11/19/18 Budesonide-Formot 160-4.5 Mcg 2 puff INHALATION RT-BID 09/06/18 11/19/18 [Symbicort 160-4.5 Mcg Inhaler] HYDROcodone/APAP 10-325MG [[place] 1 tab PO Q6HR PRN 09/06/18 11/19/18 10-325] ALPRAZolam [Xanax] 0.5 mg PO Q6H PRN 09/27/18 11/19/18 Albuterol Inhaler [Ventolin Hfa 2 puff INHALATION RT-Q4H PRN 09/27/18 11/19/18 Inhaler] Furosemide [Lasix] 40 mg PO BID 09/27/18 11/19/18 Lisinopril-Hctz 20-25 mg 1 tab PO DAILY 09/27/18 11/19/18 [Zestoretic 20-25] Metoprolol Tartrate [Lopressor] 25 mg PO BID 09/27/18 11/19/18 Omeprazole 40 mg PO DAILY 09/27/18 11/19/18 Pioglitazone HCl [Actos] 30 mg PO DAILY 09/27/18 11/19/18 Spironolactone 50 mg PO DAILY 09/27/18 11/19/18 Azithromycin [Zithromax] 250 mg PO MOWEFR 11/19/18 11/19/18 Cyclobenzaprine [Flexeril] 5 mg PO HS PRN 11/19/18 11/19/18 guaiFENesin [Mucinex] 1,200 mg PO Q12HR 11/19/18 11/19/18 metFORMIN HCL [Glucophage] 1,000 mg PO DAILY 11/19/18 11/19/18 metFORMIN HCL [Glucophage] 500 mg PO PC-SUPPER 11/19/18 11/19/18 predniSONE 20 mg PO DAILY 11/19/18 11/19/18 Previous Rx's Medication Instructions Recorded Ipratropium-Albuterol Nebulize 3 ml INHALATION QID #120 10/27/18 [Duoneb 0.5 mg-3 mg/3 ml Soln] Levofloxacin [Levaquin] 500 mg PO DAILY 3 Days #3 tab 10/27/18 Allergies Allergy/AdvReac Type Severity Reaction Status Date / Time budesonide [From Pulmicort] Allergy Wheezing Verified 11/19/18 16:44 Review of Systems ROS Statement: Those systems with pertinent positive or pertinent negative responses have been documented in the HPI. ROS Other: All systems not noted in ROS Statement are negative. Past Medical History Past Medical History: Asthma, Chest Pain / Angina, Heart Failure, COPD, Diabetes Mellitus, GERD/Reflux, Hypertension, Osteoarthritis (OA), Pneumonia, Pulmonary Embolus (PE), Renal Disease, Sleep Apnea/CPAP/BIPAP Additional Past Medical History / Comment(s): Advanced oxygen-dependent COPD with an FEV1 of 33% of predicted , severe obstructive sleep apnea maintained on BiPAP at a pressure of 18/14 cm of water, chronic hypoxic respiratory failure maintained on oxygen 2 liters nasal cannula(4 at hs), NIDDM type II, DJD, low back pain which radiates down L hip and L leg at times, viral myocarditis, hypertension, morbid obesity with cushingoid features, generalized anxiety disorder, ocd. History of Any Multi-Drug Resistant Organisms: None Reported Past Surgical History: Adenoidectomy, Cholecystectomy, Heart Catheterization, Orthopedic Surgery, Tonsillectomy, Tubal Ligation Additional Past Surgical History / Comment(s): Adenoidectomy, Cholecystectomy, Heart Catheterization, Orthopedic Surgery, Tonsillectomy, Tubal Ligation. L hand 3rd finger tendon repair, D&C, carpal tunnel left hand, Past Anesthesia/Blood Transfusion Reactions: No Reported Reaction Past Psychological History: Anxiety Smoking Status: Former smoker Past Alcohol Use History: None Reported Past Drug Use History: None Reported - Past Family History Father Family Medical History: No Reported History Mother Family Medical History: No Reported History Additional Family Medical History / Comment(s): Mother of alcoholism at the age of 63 yrs. General Exam - General Exam Comments Initial Comments: GENERAL: Patient is well-developed and well-nourished. Patient is nontoxic and well- hydrated and is in moderate distress. ENT: Neck is soft and supple. No significant lymphadenopathy is noted. Oropharynx is clear. Moist mucous membranes. Neck has full range of motion without eliciting any pain. EYES: The sclera were anicteric and conjunctiva were pink and moist. Extraocular movements were intact and pupils were equal round and reactive to light. Eyelids were unremarkable. PULMONARY: Patient has diminished breath sounds throughout. CARDIOVASCULAR: There is a regular rate and rhythm without any murmurs gallops or rubs. ABDOMEN: Soft and nontender with normal bowel sounds. No palpable organomegaly was noted. There is no palpable pulsatile mass. SKIN: Skin is clear with no lesions or rashes and otherwise unremarkable. NEUROLOGIC: Patient is alert and oriented x3. Cranial nerves II through XII are grossly intact. Motor and sensory are also intact. Normal speech, volume and content. Symmetrical smile. MUSCULOSKELETAL: Normal extremities with adequate strength and full range of motion. LYMPHATICS: No significant lymphadenopathy is noted PSYCHIATRIC: Normal psychiatric evaluation. Limitations: no limitations Course Vital Signs 11/19/18 11/19/18 11/19/18 15:40 17:00 17:26 Temperature 97.8 F Pulse Rate 122 H 124 H Respiratory 16 21 22 Rate Blood Pressure 95/56 98/67 O2 Sat by Pulse 93 L 97 Oximetry 11/19/18 11/19/18 11/19/18 17:30 17:36 17:47 Temperature Pulse Rate 117 H 122 H Respiratory 18 20 22 Rate Blood Pressure 99/63 O2 Sat by Pulse 98 Oximetry Medical Decision Making - Medical Decision Making EKG was done shows sinus tachycardia at 126 bpm AL interval is 1:30 QRS is 80 QT intervals 312 QTC is 451. Patient's EKG shows some T-wave inversions which are also seen her previous EKG no acute abnormalities are noted when compared to an old EKG. Chest x-ray shows no acute abnormality. I gave the patient 3 breathing treatments and steroids and she continued to have diminished breath sounds with some extra wheezing. I spoke with because she agreed to admit the patient admitted the patient wrote admitting orders. I continue albuterol steroids on the floor. - Lab Data Result diagrams: 11/19/18 17:56 11/19/18 17:56 Lab Results 11/19/18 11/19/18 11/19/18 Range/Units 17:56 17:56 17:56 WBC 11.7 H (3.8-10.6) k/uL RBC 4.28 (3.80-5.40) m/uL Hgb 12.5 (11.4-16.0) gm/dL Hct 38.7 (34.0-46.0) % MCV 90.5 (80.0-100.0) fL MCH 29.1 (25.0-35.0) pg MCHC 32.2 (31.0-37.0) g/dL RDW 14.8 (11.5-15.5) % Plt Count 372 (150-450) k/uL Neutrophils % 70 % Lymphocytes % 23 % Monocytes % 6 % Eosinophils % 0 % Basophils % 0 % Neutrophils # 8.2 H (1.3-7.7) k/uL Lymphocytes # 2.6 (1.0-4.8) k/uL Monocytes # 0.7 (0-1.0) k/uL Eosinophils # 0.0 (0-0.7) k/uL Basophils # 0.0 (0-0.2) k/uL PT 10.3 (9.0-12.0) sec INR 1.0 (<1.2) APTT 22.3 (22.0-30.0) sec Sodium 134 L (137-145) mmol/L Potassium 3.4 L (3.5-5.1) mmol/L Chloride 91 L (98-107) mmol/L Carbon Dioxide 31 H (22-30) mmol/L Anion Gap 12 mmol/L BUN 30 H (7-17) mg/dL Creatinine 0.87 (0.52-1.04) mg/dL Est GFR (CKD-EPI)AfAm 86 (>60 ml/min/1.73 sqM) Est GFR (CKD-EPI)NonAf 74 (>60 ml/min/1.73 sqM) Glucose 96 (74-99) mg/dL Calcium 9.8 (8.4-10.2) mg/dL Magnesium 1.4 L (1.6-2.3) mg/dL Total Bilirubin 0.5 (0.2-1.3) mg/dL AST 23 (14-36) U/L ALT 31 (9-52) U/L Alkaline Phosphatase 90 (38-126) U/L Troponin I (0.000-0.034) ng/mL Total Protein 6.6 (6.3-8.2) g/dL Albumin 4.1 (3.5-5.0) g/dL 11/19/18 Range/Units 17:56 WBC (3.8-10.6) k/uL RBC (3.80-5.40) m/uL Hgb (11.4-16.0) gm/dL Hct (34.0-46.0) % MCV (80.0-100.0) fL MCH (25.0-35.0) pg MCHC (31.0-37.0) g/dL RDW (11.5-15.5) % Plt Count (150-450) k/uL Neutrophils % % Lymphocytes % % Monocytes % % Eosinophils % % Basophils % % Neutrophils # (1.3-7.7) k/uL Lymphocytes # (1.0-4.8) k/uL Monocytes # (0-1.0) k/uL Eosinophils # (0-0.7) k/uL Basophils # (0-0.2) k/uL PT (9.0-12.0) sec INR (<1.2) APTT (22.0-30.0) sec Sodium (137-145) mmol/L Potassium (3.5-5.1) mmol/L Chloride (98-107) mmol/L Carbon Dioxide (22-30) mmol/L Anion Gap mmol/L BUN (7-17) mg/dL Creatinine (0.52-1.04) mg/dL Est GFR (CKD-EPI)AfAm (>60 ml/min/1.73 sqM) Est GFR (CKD-EPI)NonAf (>60 ml/min/1.73 sqM) Glucose (74-99) mg/dL Calcium (8.4-10.2) mg/dL Magnesium (1.6-2.3) mg/dL Total Bilirubin (0.2-1.3) mg/dL AST (14-36) U/L ALT (9-52) U/L Alkaline Phosphatase (38-126) U/L Troponin I <0.012 (0.000-0.034) ng/mL Total Protein (6.3-8.2) g/dL Albumin (3.5-5.0) g/dL Critical Care Time Critical Care Time: Yes Total Critical Care Time: 35 Disposition Clinical Impression: Acute exacerbation of chronic obstructive airways disease Disposition: ADMITTED IP TO THIS HOSP Referrals: Grant Monroe MD [Primary Care Provider] - 1-2 days Time of Disposition: 19:21
[2018-11-19 18:13] LABS: Basophils % (A) 0 %; Eosinophils % (A) 0 %; HCT 38.7 % (34.0-46.0); HGB 12.5 gm/dL (11.4-16.0); Lymphocytes # (A) 2.6 k/uL (1.0-4.8); Lymphocytes % (A) 23 %; MCH 29.1 pg (25.0-35.0); MCHC 32.2 g/dL (31.0-37.0); MCV 90.5 fL (80.0-100.0); Mean Platelet Volume 6.1; Monocytes # (A) 0.7 k/uL (0-1.0); Monocytes % (A) 6 %; Neutrophils # (A) 8.2 k/uL (1.3-7.7); Neutrophils % (A) 70 %; Platelet Count 372 k/uL (150-450); RBC 4.28 m/uL (3.80-5.40); RDW 14.8 % (11.5-15.5); WBC 11.7 k/uL (3.8-10.6)
[2018-11-19 18:17] LABS: Albumin 4.1 g/dL (3.5-5.0); Calcium 9.8 mg/dL (8.4-10.2); Magnesium 1.4 mg/dL (1.6-2.3); Potassium 3.4 mmol/L (3.5-5.1); Total Bilirubin 0.5 mg/dL (0.2-1.3); Total Protein 6.6 g/dL (6.3-8.2)
[2018-11-19 18:24] LABS: Partial Thromboplastin Time 22.3 sec (22.0-30.0); Prothrombin Time 10.3 sec (9.0-12.0)
--- NOTE | 2018-11-19 18:48 | XR ---
EXAMINATION TYPE: XR chest 2V DATE OF EXAM: 11/19/2018 COMPARISON: 10/25/2018 HISTORY: Difficulty breathing TECHNIQUE: Frontal and lateral views of the chest are obtained. FINDINGS: There is some mild linear density at the right lung base. Heart size is normal. There is c hest leads. There is no pleural effusion. There is anterior wedging of multiple thoracic vertebra wit h osteopenia. IMPRESSION: Subsegmental atelectasis at the lung bases the same or increased compared to old exam. N o heart failure. Numerous thoracic mild compression fractures slightly increased compared to last exa m.
[2018-11-19] MEDS ORDERED: KETOROLAC 30 MG/ML 1 ML VIAL IVP STA (19:43)
[2018-11-19] MEDS ORDERED: ALBUTEROL NEBULIZED 2.5 MG/3 ML INHALATION SCH (20:00)
[2018-11-19] MEDS ORDERED: CYCLOBENZAPRINE 5 MG TAB PO PRN (21:30)
[2018-11-19] MEDS ORDERED: BUDESONIDE 1 MG/2 ML NEBU INHALATION SCH (21:33)
[2018-11-19] MEDS: ENOXAPARIN 40 MG/0.4 ML SYRINGE SQ SCH (21:58)
[2018-11-19] MEDS: guaiFENesin 600 MG TABLET.ER PO SCH (21:58)
[2018-11-19] MEDS: METOPROLOL TARTRATE 25 MG TAB PO SCH (21:58)
[2018-11-19] MEDS: ALPRAZolam 0.5 MG TAB PO PRN (21:58)
[2018-11-19] MEDS: IPRATROPIUM-ALBUTEROL 3 ML NEB INHALATION SCH (22:06)
[2018-11-19] MEDS: FORMOTEROL FUMARATE 20 MCG/2 ML NEBU INHALATION SCH (22:07)
[2018-11-20] MEDS ORDERED: methylPREDNISolone SOD SUCCI 125 MG/2 ML VIAL IV SCH
[2018-11-20] MEDS: KETOROLAC 30 MG/ML 1 ML VIAL IVP SCH ×4 (00:06→18:13)
[2018-11-20] MEDS: methylPREDNISolone SOD SUCCI 40 MG/ML 1 ML VIAL IV SCH ×4 (00:06→23:27)
[2018-11-20] MEDS: IPRATROPIUM-ALBUTEROL 3 ML NEB INHALATION SCH ×6 (01:35→20:13)
[2018-11-20 07:00] LABS: Glucose,Whole Blood 273 mg/dL (75-99)
[2018-11-20] MEDS: PANTOPRAZOLE 40 MG TABLET PO SCH (08:09)
[2018-11-20] MEDS: METOPROLOL TARTRATE 25 MG TAB PO SCH ×2 (08:09→23:27)
[2018-11-20] MEDS: ENOXAPARIN 40 MG/0.4 ML SYRINGE SQ SCH (08:09)
[2018-11-20] MEDS: GLIMEPIRIDE 4 MG TAB PO SCH (08:09)
[2018-11-20] MEDS: POTASSIUM CHLORIDE ER 20 MEQ TAB.ER PO SCH (08:10)
[2018-11-20] MEDS: PIOGLITAZONE 30 MG TAB PO SCH (08:10)
[2018-11-20] MEDS: guaiFENesin 600 MG TABLET.ER PO SCH ×2 (08:10→21:28)
[2018-11-20] MEDS: LISINOPRIL-HCTZ 20-25 MG 1 EACH TAB PO SCH (08:10)
[2018-11-20] MEDS: FUROSEMIDE 40 MG TAB PO SCH ×2 (08:10→21:28)
[2018-11-20] MEDS: SPIRONOLACTONE 25 MG TAB PO SCH (08:10)
[2018-11-20] MEDS: metFORMIN 500 MG TAB PO SCH (08:10)
[2018-11-20] MEDS: INSULIN ASPART (NovoLOG) 100 UNIT/ML VIAL SQ SCH ×4 (08:13→21:28)
[2018-11-20] MEDS: FORMOTEROL FUMARATE 20 MCG/2 ML NEBU INHALATION SCH ×2 (08:13→20:13)
[2018-11-20] MEDS: SYMBICORT 160-4.5 MCG INHALER INHALATION SCH ×2 (08:14→20:13)
[2018-11-20] MEDS: HYDROcodone/APAP 10-325MG 1 EACH TAB PO PRN (09:16)
[2018-11-20 11:30] LABS: Glucose,Whole Blood 90 mg/dL (75-99)
[2018-11-20] MEDS ORDERED: CYCLOBENZAPRINE 5 MG TAB ONE (15:30)
[2018-11-20 16:58] LABS: Glucose,Whole Blood 230 mg/dL (75-99)
[2018-11-20] MEDS ORDERED: metFORMIN 500 MG TAB PO SCH (18:30)
[2018-11-20] MEDS ORDERED: NAPROXEN 250 MG TAB PO STA (18:36)
[2018-11-20] MEDS: BACLOFEN 10 MG TAB PO SCH ×2 (19:28→23:27)
[2018-11-20] MEDS: ALPRAZolam 0.5 MG TAB PO PRN (19:28)
[2018-11-20 19:59] LABS: Glucose,Whole Blood 146 mg/dL (75-99)
--- NOTE | 2018-11-20 21:59 | HP ---
HISTORY AND PHYSICAL DATE OF ADMISSION: November 19 2018 DATE OF SERVICE: November. PRESENTING COMPLAINT: Short of breath. HISTORY OF PRESENTING COMPLAINT: This is a very pleasant 58-year-old patient who follows with Dr. Monroe. Chronic stable medical conditions include diabetes, GERD, hypertension, obstructive sleep apnea uses BiPAP. The patient is getting trouble with lower back pain, lower lumbar area, going across. At the same time she has been having more short of breath, some cough, wheezing. No fever and chills, tired, run down, and low back pain also bothering quite a bit. Does not interfere with the bowels and the urine. Admitted for the same including COPD exacerbation. REVIEW OF SYSTEMS: CONSTITUTIONAL: Tired. HEENT: None. RESPIRATORY: As above. CARDIOVASCULAR: None. GASTROINTESTINAL: None. GENITOURINARY: None. MUSCULOSKELETAL as above. DERMATOLOGICAL, HEMATOLOGIC, LYMPHATICS: none. PSYCHIATRY none. NEUROLOGICAL: None. PAST MEDICAL HISTORY: COPD, CHF, diabetes, GERD, hypertension, PE, obstructive sleep apnea, osteoarthritis, low back pain going down the hip, myocarditis, anxiety disorder, OCD. PAST SURGICAL HISTORY: Adenoidectomy cholecystectomy, cardiac catheterization, orthopedic surgery, tonsillectomy, tubal ligation, left hand third finger tendon surgery. PSYCH HISTORY: Anxiety. SOCIAL HISTORY: Lives with a boyfriend. Stopped smoking in 2016. Smoked for 38 years. Has home oxygen, CPAP. Started smoking in 1977, smoked half a pack a day, stopped in 2015. FAMILY HISTORY: Mother of alcoholism. HOME MEDICATIONS: 1. Prednisone 20 mg a day. 2. Glucophage 1000 mg in the morning, 5 mg with supper. 3. Mucinex 200 mg q.12h. 4. Aldactone 250 mg p.o. daily. 5. Potassium 20 mEq a day. 6. Actos 30 mg p.o. daily. 7. Omeprazole 40 mg p.o. daily. 8. Lopressor 25 mg b.i.d. 9. Zestoretic 20/25 1 tablet p.o. daily. 10.Levaquin 500 mg p.o. daily. 11.DuoNeb q.i.d. 12.[place] 10 1 tablet q.6 p.r.n. 13.Amaryl 4 mg before breakfast. 14.Lasix 40 mg b.i.d. 15.Flexeril 5 mg q.h.s. p.r.n. 16.Symbicort 2 puffs b.i.d. 17.Zithromax 250 mg Monday, Monday and Monday. 18.Ventolin HFA 2 puffs q.4 p.r.n. 19.Xanax 0.5 p.o. q.6h p.r.n. ALLERGIES: BUDESONIDE. PHYSICAL EXAMINATION: On examination, temperature 97.8, pulse 122, respirations 16, blood pressure 95/56 pulse ox 93% on 2 L. GENERAL APPEARANCE: Well built, BMI 37.6. Sitting at the edge of bed, short of breath. EYES: Pupils equal. Conjunctivae normal. HEENT: External appearance of nose and ears normal. Oral cavity normal. NECK: JVD not raised. Mass not palpable. RESPIRATORY: Effort increased. LUNGS: Diminished breath sounds. Prolonged expiration. CARDIOVASCULAR: 1st and 2nd sounds normal. Some edema. ABDOMEN: Soft, nontender. Liver and spleen not palpable. LYMPHATICS: No lymph nodes palpable in the neck and axilla. PSYCHIATRY: Alert and oriented x3. Mood is slightly anxious-appearing. NEUROLOGICAL: Pupils equal. Cranial nerves grossly intact. Power and sensation grossly intact. MUSCULOSKELETAL: Minimal tenderness of the lower lumbar spine. INVESTIGATIONS: White count 11.7, hemoglobin 12.5, platelets 372. Potassium 3.4, BUN 30, creatinine 0.87. Accu-Cheks are noted. Troponin negative. EKG tracing personally reviewed by me shows sinus tachycardia. Nonspecific ST-segment changes. Chest x-ray film personally reviewed by me shows borderline cardiomegaly, maybe chronic lung changes. ASSESSMENT: 1. Acute chronic obstructive pulmonary disease exacerbation in an ex-smoker. 2. Acute on chronic low back pain, probably arthritis and radiculopathy of the lumbar area. 3. Diabetes mellitus type 2 on oral hypoglycemic. 4. Gastroesophageal reflux disease. 5. Essential hypertension. 6. Obstructive sleep apnea uses BiPAP. 7. Primary osteoarthritis. 8. Essential hypertension. 9. Generalized anxiety disorder. PLAN: Patient will be started on bronchodilators, steroids. Home medications are resumed. Get lumbosacral plain films. Accu-Cheks will be followed. Lovenox for DVT prophylaxis. MMODL / IJN: [id number] /
--- NOTE | 2018-11-20 22:25 | XR ---
PROCEDURE: XR lumbar spine- 3V DATE AND TIME: 11/20/2018 7:18 PM CLINICAL INDICATION: PHH; lower back pain TECHNIQUE: Department protocol COMPARISON: None FINDINGS: There is no fracture or malalignment. The morphology of the vertebral segments remains intact at all levels. There are moderately advanced facet osteoarthritis changes at all levels, particularly the mid and lo wer lumbar spine. There are relatively mild multilevel degenerative disc changes at all levels. The soft tissues are negative for acute findings. However, markedly advanced nonaneurysmal atheroscle rotic calcifications are seen throughout the aortoiliac system. IMPRESSION: No acute process.
[2018-11-20] MEDS: NAPROXEN 250 MG TAB PO SCH (23:27)
[2018-11-21] MEDS: IPRATROPIUM-ALBUTEROL 3 ML NEB INHALATION SCH ×4 (00:16→10:54)
[2018-11-21 05:51] VITALS: RESP 15; TEMP 97.3
[2018-11-21 07:08] LABS: Glucose,Whole Blood 257 mg/dL (75-99)
[2018-11-21] MEDS: SYMBICORT 160-4.5 MCG INHALER INHALATION SCH (07:29)
[2018-11-21] MEDS: FORMOTEROL FUMARATE 20 MCG/2 ML NEBU INHALATION SCH (07:29)
[2018-11-21] MEDS: BACLOFEN 10 MG TAB PO SCH (07:36)
[2018-11-21] MEDS: ENOXAPARIN 40 MG/0.4 ML SYRINGE SQ SCH (07:36)
[2018-11-21] MEDS: POTASSIUM CHLORIDE ER 20 MEQ TAB.ER PO SCH (07:36)
[2018-11-21] MEDS: NAPROXEN 250 MG TAB PO SCH (07:37)
[2018-11-21] MEDS: FUROSEMIDE 40 MG TAB PO SCH (07:37)
[2018-11-21] MEDS: METOPROLOL TARTRATE 25 MG TAB PO SCH (07:37)
[2018-11-21] MEDS: PIOGLITAZONE 30 MG TAB PO SCH (07:38)
[2018-11-21] MEDS: GLIMEPIRIDE 4 MG TAB PO SCH (07:38)
[2018-11-21] MEDS: LISINOPRIL-HCTZ 20-25 MG 1 EACH TAB PO SCH (07:38)
[2018-11-21] MEDS: metFORMIN 500 MG TAB PO SCH (07:38)
[2018-11-21] MEDS: SPIRONOLACTONE 25 MG TAB PO SCH (07:38)
[2018-11-21] MEDS: guaiFENesin 600 MG TABLET.ER PO SCH (07:38)
[2018-11-21] MEDS: PANTOPRAZOLE 40 MG TABLET PO SCH (07:38)
[2018-11-21] MEDS: HYDROcodone/APAP 10-325MG 1 EACH TAB PO PRN ×2 (07:39→14:22)
[2018-11-21] MEDS: methylPREDNISolone SOD SUCCI 40 MG/ML 1 ML VIAL IV SCH (07:40)
[2018-11-21] MEDS: INSULIN ASPART (NovoLOG) 100 UNIT/ML VIAL SQ SCH ×2 (07:48→12:06)
[2018-11-21 11:02] VITALS: PULSE 112
[2018-11-21 11:46] LABS: Glucose,Whole Blood 159 mg/dL (75-99)
[2018-11-21 12:17] VITALS: BP 94/58
--- NOTE | 2018-11-21 13:44 | CDI ---
Documentation Clarification Form Date: 11/21/2018 1:30:58 PM From: Jeannette Us RN CCDS Admit Date: 11/21/2018 11:29:00 AM Patient Name: Jie Anguiano Visit Number: [id number] Discharge Date: ATTENTION: The Clinical Documentation Specialists (CDI) and [facility] Coding Staff appreciate your assistance in clarifying documentation. Please respond to the clarification below the line at the bottom and electronically sign. The CDI & [facility] Coding staff will review the response and follow-up if needed. Please note: Queries are made part of the Legal Health Record. If you have any questions, please contact the author of this message via ITS. Dr. Ranjith Mendoza CHF is documented in the H & P past medical history. History/Risk Factors: 58 year old male presents to the ED for shortness of breath and difficulty in breathing. Medical History COPD; CHF; Gerd; HTN; PE; [place] ; Osteoarthritis; Low back pain going down the hip Clinical Indicators: VS/Pulse OX: 95/56 122 97.8 16 93% 2L Chest X Ray: no heart failure Treatment: Lasix ; Lisinopril / HCTZ, Lopressor; In your professional opinion, can you please clarify the acuity and type of CHF if known? * Acute Systolic Heart Failure: * Chronic Systolic Heart Failure: * Acute on Chronic Systolic Heart Failure: * Acute Diastolic Heart Failure: * Chronic Diastolic Heart Failure: * Acute on Chronic Diastolic Heart Failure: * Acute Systolic & Diastolic Heart Failure: * Chronic Systolic & Diastolic Heart Failure: * Acute on Chronic Systolic & Diastolic Heart Failure: * Unable to Determine * Other, please specify (Last Revision: September 2017) unable to determine MTDD
--- NOTE | 2018-11-22 11:35 | DS ---
DISCHARGE SUMMARY DATE OF ADMISSION: 11/19/2018 DATE OF DISCHARGE: 11/21/2018 FINAL DIAGNOSES: 1. Acute chronic obstructive pulmonary disease exacerbation in an ex-smoker. 2. Acute low back pain from lumbar degenerative joint disease with muscle spasms and some radiculopathy. 3. Diabetes mellitus type 2 on oral hypoglycemic. 4. Gastroesophageal reflux disease. 5. Essential hypertension. 6. Obstructive sleep apnea, uses BiPAP. 7. Primary osteoarthritis. 8. Essential hypertension. 9. Generalized anxiety disorder. HOSPITAL COURSE: This patient presented with COPD exacerbation and acute low back pain. X-ray did confirm arthritis. The patient was given antispasmodic, anti-inflammatory until her pain got better. Also treated with bronchodilators and steroids. Pulmonary status got better. Overall doing much better. On examination, temperature 97.3, pulse ox 95% on 3 L. LUNGS: Improved air entry. DISCHARGE MEDICATIONS: 1. Amaryl 4 mg before breakfast. 2. Potassium 20 mEq daily. 3. Symbicort 160/4.5 two puffs b.i.d. 4. [place] 10 one tablet q.6 p.r.n. 5. Xanax 0.5 q.6 p.r.n. 6. Ventolin HFA 2 puffs q.4 p.r.n. 7. Lasix 40 mg b.i.d. 8. Zestoretic 20/25 one tablet p.o. daily. 9. Lopressor 25 mg b.i.d. 10.Omeprazole 40 mg p.o. daily. 11.Actos 30 mg p.o. daily. 12.Aldactone 50 mg p.o. daily. 13.DuoNeb q.i.d. 14.Mucinex 1200 mg p.o. q.12. 15.Prednisone 20 mg daily. 16.Baclofen 5 mg q.8 p.r.n. 17.Naproxen 250 mg p.o. t.i.d. 18.Metformin 1000 mg p.o. b.i.d. Discontinued medications include Levaquin, Flexeril, Zithromax, Glucophage. Follow up with Dr. Felix in one week. Follow up with Dr. Monroe on 11/26/2018. MMODL / IJN: [id number] /
== END 2018-11-21 14:54 | disposition home health service (06) | DRG 191 ==
LOC: EC 15:30 → 4MS4W 19:22 → OBSVTOIN 11-21 11:29
PROVIDERS: ADMIT Hospitalist; ATTEND Hospitalist
DX: J44.1 Chronic obstructive pulmonary disease with (acute) exacerbation (principal); J96.11 Chronic respiratory failure with hypoxia; E11.9 Type 2 diabetes mellitus without complications; Z87.891 Personal history of nicotine dependence; F41.1 Generalized anxiety disorder; F42.9 Obsessive-compulsive disorder, unspecified; G47.33 Obstructive sleep apnea (adult) (pediatric); G89.29 Other chronic pain; I11.0 Hypertensive heart disease with heart failure; I50.9 Heart failure, unspecified; K21.9 Gastro-esophageal reflux disease without esophagitis; M19.90 Unspecified osteoarthritis, unspecified site; M51.16 Intervertebral disc disorders with radiculopathy, lumbar region; M62.838 Other muscle spasm; Z79.51 Long term (current) use of inhaled steroids; Z79.84 Long term (current) use of oral hypoglycemic drugs; Z79.899 Other long term (current) drug therapy; Z86.711 Personal history of pulmonary embolism; Z99.81 Dependence on supplemental oxygen; Z99.89 Dependence on other enabling machines and devices; Z88.8 Allergy status to other drugs, medicaments and biological substances; Z90.49 Acquired absence of other specified parts of digestive tract; Z81.1 Family history of alcohol abuse and dependence; Z79.2 Long term (current) use of antibiotics; Z79.52 Long term (current) use of systemic steroids
CPT/HCPCS: 36415; 71046; 72100; 80053; 83735; 84484; 85025; 85610; 85730; 93005; 94640; 94760; 96374; 96375; 99291

== ENCOUNTER 2018-11-26 20:11 | Inpatient (IN) | payer MEDICARE, OTHER ==
[2018-11-26 21:27] LABS: Basophils % (A) 0 %; Eosinophils % (A) 0 %; HCT 35.6 % (34.0-46.0); HGB 11.8 gm/dL (11.4-16.0); Lymphocytes # (A) 1.1 k/uL (1.0-4.8); Lymphocytes % (A) 8 %; MCH 29.6 pg (25.0-35.0); MCHC 33.1 g/dL (31.0-37.0); MCV 89.3 fL (80.0-100.0); Mean Platelet Volume 7.1; Monocytes # (A) 0.2 k/uL (0-1.0); Monocytes % (A) 1 %; Neutrophils # (A) 11.9 k/uL (1.3-7.7); Neutrophils % (A) 90 %; Platelet Count 297 k/uL (150-450); RBC 3.99 m/uL (3.80-5.40); RDW 15.5 % (11.5-15.5); WBC 13.2 k/uL (3.8-10.6)
[2018-11-26 21:29] LABS: ALT 41 U/L (9-52); AST 35 U/L (14-36); African American GFR (CKD) >90 (>60 ml/min/1.73 sqM); Albumin 3.9 g/dL (3.5-5.0); Alkaline Phosphatase 88 U/L (38-126); Anion Gap 9 mmol/L; Blood Urea Nitrogen 40 mg/dL (7-17); Calcium 9.3 mg/dL (8.4-10.2); Carbon Dioxide 31 mmol/L (22-30); Chloride 96 mmol/L (98-107); Glucose 200 mg/dL (74-99); Potassium 3.9 mmol/L (3.5-5.1); Sodium 136 mmol/L (137-145); Total Bilirubin 0.5 mg/dL (0.2-1.3); Total Protein 6.3 g/dL (6.3-8.2)
[2018-11-26 21:37] LABS: Prothrombin Time 10.9 sec (9.0-12.0)
[2018-11-26 21:45] LABS: Partial Thromboplastin Time 20.3 sec (22.0-30.0)
[2018-11-26] MEDS ORDERED: methylPREDNISolone SOD SUCCI 125 MG/2 ML VIAL IV STA (22:21)
[2018-11-26] MEDS ORDERED: NITROGLYCERIN OINT 1 INCH/GM PACKET TOPICAL STA (22:21)
[2018-11-26] MEDS ORDERED: IPRATROPIUM-ALBUTEROL 3 ML NEB INHALATION STA (22:21)
[2018-11-26] MEDS ORDERED: ASPIRIN 81 MG PO STA (22:22)
--- NOTE | 2018-11-26 22:27 | XR ---
EXAMINATION: XR chest 2V DATE AND TIME: 11/26/2018 9:21 PM CLINICAL INDICATION: PHH; difficulty breathing TECHNIQUE: Departmental protocol COMPARISON: 11/19/2018 FINDINGS: The overall lung inflation pattern is unchanged when compared to the prior study of oscar we primo. That is, the previously seen scattered subsegmental and ill-defined added opacities are redemonst rated. There are no new pulmonary or pleural processes. Moderately enlarged cardiac silhouette redemonstrated. IMPRESSION: Stable radiographic findings.
[2018-11-26] MEDS ORDERED: ALBUTEROL NEBULIZED 2.5 MG/3 ML INHALATION STA (23:03)
--- NOTE | 2018-11-26 23:04 | ED ---
SOB HPI - General Chief Complaint: Shortness of Breath Stated Complaint: Diff Breathing Time Seen by Provider: 11/26/18 22:12 Source: patient Mode of arrival: wheelchair Limitations: physical limitation - History of Present Illness Initial Comments: This 58-year-old white female presents with a complaint of some shortness of breath. She also has had some wheezing. She has a long history of COPD with multiple previous hospitalizations. She has had an occasional cough which is nonproductive. She also does complain of some chronic pain into her left lateral inferior ribs which is due to pleuritis which she's had for months or years. She also is complaining of some chronic low back pain and is requesting pain medications. She states that the symptoms came on today and are fairly severe. She denies any leg pain or swelling. No other complaints or modifying factors. - Related Data Home Medications Medication Instructions Recorded Confirmed Glimepiride [Amaryl] 4 mg PO AC-BRKFST 07/31/17 11/19/18 Potassium Chloride [Klor-Con 20] 20 meq PO DAILY 07/31/17 11/19/18 Budesonide-Formot 160-4.5 Mcg 2 puff INHALATION RT-BID 09/06/18 11/19/18 [Symbicort 160-4.5 Mcg Inhaler] HYDROcodone/APAP 10-325MG [[place] 1 tab PO Q6HR PRN 09/06/18 11/19/18 10-325] ALPRAZolam [Xanax] 0.5 mg PO Q6H PRN 09/27/18 11/19/18 Albuterol Inhaler [Ventolin Hfa 2 puff INHALATION RT-Q4H PRN 09/27/18 11/19/18 Inhaler] Furosemide [Lasix] 40 mg PO BID 09/27/18 11/19/18 Lisinopril-Hctz 20-25 mg 1 tab PO DAILY 09/27/18 11/19/18 [Zestoretic 20-25] Metoprolol Tartrate [Lopressor] 25 mg PO BID 09/27/18 11/19/18 Omeprazole 40 mg PO DAILY 09/27/18 11/19/18 Pioglitazone HCl [Actos] 30 mg PO DAILY 09/27/18 11/19/18 Spironolactone 50 mg PO DAILY 09/27/18 11/19/18 guaiFENesin [Mucinex] 1,200 mg PO Q12HR 11/19/18 11/19/18 predniSONE 20 mg PO DAILY 11/19/18 11/19/18 Previous Rx's Medication Instructions Recorded Ipratropium-Albuterol Nebulize 3 ml INHALATION QID #120 10/27/18 [Duoneb 0.5 mg-3 mg/3 ml Soln] Baclofen [Lioresal] 5 mg PO Q8H PRN #20 tab 11/21/18 Naproxen [Naprosyn] 250 mg PO TID #21 tab 11/21/18 metFORMIN HCL 1,000 mg PO BID #60 tab 11/21/18 Allergies Allergy/AdvReac Type Severity Reaction Status Date / Time budesonide [From Pulmicort] Allergy Wheezing Verified 11/26/18 20:19 Review of Systems ROS Statement: Those systems with pertinent positive or pertinent negative responses have been documented in the HPI. ROS Other: All systems not noted in ROS Statement are negative. Past Medical History Past Medical History: Asthma, Chest Pain / Angina, Heart Failure, COPD, Diabetes Mellitus, GERD/Reflux, Hypertension, Osteoarthritis (OA), Pneumonia, Pulmonary Embolus (PE), Renal Disease, Sleep Apnea/CPAP/BIPAP Additional Past Medical History / Comment(s): Advanced oxygen-dependent COPD with an FEV1 of 33% of predicted , severe obstructive sleep apnea maintained on BiPAP at a pressure of 18/14 cm of water, chronic hypoxic respiratory failure maintained on oxygen 2 liters nasal cannula(4 at hs), NIDDM type II, DJD, low back pain which radiates down L hip and L leg at times, viral myocarditis, hypertension, morbid obesity with cushingoid features, generalized anxiety disorder, ocd. 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 L hand 3rd finger tendon repair, D&C, carpal tunnel left hand,, Past Anesthesia/Blood Transfusion Reactions: No Reported Reaction Past Psychological History: Anxiety Smoking Status: Former smoker Past Alcohol Use History: None Reported Past Drug Use History: None Reported - Past Family History Father Family Medical History: No Reported History Mother Family Medical History: No Reported History Additional Family Medical History / Comment(s): Mother of alcoholism at the age of 63 yrs. General Exam - General Exam Comments Initial Comments: GENERAL: The patient is well nourished and well hydrated. VITAL SIGNS: Heart rate, blood pressure, respiratory rate reviewed as recorded in nurse's notes. EYES: Pupils are round and reactive. Extraocular movements are intact. No conjunctival / lid redness or swelling. ENT: No external evidence of injury, swelling, or ecchymosis. Airway is patent. Throat is clear. NECK: Nontender. No swelling or evidence of injury. No subcutaneous emphysema. Trachea is midline. No thyroid mass. HEART: Regular rate and rhythm. Good peripheral pulses. LUNGS/CHEST: Wheezing is noted to bilateral chest. No ecchymosis, subcutaneous emphysema, but mild tenderness present to the left lower lateral ribs. ABDOMEN: Abdomen soft without tenderness. No palpable masses or organomegaly. No peritoneal signs. No abdominal wall swelling or ecchymosis. EXTREMITIES: No extremity tenderness. Normal muscle tone and function. There is some mild tenderness present to the lumbar spine. NEUROLOGIC: Sensation is grossly intact. Cranial nerve exam reveals face is symmetrical, tongue is midline, speech is clear. SKIN: No abrasions or ecchymosis is noted. No induration or masses noted. PSYCHIATRIC: Alert and oriented. Appropriate behavior and judgment. Limitations: physical limitation Course Vital Signs 11/26/18 11/26/18 11/26/18 20:13 22:28 22:44 Temperature 97.7 F Pulse Rate 107 H 107 H 111 H Respiratory 20 Rate Blood Pressure 95/61 O2 Sat by Pulse 92 L Oximetry Medical Decision Making - Medical Decision Making The patient was seen and examined. All diagnostics are reviewed. The patient had an EKG done which shows a sinus tachycardia at a rate of 107. There is some T-wave inversions in the precordial leads as well as 1 and aVL. There is no ST elevation identified. The patient was placed on a awake overnight monitor and an IV is established. She receives 2 DuoNeb breathing treatments initially and later an albuterol treatment. She receives Solu-Medrol 125 mg IV. An aspirin and Nitropaste was also given as her troponin came back elevated. She also has slight hyperglycemia with a history of diabetes. She has some minor electrolyte abnormalities noted as well as a slight leukocytosis. The chest x-ray does not show any acute process. Overall, it is felt as though she likely does have a COPD exacerbation. She also has elevation of her troponin and acute coronary syndrome should be ruled out. She is agreeable with admission. Case will be discussed with internal medicine in the near future - Lab Data Result diagrams: 11/26/18 21:00 11/26/18 21:00 Lab Results 11/26/18 11/26/18 11/26/18 Range/Units 21:00 21:00 21:00 WBC 13.2 H (3.8-10.6) k/uL RBC 3.99 (3.80-5.40) m/uL Hgb 11.8 (11.4-16.0) gm/dL Hct 35.6 (34.0-46.0) % MCV 89.3 (80.0-100.0) fL MCH 29.6 (25.0-35.0) pg MCHC 33.1 (31.0-37.0) g/dL RDW 15.5 (11.5-15.5) % Plt Count 297 (150-450) k/uL Neutrophils % 90 % Lymphocytes % 8 % Monocytes % 1 % Eosinophils % 0 % Basophils % 0 % Neutrophils # 11.9 H (1.3-7.7) k/uL Lymphocytes # 1.1 (1.0-4.8) k/uL Monocytes # 0.2 (0-1.0) k/uL Eosinophils # 0.0 (0-0.7) k/uL Basophils # 0.0 (0-0.2) k/uL PT 10.9 (9.0-12.0) sec INR 1.0 (<1.2) APTT 20.3 L (22.0-30.0) sec Sodium 136 L (137-145) mmol/L Potassium 3.9 (3.5-5.1) mmol/L Chloride 96 L (98-107) mmol/L Carbon Dioxide 31 H (22-30) mmol/L Anion Gap 9 mmol/L BUN 40 H (7-17) mg/dL Creatinine 0.72 (0.52-1.04) mg/dL Est GFR (CKD-EPI)AfAm >90 (>60 ml/min/1.73 sqM) Est GFR (CKD-EPI)NonAf >90 (>60 ml/min/1.73 sqM) Glucose 200 H (74-99) mg/dL Calcium 9.3 (8.4-10.2) mg/dL Total Bilirubin 0.5 (0.2-1.3) mg/dL AST 35 (14-36) U/L ALT 41 (9-52) U/L Alkaline Phosphatase 88 (38-126) U/L Troponin I (0.000-0.034) ng/mL Total Protein 6.3 (6.3-8.2) g/dL Albumin 3.9 (3.5-5.0) g/dL 11/26/18 Range/Units 21:00 WBC (3.8-10.6) k/uL RBC (3.80-5.40) m/uL Hgb (11.4-16.0) gm/dL Hct (34.0-46.0) % MCV (80.0-100.0) fL MCH (25.0-35.0) pg MCHC (31.0-37.0) g/dL RDW (11.5-15.5) % Plt Count (150-450) k/uL Neutrophils % % Lymphocytes % % Monocytes % % Eosinophils % % Basophils % % Neutrophils # (1.3-7.7) k/uL Lymphocytes # (1.0-4.8) k/uL Monocytes # (0-1.0) k/uL Eosinophils # (0-0.7) k/uL Basophils # (0-0.2) k/uL PT (9.0-12.0) sec INR (<1.2) APTT (22.0-30.0) sec Sodium (137-145) mmol/L Potassium (3.5-5.1) mmol/L Chloride (98-107) mmol/L Carbon Dioxide (22-30) mmol/L Anion Gap mmol/L BUN (7-17) mg/dL Creatinine (0.52-1.04) mg/dL Est GFR (CKD-EPI)AfAm (>60 ml/min/1.73 sqM) Est GFR (CKD-EPI)NonAf (>60 ml/min/1.73 sqM) Glucose (74-99) mg/dL Calcium (8.4-10.2) mg/dL Total Bilirubin (0.2-1.3) mg/dL AST (14-36) U/L ALT (9-52) U/L Alkaline Phosphatase (38-126) U/L Troponin I 0.042 H* (0.000-0.034) ng/mL Total Protein (6.3-8.2) g/dL Albumin (3.5-5.0) g/dL Disposition Clinical Impression: Acute respiratory distress, COPD exacerbation, Diabetes, Dyspnea, Elevated troponin, Hypoxia, NSTEMI (non-ST elevated myocardial infarction) Disposition: ADMITTED IP TO THIS HOSP Condition: Fair Is patient prescribed a controlled substance at d/c from ED?: No Time of Disposition: 23:03 Decision Date: 11/26/18 Decision Time: 23:04
[2018-11-26] MEDS ORDERED: HEPARIN SODIUM,PORCINE 5,000 UNIT/ML 1 ML VIAL IV ONE (23:06)
[2018-11-26] MEDS ORDERED: NITROGLYCERIN SL TABS 0.4 MG TAB SUBLINGUAL PRN (23:06)
[2018-11-26] MEDS ORDERED: HEPARIN SOD,PORK IN 0.45% NACL 25,000 UNIT in 0.45% NACL 1 250ML.BAG IV SCH (23:15)
[2018-11-26] MEDS ORDERED: MORPHINE SULFATE 4 MG/ML SYRINGE IV STA (23:27)
[2018-11-27 02:56] LABS: Cholesterol 188 mg/dL (<200); HDL Cholesterol 50 mg/dL (40-60); LDL Cholesterol,Calculated 108 mg/dL (0-99); Triglycerides 151 mg/dL (<150)
[2018-11-27] MEDS: ALPRAZolam 0.5 MG TAB PO PRN ×4 (04:21→20:19)
[2018-11-27] MEDS: NITROGLYCERIN OINT 1 INCH/GM PACKET TOPICAL SCH ×4 (06:24→17:43)
[2018-11-27] MEDS: HYDROcodone/APAP 10-325MG 1 EACH TAB PO PRN ×4 (06:26→20:19)
[2018-11-27] MEDS ORDERED: SYMBICORT 160-4.5 MCG INHALER INHALATION SCH (08:00)
[2018-11-27 08:40] LABS: Partial Thromboplastin Time 31.3 sec (22.0-30.0); Prothrombin Time 10.8 sec (9.0-12.0)
[2018-11-27] MEDS ORDERED: FUROSEMIDE 40 MG TAB PO SCH (09:00)
[2018-11-27] MEDS ORDERED: SPIRONOLACTONE 25 MG TAB PO SCH (09:00)
[2018-11-27] MEDS ORDERED: LISINOPRIL-HCTZ 20-25 MG 1 EACH TAB PO SCH (09:00)
[2018-11-27] MEDS ORDERED: predniSONE 20 MG TAB PO SCH (09:00)
[2018-11-27] MEDS: HEPARIN SODIUM,PORCINE 5,000 UNIT/ML 1 ML VIAL IV PRN ×2 (09:10→20:17)
[2018-11-27] MEDS: NYSTATIN 100,000 UNIT/ML SUSP 500,000 UNIT/5 ML CUP PO SCH ×4 (09:16→22:01)
[2018-11-27] MEDS: metFORMIN 500 MG TAB PO SCH ×3 (09:19→20:20)
[2018-11-27 09:20] LABS: Glucose,Whole Blood 187 mg/dL (75-99)
[2018-11-27] MEDS: GLIMEPIRIDE 4 MG TAB PO SCH (09:20)
[2018-11-27] MEDS: PIOGLITAZONE 30 MG TAB PO SCH (09:21)
[2018-11-27] MEDS: ASPIRIN 325 MG TAB PO SCH ×2 (09:33)
[2018-11-27] MEDS: METOPROLOL TARTRATE 50 MG TAB PO SCH ×2 (09:34→22:00)
[2018-11-27] MEDS: PANTOPRAZOLE 40 MG TABLET PO SCH (09:35)
[2018-11-27] MEDS: NAPROXEN 250 MG TAB PO SCH ×3 (09:35→22:01)
[2018-11-27] MEDS: methylPREDNISolone SOD SUCCI 125 MG/2 ML VIAL IV SCH ×3 (09:36→17:43)
[2018-11-27] MEDS: POTASSIUM CHLORIDE ER 20 MEQ TAB.ER PO SCH (09:36)
[2018-11-27] MEDS: IPRATROPIUM-ALBUTEROL 3 ML NEB INHALATION SCH ×5 (09:48→23:25)
[2018-11-27] MEDS: HEPARIN SOD,PORK IN 0.45% NACL 25,000 UNIT in 0.45% NACL 1 250ML.BAG IV SCH ×2 (10:47→22:07)
[2018-11-27 11:52] LABS: Glucose,Whole Blood 173 mg/dL (75-99)
--- NOTE | 2018-11-27 12:53 | P.CRDCN ---
History of Present Illness Consult date: 11/27/18 History of present illness: This is a 58-year-old female with history of severe COPD was admitted to the hospital with and multiple medications. Patient came this time to the hospital with increasing shortness of breath and chest tight feeling and also blood pressure being low. On admission, patient was noted to have sinus tachycardia with a diffuse ST-T abnormalities. Her troponin was some borderline elevated. We're asked to see the patient for cardiac evaluation. She follows with Dr. Elise regularly for her cardiac follow-up. She claims that about 7 years ago she had a cardiac catheterization and was not found to have an obstructive disease. She thinks she might have had a stress test last year. The time of my examination, patient seemed to be reasonably comfortable though she has chronic shortness of breath and wheezing. It appears that her troponin values may be nonspecific and probably related to hypoxia. We'll going to get an echocardiogram to assess LV function. Previous echo Cardigan showed normal LV function. Further recommendations depend upon the clinical course. She is also being treated for her COPD exacerbation. She follows with processing lead regularly Review of Systems As per the chart Past Medical History Past Medical History: Asthma, Chest Pain / Angina, Heart Failure, COPD, Diabetes Mellitus, GERD/Reflux, Hypertension, Osteoarthritis (OA), Pneumonia, Pulmonary Embolus (PE), Renal Disease, Sleep Apnea/CPAP/BIPAP Additional Past Medical History / Comment(s): Advanced oxygen-dependent COPD with an FEV1 of 33% of predicted , severe obstructive sleep apnea maintained on BiPAP at a pressure of 18/14 cm of water, chronic hypoxic respiratory failure maintained on oxygen 2 liters nasal cannula(4 at hs), NIDDM type II, DJD, low back pain which radiates down L hip and L leg at times, viral myocarditis, hypertension, morbid obesity with cushingoid features, generalized anxiety disorder, ocd. 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 L hand 3rd finger tendon repair, D&C, carpal tunnel left hand,, Past Anesthesia/Blood Transfusion Reactions: No Reported Reaction Past Psychological History: Anxiety Smoking Status: Former smoker Past Alcohol Use History: None Reported Past Drug Use History: None Reported - Past Family History Father Family Medical History: No Reported History Mother Family Medical History: No Reported History Additional Family Medical History / Comment(s): Mother of alcoholism at the age of 63 yrs. Medications and Allergies Home Medications Medication Instructions Recorded Confirmed Type Glimepiride [Amaryl] 4 mg PO AC-BRKFST 07/31/17 11/26/18 History Potassium Chloride [Klor-Con 20] 20 meq PO DAILY 07/31/17 11/26/18 History Budesonide-Formot 160-4.5 Mcg 2 puff INHALATION RT-BID 09/06/18 11/26/18 History [Symbicort 160-4.5 Mcg Inhaler] HYDROcodone/APAP 10-325MG [[place] 1 tab PO Q6HR PRN 09/06/18 11/26/18 History 10-325] ALPRAZolam [Xanax] 0.5 mg PO Q6H PRN 09/27/18 11/26/18 History Albuterol Inhaler [Ventolin Hfa 2 puff INHALATION RT-Q4H PRN 09/27/18 11/26/18 History Inhaler] Furosemide [Lasix] 40 mg PO BID 09/27/18 11/26/18 History Lisinopril-Hctz 20-25 mg 1 tab PO DAILY 09/27/18 11/26/18 History [Zestoretic 20-25] Metoprolol Tartrate [Lopressor] 25 mg PO BID 09/27/18 11/26/18 History Omeprazole 40 mg PO DAILY 09/27/18 11/26/18 History Pioglitazone HCl [Actos] 30 mg PO DAILY 09/27/18 11/26/18 History Spironolactone 50 mg PO DAILY 09/27/18 11/26/18 History Ipratropium-Albuterol Nebulize 3 ml INHALATION QID #120 10/27/18 11/26/18 Rx [Duoneb 0.5 mg-3 mg/3 ml Soln] predniSONE 20 mg PO DAILY 11/19/18 11/26/18 History Baclofen [Lioresal] 5 mg PO Q8H PRN #20 tab 11/21/18 11/26/18 Rx Naproxen [Naprosyn] 250 mg PO TID #21 tab 11/21/18 11/26/18 Rx Nystatin 100,000 Unit/ml Susp 400,000 ml PO QID 11/26/18 11/26/18 History [Mycostatin Oral Susp] metFORMIN HCL 1,000 mg PO QAM 11/26/18 11/26/18 History metFORMIN HCL [Glucophage] 500 mg PO HS 11/26/18 11/26/18 History Allergies Allergy/AdvReac Type Severity Reaction Status Date / Time budesonide [From Pulmicort] AdvReac Wheezing Verified 11/26/18 23:08 Physical Exam Vitals: Vital Signs Temp Pulse Resp BP Pulse Ox 11/27/18 11:28 97 20 107/87 95 11/27/18 09:58 114 H 11/27/18 09:48 104 H 11/27/18 08:43 97.7 F 103 H 20 113/71 95 11/27/18 06:29 85 22 145/73 95 11/27/18 02:30 114 H 20 143/97 94 L 11/27/18 00:23 117 H 22 105/72 91 L 11/26/18 23:35 112 H 11/26/18 23:21 116 H 11/26/18 22:44 111 H 11/26/18 22:28 107 H 11/26/18 20:13 97.7 F 107 H 20 95/61 92 L Intake and Output 11/26/18 11/27/18 11/27/18 22:59 06:59 14:59 Intake Total 86.667 Balance 86.667 Intake: Intake, IV Titration 86.667 Amount Heparin Sod,Pork in 0.45% 86.667 NaCl 25,000 unit In 0.45 % NaCl 1 250ml.bag @ 10 mls/hr IV .Q24H [facility] Rx#: [id number] Other: Weight 89.358 kg GENERAL EXAM: Patient is alert and oriented and in mild to moderate distress HEENT: Normocephalic. Normal reaction of pupils, equal size, normal range of extraocular motion. No erythema or exudates in the throat. NECK: No masses, no nuchal rigidity. CHEST: No chest wall deformity. LUNGS: Diminished air exchange and also expiratory wheezing and rhonchi HEART: Distant heart sounds ABDOMEN: No hepatosplenomegaly, normal bowel sounds, no guarding or rigidity. SKIN: No rashes CENTRAL NERVOUS SYSTEM: No focal deficits. EXTREMITIES: No cyanosis, clubbing or edema. Results 11/26/18 21:00 11/26/18 21:00 Cardiac Enzymes 11/26/18 11/26/18 11/27/18 Range/Units 21:00 21:00 02:30 AST 35 (14-36) U/L Troponin I 0.042 H* 0.050 H* (0.000-0.034) ng/mL 11/27/18 Range/Units 08:48 AST (14-36) U/L Troponin I 0.034 (0.000-0.034) ng/mL Coagulation 11/26/18 11/27/18 Range/Units 21:00 08:12 PT 10.9 10.8 (9.0-12.0) sec APTT 20.3 L 31.3 H (22.0-30.0) sec Lipids 11/27/18 Range/Units 02:30 Triglycerides 151 H (<150) mg/dL Cholesterol 188 (<200) mg/dL HDL Cholesterol 50 (40-60) mg/dL CBC 11/26/18 Range/Units 21:00 WBC 13.2 H (3.8-10.6) k/uL RBC 3.99 (3.80-5.40) m/uL Hgb 11.8 (11.4-16.0) gm/dL Hct 35.6 (34.0-46.0) % Plt Count 297 (150-450) k/uL Comprehensive Metabolic Panel 11/26/18 Range/Units 21:00 Sodium 136 L (137-145) mmol/L Potassium 3.9 (3.5-5.1) mmol/L Chloride 96 L (98-107) mmol/L Carbon Dioxide 31 H (22-30) mmol/L BUN 40 H (7-17) mg/dL Creatinine 0.72 (0.52-1.04) mg/dL Glucose 200 H (74-99) mg/dL Calcium 9.3 (8.4-10.2) mg/dL AST 35 (14-36) U/L ALT 41 (9-52) U/L Alkaline Phosphatase 88 (38-126) U/L Total Protein 6.3 (6.3-8.2) g/dL Albumin 3.9 (3.5-5.0) g/dL Current Medications Generic Name Dose Route Start Last Admin Trade Name Freq PRN Reason Stop Dose Admin Hydrocodone Bitart/Acetaminophen 1 each 11/26/18 23:15 11/27/18 09:14 [place] 10 PO 1 each Q6HR PRN Administration Pain Albuterol/Ipratropium 3 ml 11/27/18 12:00 11/27/18 09:48 Duoneb 0.5 Mg-3 Mg/3 Ml Soln INHALATION 3 ml RT-Q4H HERBERT Administration Alprazolam 0.5 mg 11/26/18 23:15 11/27/18 10:43 Xanax PO 0.5 mg Q6H PRN Administration Anxiety Aspirin 325 mg 11/27/18 09:00 11/27/18 09:33 Aspirin PO Not Given DAILY HERBERT Baclofen 5 mg 11/26/18 23:15 Lioresal PO Q8H PRN Spasms Budesonide 1 mg 11/27/18 20:00 Pulmicort INHALATION RT-BID HERBERT Formoterol Fumarate 20 mcg 11/27/18 20:00 Perforomist INHALATION RT-BID HERBERT Furosemide 40 mg 11/27/18 09:00 11/27/18 09:33 Lasix PO 40 mg BID HERBERT Administration Glimepiride 4 mg 11/27/18 07:30 11/27/18 09:20 Amaryl PO 4 mg AC-BRKFST HERBERT Administration Lisinopril/HCTZ 1 each 11/27/18 09:00 11/27/18 09:15 Zestoretic 20-25 PO 1 each DAILY HERBERT Administration Heparin Sodium (Porcine) 0 unit 11/26/18 23:06 11/27/18 09:10 Heparin IV 4,000 unit Q6HR PRN Administration Low PTT Protocol Heparin Sodium/Sodium Chloride 250 mls @ 12.689 mls/hr 11/27/18 11:15 11/27 10:47 25,000 unit/ Sodium Chloride IV 14.2 unit/kg/hr .[id number] HERBERT 12.689 mls/hr Administration Protocol 14.2 UNIT/KG/HR Metformin HCl 500 mg 11/27/18 21:00 Glucophage PO HS HERBERT Metformin HCl 1,000 mg 11/27/18 09:00 11/27/18 09:20 Glucophage PO 1,000 mg QAM HERBERT Administration Methylprednisolone Sodium Succinate 60 mg 11/27/18 09:00 11/27/18 09:36 Solu-Medrol IV 60 mg QID HERBERT Administration Metoprolol Tartrate 25 mg 11/27/18 09:00 11/27/18 09:34 Lopressor PO 25 mg BID HERBERT Administration Naproxen 250 mg 11/27/18 09:00 11/27/18 09:35 Naprosyn PO 250 mg TID HERBERT Administration Nitroglycerin 1 inch 11/27/18 00:00 11/27/18 08:08 Nitro-Bid Oint TOPICAL Not Given Q6HR [facility] Nitroglycerin 0.4 mg 11/26/18 23:06 Nitrostat SUBLINGUAL Q5M PRN Chest Pain Nystatin 500,000 unit 11/27/18 09:00 11/27/18 09:16 Mycostatin Oral Susp PO 500,000 unit QID HERBERT Administration Pantoprazole Sodium 40 mg 11/27/18 09:00 11/27/18 09:35 Protonix PO 40 mg DAILY HERBERT Administration Pioglitazone HCl 30 mg 11/27/18 09:00 11/27/18 09:21 Actos PO 30 mg DAILY HERBERT Administration Potassium Chloride 20 meq 11/27/18 09:00 11/27/18 09:36 K-Dur 20 PO 20 meq DAILY HERBERT Administration Spironolactone 50 mg 11/27/18 09:00 11/27/18 09:35 Aldactone PO 50 mg DAILY HERBERT Administration Intake and Output 11/26/18 11/27/18 11/27/18 22:59 06:59 14:59 Intake Total 86.667 Balance 86.667 Intake: Intake, IV Titration 86.667 Amount Heparin Sod,Pork in 0.45% 86.667 NaCl 25,000 unit In 0.45 % NaCl 1 250ml.bag @ 10 mls/hr IV .Q24H [facility] Rx#: [id number] Other: Weight 89.358 kg 11/26/18 21:00 11/26/18 21:00 EKG Interpretations (text) Sinus tachycardia with a diffuse nonspecific ST-T changes Assessment and Plan (1) Acute respiratory distress Current Visit: Yes Status: Acute Code(s): R06.03 - ACUTE RESPIRATORY DISTRESS SNOMED Code(s): 180550265 (2) COPD exacerbation Current Visit: Yes Status: Acute Code(s): J44.1 - CHRONIC OBSTRUCTIVE PULMONARY DISEASE W (ACUTE) EXACERBATION SNOMED Code(s): 519697873 (3) Elevated troponin Current Visit: Yes Status: Acute Code(s): R74.8 - ABNORMAL LEVELS OF OTHER SERUM ENZYMES SNOMED Code(s): 185870751 (4) Chronic CHF Current Visit: No Status: Acute Code(s): I50.9 - HEART FAILURE, UNSPECIFIED SNOMED Code(s): 97956456 Plan: Continue current medical therapy. We will get an echocardiogram. Further examination depend upon the clinical course. Continue current management of the COPD
--- NOTE | 2018-11-27 14:38 | P.CNPUL ---
History of Present Illness Consult date: 11/27/18 Requesting physician: Ranjith Mendoza Chief complaint: Shortness of breath, wheezing, cough, left lateral chest pain, back pain History of present illness: This is a 58-year-old white female patient of Dr. Monroe with history of stage IV COPD on chronic home oxygen, baseline FEV1 of 33% of predicted, sleep apnea on BiPAP therapy, diabetes mellitus type 2, generalized anxiety disorder, osteoarthritis, diabetes mellitus2, former smoker, history of chronic bronchial asthma, morbid obesity with cushingoid features, chronic back pain. Patient presented to the emergency department on 11/26/2018 with complaints of left lower lateral chest pain, and severe back pain, some shortness of breath, wheezing. Denied any fever or chills, denied any substernal pain, or discomfort. She does have chronic back pain, and apparently patient had recent CT of the spine on an outpatient basis, revealing degenerative changes in her spine. Report is not available to us at this time. 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 No weight loss, no hemoptysis. She then mentioned that she had also seen a physician for some discomfort in her left toe and apparently she had a test to check her circulation and the results are not available. Chest x-ray was completed in the emergency department showing subsegmental scattered ill-defined opacities, seen previously on previous chest x-rays, no new pulmonary or pleural processes. EKG showed sinus tachycardia, with T-wave inversion in anterior and lateral leads, troponins were elevated to 0.042, 0.050, and 0.034. White blood cell count was 13.2, hemoglobin was 11.8, serum sodium was 136, potassium is 3.9, chloride is 96, CO2 31, BUN is 40, creatinine 0.72. LFTs were within normal limits, patient was started on IV heparin for concerns of non-ST elevated myocardial infarction, patient has been seen by cardiology. Patient is normally on 20 mg of prednisone as a maintenance dose on a daily basis, she's been started on IV Solu-Medrol, breathing treatments, patient is on maintenance dose of azithromycin 250 mg on the Monday schedule for the anti-inflammatory properties. Review of Systems All systems: negative Constitutional: Denies chills, Denies fever Eyes: denies blurred vision, denies pain Ears, nose, mouth and throat: Denies headache, Denies sore throat Cardiovascular: Denies chest pain, Denies shortness of breath Respiratory: Reports cough with sputum, Reports dyspnea, Reports home oxygen, Reports respiratory infections, Reports wheezing, Denies cough Gastrointestinal: Denies abdominal pain, Denies diarrhea, Denies nausea, Denies vomiting Genitourinary: Denies dysuria, Denies hematuria Musculoskeletal: Denies myalgias Integumentary: Denies pruritus, Denies rash Neurological: Denies numbness, Denies weakness Psychiatric: Denies anxiety, Denies depression Endocrine: Denies fatigue, Denies weight change Past Medical History Past Medical History: Asthma, Chest Pain / Angina, Heart Failure, COPD, Diabetes Mellitus, GERD/Reflux, Hypertension, Osteoarthritis (OA), Pneumonia, Pulmonary Embolus (PE), Renal Disease, Sleep Apnea/CPAP/BIPAP Additional Past Medical History / Comment(s): Advanced oxygen-dependent COPD with an FEV1 of 33% of predicted , severe obstructive sleep apnea maintained on BiPAP at a pressure of 18/14 cm of water, chronic hypoxic respiratory failure maintained on oxygen 2 liters nasal cannula(4 at hs), NIDDM type II, DJD, low back pain which radiates down L hip and L leg at times, viral myocarditis, hypertension, morbid obesity with cushingoid features, generalized anxiety disorder, ocd. 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 L hand 3rd finger tendon repair, D&C, carpal tunnel left hand,, Past Anesthesia/Blood Transfusion Reactions: No Reported Reaction Past Psychological History: Anxiety Smoking Status: Former smoker Past Alcohol Use History: None Reported Past Drug Use History: None Reported - Past Family History Father Family Medical History: No Reported History Mother Family Medical History: No Reported History Additional Family Medical History / Comment(s): Mother of alcoholism at the age of 63 yrs. Medications and Allergies Home Medications Medication Instructions Recorded Confirmed Type Glimepiride [Amaryl] 4 mg PO AC-BRKFST 07/31/17 11/26/18 History Potassium Chloride [Klor-Con 20] 20 meq PO DAILY 07/31/17 11/26/18 History Budesonide-Formot 160-4.5 Mcg 2 puff INHALATION RT-BID 09/06/18 11/26/18 History [Symbicort 160-4.5 Mcg Inhaler] HYDROcodone/APAP 10-325MG [Munising 1 tab PO Q6HR PRN 09/06/18 11/26/18 History 10-325] ALPRAZolam [Xanax] 0.5 mg PO Q6H PRN 09/27/18 11/26/18 History Albuterol Inhaler [Ventolin Hfa 2 puff INHALATION RT-Q4H PRN 09/27/18 11/26/18 History Inhaler] Furosemide [Lasix] 40 mg PO BID 09/27/18 11/26/18 History Lisinopril-Hctz 20-25 mg 1 tab PO DAILY 09/27/18 11/26/18 History [Zestoretic 20-25] Metoprolol Tartrate [Lopressor] 25 mg PO BID 09/27/18 11/26/18 History Omeprazole 40 mg PO DAILY 09/27/18 11/26/18 History Pioglitazone HCl [Actos] 30 mg PO DAILY 09/27/18 11/26/18 History Spironolactone 50 mg PO DAILY 09/27/18 11/26/18 History Ipratropium-Albuterol Nebulize 3 ml INHALATION QID #120 10/27/18 11/26/18 Rx [Duoneb 0.5 mg-3 mg/3 ml Soln] predniSONE 20 mg PO DAILY 11/19/18 11/26/18 History Baclofen [Lioresal] 5 mg PO Q8H PRN #20 tab 11/21/18 11/26/18 Rx Naproxen [Naprosyn] 250 mg PO TID #21 tab 11/21/18 11/26/18 Rx Nystatin 100,000 Unit/ml Susp 400,000 ml PO QID 11/26/18 11/26/18 History [Mycostatin Oral Susp] metFORMIN HCL 1,000 mg PO QAM 11/26/18 11/26/18 History metFORMIN HCL [Glucophage] 500 mg PO HS 11/26/18 11/26/18 History Allergies Allergy/AdvReac Type Severity Reaction Status Date / Time budesonide [From Pulmicort] AdvReac Wheezing Verified 11/26/18 23:08 Physical Exam Vitals: Vital Signs Temp Pulse Resp BP Pulse Ox 11/27/18 13:28 103 H 11/27/18 13:18 101 H 11/27/18 11:28 97 20 107/87 95 11/27/18 09:58 114 H 11/27/18 09:48 104 H 11/27/18 08:43 97.7 F 103 H 20 113/71 95 11/27/18 06:29 85 22 145/73 95 11/27/18 02:30 114 H 20 143/97 94 L 11/27/18 00:23 117 H 22 105/72 91 L 11/26/18 23:35 112 H 11/26/18 23:21 116 H 11/26/18 22:44 111 H 11/26/18 22:28 107 H 11/26/18 20:13 97.7 F 107 H 20 95/61 92 L Intake and Output 11/26/18 11/27/18 11/27/18 22:59 06:59 14:59 Intake Total 86.667 Balance 86.667 Intake: Intake, IV Titration 86.667 Amount Heparin Sod,Pork in 0.45% 86.667 NaCl 25,000 unit In 0.45 % NaCl 1 250ml.bag @ 10 mls/hr IV .Q24H [facility] Rx#: [id number] Other: Weight 89.358 kg GENERAL EXAM: Alert, pleasant, 58-year-old white female, resting on the gurney in the emergency department, on her right side on 2 L of oxygen with a pulse ox of 95%, comfortable in no apparent distress. HEAD: Normocephalic/atraumatic. EYES: Normal reaction of pupils, equal size. Conjunctiva pink, sclera white. NOSE: Clear with pink turbinates. THROAT: No erythema or exudates. NECK: No masses, no JVD, no thyroid enlargement, no adenopathy. CHEST: No chest wall deformity. Symmetrical expansion. LUNGS: Equal air entry with diffuse wheezes CVS: Regular rate and rhythm, normal S1 and S2, no gallops, no murmurs, no rubs ABDOMEN: Soft, nontender. No hepatosplenomegaly, normal bowel sounds, no guarding or rigidity. EXTREMITIES: No clubbing, no edema, no cyanosis, 2+ pulses and upper and lower extremities. MUSCULOSKELETAL: Muscle strength and tone normal. SPINE: No scoliosis or deformity SKIN: No rashes CENTRAL NERVOUS SYSTEM: Alert and oriented -3. No focal deficits, tone is normal in all 4 extremities. PSYCHIATRIC: Alert and oriented -3. Appropriate affect. Intact judgment and insight. Results - Laboratory Findings CBC and BMP: 11/26/18 21:00 11/26/18 21:00 PT/INR, D-dimer PT 10.8 sec (9.0-12.0) 11/27/18 08:12 INR 1.0 (<1.2) 11/27/18 08:12 Abnormal lab findings: Abnormal Labs 11/26/18 11/26/18 11/26/18 21:00 21:00 21:00 WBC 13.2 H Neutrophils # 11.9 H APTT 20.3 L Sodium 136 L Chloride 96 L Carbon Dioxide 31 H BUN 40 H Glucose 200 H POC Glucose (mg/dL) Troponin I Triglycerides LDL Cholesterol, Calc 11/26/18 11/27/18 11/27/18 21:00 02:30 02:30 WBC Neutrophils # APTT Sodium Chloride Carbon Dioxide BUN Glucose POC Glucose (mg/dL) Troponin I 0.042 H* 0.050 H* Triglycerides 151 H LDL Cholesterol, Calc 108 H 11/27/18 11/27/18 11/27/18 08:12 09:18 11:51 WBC Neutrophils # APTT 31.3 H Sodium Chloride Carbon Dioxide BUN Glucose POC Glucose (mg/dL) 187 H 173 H Troponin I Triglycerides LDL Cholesterol, Calc - Diagnostic Findings Chest x-ray: report reviewed, image reviewed Assessment and Plan Plan: Assessment: #1. Chest tightness, positive troponin's, anterolateral T-wave inversion on the EKG, rule out non-ST elevated myocardial infarction, cardiology is following #2. Severe back pain, acute on chronic, patient states she had a recent CT of the spine is not patient, and was told that she has degenerative arthritis of the spineLeft-sided lateral chest wall rib cage pain #3. Left-sided lateral chest wall rib cage pain #4. Mild exacerbation of COPD #5. Advanced COPD, stage IV, with FEV of 33% of predicted, with chronic hypoxemic respiratory failure #6. Sleep apnea on BiPAP therapy, severe. Home BiPAP settings are 18/14, and FiO2 of 36% #7. Diabetes mellitus type 2 #8. Osteoarthritis #9. Generalized anxiety disorder #10. Chronic back pain #11. History of nicotine dependence, currently in remission #12. Hospitalizations for complications related to COPD exacerbation #13. Previous episodes of pneumonia Plan: Continue current treatment plan, IV steroids, nebulized bronchodilators, we'll switch Symbicort 2 Pulmicort and Perforomist, we'll put the patient back on her maintenance dose of Zithromax 250 mg on Monday schedule. Patient is being evaluated by cardiology for possibility of non-ST elevated myocardial infarction. Chest x-ray has been reviewed, showed chronic changes without acute new pulmonary infiltrates. We'll continue to follow and make further recommendations I performed a history & physical examination of the patient and discussed their management with my nurse practitioner, Rand Gillis. I reviewed the nurse practitioner's note and agree with the documented findings and plan of care. Lung sounds are positive for diffuse wheezes throughout the lung pérez. The findings and the impression was discussed with the patient. I attest to the documentation by the nurse practitioner. Time with Patient: Greater than 30
[2018-11-27] MEDS: BACLOFEN 10 MG TAB PO PRN ×2 (15:02→22:00)
[2018-11-27 17:05] LABS: Glucose,Whole Blood 209 mg/dL (75-99)
[2018-11-27] MEDS: INSULIN ASPART (NovoLOG) 100 UNIT/ML VIAL SQ SCH ×2 (17:51→22:00)
--- NOTE | 2018-11-27 19:11 | ECHOF ---
Referral Reason:sob MEASUREMENTS -------- HEIGHT: 154.9 cm WEIGHT: 89.4 kg BP: 145/73 IVSd: 1.6 cm (0.6 - 1.1) LVIDd: 4.2 cm (3.9 - 5.3) LVPWd: 1.6 cm (0.6 - 1.1) IVSs: 1.5 cm LVIDs: 3.1 cm LVPWs: 1.7 cm IVSd: 2.1 cm (0.6 - 1.1) LVIDd: 4.7 cm (3.9 - 5.3) LVPWd: 1.5 cm (0.6 - 1.1) IVSs: 2.2 cm LVIDs: 3.7 cm LVPWs: 2.1 cm EDV(Teich): 100 ml ESV(Teich): 57 ml EF(Teich): 43 % %FS: 21 % SV(Teich): 43 ml FINDINGS -------- Resting tachycardia (HR>100bpm). This was a technically difficult study with suboptimal views. LIMITED STUDY. Overall left ventricular systolic function is mildly impaired with, an EF between 45 - 50 %. Lumason used CONCLUSIONS -------- 1. Resting tachycardia (HR>100bpm). 2. This was a technically difficult study with suboptimal views. LIMITED STUDY 3. Overall left ventricular systolic function is mildly impaired with, an EF between 45 - 50 %. 4. Lumason used APPLICATIONS SUPPORT LEAD: Cydney Avilez JANINA
[2018-11-27] MEDS ORDERED: BUDESONIDE 1 MG/2 ML NEBU INHALATION SCH (20:00)
[2018-11-27] MEDS ORDERED: FORMOTEROL FUMARATE 20 MCG/2 ML NEBU INHALATION SCH (20:00)
[2018-11-27] MEDS: SYMBICORT 160-4.5 MCG INHALER INHALATION SCH (20:37)
[2018-11-27 21:38] LABS: Glucose,Whole Blood 241 mg/dL (75-99)
--- NOTE | 2018-11-27 22:52 | HP ---
HISTORY AND PHYSICAL DATE OF ADMISSION: 11/26/2018 DATE OF SERVICE: 11/27/2018 PRESENTING COMPLAINT: Low blood pressure. HISTORY OF PRESENTING COMPLAINT: This is a pleasant 58-year-old patient who follows with Dr. Monroe. Chronic stable medical conditions include diabetes, GERD, hypertension, obstructive sleep apnea, uses BiPAP, and lumbar osteoarthritis with muscle spasm, radiculopathy. Patient at baseline has some shortness of breath. She presents with blood pressure that is running low. She has shortness of breath, occasional chest tightness. No chest pressure. No dizziness. No lightheadedness. Some lower extremity swelling. No fever. No chills. Occasional cough. Patient has been diagnosed with left vocal cord paresis. REVIEW OF SYSTEMS: CONSTITUTIONAL: Tired. HEENT: Hoarse voice. RESPIRATORY: As above. CARDIOVASCULAR: As above. GASTROINTESTINAL: None. GENITOURINARY: None. MUSCULOSKELETAL: Pain in the lower back. DERMATOLOGICAL: None. HEMATOLOGICAL: None. LYMPHATICS: None. PSYCHIATRY: Slightly anxious. NEUROLOGICAL: None. PAST MEDICAL HISTORY: 1. COPD. 2. Diabetes. 3. GERD. 4. Hypertension. 5. Pulmonary embolism. 6. Obstructive sleep apnea. 7. Osteoarthritis. 8. Low back pain from lumbar osteoarthritis, muscle spasm, radiculopathy. 9. Myocarditis. 10.Anxiety disorder. 11.OCD. 12.Left vocal cord paresis. PAST SURGICAL HISTORY: 1. Adenoidectomy. 2. Cholecystectomy. 3. Cardiac catheterization. 4. Orthopedic surgery. 5. Tonsillectomy. 6. Tubal ligation. 7. Left hand third finger tendon surgery. PSYCH HISTORY: Anxiety. SOCIAL HISTORY: Lives with boyfriend. Stopped smoking in 2016. Smoked for 38 years. Has home oxygen, CPAP. Started smoking in 1977. Smoked half a pack a day and stopped in 2015. FAMILY HISTORY: Mother of alcoholism. HOME MEDICATIONS: 1. Baclofen 5 mg q.8 p.r.n. 2. Xanax 0.5 p.o. q.6 p.r.n. 3. Glucophage 500 mg at bedtime. 4. Metformin 1000 mg p.o. daily. 5. Nystatin 400,000 units p.o. q.i.d. 6. Prednisone 20 mg a day. 7. Aldactone 50 mg a day. 8. Potassium 20 mEq a day. 9. Actos 30 mg p.o. daily. 10.Omeprazole 40 mg p.o. daily. 11.Naproxen 250 mg t.i.d. 12.Lopressor 25 mg b.i.d. 13.Zestoretic 20/25 one tablet p.o. daily. 14.DuoNeb q.i.d. 15.Lake 10 one tablet q.6 p.r.n. 16.Amaryl 4 mg before breakfast. 17.Lasix 40 mg b.i.d. 18.Symbicort 160/4.5 two puffs b.i.d. 19.Ventolin HFA 2 puffs q.4 p.r.n. ALLERGIES: PULMICORT. PHYSICAL EXAMINATION: VITAL SIGNS ON PRESENTATION: Temperature 97.7, pulse 107, respiration 20, blood pressure 95/61, pulse ox 92% on 2 L. GENERAL APPEARANCE: Well built; BMI 37.2. Sitting at the edge of the bed, slightly short of breath. EYES: Pupils equal. Conjunctivae normal. HEENT: External appearance of nose and ears normal. Oral cavity normal. Nasal cannula in place. NECK: JVD not raised. Mass not palpable. RESPIRATORY: Effort increased. LUNGS: Diminished breath sounds. Prolonged expiration. CARDIOVASCULAR: First and second sounds normal. Edema present. ABDOMEN: Soft, nontender. Liver and spleen not palpable. LYMPHATIC: No lymph node palpable in neck or axillae. PSYCHIATRY: Alert and oriented x3. Mood and affect normal. NEUROLOGICAL: Pupils equal. Cranial nerves grossly intact. Power and sensation grossly intact. INVESTIGATIONS: White count 13.2, hemoglobin 11.8, platelets 297, potassium 3.9, BUN 40, creatinine 0.72. Troponin 0.042, 0.050. LDL 108. EKG tracing, personally reviewed by me, shows flipped T-waves in V2 to V6. Two-D echocardiogram from September of this year showed preserved LV function. Limited echocardiogram done today showed EF of 45% to 50%. Chest x-ray film, personally reviewed by me, shows borderline cardiomegaly and some venous prominence. ASSESSMENT: 1. This is a patient who presents with low blood pressure. It may be noted that recently patient's echocardiogram showed preserved LV function, EF around 50%. Patient had a significant amount of diuretics, including hydrochlorothiazide, Lasix 40 mg twice a day and also Aldactone 50 mg a day along with anti-hypertensive. This well could explain patient's low blood pressure. Patient has some elevation of troponin and flipped T-waves in anterior leads. Underlying cardiac ischemia needs to be ruled out. 2. Chronic obstructive pulmonary disease exacerbation in an ex-smoker. 3. Diabetes mellitus, type 2, on oral hypoglycemic. 4. Gastroesophageal reflux disease. 5. Essential hypertension, history of. 6. Obstructive sleep apnea. Uses BiPAP. 7. Primary osteoarthritis, especially of the lumbar spine with muscle spasm and radiculopathy. 8. Generalized anxiety disorder. 9. Left vocal cord paresis. PLAN: Patient was put on bronchodilators, steroids. Also was put on IV heparin in the ER. Cardiology was consulted. Will decrease the Lasix to 40 mg once a day and will hold off the Aldactone for right now. EF is still well above 40%. Will switch the Zestoretic to an evening dose. Patient has had a cardiac cath in the past that was reportedly negative. Patient may need a stress test to define if there is any ischemia. Other home medications are to continue. Care was discussed with the patient. Consultations to Cardiology and Pulmonary. MMODL / IJN: [id number] /
[2018-11-27] MEDS: methylPREDNISolone SOD SUCCI 40 MG/ML 1 ML VIAL IV SCH (23:36)
[2018-11-28] MEDS: IPRATROPIUM-ALBUTEROL 3 ML NEB INHALATION SCH ×6 (04:12→23:58)
[2018-11-28 05:47] LABS: Glucose,Whole Blood 218 mg/dL (75-99)
[2018-11-28] MEDS: INSULIN ASPART (NovoLOG) 100 UNIT/ML VIAL SQ SCH ×4 (06:25→21:49)
[2018-11-28] MEDS: GLIMEPIRIDE 4 MG TAB PO SCH (06:25)
[2018-11-28] MEDS: ALPRAZolam 0.5 MG TAB PO PRN ×3 (06:48→19:59)
[2018-11-28] MEDS: HYDROcodone/APAP 10-325MG 1 EACH TAB PO PRN ×3 (06:48→20:00)
[2018-11-28] MEDS: SYMBICORT 160-4.5 MCG INHALER INHALATION SCH ×2 (08:34→19:10)
[2018-11-28] MEDS: NYSTATIN 100,000 UNIT/ML SUSP 500,000 UNIT/5 ML CUP PO SCH ×4 (09:42→21:50)
[2018-11-28] MEDS: NAPROXEN 250 MG TAB PO SCH (09:43)
[2018-11-28] MEDS: PANTOPRAZOLE 40 MG TABLET PO SCH (09:43)
[2018-11-28] MEDS: POTASSIUM CHLORIDE ER 20 MEQ TAB.ER PO SCH (09:44)
[2018-11-28] MEDS: ASPIRIN 325 MG TAB PO SCH (09:44)
[2018-11-28] MEDS: PIOGLITAZONE 30 MG TAB PO SCH (09:44)
[2018-11-28] MEDS: METOPROLOL TARTRATE 50 MG TAB PO SCH ×2 (09:45→19:58)
[2018-11-28] MEDS: metFORMIN 500 MG TAB PO SCH ×2 (09:46→19:58)
[2018-11-28] MEDS: methylPREDNISolone SOD SUCCI 40 MG/ML 1 ML VIAL IV SCH ×3 (09:46→22:55)
[2018-11-28] MEDS: BACLOFEN 10 MG TAB PO PRN ×2 (11:44→19:59)
[2018-11-28] MEDS: HEPARIN SOD,PORK IN 0.45% NACL 25,000 UNIT in 0.45% NACL 1 250ML.BAG IV SCH (11:56)
--- NOTE | 2018-11-28 12:01 | P.PN ---
Subjective Progress Note Date: 11/28/18 This is a 58-year-old white female patient of Dr. Monroe with history of stage IV COPD on chronic home oxygen, baseline FEV1 of 33% of predicted, sleep apnea on BiPAP therapy, diabetes mellitus type 2, generalized anxiety disorder, osteoarthritis, diabetes mellitus2, former smoker, history of chronic bronchial asthma, morbid obesity with cushingoid features, chronic back pain. Patient presented to the emergency department on 11/26/2018 with complaints of left lower lateral chest pain, and severe back pain, some shortness of breath, wheezing. Denied any fever or chills, denied any substernal pain, or discomfort. She does have chronic back pain, and apparently patient had recent CT of the spine on an outpatient basis, revealing degenerative changes in her spine. Report is not available to us at this time. 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 No weight loss, no hemoptysis. She then mentioned that she had also seen a physician for some discomfort in her left toe and apparently she had a test to check her circulation and the results are not available. Chest x-ray was completed in the emergency department showing subsegmental scattered ill-defined opacities, seen previously on previous chest x-rays, no new pulmonary or pleural processes. EKG showed sinus tachycardia, with T-wave inversion in anterior and lateral leads, troponins were elevated to 0.042, 0.050, and 0.034. White blood cell count was 13.2, hemoglobin was 11.8, serum sodium was 136, potassium is 3.9, chloride is 96, CO2 31, BUN is 40, creatinine 0.72. LFTs were within normal limits.echocardiogram with Doppler study was performed which revealed an erection fraction of 45-50%. Objective - Vital Signs Vital signs: Vital Signs Temp 96.7 F L 11/27/18 20:00 Pulse 96 11/28/18 11:47 Resp 20 11/28/18 04:00 BP 112/59 11/28/18 04:00 Pulse Ox 100 11/28/18 04:00 Intake & Output 11/27/18 11/28/18 11/28/18 18:59 06:59 18:59 Intake Total 134.667 148.679 210.629 Balance 134.667 148.679 210.629 Weight 92.6 kg Intake: Intake, IV Titration 134.667 148.679 210.629 Amount Heparin Sod,Pork in 0.45% 86.667 NaCl 25,000 unit In 0.45 % NaCl 1 250ml.bag @ 14.2 UNIT/KG/HR 12.689 mls/hr IV .[id number] [facility] Rx#: [id number] Heparin Sod,Pork in 0.45% 48 148.679 210.629 NaCl 25,000 unit In 0.45 % NaCl 1 250ml.bag @ 14.2 UNIT/KG/HR 12.689 mls/hr IV .[id number] [facility] Rx#: [id number] Other: Voiding Method Toilet # Voids 1 0 - Exam GENERAL EXAM: Alert, pleasant, 58-year-old white female, resting on the gurney in the emergency department, on her right side on 2 L of oxygen with a pulse ox of 95%, comfortable in no apparent distress. HEAD: Normocephalic/atraumatic. EYES: Normal reaction of pupils, equal size. Conjunctiva pink, sclera white. NOSE: Clear with pink turbinates. THROAT: No erythema or exudates. NECK: No masses, no JVD, no thyroid enlargement, no adenopathy. CHEST: No chest wall deformity. Symmetrical expansion. LUNGS: Equal air entry with diffuse wheezes CVS: Regular rate and rhythm, normal S1 and S2, no gallops, no murmurs, no rubs ABDOMEN: Soft, nontender. No hepatosplenomegaly, normal bowel sounds, no guarding or rigidity. EXTREMITIES: No clubbing, no edema, no cyanosis, 2+ pulses and upper and lower extremities. MUSCULOSKELETAL: Muscle strength and tone normal. SPINE: No scoliosis or deformity SKIN: No rashes CENTRAL NERVOUS SYSTEM: Alert and oriented -3. No focal deficits, tone is normal in all 4 extremities. PSYCHIATRIC: Alert and oriented -3. Appropriate affect. Intact judgment and insight. - Labs CBC & Chem 7: 11/26/18 21:00 11/26/18 21:00 Labs: Abnormal Lab Results - Last 24 Hours (Table) 11/27/18 11/27/18 11/27/18 Range/Units 17:02 18:31 21:37 APTT 32.1 H (22.0-30.0) sec POC Glucose (mg/dL) 209 H 241 H (75-99) mg/dL 11/28/18 11/28/18 11/28/18 Range/Units 02:24 05:46 09:20 APTT 70.9 H 44.4 H (22.0-30.0) sec POC Glucose (mg/dL) 218 H (75-99) mg/dL Microbiology - Last 24 Hours (Table) 11/26/18 22:18 Blood Culture - Preliminary Blood No Growth after 24 hours Assessment and Plan Plan: assessment and plan #1. exacerbation of COPD #2. Severe back pain, acute on chronic, patient states she had a recent CT of the spine is not patient, and was told that she has degenerative arthritis of the spineLeft-sided lateral chest wall rib cage pain #3. Left-sided lateral chest wall rib cage pain #4. Mild exacerbation of COPD #5. Advanced COPD, stage IV, with FEV of 33% of predicted, with chronic hypoxemic respiratory failure #6. Sleep apnea on BiPAP therapy, severe. Home BiPAP settings are 18/14, and FiO2 of 36% #7. Diabetes mellitus type 2 #8. Osteoarthritis #9. Generalized anxiety disorder #10. Chronic back pain #11. History of nicotine dependence, currently in remission #12. Hospitalizations for complications related to COPD exacerbation #13. Previous episodes of pneumonia #14 abnormality in troponin, not consistent with acute coronary syndrome, likely secondary to hypoxia. Plan Echocardiogram with Doppler study was performed which revealed an ejection fraction of 45-50%.from cardiology's perspective, we'll follow this patient along with you now on an as-needed basis only, please don't hesitate to call with any questions. DNP note has been reviewed, I agree with a documented findings and plan of care. Patient was seen and examined.
[2018-11-28 12:02] LABS: Glucose,Whole Blood 88 mg/dL (75-99)
[2018-11-28] MEDS: HEPARIN SODIUM,PORCINE 5,000 UNIT/ML 1 ML VIAL IV PRN (12:04)
--- NOTE | 2018-11-28 13:20 | CT ---
EXAMINATION TYPE: CT neck chest w con DATE OF EXAM: 11/28/2018 12:57 PM COMPARISON: Chest x-ray 11/26/[address] 10/31/2014 HISTORY: Loss of voice CT DLP: 898 mGycm Automated exposure control for dose reduction was used. CONTRAST: CT scan of the neck and chest is performed following with IV Contrast, patient injected with 100 mL o f Isovue 300. Axial images are obtained, coronal and sagittal reformatted images are reviewed. FINDINGS: There is a mass in the aorticopulmonary window, left hilar region, mild increased densities present within AP dimension of approximately 3.8 cm x 2 cm x 4.2cm in cephalad to caudal dimension, extension to the left hilar region with loss of fat plane at the superior margin of the pulmonary art aidee, extension within the mediastinum to the level of the transverse aorta. Some pleural thickening i s noted in the upper aspect of the fissure on the left. Some prevascular nodes are also present, supe rior mediastinal nodes are not enlarged. There is a left upper lobe pulmonary nodule present measurin g approximately 12 mm with pleural extension. Airway: There is some irregularity of the true cords, mild asymmetry could be due to vocal cord paral ysis. Parotid/submandibular glands: No gross abnormality seen. Carotid/Vascular Structures: Patent Osseous Structures: Multiple sclerotic foci at the endplates suggest Schmorl's node formation, superi or endplate depression with multilevel vacuum phenomenon, spondylosis, there may be mild endplate com pression fractures. The left fifth and sixth ribs show evidence of prior fractures, callus formation compatible with healing noted at the posterior left sixth fracture, there is also right-sided ninth a nd eighth rib fractures Other: Multiple low dense foci are scattered within the liver, at least 12 lesions are noted of varyi ng sizes, largest within the inferior aspect the right lobe anteriorly measures 4.2 cm. Incidental di verticulum in the duodenum. Patient is post cholecystectomy. Cystic foci associated with the right ki dney measures 3.8 cm in exophytic location which shows high density not compatible with simple cyst. There are coronary artery calcifications. IMPRESSION: Findings suggest metastatic bronchogenic carcinoma with paralysis of the recurrent laryn geal nerve.
--- NOTE | 2018-11-28 15:35 | P.PN ---
Subjective Progress Note Date: 11/28/18 On 11/28/2018 I'm seeing Jie for a follow-up. She was Hospital as for worsening shortness of breath. She had increased cough chest tightness and wheezing. Sent and the patient developed a new onset hoarseness. There was a concern of a left vocal cord paralysis. I saw this patient this afternoon and I proceeded with a CAT scan of the neck and the chest. The CAT scan showed a left hilar mass with a maximum AP dimension of 3.8 x 2 x 4.2 cm in size and there was also some pleural thickening noted in the upper aspect of the fissure on the left and there is some prevascular lymph nodes present in addition to superior mediastinal lymph nodes that are not enlarged. There was another left upper lobe pulmonary nodule measuring 12 mm in size. There was also multiple low density lesions in the liver, at least 12 was contacted of various sizes and this was consistent with metastatic bronchogenic cancer. There was also evidence of a left vocal cord paralysis consistent with recurrent laryngeal nerve paralysis. The patient is postcholecystectomy. There was incidental diverticulum the duodenum. There was also a 3.8 cm endophytic lesion in the right kidney not consistent with a simple cyst. Coronary artery calcifications were also noted. Based on this, had a lengthy discussion with the radiologist and we are planning to proceed with a fine-needle aspirate of the liver lesions to be done by interventional radiology. The patient otherwise is less short of breath compared to yesterday. She continues to have some congested cough. She has advanced COPD. She has FEV1 of 33% of predicted. She has been steroid dependent and she has obvious cushingoid features. Baseline performance and functional status is poor. LFTs are within normal limits. Objective - Vital Signs Vital signs: Vital Signs Temp 97.9 F 11/28/18 12:00 Pulse 98 11/28/18 15:23 Resp 18 11/28/18 12:00 BP 129/80 11/28/18 12:00 Pulse Ox 98 11/28/18 15:23 Intake & Output 11/27/18 11/28/18 11/28/18 18:59 06:59 18:59 Intake Total 134.667 148.679 212.630 Balance 134.667 148.679 212.630 Weight 92.6 kg Intake: Intake, IV Titration 134.667 148.679 212.630 Amount Heparin Sod,Pork in 0.45% 86.667 NaCl 25,000 unit In 0.45 % NaCl 1 250ml.bag @ 14.2 UNIT/KG/HR 12.689 mls/hr IV .[id number] [facility] Rx#: [id number] Heparin Sod,Pork in 0.45% 48 148.679 212.630 NaCl 25,000 unit In 0.45 % NaCl 1 250ml.bag @ 14.2 UNIT/KG/HR 12.689 mls/hr IV .[id number] [facility] Rx#: [id number] Other: Voiding Method Toilet Toilet # Voids 1 0 - Exam GENERAL EXAM: Alert, pleasant, 58-year-old white female, resting on the gurney in the emergency department, on her right side on 2 L of oxygen with a pulse ox of 95%, comfortable in no apparent distress. HEAD: Normocephalic/atraumatic. EYES: Normal reaction of pupils, equal size. Conjunctiva pink, sclera white. NOSE: Clear with pink turbinates. THROAT: No erythema or exudates. NECK: No masses, no JVD, no thyroid enlargement, no adenopathy. CHEST: No chest wall deformity. Symmetrical expansion. LUNGS: Equal air entry with diffuse wheezes CVS: Regular rate and rhythm, normal S1 and S2, no gallops, no murmurs, no rubs ABDOMEN: Soft, nontender. No hepatosplenomegaly, normal bowel sounds, no guarding or rigidity. EXTREMITIES: No clubbing, no edema, no cyanosis, 2+ pulses and upper and lower extremities. MUSCULOSKELETAL: Muscle strength and tone normal. SPINE: No scoliosis or deformity SKIN: No rashes CENTRAL NERVOUS SYSTEM: Alert and oriented -3. No focal deficits, tone is normal in all 4 extremities. PSYCHIATRIC: Alert and oriented -3. Appropriate affect. Intact judgment and insight. - Labs CBC & Chem 7: 11/26/18 21:00 11/26/18 21:00 Labs: Abnormal Lab Results - Last 24 Hours (Table) 11/27/18 11/27/18 11/27/18 Range/Units 17:02 18:31 21:37 APTT 32.1 H (22.0-30.0) sec POC Glucose (mg/dL) 209 H 241 H (75-99) mg/dL 11/28/18 11/28/18 11/28/18 Range/Units 02:24 05:46 09:20 APTT 70.9 H 44.4 H (22.0-30.0) sec POC Glucose (mg/dL) 218 H (75-99) mg/dL Microbiology - Last 24 Hours (Table) 11/26/18 22:18 Blood Culture - Preliminary Blood No Growth after 24 hours Assessment and Plan Plan: #1. Left hilar mass measuring 4.2 x 3.8 x 2 cm in size in addition to a 12 mm left upper lobe pulmonary nodule and multiple hepatic lesions consistent with metastatic carcinoma of the lung. The patient also has developed a new onset hoarseness and the patient has evidence of left vocal cord paralysis possibly related to paralysis of the recurrent laryngeal nerve on the left secondary to the hilar mass. #2. Severe back pain, acute on chronic, patient states she had a recent CT of the spine is not patient, and was told that she has degenerative arthritis of the spineLeft-sided lateral chest wall rib cage pain #3. Left-sided lateral chest wall rib cage pain #4. Chronic shortness of breath and chronic hypoxic respiratory failure #5. Advanced COPD, stage IV, with FEV of 33% of predicted, with chronic hypoxemic respiratory failure #6. Sleep apnea on BiPAP therapy, severe. Home BiPAP settings are 18/14, and FiO2 of 36% #7. Diabetes mellitus type 2 #8. Osteoarthritis #9. Generalized anxiety disorder #10. Chronic back pain #11. History of nicotine dependence, currently in remission #12. Hospitalizations for complications related to COPD exacerbation #13. Previous episodes of pneumonia [place] Discussed the findings with interventional radiology. We'll going to proceed with a fine-needle aspirate of the liver lesion to establish a tissue diagnosis. High likelihood that this is a metastatic bronchogenic carcinoma of the lung. Continue bronchodilators. Continue steroids. Hold nonsteroidal anti- inflammatory medication. Hold aspirin for now. We'll follow. Prognosis is poor , specially with above-mentioned findings.
[2018-11-28] MEDS: AZITHROMYCIN 250 MG TAB PO SCH (16:31)
[2018-11-28 17:05] LABS: Glucose,Whole Blood 182 mg/dL (75-99)
[2018-11-28] MEDS: guaiFENesin 600 MG TABLET.ER PO SCH (19:36)
[2018-11-28] MEDS: LISINOPRIL-HCTZ 20-25 MG 1 EACH TAB PO SCH (19:58)
[2018-11-28 21:18] LABS: Glucose,Whole Blood 273 mg/dL (75-99)
--- NOTE | 2018-11-28 21:58 | PN ---
PROGRESS NOTE DATE OF SERVICE: November 28, 2018 PRESENTING COMPLAINT: Low blood pressure. INTERVAL HISTORY: This patient presented with some chest tightness, low blood pressure, also found to have COPD exacerbation. The patient did have a CT scan of the chest and further workup was revealing what appears to be possibly lung mass with liver metastasis and right kidney tumor. The patient also being worked up by Cardiology for positive troponins. REVIEW OF SYSTEMS: Done for constitutional, cardiovascular, GI, pulmonary; relevant findings above. CURRENT MEDICATIONS: Reviewed that include IV heparin. PHYSICAL EXAMINATION: VITAL SIGNS: Temperature 97.9, pulse 98, respiratory 18, blood pressure 129/80, pulse ox 97% on 5 L. GENERAL APPEARANCE: Sitting up, tired. EYES: Pupils are equal. Conjunctivae normal. NECK: JVD not raised. Mass not palpable. RESPIRATORY: Effort increased. LUNGS: Diminished breath sounds. Prolonged expiration. CARDIOVASCULAR: 1st and 2nd sounds normal. Edema present. ABDOMEN: Soft, nontender. Liver and spleen not palpable. PSYCHIATRY: Alert and oriented x3. Mood and affect normal. INVESTIGATIONS: Accu-Cheks are noted. ASSESSMENT: 1. Abnormal CT scan of the neck and chest with the liver lesions highly suggestive of CA lung with metastasis, will need a biopsy studies. 2. Chronic obstructive pulmonary disease in an ex-smoker. 3. Diabetes mellitus type 2 on oral hypoglycemic. 4. Gastroesophageal reflux disease. 5. Essential hypertension. 6. Obstructive sleep apnea uses BiPAP. 7. Primary osteoarthritis especially in the lumbar spine with muscle spasm and radiculopathy. 8. Generalized anxiety disorder. 9. 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 PLAN: Continue current medication and treatment plan. The patient's blood pressure is doing better. Dr. Wang ordered a needle biopsy. Will DC the IV heparin as cardiology is not planning any further testing currently. MMODL / IJN: [id number] /
[2018-11-29] MEDS: IPRATROPIUM-ALBUTEROL 3 ML NEB INHALATION SCH ×6 (03:25→23:44)
[2018-11-29] MEDS: ALPRAZolam 0.5 MG TAB PO PRN ×3 (03:47→17:34)
[2018-11-29] MEDS: HYDROcodone/APAP 10-325MG 1 EACH TAB PO PRN ×3 (03:48→22:12)
[2018-11-29] MEDS: BACLOFEN 10 MG TAB PO PRN ×3 (03:48→17:34)
[2018-11-29 06:08] LABS: Glucose,Whole Blood 238 mg/dL (75-99)
[2018-11-29] MEDS: GLIMEPIRIDE 4 MG TAB PO SCH (06:14)
[2018-11-29] MEDS: INSULIN ASPART (NovoLOG) 100 UNIT/ML VIAL SQ SCH ×4 (06:14→22:30)
[2018-11-29 07:33] LABS: INR 1.1 (<1.2); Prothrombin Time 11.2 sec (9.0-12.0)
[2018-11-29] MEDS: SYMBICORT 160-4.5 MCG INHALER INHALATION SCH ×2 (07:43→20:09)
[2018-11-29 07:44] LABS: Mean Platelet Volume 6.7; Platelet Count 312 k/uL (150-450)
[2018-11-29] MEDS: methylPREDNISolone SOD SUCCI 40 MG/ML 1 ML VIAL IV SCH ×3 (09:15→22:13)
[2018-11-29] MEDS: POTASSIUM CHLORIDE ER 20 MEQ TAB.ER PO SCH (09:15)
[2018-11-29] MEDS: PANTOPRAZOLE 40 MG TABLET PO SCH (09:16)
[2018-11-29] MEDS: FUROSEMIDE 40 MG TAB PO SCH (09:16)
[2018-11-29] MEDS: METOPROLOL TARTRATE 50 MG TAB PO SCH ×2 (09:17→22:12)
[2018-11-29] MEDS: metFORMIN 500 MG TAB PO SCH ×2 (09:17→22:11)
[2018-11-29] MEDS: NYSTATIN 100,000 UNIT/ML SUSP 500,000 UNIT/5 ML CUP PO SCH ×4 (09:18→22:13)
[2018-11-29] MEDS: PIOGLITAZONE 30 MG TAB PO SCH (09:18)
[2018-11-29] MEDS: guaiFENesin 600 MG TABLET.ER PO SCH ×2 (09:29→22:11)
--- NOTE | 2018-11-29 10:50 | CDI ---
Documentation Clarification Form Date: 11/29/2018 10:16:42 AM From: Jeannette Us RN CCDS Admit Date: 11/26/2018 11:25:00 PM Patient Name: Jie Anguiano Visit Number: [id number] Discharge Date: ATTENTION: The Clinical Documentation Specialists (CDI) and [facility] Coding Staff appreciate your assistance in clarifying documentation. Please respond to the clarification below the line at the bottom and electronically sign. The CDI & [facility] Coding staff will review the response and follow-up if needed. Please note: Queries are made part of the Legal Health Record. If you have any questions, please contact the author of this message via ITS. Dr. Edward Islas Chronic CHF is documented in the Cardiology Consult History/Risk Factors: 58 year old female presents to the ED with low blood pressure and shortness of breath. Medial his HTN; COPD; [place] Clinical Indicators: VS/Pulse OX: 95/61 107 97.7 92% 2L nc 20 Echocardiogram Results: Resting tachycardia (HR>100bpm) . Overall left systolic function is mildly impaired with, an EF between 45% - 50% Chest X Ray: Stable radiographic findings Treatment: Lasix po; Lopressor; Lisinopril Hctz In your professional opinion, can you please clarify the acuity and type of CHF if known? Chronic Systolic Heart Failure Unable to Determine Other, please specify (Last Revision: September 2017) MTDD
[2018-11-29 11:31] LABS: Glucose,Whole Blood 152 mg/dL (75-99)
--- NOTE | 2018-11-29 13:47 | P.PN ---
Subjective Progress Note Date: 11/29/18 This is a 58-year-old white female patient of Dr. Monroe with history of stage IV COPD on chronic home oxygen, baseline FEV1 of 33% of predicted, sleep apnea on BiPAP therapy, diabetes mellitus type 2, generalized anxiety disorder, osteoarthritis, diabetes mellitus2, former smoker, history of chronic bronchial asthma, morbid obesity with cushingoid features, chronic back pain. Patient presented to the emergency department on 11/26/2018 with complaints of left lower lateral chest pain, and severe back pain, some shortness of breath, wheezing. Denied any fever or chills, denied any substernal pain, or discomfort. She does have chronic back pain, and apparently patient had recent CT of the spine on an outpatient basis, revealing degenerative changes in her spine. Report is not available to us at this time. 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 No weight loss, no hemoptysis. She then mentioned that she had also seen a physician for some discomfort in her left toe and apparently she had a test to check her circulation and the results are not available. Chest x-ray was completed in the emergency department showing subsegmental scattered ill-defined opacities, seen previously on previous chest x-rays, no new pulmonary or pleural processes. EKG showed sinus tachycardia, with T-wave inversion in anterior and lateral leads, troponins were elevated to 0.042, 0.050, and 0.034. White blood cell count was 13.2, hemoglobin was 11.8, serum sodium was 136, potassium is 3.9, chloride is 96, CO2 31, BUN is 40, creatinine 0.72. LFTs were within normal limits.echocardiogram with Doppler study was performed which revealed an erection fraction of 45-50%. 11/29/2018 Patient seen and examined this morning,Continues to be short of breath but she states it back to her usual and she is anticipating being discharged home today.I pressure 115/70 with a heart rate in the 90s, 93% on 3 Objective - Vital Signs Vital signs: Vital Signs Temp 97.6 F 11/29/18 08:00 Pulse 114 H 11/29/18 12:00 Resp 18 11/29/18 12:00 BP 115/75 11/29/18 12:00 Pulse Ox 93 L 11/29/18 12:00 Intake & Output 11/28/18 11/29/18 11/29/18 18:59 06:59 18:59 Intake Total 452.630 240 222 Balance 452.630 240 222 Weight 91.2 kg Intake: Intake, IV Titration 212.630 Amount Heparin Sod,Pork in 0.45% 212.630 NaCl 25,000 unit In 0.45 % NaCl 1 250ml.bag @ 14.2 UNIT/KG/HR 12.689 mls/hr IV .[id number] [facility] Rx#: [id number] Oral 240 240 222 Other: Voiding Method Toilet Toilet Toilet # Voids 1 1 - Exam GENERAL EXAM: Alert, pleasant, 58-year-old white female, resting on the gurney in the emergency department, on her right side on 2 L of oxygen with a pulse ox of 95%, comfortable in no apparent distress. HEAD: Normocephalic/atraumatic. EYES: Normal reaction of pupils, equal size. Conjunctiva pink, sclera white. NOSE: Clear with pink turbinates. THROAT: No erythema or exudates. NECK: No masses, no JVD, no thyroid enlargement, no adenopathy. CHEST: No chest wall deformity. Symmetrical expansion. LUNGS: Equal air entry with diffuse wheezes CVS: Regular rate and rhythm, normal S1 and S2, no gallops, no murmurs, no rubs ABDOMEN: Soft, nontender. No hepatosplenomegaly, normal bowel sounds, no guarding or rigidity. EXTREMITIES: No clubbing, no edema, no cyanosis, 2+ pulses and upper and lower extremities. MUSCULOSKELETAL: Muscle strength and tone normal. SPINE: No scoliosis or deformity SKIN: No rashes CENTRAL NERVOUS SYSTEM: Alert and oriented -3. No focal deficits, tone is normal in all 4 extremities. PSYCHIATRIC: Alert and oriented -3. Appropriate affect. Intact judgment and insight. - Labs CBC & Chem 7: 11/29/18 06:29 11/26/18 21:00 Labs: Abnormal Lab Results - Last 24 Hours (Table) 11/28/18 11/28/18 11/28/18 Range/Units 16:59 18:11 21:17 APTT 30.9 H (22.0-30.0) sec POC Glucose (mg/dL) 182 H 273 H (75-99) mg/dL 11/29/18 11/29/18 Range/Units 06:07 11:28 APTT (22.0-30.0) sec POC Glucose (mg/dL) 238 H 152 H (75-99) mg/dL Microbiology - Last 24 Hours (Table) 11/26/18 22:18 Blood Culture - Preliminary Blood No Growth after 48 hours Assessment and Plan Plan: assessment and plan #1. exacerbation of COPD #2. Severe back pain, acute on chronic, patient states she had a recent CT of the spine is not patient, and was told that she has degenerative arthritis of the spineLeft-sided lateral chest wall rib cage pain #3. Left-sided lateral chest wall rib cage pain #4. Mild exacerbation of COPD #5. Advanced COPD, stage IV, with FEV of 33% of predicted, with chronic hypoxemic respiratory failure #6. Sleep apnea on BiPAP therapy, severe. Home BiPAP settings are 18/14, and FiO2 of 36% #7. Diabetes mellitus type 2 #8. Osteoarthritis #9. Generalized anxiety disorder #10. Chronic back pain #11. History of nicotine dependence, currently in remission #12. Hospitalizations for complications related to COPD exacerbation #13. Previous episodes of pneumonia #14 abnormality in troponin, not consistent with acute coronary syndrome, likely secondary to hypoxia. Plan Echocardiogram with Doppler study was performed which revealed an ejection fraction of 45-50%.from cardiology's perspective, we'll follow this patient along with you now on an as-needed basis only, please don't hesitate to call with any questions. DNP note has been reviewed, I agree with a documented findings and plan of care. Patient was seen and examined.
--- NOTE | 2018-11-29 14:23 | P.PN ---
Subjective Progress Note Date: 11/29/18 Principal diagnosis: Acute on chronic severe back pain. Patient was seen today 11/29/2018 in follow-up on the selective care unit. She is currently sitting up at the bedside awake and alert in no acute distress. CAT scan was reviewed with the patient. There is a left hilar mass measuring 4.2 x 3.8 x 2 cm in addition to a 12 mm left upper lobe pulmonary nodule and multiple hepatic lesions consistent with metastatic carcinoma of the lung. 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 She was informed of the CAT scan results and is planning for a biopsy of the hepatic lesions tomor row by interventional radiology. INR 1.1. She denies any worsening shortness of breath at this time. Back to her baseline. She remains quite hoarse. On DuoNeb inhalation, Symbicort, IV Solu-Medrol. Objective - Vital Signs Vital signs: Vital Signs Temp 97.6 F 11/29/18 08:00 Pulse 114 H 11/29/18 12:00 Resp 18 11/29/18 12:00 BP 115/75 11/29/18 12:00 Pulse Ox 93 L 11/29/18 12:00 Intake & Output 11/28/18 11/29/18 11/29/18 18:59 06:59 18:59 Intake Total 452.630 240 222 Balance 452.630 240 222 Weight 91.2 kg Intake: Intake, IV Titration 212.630 Amount Heparin Sod,Pork in 0.45% 212.630 NaCl 25,000 unit In 0.45 % NaCl 1 250ml.bag @ 14.2 UNIT/KG/HR 12.689 mls/hr IV .[id number] [facility] Rx#: [id number] Oral 240 240 222 Other: Voiding Method Toilet Toilet Toilet # Voids 1 1 - Exam GENERAL EXAM: Alert, pleasant, 58-year-old female, in no acute distress. Currently on 3 L/m per nasal cannula. HEAD: Normocephalic/atraumatic. EYES: Normal reaction of pupils, equal size. Conjunctiva pink, sclera white. NOSE: Clear with pink turbinates. THROAT: No erythema or exudates. NECK: No masses, no JVD, no thyroid enlargement, no adenopathy. CHEST: No chest wall deformity. Symmetrical expansion. LUNGS: Equal air entry with diffuse wheezes CVS: Regular rate and rhythm, normal S1 and S2, no gallops, no murmurs, no rubs ABDOMEN: Soft, nontender. No hepatosplenomegaly, normal bowel sounds, no guarding or rigidity. EXTREMITIES: No clubbing, no edema, no cyanosis, 2+ pulses and upper and lower extremities. MUSCULOSKELETAL: Muscle strength and tone normal. SPINE: No scoliosis or deformity SKIN: No rashes CENTRAL NERVOUS SYSTEM: No focal deficits, tone is normal in all 4 extremities. PSYCHIATRIC: Alert and oriented -3. Appropriate affect. Intact judgment and insight. - Labs CBC & Chem 7: 11/29/18 06:29 11/26/18 21:00 Labs: Abnormal Lab Results - Last 24 Hours (Table) 11/28/18 11/28/18 11/28/18 Range/Units 16:59 18:11 21:17 APTT 30.9 H (22.0-30.0) sec POC Glucose (mg/dL) 182 H 273 H (75-99) mg/dL 11/29/18 11/29/18 Range/Units 06:07 11:28 APTT (22.0-30.0) sec POC Glucose (mg/dL) 238 H 152 H (75-99) mg/dL Microbiology - Last 24 Hours (Table) 11/26/18 22:18 Blood Culture - Preliminary Blood No Growth after 48 hours Assessment and Plan Assessment: Impression: #1. Left hilar mass measuring 4.2 x 3.8 x 2 cm in size in addition to a 12 mm left upper lobe pulmonary nodule and multiple hepatic lesions consistent with metastatic carcinoma of the lung. The patient also has developed a new onset hoarseness and the patient has evidence of left vocal cord paralysis possibly related to paralysis of the recurrent laryngeal nerve on the left secondary to the hilar mass. #2. Severe back pain, acute on chronic, patient states she had a recent CT of the spine is not patient, and was told that she has degenerative arthritis of the spineLeft-sided lateral chest wall rib cage pain #3. Left-sided lateral chest wall rib cage pain #4. Chronic shortness of breath and chronic hypoxic respiratory failure #5. Advanced COPD, stage IV, with FEV of 33% of predicted, with chronic h ypoxemic respiratory failure #6. Sleep apnea on BiPAP therapy, severe. Home BiPAP settings are 18/14, and FiO2 of 36% #7. Diabetes mellitus type 2 #8. Osteoarthritis #9. Generalized anxiety disorder #10. Chronic back pain #11. History of nicotine dependence, currently in remission #12. Hospitalizations for complications related to COPD exacerbation #13. Previous episodes of pneumonia [place]: The patient was seen and evaluated by Dr. Wang. Computed tomography scan results were discussed with the patient in detail. The plan is to go ahead with fine-needle aspirate of the liver lesion tomorrow to establish a tissue diagnosis. Aspirin remains on hold. In the interim we'll continue with her current pulmonary medications. We'll continue to follow make further recommen dations based on her clinical status. I, the cosigning physician, performed a history & physical examination of the patient. Lungs sounds clear but diminished. Maintaining good O2 saturations in the 90s on 3 L/m per nasal cannula. I discussed the assessment and plan of care with my nurse practitioner, Lucia Chanel. I attest to the above note as dictated by her.
[2018-11-29 16:35] LABS: Glucose,Whole Blood 154 mg/dL (75-99)
[2018-11-29 20:59] LABS: Glucose,Whole Blood 257 mg/dL (75-99)
[2018-11-29] MEDS: LISINOPRIL-HCTZ 20-25 MG 1 EACH TAB PO SCH (22:11)
[2018-11-30] MEDS: ALPRAZolam 0.5 MG TAB PO PRN ×2 (03:13→09:18)
[2018-11-30] MEDS: IPRATROPIUM-ALBUTEROL 3 ML NEB INHALATION SCH ×4 (03:57→15:20)
[2018-11-30 06:40] LABS: Glucose,Whole Blood 178 mg/dL (75-99)
[2018-11-30] MEDS: GLIMEPIRIDE 4 MG TAB PO SCH (06:53)
[2018-11-30] MEDS: INSULIN ASPART (NovoLOG) 100 UNIT/ML VIAL SQ SCH ×3 (06:53→17:00)
[2018-11-30] MEDS: HYDROcodone/APAP 10-325MG 1 EACH TAB PO PRN ×3 (06:55→16:51)
[2018-11-30 07:27] LABS: Basophils # (A) 0.1 k/uL (0-0.2); Basophils % (A) 0 %; Eosinophils % (A) 0 %; HCT 34.4 % (34.0-46.0); Lymphocytes # (A) 2.2 k/uL (1.0-4.8); Lymphocytes % (A) 10 %; MCH 29.8 pg (25.0-35.0); MCV 93.2 fL (80.0-100.0); Mean Platelet Volume 6.6; Monocytes # (A) 0.8 k/uL (0-1.0); Monocytes % (A) 3 %; Neutrophils # (A) 18.7 k/uL (1.3-7.7); Neutrophils % (A) 86 %; Platelet Count 230 k/uL (150-450); RDW 14.7 % (11.5-15.5); WBC 21.8 k/uL (3.8-10.6)
[2018-11-30 07:47] LABS: African American GFR (CKD) >90 (>60 ml/min/1.73 sqM); Anion Gap 6 mmol/L; Blood Urea Nitrogen 20 mg/dL (7-17); Calcium 9.8 mg/dL (8.4-10.2); Carbon Dioxide 33 mmol/L (22-30); Chloride 97 mmol/L (98-107); Glucose 169 mg/dL (74-99); Potassium 4.4 mmol/L (3.5-5.1); Sodium 136 mmol/L (137-145)
[2018-11-30] MEDS: SYMBICORT 160-4.5 MCG INHALER INHALATION SCH (08:12)
[2018-11-30] MEDS: metFORMIN 500 MG TAB PO SCH (09:18)
[2018-11-30] MEDS: POTASSIUM CHLORIDE ER 20 MEQ TAB.ER PO SCH (09:18)
[2018-11-30] MEDS: BACLOFEN 10 MG TAB PO PRN ×2 (09:18→16:46)
[2018-11-30] MEDS: FUROSEMIDE 40 MG TAB PO SCH (09:19)
[2018-11-30] MEDS: NYSTATIN 100,000 UNIT/ML SUSP 500,000 UNIT/5 ML CUP PO SCH ×3 (09:19→16:50)
[2018-11-30] MEDS: PIOGLITAZONE 30 MG TAB PO SCH (09:19)
[2018-11-30] MEDS: guaiFENesin 600 MG TABLET.ER PO SCH (09:19)
[2018-11-30] MEDS: PANTOPRAZOLE 40 MG TABLET PO SCH (09:19)
[2018-11-30] MEDS: METOPROLOL TARTRATE 50 MG TAB PO SCH (09:19)
[2018-11-30] MEDS: AZITHROMYCIN 250 MG TAB PO SCH (09:20)
[2018-11-30] MEDS: methylPREDNISolone SOD SUCCI 40 MG/ML 1 ML VIAL IV SCH ×2 (09:20→16:59)
[2018-11-30 10:10] VITALS: RESP 16; TEMP 97
--- NOTE | 2018-11-30 11:02 | P.PN ---
Subjective Progress Note Date: 11/30/18 Principal diagnosis: Acute on chronic severe back pain. Patient was seen today 11/29/2018 in follow-up on the selective care unit. She is currently sitting up at the bedside awake and alert in no acute distress. CAT scan was reviewed with the patient. There is a left hilar mass measuring 4.2 x 3.8 x 2 cm in addition to a 12 mm left upper lobe pulmonary nodule and multiple hepatic lesions consistent with metastatic carcinoma of the lung. 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 She was informed of the CAT scan results and is planning for a biopsy of the hepatic lesions tomor row by interventional radiology. INR 1.1. She denies any worsening shortness of breath at this time. Back to her baseline. She remains quite hoarse. On DuoNeb inhalation, Symbicort, IV Solu-Medrol. The patient is seen today 11/30/2018 in follow-up on the selective care unit. She is awake and alert in no acute distress. She denies any shortness of breath, cough or congestion. Maintaining O2 saturations in the 90s on 3 L/m per nasal cannula. Her main complaint is continued low back pain. She remains quite hoarse. Blood cultures reveal no growth. White count 21.8. Hemoglobin 11.0. Creatinine 0.50. Currently on azithromycin. She remains on bronchodilators and steroids as well. Interventional radiology unable to perform biopsy today. Objective - Vital Signs Vital signs: Vital Signs Temp 97 F L 11/30/18 08:00 Pulse 108 H 11/30/18 08:25 Resp 16 11/30/18 08:00 BP 141/87 11/30/18 08:00 Pulse Ox 92 L 11/30/18 08:00 Intake & Output 11/29/18 11/30/18 11/30/18 18:59 06:59 18:59 Intake Total 222 358 Output Total 800 Balance -578 358 Weight 88.6 kg Intake: Oral 222 358 Output: Urine 800 Other: Voiding Method Toilet Toilet # Voids 1 1 - Exam GENERAL EXAM: Alert, pleasant, 58-year-old female, in no acute distress. Currently on 3 L/m per nasal cannula. HEAD: Normocephalic/atraumatic. EYES: Normal reaction of pupils, equal size. Conjunctiva pink, sclera white. NOSE: Clear with pink turbinates. THROAT: Hoarseness.. NECK: No masses, no JVD, no thyroid enlargement, no adenopathy. CHEST: No chest wall deformity. Symmetrical expansion. LUNGS: Equal air entry with diffuse wheezes CVS: Regular rate and rhythm, normal S1 and S2, no gallops, no murmurs, no rubs ABDOMEN: Soft, nontender. No hepatosplenomegaly, normal bowel sounds, no guarding or rigidity. EXTREMITIES: No clubbing, no edema, no cyanosis, 2+ pulses and upper and lower extremities. MUSCULOSKELETAL: Low back pain. Muscle strength and tone normal. SPINE: No scoliosis or deformity SKIN: No rashes CENTRAL NERVOUS SYSTEM: No focal deficits, tone is normal in all 4 extremities. PSYCHIATRIC: Alert and oriented -3. Appropriate affect. Intact judgment and insight. - Labs CBC & Chem 7: 11/30/18 06:35 11/30/18 06:35 Labs: Abnormal Lab Results - Last 24 Hours (Table) 11/29/18 11/29/18 11/29/18 Range/Units 11:28 16:30 20:58 WBC (3.8-10.6) k/uL RBC (3.80-5.40) m/uL Hgb (11.4-16.0) gm/dL Neutrophils # (1.3-7.7) k/uL Sodium (137-145) mmol/L Chloride (98-107) mmol/L Carbon Dioxide (22-30) mmol/L BUN (7-17) mg/dL Creatinine (0.52-1.04) mg/dL Glucose (74-99) mg/dL POC Glucose (mg/dL) 152 H 154 H 257 H (75-99) mg/dL 11/30/18 11/30/18 11/30/18 Range/Units 06:35 06:35 06:38 WBC 21.8 H (3.8-10.6) k/uL RBC 3.70 L (3.80-5.40) m/uL Hgb 11.0 L (11.4-16.0) gm/dL Neutrophils # 18.7 H (1.3-7.7) k/uL Sodium 136 L (137-145) mmol/L Chloride 97 L (98-107) mmol/L Carbon Dioxide 33 H (22-30) mmol/L BUN 20 H (7-17) mg/dL Creatinine 0.50 L (0.52-1.04) mg/dL Glucose 169 H (74-99) mg/dL POC Glucose (mg/dL) 178 H (75-99) mg/dL Microbiology - Last 24 Hours (Table) 11/26/18 22:18 Blood Culture - Preliminary Blood No Growth after 72 hours Assessment and Plan Assessment: Impression: #1. Left hilar mass measuring 4.2 x 3.8 x 2 cm in size in addition to a 12 mm left upper lobe pulmonary nodule and multiple hepatic lesions consistent with metastatic carcinoma of the lung. The patient also has developed a new onset h oarseness and the patient has evidence of left vocal cord paralysis possibly related to paralysis of the recurrent laryngeal nerve on the left secondary to the hilar mass. #2. Severe back pain, acute on chronic, patient states she had a recent CT of the spine is not patient, and was told that she has degenerative arthritis of the spine #3. Left-sided lateral chest wall rib cage pain #4. Chronic shortness of breath and chronic hypoxic respiratory failure #5. Advanced COPD, stage IV, with FEV of 33% of predicted, with chronic hypoxemic respiratory failure #6. Sleep apnea on BiPAP therapy, severe. Home BiPAP settings are 18/14, and FiO2 of 36% #7. Diabetes mellitus type 2 #8. Osteoarthritis #9. Generalized anxiety disorder #10. Chronic back pain #11. History of nicotine dependence, currently in remission #12. Hospitalizations for complications related to COPD exacerbation #13. Previous episodes of pneumonia [place]: The patient was seen and evaluated by Dr. Wang. She is cleared for discharge from the pulmonary standpoint. The patient will be scheduled for a FNA of the hepatic lesion on 12/06/2018 at 9 AM per interventional radiology. Continue ontinue with her current pulmonary medications. Complete course of antibiotics. Follow-up in our office in 1-2 weeks' time. I, the cosigning physician, performed a history & physical examination of the patient. Lungs sounds clear but diminished. Maintaining good O2 saturations in the 90s on 3 L/m per nasal cannula. I discussed the assessment and plan of care with my nurse practitioner, Lucia Chanel. I attest to the above note as dictated by her.
[2018-11-30 11:51] LABS: Glucose,Whole Blood 97 mg/dL (75-99)
[2018-11-30 12:12] VITALS: BP 115/84
--- NOTE | 2018-11-30 17:02 | P.PN ---
Subjective Progress Note Date: 11/29/18 Principal diagnosis: Acute on chronic severe back pain Left hilar mass, left upper lobe pulmonary nodule and multiple hepatic lesions consistent with metastatic carcinoma of the lung 11/29/2018 Patient seen and evaluated in follow-up on the selective care unit. She is currently sitting up at the bedside awake and alert in no acute distress. CAT scan was reviewed with the patient. There is a left hilar mass measuring 4.2 x 3.8 x 2 cm in addition to a 12 mm left upper lobe pulmonary nodule and multiple hepatic lesions consistent with metastatic carcinoma of the lung. 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 She was informed of the CAT scan results and is planning for a biopsy of the hepatic lesions tomorrow by interventional radiology. INR 1.1. She denies any worsening shortness of breath at this time. Back to her baseline. She remains quite hoarse. On DuoNeb inhalation, Symbicort, IV Solu-Medrol. Objective - Vital Signs Vital signs: Vital Signs Temp 97.6 F 11/29/18 08:00 Pulse 114 H 11/29/18 12:00 Resp 18 11/29/18 12:00 BP 115/75 11/29/18 12:00 Pulse Ox 93 L 11/29/18 12:00 Intake & Output 11/28/18 11/29/18 11/29/18 18:59 06:59 18:59 Intake Total 452.630 240 222 Balance 452.630 240 222 Weight 91.2 kg Intake: Intake, IV Titration 212.630 Amount Heparin Sod,Pork in 0.45% 212.630 NaCl 25,000 unit In 0.45 % NaCl 1 250ml.bag @ 14.2 UNIT/KG/HR 12.689 mls/hr IV .[id number] [facility] Rx#: [id number] Oral 240 240 222 Other: Voiding Method Toilet Toilet Toilet # Voids 1 1 - Exam PHYSICAL EXAMINATION: GENERAL: The patient is alert and oriented x3, not in any acute distress. Well developed, well nourished. HEENT: Pupils are round and equally reacting to light. EOMI. No scleral icterus. No conjunctival pallor. Normocephalic, atraumatic. No pharyngeal erythema. No thyromegaly. CARDIOVASCULAR: S1 and S2 present. No murmurs, rubs, or gallops. PULMONARY: Chest is clear to auscultation, no wheezing or crackles. ABDOMEN: Soft, nontender, nondistended, normoactive bowel sounds. No palpable organomegaly. MUSCULOSKELETAL: No joint swelling or deformity. EXTREMITIES: No cyanosis, clubbing, or pedal edema. NEUROLOGICAL: Gross neurological examination did not reveal any focal deficits. SKIN: No rashes. - Labs CBC & Chem 7: 11/30/18 06:35 11/30/18 06:35 Labs: Abnormal Lab Results - Last 24 Hours (Table) 11/28/18 11/28/18 11/28/18 Range/Units 16:59 18:11 21:17 APTT 30.9 H (22.0-30.0) sec POC Glucose (mg/dL) 182 H 273 H (75-99) mg/dL 11/29/18 11/29/18 Range/Units 06:07 11:28 APTT (22.0-30.0) sec POC Glucose (mg/dL) 238 H 152 H (75-99) mg/dL Microbiology - Last 24 Hours (Table) 11/26/18 22:18 Blood Culture - Preliminary Blood No Growth after 48 hours Assessment and Plan Assessment: #1. Left hilar mass measuring 4.2 x 3.8 x 2 cm in size in addition to a 12 mm left upper lobe pulmonary nodule and multiple hepatic lesions consistent with metastatic carcinoma of the lung. The patient also has developed a new onset hoarseness and the patient has evidence of left vocal cord paralysis possibly related to paralysis of the recurrent laryngeal nerve on the left secondary to the hilar mass. #2. Severe back pain, acute on chronic, patient states she had a recent CT of the spine is not patient, and was told that she has degenerative arthritis of the spineLeft-sided lateral chest wall rib cage pain #3. Left-sided lateral chest wall rib cage pain #4. Chronic shortness of breath and chronic hypoxic respiratory failure #5. Advanced COPD, stage IV, with FEV of 33% of predicted, with chronic hypoxemic respiratory failure #6. Sleep apnea on BiPAP therapy, severe. Home BiPAP settings are 18/14, and FiO2 of 36% #7. Diabetes mellitus type 2 #8. Osteoarthritis #9. Generalized anxiety disorder #10. Chronic back pain #11. History of nicotine dependence, currently in remission #12. Hospitalizations for complications related to COPD exacerbation #13. Previous episodes of pneumonia Time with Patient: Greater than 30
[2018-11-30 17:04] VITALS: PULSE 125
--- NOTE | 2018-11-30 17:04 | P.DS ---
Providers Date of admission: 11/26/18 23:25 Expected date of discharge: 11/30/18 Attending physician: Ranjith Mendoza Consults: 11/26/18 23:06 Consult Physician Urgent Consulting Provider: Edward Islas Consult Reason/Comments: sob, increased troponin Do you want consulting provider notified?: Yes 11/26/18 23:27 Consult Physician Stat Consulting Provider: Grant Felix Consult Reason/Comments: sob Do you want consulting provider notified?: Yes Primary care physician: Grant Monroe [facility] Course: 58-year-old white female patient of Dr. Monroe with history of stage IV COPD on chronic home oxygen, baseline FEV1 of 33% of predicted, sleep apnea on BiPAP therapy, diabetes mellitus type 2, generalized anxiety disorder, osteoarthritis, diabetes mellitus2, former smoker, history of chronic bronchial asthma, morbid obesity with cushingoid features, chronic back pain. Patient presented to the emergency department on 11/26/2018 with complaints of left lower lateral chest pain, and severe back pain, some shortness of breath, wheezing. Denied any fever or chills, denied any substernal pain, or discomfort. She does have chronic back pain, and apparently patient had recent CT of the spine on an outpatient basis, revealing degenerative changes in her spine. Report is not available to us at this time. 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 No weight loss, no hemoptysis. She then mentioned that she had also seen a physician for some discomfort in her left toe and apparently she had a test to check her circulation and the results are not available. Chest x-ray was completed in the emergency department showing subsegmental scattered ill-defined opacities, seen previously on previous chest x-rays, no new pulmonary or pleural processes. EKG showed sinus tachycardia, with T-wave inversion in anterior and lateral leads, troponins were elevated to 0.042, 0.050, and 0.034. White blood cell count was 13.2, hemoglobin was 11.8, serum sodium was 136, potassium is 3.9, chloride is 96, CO2 31, BUN is 40, creatinine 0.72. LFTs were within normal limits, patient was started on IV heparin for concerns of non-ST elevated myocardial infarction, patient has been seen by cardiology. Patient is normally on 20 mg of prednisone as a maintenance dose on a daily basis, she's been started on IV Solu-Medrol, breathing treatments, patient is on maintenance dose of azithromycin 250 mg on the Monday schedule for the anti-inflammatory properties. 11/28/18 On 11/28/2018 I'm seeing Jie for a follow-up. She was Hospital as for worsening shortness of breath. She had increased cough chest tightness and wheezing. Sent and the patient developed a new onset hoarseness. There was a concern of a left vocal cord paralysis. I saw this patient this afternoon and I proceeded with a CAT scan of the neck and the chest. The CAT scan showed a left hilar mass with a maximum AP dimension of 3.8 x 2 x 4.2 cm in size and there was also some pleural thickening noted in the upper aspect of the fissure on the left and there is some prevascular lymph nodes present in addition to superior mediastinal lymph nodes that are not enlarged. There was another left upper lobe pulmonary nodule measuring 12 mm in size. There was also multiple low density lesions in the liver, at least 12 was contacted of various sizes and this was consistent with metastatic bronchogenic cancer. There was also evidence of a left vocal cord paralysis consistent with recurrent laryngeal nerve paralysis. The patient is postcholecystectomy. There was incidental diverticulum the duodenum. There was also a 3.8 cm endophytic lesion in the right kidney not consistent with a simple cyst. Coronary artery calcifications were also noted. Based on this, had a lengthy discussion with the radiologist and we are planning to proceed with a fine-needle aspirate of the liver lesions to be done by interventional radiology. The patient otherwise is less short of breath compared to yesterday. She continues to have some congested cough. She has advanced COPD. She has FEV1 of 33% of predicted. She has been steroid dependent and she has obvious cushingoid features. Baseline performance and functional status is poor. LFTs are within normal limits. 11/29/2018 in follow-up on the selective care unit. She is currently sitting up at the bedside awake and alert in no acute distress. CAT scan was reviewed with the patient. There is a left hilar mass measuring 4.2 x 3.8 x 2 cm in addition to a 12 mm left upper lobe pulmonary nodule and multiple hepatic lesions co nsistent with metastatic carcinoma of the lung. 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 She was informed of the CAT scan results and is planning for a biopsy of the hepatic lesions tomorrow by interventional radiology. INR 1.1. She denies any worsening shortness of breath at this time. Back to her baseline. She remains quite hoarse. On DuoNeb inhalation, Symbicort, IV Solu-Medrol. 11/30/2018 in follow-up on the selective care unit. She is awake and alert in no acute distress. She denies any shortness of breath, cough or congestion. Maintaining O2 saturations in the 90s on 3 L/m per nasal cannula. Her main complaint is continued low back pain. She remains quite hoarse. Blood cultures reveal no growth. White count 21.8. Hemoglobin 11.0. Creatinine 0.50. Currently on azithromycin. She remains on bronchodilators and steroids as well. Interventional radiology unable to perform biopsy today. Patient will be discharged home and has scheduled an interventional radiology appointment for possible liver biopsy Patient Condition at Discharge: Fair Plan - Discharge Summary Discharge Rx Participant: No New Discharge Prescriptions: New Azithromycin [Zithromax] 250 mg PO MOWEFR@0900 #7 tab Continue Potassium Chloride [Klor-Con 20] 20 meq PO DAILY Glimepiride [Amaryl] 4 mg PO AC-BRKFST HYDROcodone/APAP 10-325MG [[place] 10-325] 1 tab PO Q6HR PRN PRN Reason: Pain Budesonide-Formot 160-4.5 Mcg [Symbicort 160-4.5 Mcg Inhaler] 2 puff INHALATION RT-BID Spironolactone 50 mg PO DAILY Albuterol Inhaler [Ventolin Hfa Inhaler] 2 puff INHALATION RT-Q4H PRN PRN Reason: Shortness Of Breath Omeprazole 40 mg PO DAILY Metoprolol Tartrate [Lopressor] 25 mg PO BID Lisinopril-Hctz 20-25 mg [Zestoretic 20-25] 1 tab PO DAILY Furosemide [Lasix] 40 mg PO BID Pioglitazone HCl [Actos] 30 mg PO DAILY ALPRAZolam [Xanax] 0.5 mg PO Q6H PRN PRN Reason: Anxiety Ipratropium-Albuterol Nebulize [Duoneb 0.5 mg-3 mg/3 ml Soln] 3 ml INHALATION QID #120 predniSONE 20 mg PO DAILY Baclofen [Lioresal] 5 mg PO Q8H PRN #20 tab PRN Reason: Spasms metFORMIN HCL [Glucophage] 500 mg PO HS metFORMIN HCL 1,000 mg PO QAM Nystatin 100,000 Unit/ml Susp [Mycostatin Oral Susp] 400,000 ml PO QID Discontinued Naproxen [Naprosyn] 250 mg PO TID #21 tab Discharge Medication List Glimepiride [Amaryl] 4 mg PO AC-BRKFST 07/31/17 [History] Potassium Chloride [Klor-Con 20] 20 meq PO DAILY 07/31/17 [History] Budesonide-Formot 160-4.5 Mcg [Symbicort 160-4.5 Mcg Inhaler] 2 puff INHALATION RT-BID 09/06/18 [History] HYDROcodone/APAP 10-325MG [[place] 10-325] 1 tab PO Q6HR PRN 09/06/18 [History] ALPRAZolam [Xanax] 0.5 mg PO Q6H PRN 09/27/18 [History] Albuterol Inhaler [Ventolin Hfa Inhaler] 2 puff INHALATION RT-Q4H PRN 09/27/18 [History] Furosemide [Lasix] 40 mg PO BID 09/27/18 [History] Lisinopril-Hctz 20-25 mg [Zestoretic 20-25] 1 tab PO DAILY 09/27/18 [History] Metoprolol Tartrate [Lopressor] 25 mg PO BID 09/27/18 [History] Omeprazole 40 mg PO DAILY 09/27/18 [History] Pioglitazone HCl [Actos] 30 mg PO DAILY 09/27/18 [History] Spironolactone 50 mg PO DAILY 09/27/18 [History] Ipratropium-Albuterol Nebulize [Duoneb 0.5 mg-3 mg/3 ml Soln] 3 ml INHALATION QID #120 10/27/18 [Rx] predniSONE 20 mg PO DAILY 11/19/18 [History] Baclofen [Lioresal] 5 mg PO Q8H PRN #20 tab 11/21/18 [Rx] Nystatin 100,000 Unit/ml Susp [Mycostatin Oral Susp] 400,000 ml PO QID 11/26/18 [History] metFORMIN HCL 1,000 mg PO QAM 11/26/18 [History] metFORMIN HCL [Glucophage] 500 mg PO HS 11/26/18 [History] Azithromycin [Zithromax] 250 mg PO MOWEFR@0900 #7 tab 11/30/18 [Rx] Follow up Appointment(s)/Referral(s): Grant Felix DO [Doctor of Osteopathic Medicine] - 12/26/18 9:30 am [facility], [NON-STAFF] - Grant Monroe MD [Primary Care Provider] - 12/07/18 12:30 pm (With Maribel.) Kareem Elise MD [STAFF PHYSICIAN] - 12/17/18 1:00 pm (Please keep previous follow up appointment with Dr. Elise.) Patient Instructions/Handouts: COPD (Chronic Obstructive Pulmonary Disease) (DC), Chronic Lung Disease and Infection Prevention (DC) Activity/Diet/Wound Care/Special Instructions: Hold naproxen until after biopsy to prevent risk of bleeding. Discharge Disposition: HOME SELF-CARE
[2018-11-30 17:09] LABS: Glucose,Whole Blood 235 mg/dL (75-99)
--- NOTE | 2018-12-03 17:53 | CDI ---
Documentation Clarification Form Date: 12/03/18 From: Leanna Barber Phone: If questions call Jie Almaraz @ [phone], Hours-8:30 am & 5 pm M- F Admit Date: 11/26/2018 11:25:00 PM Patient Name: Jie Anguiano Visit Number: [id number] Discharge Date: 11/30/2018 5:39:00 PM ATTENTION: The Clinical Documentation Specialists (CDI) and [facility] Coding Staff appreciate your assistance in clarifying documentation. Please respond to the clarification below the line at the bottom and electronically sign. The CDI & [facility] Coding staff will review the response and follow-up if needed. Please note: Queries are made part of the Legal Health Record. If you have any questions, please contact the author of this message via ITS. Dr. Edward Islas Abnormality in troponin, not consistent with acute coronary syndrome, likely secondary to hypoxia per PNs 11/28 & 11/29. Patient history/risk factors: left lung cancer, liver mets, AECOPD, chronic respiratory failure w hypoxia, paralysis of vocal cord, morbid obesity, DM Lab findings: Troponin I - 0.042, 0.050. 0.034 EKG: sinus tachycardia, w T-wave inversion in anterio and lateral leads Vital Signs: P - 107, R - 20, BP - 95/61, O2 stats - 92 NC Treatment: echo, O2, Nebulizer, Nitro-bid In your professional opinion, can you please clarify abnormal troponin? Type 2 Myocardial infarction Abnormal troponin Other Unable to determine MTDD
--- NOTE | 2018-12-13 11:09 | CDI ---
Documentation Clarification Form Date: 11/29/2018 10:16:00 AM From: Jeannette Us Phone: '[phone] Admit Date: 11/26/2018 11:25:00 PM Patient Name: Jie Anguiano Visit Number: [id number] Discharge Date: 11/30/2018 5:39:00 PM ATTENTION: The Clinical Documentation Specialists (CDI) and [facility] Coding Staff appreciate your assistance in clarifying documentation. Please respond to the clarification below the line at the bottom and electronically sign. The CDI & [facility] Coding staff will review the response and follow-up if needed. Please note: Queries are made part of the Legal Health Record. If you have any questions, please contact the author of this message via ITS. Dr. Edward Islas Chronic CHF is documented in the Cardiology Consult History/Risk Factors: 58 year old female presents to the ED with low blood pressure and shortness of breath. Medial his HTN; COPD; [place] Clinical Indicators: VS/Pulse OX: 95/61 107 97.7 92% 2L nc 20 Echocardiogram Results: Resting tachycardia (HR>100bpm) . Overall left systolic function is mildly impaired with, an EF between 45% - 50% Chest X Ray: Stable radiographic findings Treatment: Lasix po; Lopressor; Lisinopril Hctz In your professional opinion, can you please clarify the acuity and type of CHF if known? * Chronic Systolic Heart Failure * Unable to Determine * Other, please specify (Last Revision: September 2017) MTDD
--- NOTE | 2018-12-13 15:31 | CDI ---
Documentation Clarification Form Date: 12/13/2018 From: Leanna Barber Phone: If questions call Jie Almaraz @ [phone], Hours-8:30 am & 5 pm M- F Admit Date: 11/26/2018 11:25:00 PM Patient Name: Jie Anguiano Visit Number: [id number] Discharge Date: 11/30/2018 5:39:00 PM ATTENTION: The Clinical Documentation Specialists (CDI) and [facility] Coding Staff appreciate your assistance in clarifying documentation. Please respond to the clarification below the line at the bottom and electronically sign. The CDI & [facility] Coding staff will review the response and follow-up if needed. Please note: Queries are made part of the Legal Health Record. If you have any questions, please contact the author of this message via ITS. Dr. Edward Islas Abnormality in troponin, not consistent with acute coronary syndrome, likely secondary to hypoxia per PNs 11/28 & 11/29. Patient history/risk factors: left lung cancer, liver mets, AECOPD, chronic respiratory failure w hypoxia, paralysis of vocal cord, morbid obesity, DM Lab findings: Troponin I - 0.042, 0.050. 0.034 EKG: sinus tachycardia, w T-wave inversion in anterio and lateral leads Vital Signs: P - 107, R - 20, BP - 95/61, O2 stats - 92 NC Treatment: echo, O2, Nebulizer, Nitro-bid In your professional opinion, can you please clarify abnormal troponin? Type 2 Myocardial infarction Abnormal troponin Other Unable to determine MTDD
--- NOTE | 2018-12-27 15:57 | P.PN ---
Progress Note - Text Progress Note Date: 12/27/18 This is an addendum to the cardiology progress notes dictated. Patient had diastolic congestive heart failure acute on chronic. Troponin abnormality suggested a type II myocardial infarction. DNP note has been reviewed, I agree with a documented findings and plan of care. Patient was seen and examined.
== END 2018-11-30 17:39 | disposition home health service (06) | DRG 180 ==
LOC: EC 20:11 → 3SCARD 23:25
PROVIDERS: ADMIT Hospitalist; ATTEND Hospitalist
DX: C34.82 Malignant neoplasm of overlapping sites of left bronchus and lung (principal); I21.A1 Myocardial infarction type 2; I50.33 Acute on chronic diastolic (congestive) heart failure; C78.7 Secondary malignant neoplasm of liver and intrahepatic bile duct; J44.1 Chronic obstructive pulmonary disease with (acute) exacerbation; J96.11 Chronic respiratory failure with hypoxia; J38.01 Paralysis of vocal cords and larynx, unilateral; E66.01 Morbid (severe) obesity due to excess calories; I11.0 Hypertensive heart disease with heart failure; E11.9 Type 2 diabetes mellitus without complications; F41.1 Generalized anxiety disorder; F42.9 Obsessive-compulsive disorder, unspecified; G47.33 Obstructive sleep apnea (adult) (pediatric); G89.29 Other chronic pain; I25.10 Atherosclerotic heart disease of native coronary artery without angina pectoris; M62.838 Other muscle spasm; K21.9 Gastro-esophageal reflux disease without esophagitis; M47.26 Other spondylosis with radiculopathy, lumbar region; N28.9 Disorder of kidney and ureter, unspecified; Z68.36 Body mass index [BMI] 36.0-36.9, adult; Z99.81 Dependence on supplemental oxygen; Z79.51 Long term (current) use of inhaled steroids; Z79.84 Long term (current) use of oral hypoglycemic drugs; Z79.52 Long term (current) use of systemic steroids; Z79.899 Other long term (current) drug therapy; Z90.49 Acquired absence of other specified parts of digestive tract; Z87.01 Personal history of pneumonia (recurrent); Z86.711 Personal history of pulmonary embolism; Z86.79 Personal history of other diseases of the circulatory system; Z99.89 Dependence on other enabling machines and devices; Z98.890 Other specified postprocedural states; Z98.51 Tubal ligation status; Z88.8 Allergy status to other drugs, medicaments and biological substances; Z81.1 Family history of alcohol abuse and dependence
CPT/HCPCS: 36415; 70491; 71046; 71260; 80048; 80053; 80061; 84484; 85025; 85049; 85610; 85730; 87040; 93005; 93308; 94640; 94760; 96365; 96366; 96375; 96376; 99285

== ENCOUNTER 2018-12-08 18:44 | Inpatient (IN) | payer MEDICAID ==
[2018-12-08] MEDS ORDERED: LORazepam 2 MG/ML INJ IV PRN (19:56)
[2018-12-08] MEDS ORDERED: ATROPINE OPHTH SOLN 1% 5ML BTL SUBLINGUAL PRN (19:56)
[2018-12-08] MEDS ORDERED: ONDANSETRON 4 MG/2 ML VIAL IVP PRN (19:56)
[2018-12-08] MEDS ORDERED: ACETAMINOPHEN SUPPOSITORY 650 MG SUPP RECTAL PRN (19:56)
[2018-12-08] MEDS: MORPHINE SULFATE 2 MG/ML SYRINGE IV PRN (20:21)
[2018-12-08] MEDS ORDERED: ALBUTEROL NEBULIZED 2.5 MG/3 ML INHALATION PRN (21:05)
[2018-12-08] MEDS ORDERED: HYDROcodone/APAP 10-325MG 1 EACH TAB PO PRN (21:06)
[2018-12-08] MEDS ORDERED: ALPRAZolam 1 MG TAB PO PRN (21:07)
[2018-12-08 21:50] VITALS: BP 92/56; TEMP 97.9
[2018-12-08] MEDS: ALBUTEROL NEBULIZED 2.5 MG/3 ML INHALATION PRN (21:54)
[2018-12-08] MEDS ORDERED: NYSTATIN 100,000 UNIT/ML SUSP 500,000 UNIT/5 ML CUP PO SCH (22:00)
[2018-12-08] MEDS: ALPRAZolam 0.5 MG TAB PO PRN (22:14)
[2018-12-08] MEDS: HYDROcodone/APAP 10-325MG 1 EACH TAB PO PRN (22:14)
[2018-12-09] MEDS ORDERED: IPRATROPIUM-ALBUTEROL 3 ML NEB INHALATION SCH
[2018-12-09] MEDS: MORPHINE SULFATE 2 MG/ML SYRINGE IV PRN ×2 (00:20→08:38)
[2018-12-09] MEDS: ALPRAZolam 0.5 MG TAB PO PRN ×2 (03:57→12:24)
[2018-12-09] MEDS: HYDROcodone/APAP 10-325MG 1 EACH TAB PO PRN (03:57)
[2018-12-09] MEDS: ALBUTEROL NEBULIZED 2.5 MG/3 ML INHALATION PRN (04:17)
[2018-12-09 06:52] LABS: Glucose,Whole Blood 293 mg/dL (75-99)
[2018-12-09] MEDS ORDERED: PANTOPRAZOLE 40 MG TABLET PO SCH (07:30)
[2018-12-09] MEDS ORDERED: SYMBICORT 160-4.5 MCG INHALER INHALATION SCH (08:00)
[2018-12-09] MEDS: IPRATROPIUM-ALBUTEROL 3 ML NEB INHALATION SCH ×3 (08:38→15:58)
[2018-12-09] MEDS: SYMBICORT 160-4.5 MCG INHALER INHALATION SCH ×2 (08:38→08:46)
[2018-12-09] MEDS ORDERED: MORPHINE SULFATE 2 MG/ML SYRINGE IVP STA (11:12)
[2018-12-09] MEDS ORDERED: MORPHINE SULFATE (100 MG/2 ML) 100 MG in SODIUM CHLORIDE 0.9% 100 ML IV SCH (11:15)
[2018-12-09 14:12] VITALS: RESP 36
[2018-12-09 16:08] VITALS: PULSE 130
--- NOTE | 2018-12-09 21:07 | PN ---
PROGRESS NOTE DATE OF SERVICE: 12/09/2018 HISTORY: This 58-year-old woman was admitted with COPD acute exacerbation also had a recently diagnosed metastatic lung malignancy. The patient was treated with multiple medications including bronchodilators and other medication. Patient did not improve and case was discussed at length with pulmonary, Hematology, Oncology and Radiation therapy and Radiation Oncology and with the family and the patient. The patient had decided to initiate the patient on hospice and hospice was contacted and patient is currently on morphine drip at 1 mg/hour. EXAM: The patient is stuporous. Pulse is 126. The blood pressure not available. Respiratory rate 36. HEENT: Conjunctivae normal. NECK: No jugular venous distention. CARDIOVASCULAR: S1, S2 muffled. RESPIRATORY: Breath sounds diminished in the bases. Bilateral scattered rhonchi and crackles. Expiratory wheezing also present. ABDOMEN: Soft, obese. LEGS: No edema. No swelling. CENTRAL NERVOUS SYSTEM: No focal deficits. LABS: Glucose 293. ASSESSMENT: 1. Chronic obstructive pulmonary disease acute exacerbation with acute hypoxic hypercarbic respiratory failure with failure of outpatient treatment with acute purulent tracheobronchitis with BiPAP. 2. Left hilar mass with metastasis of the liver, status post ultrasound-guided biopsy, possibly metastatic poorly differentiated non-small cell lung cancer or adenocarcinoma. 3. Obesity. 4. Diabetes type 2 with hyperglycemia with uncontrolled blood sugars. 5. Obstructive sleep apnea. 6. History of congestive heart failure with chronic diastolic dysfunction, ejection fraction 40-50 percent. 7. History of chronic generalized anxiety disorder. 8. History of chronic back pain. 9. History of possible acute non ST segment elevation myocardial infarction, possibly type 2 myocardial infarction, possibly secondary to supply demand mismatch, present on admission. 10.Hyponatremia. 11.History of asthma. 12.History of chronic obstructive pulmonary disease. 13.History of congestive heart failure. 14.Hypertension. 15.History of degenerative joint disease. 16.History of pulmonary embolism. 17.History of sleep apnea. 18.History of chronic hypoxic respiratory failure. 19.History of cholecystectomy. 20.History of anxiety. 21.History of nicotine dependence. 22.NO CODE, NO CPR, NO VENT. 23.ON COMFORT MEASURES IN HOSPICE. RECOMMENDATIONS AND DISCUSSION: I recommend to continue current medications, management and symptomatic treatment. Monitoring. Otherwise at this time I recommend continue with the bronchodilators. Continue with hospice care. Otherwise some morphine drip. Overall prognosis extremely guarded, which I discussed at length with the family and further recommendations to follow. Closely follow with hospice. MMODL / IJN: [id number] /
--- NOTE | 2018-12-11 08:16 | DS ---
DISCHARGE SUMMARY FINAL DIAGNOSES: PRELIMINARY CAUSE OF : Chronic obstructive pulmonary disease acute exacerbation. OTHER DIAGNOSES ARE: 1. Acute hypoxic hypercarbic respiratory failure with failure of outpatient admitted with acute purulent tracheobronchitis with BiPAP secondary to chronic obstructive pulmonary disease. 2. Left hilar mass with metastasis of the liver, status post ultrasound-guided biopsy, possible metastatic poorly differentiated small cell lung cancer or adenocarcinoma. 3. Obesity. 4. Diabetes mellitus type 2 with hyperglycemia with uncontrolled blood sugars. 5. History of obstructive sleep apnea. 6. History of congestive heart failure with chronic diastolic dysfunction, ejection fraction 40% to 50%. 7. History of chronic generalized anxiety disorder. 8. History of chronic back pain. 9. History of possible acute non ST-segment elevation myocardial infarction, possibly type 2 myocardial infarction, possibly secondary to supply demand mismatch present on admission. 10.Hyponatremia. 11.History of asthma. 12.History of chronic obstructive pulmonary disease. 13.History of congestive heart failure. 14.Hypertension. 15.History of degenerative joint disease. 16.History of pulmonary embolism. 17.History of sleep apnea. 18.History of chronic hypoxic respiratory failure. 19.History of cholecystectomy. 20.History of anxiety. 21.History of nicotine dependence. 22.NO CODE, NO CPR, NO VENT. 23.Comfort measures in hospice. HISTORY OF PRESENT ILLNESS: This 58-year-old woman with a past medical history of multiple medical problems as mentioned earlier was admitted with COPD acute exacerbation, acute hypoxic hypercarbic respiratory failure. Patient treated in conjunction with Pulmonary. The patient was on BiPAP for a long time. Patient also had left hilar mass. Patient also had liver mets apparently. The patient had a liver biopsy, which came back positive with poorly differentiated possibly non-small cell lung cancer. The further options for treatment included radiation and chemotherapy were discussed with the patient at length, but however the patient's general condition was very poor and respiratory status was very poor with requiring BiPAP and extremely short of breath and the patient has been unable to lie flat for further evaluation with CAT scan also at this point. Once again, the case was discussed at length with the family and the patient and decided to go with hospice and comfort measures. Please refer to the multiple progress notes, consultations, staff notes and hospice notes for further details. Subsequently, morphine drip was initiated and the patient because of the above mentioned multiple complex medical issues and the prognosis was extremely guarded throughout the hospital stay, which was discussed on multiple occasions with the family. The patient was followed by Dr. Monroe in the outpatient setting. MMTIRSOL / SHERMANN: [id number] /
== END 2018-12-09 17:25 | disposition expired | DRG 951 ==
LOC: 3NMEDONC 20:08
PROVIDERS: ADMIT Internal Medicine; ATTEND Internal Medicine
DX: Z51.5 Encounter for palliative care (principal); J96.21 Acute and chronic respiratory failure with hypoxia; J96.22 Acute and chronic respiratory failure with hypercapnia; C34.90 Malignant neoplasm of unspecified part of unspecified bronchus or lung; C78.7 Secondary malignant neoplasm of liver and intrahepatic bile duct; E87.1 Hypo-osmolality and hyponatremia; I50.32 Chronic diastolic (congestive) heart failure; J44.1 Chronic obstructive pulmonary disease with (acute) exacerbation; Z66 Do not resuscitate; I11.0 Hypertensive heart disease with heart failure; E11.65 Type 2 diabetes mellitus with hyperglycemia; E66.9 Obesity, unspecified; F41.1 Generalized anxiety disorder; G47.33 Obstructive sleep apnea (adult) (pediatric); G89.29 Other chronic pain; M19.90 Unspecified osteoarthritis, unspecified site; M54.9 Dorsalgia, unspecified; J20.9 Acute bronchitis, unspecified; I25.2 Old myocardial infarction; Z68.32 Body mass index [BMI] 32.0-32.9, adult; Z87.891 Personal history of nicotine dependence; Z90.49 Acquired absence of other specified parts of digestive tract; Z86.711 Personal history of pulmonary embolism
CPT/HCPCS: 94640